=== PATIENT | male | born 1955 | race Caucasian/White ===

== ENCOUNTER 2017-11-24 10:17 | Day surgery (SDC) | payer BC ==
[2017-11-17 18:11] VITALS: BMI 23.0
[~2017-11-24 10:17] MED LIST: DEXAMETHASONE SOD PHOSPHATE 10 MG/ML 1 ML VIAL IV ONE; DEXAMETHASONE SOD PHOSPHATE 4 MG/ML 1 ML VIAL IV ONE; FAMOTIDINE 20 MG/2 ML VIAL IV ONE; LACTATED RINGERS 1,000 ML IV SCH; LIDOCAINE 1% 20 ML VIAL (10MG/ML) FOR IV START INTRADERMA PRN; MIDAZOLAM 2 MG/2 ML VIAL IV PRN; ONDANSETRON 4 MG/2 ML VIAL IVP ONE; fentaNYL (PF) 50 MCG/ML 2 ML AMP IV PRN
[2017-11-24] MEDS ORDERED: PROPOFOL 10 MG/ML 20 ML VIAL IV ONE (12:20)
[2017-11-24] MEDS ORDERED: fentaNYL (PF) 50 MCG/ML 2 ML AMP ONE (12:20)
[2017-11-24] MEDS ORDERED: SUCCINYLCHOLINE CHLORIDE 100 MG/5 ML SYR IV ONE (12:20)
[2017-11-24] MEDS ORDERED: MIDAZOLAM 2 MG/2 ML VIAL ONE (12:20)
[2017-11-24] MEDS ORDERED: LIDOCAINE 1% INJ 10MG/ML (20 ML MDV) ONE (12:20)
--- NOTE | 2017-11-24 13:04 | P.OP ---
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 He was noted to have bilateral anterior true vocal cord lesions with flexible laryngoscopy Operative Findings: Patient has an erythematous exophytic lesion of the anterior commissure. Biopsies were taken of both true vocal cords however this appeared to be a confluent lesion. Total size approximately 5-6 mm. The mucosa of the anterior commissure was left intact as much as possible. Description of Procedure: The patient was brought in the operative suite and placed supine position. Patient underwent induction of general anesthesia with oral endotracheal intubation without difficulty. The patient was prepped and draped in usual aseptic fashion. Tooth guard was placed. Direct endoscopy was performed with systematic evaluation of the base of tongue vallecula both piriform sinuses post cricoid area and endolarynx. With the larynx in good visualization the laryngoscope was placed in suspension and the Zeiss microscope was brought into position to visualize the vocal cords through the laryngoscope. With the lesion in good visualization multiple biopsies were taken with microcup forceps of the right and left anterior true vocal cords. Biopsies were taken of the anterior commissure anteriorly posterior also with sidedness placed in the specimens of the right and left true vocal cords with the mucosa of the anterior commissure left intact as much as possible. Good hemostasis was noted. The laryngoscope and tooth guard removed. The patient was allowed to emerge from general anesthesia having tolerated procedure well was excised in the operating suite and transferred postoperative recovery area in satisfactory condition.
[2017-11-24 13:22] VITALS: RESP 16; TEMP 98
[2017-11-24 14:09] VITALS: BP 162/88; PULSE 66
== END 2017-11-24 14:15 | disposition home or self-care (01) ==
LOC: OR 10:17
PROVIDERS: ATTEND Otolaryngology
DX: D02.0 Carcinoma in situ of larynx (principal); J43.9 Emphysema, unspecified; Z79.51 Long term (current) use of inhaled steroids; Z79.899 Other long term (current) drug therapy; Z88.0 Allergy status to penicillin; Z88.2 Allergy status to sulfonamides; Z87.891 Personal history of nicotine dependence
CPT/HCPCS: 88305; 31536; J2250; J1100; J2405; J2001; J3010; J0330; J2704

== ENCOUNTER 2017-12-04 21:31 | Inpatient (IN) | payer BC ==
[2017-12-04] MEDS ORDERED: HYDROcodone/APAP 5-325MG 1 EACH TAB PO STA (21:42)
--- NOTE | 2017-12-04 21:56 | ED ---
Fall HPI - General Chief Complaint: Fall Stated Complaint: Fall Time Seen by Provider: 12/04/17 21:34 Source: patient, EMS Mode of arrival: EMS - History of Present Illness Initial Comments: Patient is a 62-year-old male presenting for right hip and right leg pain. 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 He states that his wallet was in his back pocket and it is fairly large which caused him to have pain in the right hip and right leg and he has been unable to move it since then. However, he denies any numbness or pain below the mid thigh. He also denies striking his head, back pain, neck pain, taking blood thinners. - Related Data Home Medications Medication Instructions Recorded Confirmed Albuterol Inhaler [Ventolin Hfa 1 - 2 puff INHALATION RT-Q6H PRN 11/17/17 Inhaler] Budesonide/Formoterol Fumarate 2 puff INHALATION BID 11/17/17 11/24/17 [Symbicort 160-4.5 Mcg Inhaler] Multivitamins, Thera [Multivitamin 1 tab PO DAILY 11/17/17 11/24/17 (formulary)] Vitamin B Complex 1 each PO DAILY 11/17/17 11/24/17 Allergies Allergy/AdvReac Type Severity Reaction Status Date / Time Penicillins Allergy Unknown Verified 11/24/17 10:50 Sulfa (Sulfonamide Allergy Unknown Verified 11/24/17 10:50 Antibiotics) Review of Systems ROS Statement: Those systems with pertinent positive or pertinent negative responses have been documented in the HPI. Constitutional: Negative for chills, fatigue and fever. HENT: Negative for congestion. Respiratory: Negative for chest tightness, shortness of breath and wheezing. Negative for cough Cardiovascular: Negative for chest pain and palpitations. Gastrointestinal: Negative for abdominal pain. Negative for abdominal distention , diarrhea, nausea and vomiting. Genitourinary: Negative for dysuria. Musculoskeletal: Negative for back pain, neck pain and neck stiffness. Positive for right hip pain and right thigh pain Skin: Negative for color change. Neurological: Negative for dizziness, speech difficulty, weakness and light- headedness. Psychiatric/Behavioral: Negative for agitation and confusion. Negative for anxiety ROS Other: All systems not noted in ROS Statement are negative. Past Medical History Past Medical History: COPD History of Any Multi-Drug Resistant Organisms: None Reported Additional Past Surgical History / Comment(s): lump removed from throat "benign " Past Anesthesia/Blood Transfusion Reactions: No Reported Reaction Past Psychological History: No Psychological Hx Reported Smoking Status: Former smoker Past Alcohol Use History: Daily Past Drug Use History: None Reported - Past Family History Mother Family Medical History: No Reported History General Exam - General Exam Comments Initial Comments: Constitutional: Pt is oriented to person, place, and time. Pt appears well- developed and well-nourished. No distress. HENT: Head: Normocephalic and atraumatic. Eyes: EOM are normal. Pupils 3 mm reactive bilaterally Neck: Normal range of motion. Neck supple. Cardiovascular: Normal rate, regular rhythm, S1 normal, S2 normal and normal heart sounds. Exam reveals no gallop and no friction rub. No murmur heard. Pulmonary/Chest: Effort normal and breath sounds normal. No tachypnea and no bradypnea. No respiratory distress. No wheezes or rales noted. Abdominal: Soft. Bowel sounds are normal. Pt exhibits no shifting dullness, no distension, no pulsatile liver, no fluid wave, no abdominal bruit and no ascites. There is no tenderness. There is no rigidity, no rebound, no guarding, no tenderness at McBurney's point and negative Johnson's sign. Musculoskeletal: Decreased range of motion of the right hip and right leg. There is mild tenderness on the greater trochanter of the right hip. There is no thigh tenderness. Patient has full range of motion of the right knee and ankle area there is no tenderness to C-spine, T-spine, L-spine Neurological: Pt is alert and oriented to person, place, and time. No cranial nerve deficit. Skin: Skin is warm and dry. No rash noted. Pt is not diaphoretic. No erythema. No pallor. Psychiatric: Pt has a normal mood and affect. Pt behavior is normal. Thought content normal. Course Vital Signs 12/04/17 12/04/17 12/04/17 21:36 22:40 22:49 Temperature 98.3 F Pulse Rate 92 89 73 Respiratory 16 18 20 Rate Blood Pressure 125/80 130/69 124/73 O2 Sat by Pulse 93 L 97 99 Oximetry Medical Decision Making - Medical Decision Making X-ray showed an acute intertrochanteric fracture of the right femur with mild [place] deformity. Proximal left femur is intact. Case is discussed with Dr. Johnson it was recommended that the patient be admitted under medical service as he does have a history of COPD. Because patient had a ground-level fall with isolated hip fracture, patient can be admitted to medicine per trauma algorithm.Explained all labs and diagnostic test results and that we will admit patient to hospital. Pt is agreeable to plan and case has been discussed with Dr. Chi and they agree to accept the pt. patient is also been made nothing by mouth at the request orthopedics. - Lab Data Result diagrams: 12/04/17 22:38 12/04/17 22:38 Lab Results 12/04/17 12/04/17 12/04/17 Range/Units 22:38 22:38 22:38 WBC 12.9 H (3.8-10.6) k/uL RBC 4.33 (4.30-5.90) m/uL Hgb 14.5 (13.0-17.5) gm/dL Hct 44.6 (39.0-53.0) % MCV 103.1 H (80.0-100.0) fL MCH 33.6 (25.0-35.0) pg MCHC 32.6 (31.0-37.0) g/dL RDW 12.8 (11.5-15.5) % Plt Count 309 (150-450) k/uL Neutrophils % 79 % Lymphocytes % 13 % Monocytes % 5 % Eosinophils % 1 % Basophils % 1 % Neutrophils # 10.2 H (1.3-7.7) k/uL Lymphocytes # 1.7 (1.0-4.8) k/uL Monocytes # 0.7 (0-1.0) k/uL Eosinophils # 0.1 (0-0.7) k/uL Basophils # 0.1 (0-0.2) k/uL Macrocytosis Slight PT (9.0-12.0) sec INR (<1.2) APTT (22.0-30.0) sec Sodium 138 (137-145) mmol/L Potassium 5.2 H (3.5-5.1) mmol/L Chloride 107 (98-107) mmol/L Carbon Dioxide 21 L (22-30) mmol/L Anion Gap 10 mmol/L BUN 10 (9-20) mg/dL Creatinine 0.70 (0.66-1.25) mg/dL Est GFR (CKD-EPI)AfAm >90 (>60 ml/min/1.73 sqM) Est GFR (CKD-EPI)NonAf >90 (>60 ml/min/1.73 sqM) Glucose 100 H (74-99) mg/dL Calcium 8.6 (8.4-10.2) mg/dL Serum Alcohol 127 mg/dL Blood Type A Negative Blood Type Recheck CABO Indicated Antibody Screen NEGATIVE Spec Expiration Date 12/07/2017 - 233712/04/17 Range/Units 22:38 WBC (3.8-10.6) k/uL RBC (4.30-5.90) m/uL Hgb (13.0-17.5) gm/dL Hct (39.0-53.0) % MCV (80.0-100.0) fL MCH (25.0-35.0) pg MCHC (31.0-37.0) g/dL RDW (11.5-15.5) % Plt Count (150-450) k/uL Neutrophils % % Lymphocytes % % Monocytes % % Eosinophils % % Basophils % % Neutrophils # (1.3-7.7) k/uL Lymphocytes # (1.0-4.8) k/uL Monocytes # (0-1.0) k/uL Eosinophils # (0-0.7) k/uL Basophils # (0-0.2) k/uL Macrocytosis PT 10.6 (9.0-12.0) sec INR 1.1 (<1.2) APTT 23.9 (22.0-30.0) sec Sodium (137-145) mmol/L Potassium (3.5-5.1) mmol/L Chloride (98-107) mmol/L Carbon Dioxide (22-30) mmol/L Anion Gap mmol/L BUN (9-20) mg/dL Creatinine (0.66-1.25) mg/dL Est GFR (CKD-EPI)AfAm (>60 ml/min/1.73 sqM) Est GFR (CKD-EPI)NonAf (>60 ml/min/1.73 sqM) Glucose (74-99) mg/dL Calcium (8.4-10.2) mg/dL Serum Alcohol mg/dL Blood Type Blood Type Recheck Antibody Screen Spec Expiration Date Disposition Clinical Impression: Closed right hip fracture Disposition: ADMITTED IP TO THIS HOSP Condition: Good Instructions: Fall Prevention for Older Adults (ED) Referrals: Alen Tracy MD [Primary Care Provider] - 1-2 days Decision to Admit Reason: Admit from EC Decision Date: 12/05/17 Decision Time: 00:10
--- NOTE | 2017-12-04 22:17 | XR ---
EXAMINATION TYPE: XR femur RT DATE OF EXAM: 12/04/2017 COMPARISON: NONE HISTORY: Hip pain TECHNIQUE: 5 views FINDINGS: There is acute intertrochanteric fracture of the right femur with coxa vera deformity. Ther e is no dislocation. The knee joint is intact. IMPRESSION: Acute intertrochanteric fracture right femur.
--- NOTE | 2017-12-04 22:18 | XR ---
EXAMINATION TYPE: XR pelvis AP view DATE OF EXAM: 12/04/2017 COMPARISON: NONE HISTORY: Right hip pain TECHNIQUE: Single view FINDINGS: Pelvic ring is intact. There is an acute intertrochanteric fracture right femur with mild c oxa vera deformity. Proximal left femur is intact. Sacroiliac joints appear normal. IMPRESSION: Acute intertrochanteric fracture right femur.
[2017-12-04] MEDS ORDERED: MORPHINE SULFATE 4 MG/ML SYRINGE IVP STA (22:25)
[2017-12-04 22:47] LABS: Basophils # (A) 0.1 k/uL (0-0.2); Basophils % (A) 1 %; Eosinophils # (A) 0.1 k/uL (0-0.7); Eosinophils % (A) 1 %; HCT 44.6 % (39.0-53.0); HGB 14.5 gm/dL (13.0-17.5); Lymphocytes # (A) 1.7 k/uL (1.0-4.8); Lymphocytes % (A) 13 %; MCH 33.6 pg (25.0-35.0); MCHC 32.6 g/dL (31.0-37.0); MCV 103.1 fL (80.0-100.0); Macrocytosis Slight; Mean Platelet Volume 6.9; Monocytes # (A) 0.7 k/uL (0-1.0); Monocytes % (A) 5 %; Neutrophils # (A) 10.2 k/uL (1.3-7.7); Neutrophils % (A) 79 %; Platelet Count 309 k/uL (150-450); RBC 4.33 m/uL (4.30-5.90); RDW 12.8 % (11.5-15.5); WBC 12.9 k/uL (3.8-10.6)
[2017-12-04 22:54] LABS: INR 1.1 (<1.2); Partial Thromboplastin Time 23.9 sec (22.0-30.0); Prothrombin Time 10.6 sec (9.0-12.0)
[2017-12-04 22:56] LABS: Anion Gap 10 mmol/L; Blood Urea Nitrogen 10 mg/dL (9-20); Calcium 8.6 mg/dL (8.4-10.2); Carbon Dioxide 21 mmol/L (22-30); Chloride 107 mmol/L (98-107); Glucose 100 mg/dL (74-99); Sodium 138 mmol/L (137-145)
[2017-12-04 23:29] LABS: Alcohol 127 mg/dL; Potassium 5.2 mmol/L (3.5-5.1)
[2017-12-04] MEDS ORDERED: HYDROmorphone 0.5 MG/0.5 ML SYRINGE IVP STA (23:34)
[2017-12-05] MEDS ORDERED: NALOXONE 0.4 MG/ML 1 ML VIAL IV PRN (00:15)
[2017-12-05] MEDS ORDERED: HYDROmorphone 0.5 MG/0.5 ML SYRINGE IVP PRN (00:15)
[2017-12-05 01:02] VITALS: BMI 23.0
[2017-12-05] MEDS: SODIUM CHLORIDE 0.9% 1,000 ML IV SCH ×2 (01:28→01:53)
[2017-12-05] MEDS: HYDROmorphone 1 MG/ML 1 ML SYRINGE IVP PRN ×6 (06:19→23:36)
--- NOTE | 2017-12-05 08:55 | P.CNOR ---
History of Present Illness - [facility] Consult date: 12/05/17 Requesting physician: Tera Johnson Consult reason: fracture History of present illness: Patient is a 62-year-old male seen at bedside male this morning. He presented to the emergency department last evening after suffering a fall resulting in right hip pain. 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 He states that his wallet was in his back pocket and it is fairly large which caused him to have pain in the right hip and right leg and he has been unable to move it since then. Radiologic studies showed a right intertrochanteric femur fracture. He is admitted to internal medicine. He continues to have right hip pain as expected. However, he denies any numbness or pain below the mid thigh. He also denies striking his head, back pain, neck pain, taking blood thinners. 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 Review of systems is negative for fever, chills, chest pain, shortness of breath, nausea, vomiting, dizziness, headaches, slurred speech or other. Review of Systems All systems: negative Constitutional: Denies chills, Denies fever Eyes: denies blurred vision, denies pain Ears, nose, mouth and throat: Denies headache, Denies sore throat Cardiovascular: Denies chest pain, Denies shortness of breath Respiratory: Denies cough Gastrointestinal: Denies abdominal pain, Denies diarrhea, Denies nausea, Denies vomiting Musculoskeletal: Denies myalgias Integumentary: Denies pruritus, Denies rash Neurological: Denies numbness, Denies weakness Psychiatric: Denies anxiety, Denies depression Endocrine: Denies fatigue, Denies weight change Past Medical History Past Medical History: COPD History of Any Multi-Drug Resistant Organisms: None Reported Additional Past Surgical History / Comment(s): lump removed from throat "benign " Past Anesthesia/Blood Transfusion Reactions: No Reported Reaction Past Psychological History: No Psychological Hx Reported Smoking Status: Former smoker Past Alcohol Use History: Daily Additional Past Alcohol Use History / Comment(s): smoked since age 11, 10cig/d quit smoking 3 weeks ago Past Drug Use History: None Reported - Past Family History Mother Family Medical History: No Reported History Medications and Allergies Home Medications Medication Instructions Recorded Confirmed Type Albuterol Inhaler [Ventolin Hfa 1 - 2 puff INHALATION RT-Q6H PRN 11/17/17 History Inhaler] Budesonide/Formoterol Fumarate 2 puff INHALATION BID 11/17/17 11/24/17 History [Symbicort 160-4.5 Mcg Inhaler] Multivitamins, Thera [Multivitamin 1 tab PO DAILY 11/17/17 11/24/17 History (formulary)] Vitamin B Complex 1 each PO DAILY 11/17/17 11/24/17 History Allergies Allergy/AdvReac Type Severity Reaction Status Date / Time Penicillins Allergy Unknown Verified 11/24/17 10:50 Sulfa (Sulfonamide Allergy Unknown Verified 11/24/17 10:50 Antibiotics) Physical Examination Inspection of the right lower extremity shows no wounds, lacerations, erythema or ecchymoses. It is shortened and externally rotated. Range of motion of the hip is not tested due to the fracture. Neurovascular status is grossly intact with motor and sensation throughout the right lower extremity. Calf is soft and nontender. 2+ dorsalis pedis pulse and less than 2 second capillary refill is present. Results X-rays of the pelvis and right femur show an intertrochanteric right femur fracture. - Labs Labs: Abnormal Lab Results - Last 24 Hours (Table) 12/04/17 12/04/17 Range/Units 22:38 22:38 WBC 12.9 H (3.8-10.6) k/uL MCV 103.1 H (80.0-100.0) fL Neutrophils # 10.2 H (1.3-7.7) k/uL Potassium 5.2 H (3.5-5.1) mmol/L Carbon Dioxide 21 L (22-30) mmol/L Glucose 100 H (74-99) mg/dL H & H 12/04/17 Range/Units 22:38 Hgb 14.5 (13.0-17.5) gm/dL Hct 44.6 (39.0-53.0) % Coagulation 12/04/17 Range/Units 22:38 INR 1.1 (<1.2) Result Diagrams: 12/04/17 22:38 12/04/17 22:38 Assessment and Plan (1) Closed right hip fracture Narrative/Plan: Patient will require surgical fixation of his right intertrochanteric hip fracture with IT/gamma nail. He has been nothing by mouth. He appears to be medically stable but we'll request internal medicine surgical clearance. Plan is to proceed with surgical intervention either today or tomorrow. Current Visit: Yes Status: Acute Priority: Medium Code(s): S72.001A - FRACTURE OF UNSP PART OF NECK OF RIGHT FEMUR, INIT SNOMED Code(s): 020100425 Time with Patient: Less than 30
--- NOTE | 2017-12-05 09:28 | XR ---
EXAMINATION TYPE: XR chest 1V portable DATE OF EXAM: 12/05/2017 Comparison: None Clinical History: 62-year-old male medical clearance Findings: Heart mildly enlarged. Aorta within normal limits. Mild diffuse interstitial prominence has a chronic appearance. Subtle nodularity peripheral right midlung projecting at the fifth anterior rib. No cons olidation or pleural effusion. Focal hazy peripheral midlung densities related to overlying soft tiss ue. Impression: 1. Mild cardiomegaly. 2. Chronic changes, possible underlying COPD. No acute process seen. 3. Questionable subtle nodularity peripheral right midlung. If history of prior thoracic wall injury, this could represent healed rib fracture deformity. A nonemergent follow-up CT can assess for underl orly pulmonary nodule.
--- NOTE | 2017-12-05 19:53 | P.HPIM ---
History of Present Illness H&P Date: 12/05/17 Chief Complaint: fell backward Presenting complaint: Fell backwards History of presenting complaint: This is a pleasant 62-year-old patient who follows with Dr. garrison out of [place]. Patient has a diagnosis of COPD from smoking. 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 When he got up he couldn't really put weight on the leg. That is his left leg. Patient was localized to the left hip.. Patient presented to the ER and was found to have a left femur ID fracture. Patient active otherwise. Denies any cardiac history. Patient to be long-standing smoker stopped smoking over a week to 10 days ago. 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 Salvador Silverman. Patient due for a CAT scan next week. Of the neck. Patient denies any cardiac history. No chest pain. No prior cardiac intervention. Patient occasionally gets some wheezing. Minimal cough. Patient was due to go to surgery this afternoon at is being postponed for tomorrow. Review of systems: GEN.: Tired EYES: None HEENT: None NECK: None RESPIRATORY: Some shortness of breath and wheezing CARDIOVASCULAR: None GASTROINTESTINAL: None GENITOURINARY: None MUSCULOSKELETAL: Pain in the joints especially left hip LYMPHATICS: None HEMATOLOGICAL: None PSYCHIATRY: None NEUROLOGICAL: None Social history: Lives with Buddy. He is a office machine technician. Averaged about half a pack a day over 50 years stopped about a week ago. No significant alcohol intake. Family history: Reviewed, known coronary presentation Physical examination: VITAL SIGNS: 98.3, 92, 16, 125-80, 93% room air-upon presentation GENERAL: Average built, laying in bed, comfortable. EYES: Pupils equal. Conjunctiva normal. HEENT: External appearance of nose and ears normal, oral cavity grossly normal. NECK: JVD not raised; masses not palpable. HEART: First and second heart sounds are normal; no edema. LUNGS:[ Respiratory rate normal; decreased breath sounds and mild wheezing. ABDOMEN: Soft, nontender, liver spleen not palpable, no masses palpable. LYMPHATICS: No lymph nodes palpable in the axilla and neck. PSYCH: Alert and oriented x3; mood and affect normal. NEUROLOGICAL: Cranial nerves grossly intact; no facial asymmetry, power and sensation grossly intact. MUSCULOSKELETAL: Limited range of motion of the left hip Investigations: Reviewed in the context of the assessment and plan White count 12.9, hemoglobin 14.5, potassium 5.2, BUN 10, creatinine 0.70 EKG-tracing interpreted shows sinus tachycardia -Chest x-ray-felt interpreted shows hyperinflation Assessment: -Left femur ID fracture secondary to fall -Chronic COPD, and a smoker -Laryngeal cancer recently diagnosed being followed by Dr. Salvador Silverman -Possible lung nodule to be followed as an outpatient -Leukocytosis probably from stress -Acute alcohol intake serum level was 127 upon presentation. It may be noted that patient MCV is high Plan: Pain medications for the left hip fracture. Lovenox for DVT prophylaxis. Patient's home bronchodilators are to be resumed. We'll also put patient on DuoNeb. Patient does have any cardiac history and has good good exercise tolerance. No need for any further cardiac workup. Patient medically stable to proceed for surgery. This was discussed with nurse and the patient. Orthopedic was consulted for the same. Past Medical History Past Medical History: COPD History of Any Multi-Drug Resistant Organisms: None Reported Additional Past Surgical History / Comment(s): lump removed from throat "benign " Past Anesthesia/Blood Transfusion Reactions: No Reported Reaction Past Psychological History: No Psychological Hx Reported Smoking Status: Former smoker Past Alcohol Use History: Daily Additional Past Alcohol Use History / Comment(s): smoked since age 11, 10cig/d quit smoking 3 weeks ago Past Drug Use History: None Reported - Past Family History Mother Family Medical History: No Reported History Medications and Allergies Home Medications Medication Instructions Recorded Confirmed Type Albuterol Inhaler [Ventolin Hfa 1 - 2 puff INHALATION RT-Q6H PRN 11/17/17 History Inhaler] Budesonide/Formoterol Fumarate 2 puff INHALATION RT-BID 11/17/17 12/05/17 History [Symbicort 160-4.5 Mcg Inhaler] Multivitamins, Thera [Multivitamin 1 tab PO DAILY 11/17/17 12/05/17 History (formulary)] Vitamin B Complex 1 cap PO DAILY 11/17/17 12/05/17 History Allergies Allergy/AdvReac Type Severity Reaction Status Date / Time Penicillins Allergy Unknown Verified 12/05/17 13:34 Sulfa (Sulfonamide Allergy Unknown Verified 12/05/17 13:34 Antibiotics) Results CBC & Chem 7: 12/04/17 22:38 12/04/17 22:38 Thrombosis Risk Factor Assmnt - Choose All That Apply Any of the Below Risk Factors Present?: Yes Each Factor Represents 1 point: Abnormal pulmonary function (COPD) Other Risk Factors: Yes Each Risk Factor Represents 2 Points: Age 61-74 years, Patient confined to bed Other congenital or acquired thrombophilia - If yes, enter type in comment: No Thrombosis Risk Factor Assessment Total Risk Factor Score: 5 Thrombosis Risk Factor Assessment Level: High Risk
[2017-12-05] MEDS: ENOXAPARIN 40 MG/0.4 ML SYRINGE SQ SCH (19:56)
[2017-12-05] MEDS: SYMBICORT 160-4.5 MCG INHALER INHALATION SCH (20:43)
[2017-12-05] MEDS: IPRATROPIUM-ALBUTEROL 3 ML NEB INHALATION SCH (20:43)
[2017-12-06] MEDS: HYDROmorphone 1 MG/ML 1 ML SYRINGE IVP PRN ×3 (03:39→16:50)
[2017-12-06] MEDS: SODIUM CHLORIDE 0.9% 1,000 ML IV SCH ×2 (03:49→21:31)
[2017-12-06] MEDS: IPRATROPIUM-ALBUTEROL 3 ML NEB INHALATION SCH ×4 (07:40→19:54)
[2017-12-06] MEDS: SYMBICORT 160-4.5 MCG INHALER INHALATION SCH ×2 (07:41→19:54)
[2017-12-06] MEDS ORDERED: HYDROmorphone 1 MG/ML 1 ML SYRINGE IVP PRN ×3 (08:07)
[2017-12-06] MEDS ORDERED: HYDROcodone/APAP 7.5-325MG 1 EACH TAB PO PRN (08:07)
[2017-12-06] MEDS ORDERED: traMADol 50 MG TAB PO PRN (08:07)
[2017-12-06] MEDS ORDERED: DIAZEPAM 5 MG TAB PO PRN (08:07)
[2017-12-06] MEDS ORDERED: TEMAZEPAM 15 MG CAP PO PRN (08:07)
[2017-12-06] MEDS ORDERED: ONDANSETRON 4 MG/2 ML VIAL IVP PRN (08:07)
[2017-12-06] MEDS ORDERED: MAGNESIUM HYDROXIDE 2,400 MG/10 ML CUP PO PRN (08:07)
[2017-12-06] MEDS ORDERED: hydrOXYzine PAMOATE 25 MG CAP PO PRN (08:07)
[2017-12-06] MEDS ORDERED: LACTATED RINGERS 1,000 ML IV ONE ×2 (08:17)
[2017-12-06] MEDS ORDERED: IV FLUID CONTINUATION 100 ML IV ONE (08:17)
[2017-12-06] MEDS ORDERED: SODIUM CHLORIDE 0.9% 50 ML with ceFAZolin 2,000 MG IV ONE ×2 (08:35)
[2017-12-06] MEDS ORDERED: CLINDAMYCIN 600 MG in SODIUM CHLORIDE 0.9% 1,000 ML IRRIGATION ONE (08:47)
--- NOTE | 2017-12-06 09:24 | XR ---
EXAMINATION TYPE: XR Hip Complete RT, FL guidance operating room DATE OF EXAM: 12/06/2017 COMPARISON: NONE HISTORY: 62-year-old male right IJ nail, hip fixation after fracture. FINDINGS: 2 images showing antegrade intramedullary nailing and hip screw fixation of the right IJ fracture. FLUOROSCOPY Fluoroscopy time of 22 seconds was used during right hip IT nail. 2 image/s document/s the procedure . IMPRESSION: Intraoperative fluoroscopy during right hip IT nailing.
[2017-12-06] MEDS: MEPERIDINE 50 MG/ML SYRINGE IVP ONE ×2 (09:44→09:55)
--- NOTE | 2017-12-06 09:56 | OP ---
OPERATIVE REPORT DATE OF PROCEDURE: December 06, 2017. PREOPERATIVE DIAGNOSIS: Right 2 part minimally displaced intertrochanteric hip fracture. POSTOPERATIVE DIAGNOSIS: Right 2 part minimally displaced intertrochanteric hip fracture. PROCEDURE PERFORMED: Right intramedullary hip screw fixation for right intertrochanteric hip fracture. SURGEON: Tera Johnson M.D. DEVULCANIZER LOADER: Jameson PÉREZ. ANESTHESIA: Spinal sedation. ESTIMATED BLOOD LOSS: 50 mL. TOURNIQUET: None. DRAINS: None. COMPLICATIONS: None apparent. DISPOSITION: Postanesthesia care unit. INDICATIONS: Zaid is a very pleasant 62-year-old male who fell onto his right hip on December 05. Workup including x-rays revealed a nondisplaced intertrochanteric hip fracture. He is an independent ambulator. He was admitted to the medical service for his multiple medical comorbidities. He was cleared by the medical service for surgery and he would like to proceed with operative intervention. The risks of procedure were discussed with Zaid in detail. These risks include, but are not limited to risk of infection, nerve damage, bleeding, pain, and a small risk of deep vein thrombosis which could lead to fatal pulmonary embolism. Further risks include lack of healing of the fracture and/or failure of the hardware both of which could necessitate further surgery for his hip. All of his questions with regards to the procedure were answered to his satisfaction. Appropriate informed consent was obtained. DESCRIPTION OF THE PROCEDURE: Patient identified in preoperative holding area. Surgical site was marked by both the patient and myself. He was given 2 g of Ancef IV for prophylactic purposes. He was then transported to the operative suite. He was placed supine on the operative table. A spinal anesthetic was then administered and dosed per the anesthesia without apparent complication. Patient was then transferred to the fracture table. The fracture was then reduced with traction and rotation. This anatomic reduction was confirmed with fluoroscopic imaging. The patient's right lower extremity was then prepped and draped in usual sterile fashion. Standard surgical pause undertaken to ensure that we were operating the correct site and that appropriate preoperative antibiotics were given. All staff in the room in agreement we proceeded. The greater trochanter was identified via fluoroscopy. A small 2 to 3 cm incisions extending from the tip of the greater trochanter proximally in line with the femur was made with the 15 blade scalpel. Dissection carried down sharply to the tensor fascia. The tensor fascia was incised in line with the incision. The threaded guide pin was then placed on the medial aspect of the greater trochanter and then advanced down the center of the femoral shaft. This placement was confirmed with fluoroscopic imaging. I then used the starter reamer to gain access to the proximal femur. The threaded guide pin was removed and a ball-tipped guidewire was then inserted down the shaft of the femur. I then reamed the femoral canal, started with a 9 mm reamer and incrementally increased up to a 13 mm reamer to accept the nail. I then had the regional sales representative open a 125 degree by 11 mm x 180 mm Galindo Gamma nail. This was assembled on the back table. This was then inserted over the ball-tipped guidewire. The ball-tipped guidewire was removed. I then proceeded with placement of the hip screw. A second small stab incision was made on the lateral thigh. The threaded guide pin was then advanced into the center of the femoral head on both AP and lateral views. This was confirmed with fluoroscopic imaging. The tip-apex distance was appropriate. I then measured for length. The reamer was set at 85 mm. I then over-reamed the threaded guide pin under fluoroscopic imaging. I then had the regional sales representative open a 10.5 mm x 85 mm partially threaded cannulated hip screw. This was inserted over the threaded guide pin deep into the center of the femoral head. The bone quality was very good and the purchase of the screw was excellent. The tip-apex distance was appropriate. I then compressed the fracture and then placed a set screw. The set screw was backed off 1/4 turn to allow for compression at the fracture site. I then proceeded with placement of the distal interlocking screw. A 5 mm x 32.5 mm distal locking screw was then placed through the static hole in the nail. Again this was confirmed with fluoroscopic imaging. At this point in time no further work was deemed necessary. Final AP and lateral fluoroscopic images were taken. The hip screw was placed deep in the center of the femoral head. The tip-apex distance was appropriate. The distal interlocking screw was through the nail and was of appropriate length. At this point, the inserting guide was removed. The wounds were thoroughly irrigated with sterile saline solution with antibiotic added. The tensor fascia was closed with 0 Vicryl interrupted suture. Subcutaneous tissue closed with 2-0 Vicryl suture and the skin was closed with stainless steel david. Sterile compressive dressings were then applied. All sponge and needle counts were deemed correct prior to closure. The patient tolerated the procedure without apparent complication. He was transferred recovery room in stable condition. CHARLEEN / TANMAY: [id number] /
[2017-12-06] MEDS: ASPIRIN 325 MG TAB PO SCH ×2 (10:14→20:40)
[2017-12-06] MEDS: ENOXAPARIN 40 MG/0.4 ML SYRINGE SQ SCH (10:23)
[2017-12-06] MEDS: MULTIVITAMINS, THERA 1 EACH TAB PO SCH (11:20)
[2017-12-06] MEDS: ceFAZolin IN SWFI 2 GM/20 ML SYRINGE IVP SCH ×2 (15:12→23:14)
[2017-12-06] MEDS: HYDROcodone/APAP 7.5-325MG 1 EACH TAB PO PRN ×2 (15:12→20:39)
[2017-12-06] MEDS: SENNOSIDES-DOCUSATE SODIUM 1 EACH TAB PO SCH (20:40)
[2017-12-07] MEDS: HYDROcodone/APAP 7.5-325MG 1 EACH TAB PO PRN (05:14)
--- NOTE | 2017-12-07 05:26 | PN ---
PROGRESS NOTE DATE OF SERVICE: 12/06/2017 PRESENTING COMPLAINT: Right hip fracture. INTERVAL HISTORY: This is a patient with right hip fracture followed by intramedullary screw placement this morning. Pain is better controlled. Patient has also got COPD. Breathing is better. Did tolerate a diet. No nausea or vomiting. REVIEW OF SYSTEMS: Done for constitutional, cardiovascular, GI, pulmonary; relevant findings as above. CURRENT MEDICATIONS: Current medications are reviewed that include aspirin for DVT prophylaxis, DuoNeb. PHYSICAL EXAMINATION: On examination, temperature 97.6, pulse 99, respiration 16, blood pressure 113/71, pulse ox 97% on room air. GENERAL APPEARANCE: Sitting up, awake. EYES: Pupils equal. Conjunctivae normal. HENT: External appearance of nose and ears normal. Oral cavity normal. NECK: JVD not raised. Mass not palpable. RESPIRATORY: Effort normal. LUNGS: Decreased breath sounds. CARDIOVASCULAR: First and second sounds normal. No edema. ABDOMEN: Soft, nontender. Liver and spleen not palpable. PSYCHIATRY: Alert and oriented x3. Mood and affect normal. INVESTIGATIONS: No blood work from today. ASSESSMENT: 1. Right femur intertrochanteric fracture secondary to fall followed by intramedullary screw. 2. Chronic obstructive pulmonary disease in a current smoker. 3. Laryngeal cancer recently diagnosed, being followed by Dr. Damian Eastman. 4. Lung nodule to be followed as an outpatient. 5. Chronic alcohol intake. The patient drinks anywhere from 3 to 5 beers a day a day. PLAN: Continue current medication and treatment plan. Care was discussed with the patient. Will follow. MMODL / IJN: [id number] /
[2017-12-07 08:03] LABS: Basophils % (A) 0 %; Eosinophils # (A) 0.1 k/uL (0-0.7); Eosinophils % (A) 1 %; HCT 40.9 % (39.0-53.0); HGB 13.6 gm/dL (13.0-17.5); Lymphocytes # (A) 1.9 k/uL (1.0-4.8); Lymphocytes % (A) 16 %; MCHC 33.2 g/dL (31.0-37.0); MCV 102.7 fL (80.0-100.0); Macrocytosis Slight; Mean Platelet Volume 7.4; Monocytes % (A) 9 %; Neutrophils # (A) 8.2 k/uL (1.3-7.7); Neutrophils % (A) 71 %; Platelet Count 261 k/uL (150-450); RBC 3.98 m/uL (4.30-5.90); RDW 12.7 % (11.5-15.5); WBC 11.5 k/uL (3.8-10.6)
[2017-12-07] MEDS: ASPIRIN 325 MG TAB PO SCH ×2 (08:09→20:10)
[2017-12-07] MEDS: SODIUM CHLORIDE 0.9% 1,000 ML IV SCH ×2 (08:09→20:09)
[2017-12-07] MEDS: ENOXAPARIN 40 MG/0.4 ML SYRINGE SQ SCH (08:09)
[2017-12-07] MEDS: HYDROmorphone 1 MG/ML 1 ML SYRINGE IVP PRN (08:10)
[2017-12-07] MEDS: IPRATROPIUM-ALBUTEROL 3 ML NEB INHALATION SCH ×4 (08:46→19:54)
[2017-12-07] MEDS: SYMBICORT 160-4.5 MCG INHALER INHALATION SCH ×2 (08:46→19:55)
[2017-12-07] MEDS ORDERED: HYDROcodone/APAP 10-325MG 1 EACH TAB PO PRN (09:11)
--- NOTE | 2017-12-07 09:18 | P.PN ---
Subjective Progress Note Date: 12/07/17 Principal diagnosis: S/P IT nail right hip fracture Patient is seen at bedside this morning. He is postop day #1 from IT nailing of right IT hip fracture. She has pain at the surgical site as expected but denies any new complaints. He denies numbness, tingling or calf pain. Review of systems is negative for fever, chills, chest pain, shortness of breath or other Objective - Vital Signs Vital signs: Vital Signs Temp 98.1 F 12/07/17 07:36 Pulse 88 12/07/17 08:57 Resp 16 12/07/17 07:36 BP 128/86 12/07/17 07:36 Pulse Ox 96 12/07/17 07:36 Intake & Output 12/06/17 12/07/17 12/07/17 18:59 06:59 18:59 Intake Total 1251 1200 Output Total 1050 1200 Balance 201 0 Intake: IV 651 Intake, IV Titration 600 1200 Amount Sodium Chloride 0.9% 1, 600 1200 000 ml @ 75 mls/hr IV . [id number] [facility] Rx#:[id number] Output: Urine 1000 1200 Estimated Blood Loss 50 Other: Voiding Method Indwelling Catheter Indwelling Catheter - Exam Inspection reveals a benign surgical wound. There is no active bleeding or drainage. Neurovascular status is intact throughout the lower extremity with motor and sensation fully intact. Calf is soft and nontender. 2+ dorsalis pedis pulse and less than 2 second cap refill is present - Constitutional General appearance: Present: no acute distress - Psychiatric Psychiatric: Present: A&O x's 3, appropriate affect, intact judgment & insight - Labs CBC & Chem 7: 12/07/17 07:41 12/04/17 22:38 Labs: Abnormal Lab Results - Last 24 Hours (Table) 12/07/17 Range/Units 07:41 WBC 11.5 H (3.8-10.6) k/uL RBC 3.98 L (4.30-5.90) m/uL MCV 102.7 H (80.0-100.0) fL Neutrophils # 8.2 H (1.3-7.7) k/uL Assessment and Plan (1) Closed right hip fracture Narrative/Plan: He will continue with routine postop orthopedic protocol including pain management, PT, wound care, DVT prophylaxis and medical management. Expect that he will transfer to home vs rehab in next few days Current Visit: Yes Status: Acute Priority: Medium Code(s): S72.001A - FRACTURE OF UNSP PART OF NECK OF RIGHT FEMUR, INIT SNOMED Code(s): 135763895 Time with Patient: Less than 30
--- NOTE | 2017-12-07 11:24 | CT ---
EXAMINATION TYPE: CT soft tissue neck w con DATE OF EXAM: 12/07/2017 11:05 AM COMPARISON: HISTORY: Mass in throat CT DLP: 368.3 mGycm Automated exposure control for dose reduction was used. CONTRAST: CT scan of the neck is performed following with IV Contrast, patient injected with 100 mL of Isovue 3 00. Axial images are obtained, coronal and sagittal reformatted images are reviewed. FINDINGS: Emphysematous changes involving the lung apices noted. Thyroid enhances homogeneously. No supraclavicular lymphadenopathy. Vocal cords demonstrated slight asymmetry and more prominent on the right. Trachea is patent. Trachea l calcifications noted. Submandibular gland has a normal appearance. Nasopharynx and oropharynx symmetric. Submandibular and parotid glands have a symmetric appearance. Intracranial structures demonstrate no abnormality. Visualized orbital structures are symmetric. Nasa l septal deviation seen. Sinuses appear to be clear. Base of the tongue is symmetric. Shotty adenopathy seen throughout the soft tissues of the neck. No p athologic adenopathy. Hypertrophic and degenerative changes of the vertebral column. IMPRESSION: 1. Slight asymmetry of the vocal cords on the right being slightly more prominent. This may be techni boby. Correlate with direct visualization if there is concern for mucosal lesion.
[2017-12-07] MEDS: MULTIVITAMINS, THERA 1 EACH TAB PO SCH (11:33)
[2017-12-07] MEDS: HYDROcodone/APAP 10-325MG 1 EACH TAB PO PRN ×3 (11:34→23:48)
[2017-12-07] MEDS: SENNOSIDES-DOCUSATE SODIUM 1 EACH TAB PO SCH (20:10)
[2017-12-08 01:25] VITALS: RESP 16
[2017-12-08] MEDS: HYDROcodone/APAP 10-325MG 1 EACH TAB PO PRN ×2 (05:31→13:34)
--- NOTE | 2017-12-08 05:36 | PN ---
PROGRESS NOTE DATE OF SERVICE: 12/07/17. PRESENTING COMPLAINT: Right hip fracture. INTERVAL HISTORY: Patient with right hip fracture followed by IM screw placement. Started to work with physical therapy. Breathing is getting better. Tolerating a diet. REVIEW OF SYSTEMS: Done for constitutional, cardiovascular, GI, pulmonary, musculoskeletal; relevant findings as above. CURRENT MEDICATIONS: Reviewed. PHYSICAL EXAMINATION: Temperature 98.6, pulse 68, respirations 16, blood pressure 109/71, pulse ox 98 percent on room air. GENERAL APPEARANCE: Sitting up, awake. EYES: Pupils equal. Conjunctivae normal. HEENT: External appearance of nose and ears normal. Oral cavity normal. NECK: JVD not raised. Mass not palpable. RESPIRATORY: Effort, lungs diminished breath sounds. CARDIOVASCULAR: 1st and 2nd sounds normal. No edema. ABDOMEN: Soft, nontender. Liver and spleen not palpable. PSYCHIATRY: Alert and oriented x3. Mood and affect normal. INVESTIGATIONS: White count 11.5, hemoglobin 10.6. ASSESSMENT: 1. Right femur intertrochanteric fracture secondary to fall followed by IM screw. 2. Chronic obstructive pulmonary disease in a current smoker. 3. Laryngeal cancer recently diagnosed, being followed by Dr. Damian Eastman, and did have followup CT scan today. 4. Lung nodule to be followed as an outpatient. 5. Chronic alcohol intake. PLAN: Physical therapy saw the patient today. Looking at disposition. Patient for his laryngeal cancer will follow with Dr. Eastman. MMSUKHDEVL / TANMAY: [id number] /
[2017-12-08 07:22] LABS: Anion Gap 7 mmol/L; Blood Urea Nitrogen 13 mg/dL (9-20); Calcium 8.6 mg/dL (8.4-10.2); Carbon Dioxide 24 mmol/L (22-30); Chloride 105 mmol/L (98-107); Glucose 93 mg/dL (74-99); Potassium 4.6 mmol/L (3.5-5.1); Sodium 136 mmol/L (137-145)
[2017-12-08] MEDS: SYMBICORT 160-4.5 MCG INHALER INHALATION SCH (07:53)
[2017-12-08] MEDS: IPRATROPIUM-ALBUTEROL 3 ML NEB INHALATION SCH ×3 (07:53→15:40)
--- NOTE | 2017-12-08 09:00 | P.DS ---
Providers Date of admission: 12/05/17 00:19 Expected date of discharge: 12/08/17 Attending physician: Bruce Chi Consults: 12/05/17 00:17 Consult Physician Routine Consulting Provider: Tera Johnsno Consult Reason/Comments: Hip fracture Do you want consulting provider notified?: Already Contacted Primary care physician: Alen Tracy - Discharge Diagnosis(es) (1) Closed right hip fracture Patient was admitted to the OR on 12/06/2017 to undergo a right IT nail. He had suffered a fall resulting in a right IT hip fracture. He underwent the above procedure which he tolerated well without complication. Postoperative hospital course has remained without complication. On day of discharge he is afebrile, vital signs stable, labs within acceptable ranges, tolerating by mouth meds and diet, voiding without difficulty, positive flatus, denies abdominal pain or calf pain, pain is controlled on oral pain medication and has no new complaints. Wound is benign, neurovascular status is intact, calf is soft and nontender, abdomen soft and nontender. Review of systems is negative for numbness, tingling, fever, chills, chest pain, shortness breath, nausea, vomiting, dizziness, headaches, slurred speech or other. Current Visit: Yes Status: Acute Priority: Medium Procedures: IT nail for right Hip Fx Patient Condition at Discharge: Good Plan - Discharge Summary Discharge Rx Participant: Yes New Discharge Prescriptions: New Aspirin 325 mg PO BID #60 tab Docusate [Colace] 100 mg PO BID #60 capsule HYDROcodone/APAP 10-325MG [[place] 10-325] 1 tab PO Q4HR PRN #42 tab PRN Reason: Pain No Action Albuterol Inhaler [Ventolin Hfa Inhaler] 1 - 2 puff INHALATION RT-Q6H PRN PRN Reason: Dyspnea Budesonide/Formoterol Fumarate [Symbicort 160-4.5 Mcg Inhaler] 2 puff INHALATION RT-BID Vitamin B Complex 1 cap PO DAILY Multivitamins, Thera [Multivitamin (formulary)] 1 tab PO DAILY Discharge Medication List Albuterol Inhaler [Ventolin Hfa Inhaler] 1 - 2 puff INHALATION RT-Q6H PRN [History] Budesonide/Formoterol Fumarate [Symbicort 160-4.5 Mcg Inhaler] 2 puff INHALATION RT-BID 11/17/17 [History] Multivitamins, Thera [Multivitamin (formulary)] 1 tab PO DAILY 11/17/17 [History ] Vitamin B Complex 1 cap PO DAILY 11/17/17 [History] Aspirin 325 mg PO BID #60 tab 12/08/17 [Rx] Docusate [Colace] 100 mg PO BID #60 capsule 12/08/17 [Rx] HYDROcodone/APAP 10-325MG [Montrose 10-325] 1 tab PO Q4HR PRN #42 tab 12/08/17 [Rx] Follow up Appointment(s)/Referral(s): [facility], [NON-STAFF] - Alen Tracy MD [Primary Care Provider] - 1-2 days Tera Johnson MD [STAFF PHYSICIAN] - 1 Week Patient Instructions/Handouts: Fall Prevention for Older Adults (ED) Activity/Diet/Wound Care/Special Instructions: Walker - [facility] - will deliver to bedside before discharge -[phone] keep wound clean and dry take meds as directed touchdown/partial weightbear with walker may shower in 3 days if no bleeding f/u with Dr. Johnson in office Discharge Disposition: HOME WITH HOME HEALTH SERVICES
[2017-12-08] MEDS: SODIUM CHLORIDE 0.9% 1,000 ML IV SCH (09:05)
[2017-12-08] MEDS: ASPIRIN 325 MG TAB PO SCH (09:15)
[2017-12-08] MEDS: ENOXAPARIN 40 MG/0.4 ML SYRINGE SQ SCH (09:15)
[2017-12-08 11:25] LABS: Glucose,Whole Blood 105 mg/dL (75-99)
[2017-12-08] MEDS: MULTIVITAMINS, THERA 1 EACH TAB PO SCH (13:46)
[2017-12-08 14:26] VITALS: BP 120/79; PULSE 107; TEMP 97.9
--- NOTE | 2017-12-09 00:47 | DS ---
DISCHARGE SUMMARY DATE OF ADMISSION: 12/05/2017. DATE OF DISCHARGE: 12/08/2017 FINAL DIAGNOSES: 1. Right femur intertrochanteric fracture secondary to fall followed by IM screw. 2. COPD in a current smoker. 3. Laryngeal cancer recently diagnosed, being followed by Dr. Damian Eastman. 4. Lung nodules being followed as an outpatient. 5. Chronic alcohol intake. HOSPITAL COURSE: This patient presented with fall with a fracture and had surgical intervention carried out by Dr. Johnson. Doing much better at the time of discharge, using a walker. Keen to go home. On examination, blood pressure 120/79. LUNGS: Slightly decreased breath sounds. ABDOMEN: Soft, nontender. CONSULTATION: Dr. Tera Johnson from surgery. PROCEDURE: Right intramedullary hip screw fixation. DISCHARGE MEDICATIONS: 1. Ventolin HFA 1-2 puffs q.6h p.r.n. 2. Symbicort 160/4.5, 2 puffs b.i.d. 3. Multivitamin 1 tablet p.o. daily. 4. Vitamin B complex 1 capsule p.o. daily. 5. Aspirin 325 p.o. b.i.d. 6. Colace 100 mg p.o. b.i.d. 7. [place] 10 one tab q.4h p.r.n. per Orthopedics. FOLLOWUP: Follow up with Dr. Tracy on 12/13/2017. Follow up with Dr. Johnson on 12/15/2017. The patient going home on walker. Postop orders per Jameson Khan. MMODL / IJN: [id number] /
== END 2017-12-08 16:33 | disposition home health service (06) | DRG 482 ==
LOC: EC 21:31 → 3SUR 12-05 00:19
PROVIDERS: ADMIT Hospitalist; ATTEND Hospitalist
PROC: 0QS636Z Reposition Right Upper Femur with Intramedullary Internal Fixation Device, Percutaneous Approach (ICD-10-PCS; principal; 2017-12-06 08:00)
DX: S72.141A Displaced intertrochanteric fracture of right femur, initial encounter for closed fracture (principal); C32.9 Malignant neoplasm of larynx, unspecified; D72.829 Elevated white blood cell count, unspecified; J44.9 Chronic obstructive pulmonary disease, unspecified; R91.1 Solitary pulmonary nodule; Z79.51 Long term (current) use of inhaled steroids; Z79.899 Other long term (current) drug therapy; Z88.0 Allergy status to penicillin; Z88.2 Allergy status to sulfonamides; Z87.891 Personal history of nicotine dependence; Z72.89 Other problems related to lifestyle; W01.0XXA Fall on same level from slipping, tripping and stumbling without subsequent striking against object, initial encounter; Y92.9 Unspecified place or not applicable
CPT/HCPCS: 36415; 51702; 70491; 71045; 72170; 73502; 80048; 80320; 85025; 85610; 85730; 86850; 86900; 86901; 93005; 94640; 96374; 96375; 99285

== ENCOUNTER 2019-04-03 10:51 | Day surgery (SDC) | payer BC, OTHER ==
[2019-03-30 09:36] VITALS: BMI 24.3
[~2019-04-03 10:51] MED LIST changes: -DEXAMETHASONE SOD PHOSPHATE 10 MG/ML 1 ML VIAL IV ONE; -DEXAMETHASONE SOD PHOSPHATE 4 MG/ML 1 ML VIAL IV ONE; -FAMOTIDINE 20 MG/2 ML VIAL IV ONE; -LIDOCAINE 1% 20 ML VIAL (10MG/ML) FOR IV START INTRADERMA PRN; -MIDAZOLAM 2 MG/2 ML VIAL IV PRN; -ONDANSETRON 4 MG/2 ML VIAL IVP ONE; -fentaNYL (PF) 50 MCG/ML 2 ML AMP IV PRN
[2019-04-03 12:10] VITALS: RESP 16; TEMP 98.7
[2019-04-03] MEDS ORDERED: PROPOFOL 10 MG/ML 20 ML VIAL IV ONE (12:47)
--- NOTE | 2019-04-03 13:51 | P.PCN ---
Date of Procedure: 04/03/19 Description of Procedure: BRIEF HISTORY: Patient is a 63-year-old male presenting for outpatient EGD and colonoscopy for GERD and screening for malignant neoplasm of the colon. Patient reports reflux controlled on PPI therapy, long-standing history of symptoms. Denies any prior colonoscopy. Did have Cologard test and gastric pathology. PROCEDURE PERFORMED: Esophagogastroduodenoscopy with biopsy. Colonoscopy with polypectomy. PREOPERATIVE DIAGNOSIS: GERD, screening for malignant neoplasm of the colon, no prior colonoscopy. ESTIMATED BLOOD LOSS: Minimal. IV sedation per anesthesia. PROCEDURE: After informed consent was obtained, the patient was brought into the endoscopy unit. IV sedation was administered by Anesthesia under continuous monitoring. Initially the Olympus GIF-190 video endoscope was inserted into the mouth. Esophagus intubated without any difficulty. It was gradually advanced into the stomach and duodenum and carefully examined. The bulb and the second part of the duodenum appeared normal, with biopsies taken. The scope at this time was withd rawn to the stomach, adequately insufflated with air, and upon careful examination, mucosa of the antrum, body, cardia and the fundus appeared normal, except for some mild punctate erythema in the antrum suggestive of mild gastritis with biopsies antrum and body taken. The scope was then withdrawn into the esophagus. 3 cm hiatal hernia was noted. The GE junction was located at 34 cm from the incisors. The esophagus was significant for a 4 cm segment of the distal esophagus suggestive of Bailey's esophagus with biopsies of distal esophagus taken. Digital rectal examination was normal. Initially the Olympus CF-190 flexible video colonoscope was then inserted in the rectum, gradually advanced into the cecum without any difficulty. Careful examination was performed as the scope was gradually being withdrawn. Ileocecal valve and the appendiceal orifice were visualized and appeared normal. Prep was excellent. Mucosa of the cecum, ascending colon, transverse colon, descending colon, sigmoid colon, and rectum appeared normal. Multiple diverticula noted throughout the colon consistent with moderate diverticulosis. Diminutive 2 mm ascending colon polyp removed with cold forcep polypectomy. A 4 mm transverse colon polyp was removed with cold snare polypectomy. A diminutive 2 mm descending colon polyp was removed with cold forceps polypectomy. A diminutive 2 mm sigmoid colon polyp was removed with cold forcep polypectomy. A 4 mm sigmoid colon polyp was removed with cold snare polypectomy. 13 mm pedunculated rectal polyp removed with hot snare polypectomy. Retroflexion was performed in the rectum and no lesions were seen. The patient tolerated the procedure well. IMPRESSION: 6 polyps removed from the colon (please see body of report for location, size and technique of removal). Moderate pandiverticulosis. RECOMMENDATIONS: Findings of this examination were discussed with the patient his family. Okay to resume diet. Okay to resume medications. Would recommend colonoscopy in 3 years for high risk colon polyps as well as repeat EGD at that time given findings suggestive of Bailey's esophagus, pending pathology from biopsies and polypectomy.
[2019-04-03 13:59] VITALS: BP 122/85; PULSE 70
== END 2019-04-03 14:35 | disposition home or self-care (01) ==
LOC: ORWHC2ENDO 10:51
PROVIDERS: ATTEND Internal Medicine
DX: Z12.11 Encounter for screening for malignant neoplasm of colon (principal); D12.2 Benign neoplasm of ascending colon; D12.3 Benign neoplasm of transverse colon; K21.9 Gastro-esophageal reflux disease without esophagitis; K44.9 Diaphragmatic hernia without obstruction or gangrene; K57.30 Diverticulosis of large intestine without perforation or abscess without bleeding; D12.5 Benign neoplasm of sigmoid colon; K29.50 Unspecified chronic gastritis without bleeding; D12.4 Benign neoplasm of descending colon; J44.9 Chronic obstructive pulmonary disease, unspecified; Z87.891 Personal history of nicotine dependence; Z88.0 Allergy status to penicillin; Z88.2 Allergy status to sulfonamides; Z79.899 Other long term (current) drug therapy; Z79.51 Long term (current) use of inhaled steroids; Z98.890 Other specified postprocedural states; Z92.3 Personal history of irradiation; Z92.21 Personal history of antineoplastic chemotherapy; Z85.21 Personal history of malignant neoplasm of larynx
CPT/HCPCS: 45385; 45380; 88305; 43239; J2704

== ENCOUNTER → 2020-05-14 | Outpatient (CLI) | payer MEDICARE, OTHER ==
--- NOTE | 2020-05-14 10:14 | CT ---
EXAMINATION TYPE: CT chest w con DATE OF EXAM: 05/14/2020 COMPARISON: Chest x-ray 8 days ago. HISTORY: abn CXR, history of larynx CA CT DLP: 209.8 mGycm. Automated Exposure Control for Dose Reduction was Utilized. TECHNIQUE: CT scan of the thorax is performed following with IV Contrast, patient injected with 100 mL of Isovue 300. FINDINGS: LUNGS: Background mild to moderate underlying emphysematous change is redemonstrated. There is suspic ious 2.3 x 1.9 cm Central left lower lobe nodule or nodular consolidation axial image 38. Craniocauda l length 2.6 cm sagittal image 67 No suspicious additional nodules or masses. No pleural effusion or pneumothorax seen bilaterally. MEDIASTINUM: There are no greater than 1 cm hilar or mediastinal lymph nodes. Tiny pericardial effusi on is seen anterior inferior aspect. No cardiomegaly. Moderate coronary artery calcification. Reflux of contrast into IVC and hepatic veins. OTHER: Some diverticula near the splenic flexure. Exaggerated thoracic kyphosis with mild chronic com pression type fracture at T9 level. IMPRESSION: Suspicious 2.6 cm central left lower lobe pulmonary nodule. Neoplasm cannot be excluded. Further investigation with PET CT is advised.
== END | disposition home or self-care (01) ==
LOC: RADCTMAIN 08:28
PROVIDERS: ATTEND Internal Medicine
DX: R91.8 Other nonspecific abnormal finding of lung field (principal); Z88.0 Allergy status to penicillin; Z88.2 Allergy status to sulfonamides
CPT/HCPCS: 71260; Q9967

== ENCOUNTER → 2020-05-24 | Outpatient (CLI) | payer OTHER ==
--- NOTE | 2020-05-28 06:34 | PE ---
EXAMINATION TYPE: PET CT fusion skull to thigh DATE OF EXAM: 05/24/2020 COMPARISON: Chest CT May 14, 2020. CT neck December 07, 2017. HISTORY: Head and neck cancer diagnosed 2018 treated with radiation, solitary pulmonary nodule left l ajay or recent abnormal CT. TECHNIQUE: Following the intravenous administration of 9.48 mCi of F-18 FDG, whole body images are p erformed from the skull base to the midthigh. Images are reviewed on the computer in the coronal, ax ial, and sagittal planes. Reconstructed rotating images are created on independent workstation and r eviewed on the computer. A localization and attenuation correction CT is performed in conjunction w ith the PET scan. Dedicated PET/CT imaging of the neck also performed. Blood glucose level equals 90. SCAN: Initial Scan FINDINGS: SKULL BASE AND NECK: Symmetric hypermetabolic uptake at level of vocal cords corresponds to area of prior dysplasia and slight asymmetrical thickening near axial image 56, recurrent neoplasm cannot be excluded. Correlation with repeat direct visualization is advised if it has not been performed. I do favor a nonneoplastic etiology such as product of phonation. No additional areas of increased hypermetabolic uptake. CHEST, MEDIASTINUM, AND HILAR REGION: Background of moderate underlying emphysematous change is redem onstrated. Persistent suspicious central left lower lobe infrahilar nodule measuring 2.4 x 1.8 cm axi al image 111, max SUV is 12.35. Additional abnormal hypermetabolic central inferior left hilar or possible periesophageal 1.1 x 1.0 c m lymph node axial image 101, max SUV is 6.78. No additional areas of abnormal hypermetabolic uptake. ABDOMEN AND PELVIS: No hypermetabolic adrenal masses. Low dense small adrenal lesions noted presumed benign. No areas of abnormal hypermetabolic uptake. OSSEOUS STRUCTURES: Hypermetabolic uptake inferior L4 vertebral axial image 175 corresponds to 10 mm sclerotic lesion, max SUV is 6.04. OTHER CT: Mild calcified plaque bilateral carotid bulb level. Nasal septum deviated to right of midli ne. Small pericardial effusion redemonstrated. Mild to moderate coronary artery calcification again seen. Nonobstructing tiny bilateral renal calculi. Colonic diverticulosis. Mild calcified plaque abdominal aorta extends into the pelvic branch vessels. Partial visualization of surgical change right proximal femur. IMPRESSION: Confirmation of abnormal hypermetabolic central left lower lobe pulmonary nodule. Suspici ous left central infrahilar or paraesophageal adenopathy. Suspicious hypermetabolic sclerotic inferio r L4 lesion worrisome for osseous metastatic disease. Cannot exclude local recurrence at level of voc al cords, correlate clinically.
== END | disposition home or self-care (01) ==
LOC: RADPETMAIN 11:45
PROVIDERS: ATTEND Internal Medicine
DX: R91.1 Solitary pulmonary nodule (principal)
CPT/HCPCS: 78815; A9552

== ENCOUNTER 2020-06-05 09:37 | Inpatient (IN) | payer MEDICARE, OTHER ==
[2020-05-31 15:16] VITALS: BMI 25.2
[~2020-06-05 09:37] MED LIST changes: +ALBUTEROL NEB (CONC) 2.5 MG/0.5 ML INHALATION ONE; +LIDOCAINE 1% (10MG/ML) FOR IV START INTRADERMA PRN; +LIDOCAINE 2% (PF) 20 MG/ML 5 ML VIAL INHALATION ONE; +LIDOCAINE VISCOUS 300 MG/15 ML CUP MUCOUS MEM ONE; +SODIUM CHLORIDE 0.9% 1,000 ML IV SCH
[2020-06-05 10:31] LABS: Glucose,Whole Blood 96 mg/dL (75-99)
--- NOTE | 2020-06-05 11:26 | CT ---
EXAMINATION TYPE: CT Chest suad Barrientos Protocol DATE OF EXAM: 06/05/2020 COMPARISON: PET CT 05/24/2020, 05/14/2020 HISTORY: Presurgical. CT DLP: 574 mGycm Automated exposure control for dose reduction was used. Contrast: None Technique: Axial images 5 mm thick sections. Reconstructed images in the coronal plane. FINDINGS: Emphysematous changes are present. There is some vague areas of pneumonitis within the right middle l obe. Small nodule medially within the right middle lobe measuring 0.3 cm. Series 6 image 36. There is irregular density within the periphery of the right lower lobe measuring 0.9 cm. Series 6 image 47. There is a spiculated mass in the left infrahilar region medially adjacent to the mediastinum and eso phagus. Series 6 image 43. This was present on the PET/CT currently measures 2.1 x 2.6 cm. Previous i nfrahilar lymph node currently measures 0.8 cm. Series 4 image 31 Portion of the thyroid visualized is normal. No enlarged mediastinal or hilar lymph nodes are evident . Descending thoracic aorta at the main pulmonary artery is 3.1 cm. The main pulmonary artery at the bifurcation is 2.2 cm. Coronary artery calcification is present. Minimal pericardial effusion may be present. Limited CT sections are obtained through the upper abdomen which are unremarkable. IMPRESSION: 1. CT FOR BRONCHOSCOPY NAVIGATION. 2. LEFT MEDIAL INFRAHILAR MASS.
[2020-06-05] MEDS ORDERED: LIDOCAINE 2% (PF) 20 MG/ML 5 ML VIAL ONE (12:28)
[2020-06-05] MEDS ORDERED: DEXAMETHASONE SOD PHOSPHATE 10 MG/ML 1 ML VIAL ONE (12:28)
[2020-06-05] MEDS ORDERED: ROCURONIUM 10 MG/ML (5 ML VIAL) IV ONE (12:28)
[2020-06-05] MEDS ORDERED: SUCCINYLCHOLINE CHLORIDE 100 MG/5 ML SYR IV ONE (12:28)
[2020-06-05] MEDS ORDERED: LIDOCAINE 1% INJ 10MG/ML (20 ML MDV) ONE (12:28)
[2020-06-05] MEDS ORDERED: PROPOFOL 10 MG/ML 20 ML VIAL IV ONE (12:28)
[2020-06-05] MEDS ORDERED: NEOSTIGMINE 1 MG/ML 10 ML VIAL ONE (12:28)
[2020-06-05] MEDS ORDERED: GLYCOPYRROLATE 0.2 MG/ML 2 ML VIAL ONE (12:28)
--- NOTE | 2020-06-05 13:25 | P.PCN ---
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 Based on that, a bronchoscopy was planned This bronchoscopy was done on the medication guidance. The patient was brought in to the preop holding area where the appropriate V pads were applied to the chest and following that the patient was sent for a computed tomography scan of the chest for navigational and planning purposes. The CAT scan images uploaded into the system and left lower lobe pulmonary nodule was identified and was managed appropriately. All of this information was transferred into a USB and then uploaded into the [facility] navigational tower. The patient was intubated by the usual fashion by OWNER PROFESSIONAL ENGINEER. Prior to intubation, under conscious sedation, I visualized the upper airways and vocal cords. The vocal cords were swollen bilaterally especially the false vocal cords. The true vocal cords were pale and somewhat dry and crusty. Nevertheless, I do not identify any lesions in the supraglottic, glottic supraglottic area. Subglottic trachea was also patent. The vocal cord mobility and function was also within normal limits. Following this infection, the patient was intubated by OWNER PROFESSIONAL ENGINEER with a #8 endotracheal tube. After securing the airway, the flexible bronchoscope was introduced into the lower trachea and airways inspection was done. The visualized airways including the trachea distally, lidia, bilateral mainstem bronchi, right upper lobe bronchus, bronchus, right middle lobe bronchus, right lower lobe bronchus, left upper lobe bronchus and left lower lobe bronchus. The various segments and subsegments were identified. No endobronchial tumors or lesions seen. Using an navigational Ogle, appropriate calibration was done using the main lidia, and the secondary lidia on the left as reference points. On the navigational guidance, the forceps was then directed to the left lower lobe. No endobronchial tumors was identified. The tumor was obviously external had not endobronchial. At that point, the forceps was replaced by a needle using a 22-gauge needle, transbronchial needle aspirate of the left infrahilar mass was done under navigational guidance. Multiple biopsies were obtained. At the completion of the procedure, bronchial lavage of the left lower lobe was done with a total of 60 of fluid was infused and 50 mL was suctioned back. Procedure was done without any complication. Total amount of blood loss was less than 5 mL. The patient was extubated successfully without any complications the patient was transferred recovery in stable condition. The patient will be monitored recovered and following that the patient will be discharged home once cleared by anesthesia.
[2020-06-05] MEDS ORDERED: methylPREDNISolone SOD SUCCI 125 MG/2 ML VIAL IV STA (16:02)
[2020-06-05] MEDS ORDERED: SODIUM CHLORIDE 0.9% 1,000 ML IV ONE ×2 (17:25→17:28)
--- NOTE | 2020-06-05 17:25 | XR ---
EXAMINATION TYPE: XR chest 1V portable DATE OF EXAM: 06/05/2020 COMPARISON: 05/06/2020 HISTORY: Short of breath TECHNIQUE: Single view FINDINGS: There is large left side pneumothorax of more than 75%. Trachea deviated slightly to the ri ght side. The right lung is clear. There is some atelectasis left lower lobe with infiltrate. IMPRESSION: There is large left side pneumothorax which appears new compared to old exam. Minimal tension. Mild a telectasis and infiltrate left lower lobe.
[2020-06-05 17:26] LABS: Appearance,BF Bloody; Color,BF Red; Nucleated Cells, Body Fluid 1500 /uL; RBC, Body Fluid 151750 /uL
[2020-06-05] MEDS ORDERED: MORPHINE SULFATE 4 MG/ML SYRINGE IVP STA (17:29)
[2020-06-05 17:37] LABS: Mononuclear WBC,Body Fluid 13 %; Polynuclear WBC,Body Fluid 86 %; Total Cells Counted,Body Fluid 100
--- NOTE | 2020-06-05 17:41 | P.HPIM ---
History of Present Illness H&P Date: 06/05/20 Chief Complaint: shortness of breath Patient is a 64 yo M with a hx of COPD, squamous cell vocal cord cancer, tobacco abuse who initially presented for outpatient navigational bronchoscopy with biopsy for Left lower lobe and infrahilar nodula. After the bronch he developed worsening respiratory distress and CXR revealed left sided pneumothorax. Arrangements were made of admission. Patient seen and examined at bedside. He reports shortness of breath and left sided chest pain. His pain and breathing has been getting worse. He feels a little light headed with an MILLER. He denies presyncope. He denies nausea and vomiting. No swelling. + horse voice. No dysphagia. Review of Systems Pertinent positives and negatives as discussed in HPI, a complete review of systems was performed and all other systems are negative. Past Medical History Past Medical History: Cancer, COPD, GERD/Reflux, Hyperlipidemia, Osteoarthritis (OA) Additional Past Medical History / Comment(s): CA larynx- had 28 treatments of radiation, tinnitus, SOB, "spot on throat", frequent urination, History of Any Multi-Drug Resistant Organisms: None Reported Past Surgical History: Orthopedic Surgery, Tonsillectomy Additional Past Surgical History / Comment(s): states had "larynx" scraped for cancer, RT broken hip repair, surgery on eye for laxy eye as child, Past Anesthesia/Blood Transfusion Reactions: No Reported Reaction Smoking Status: Former smoker, Vaper - Past Family History Mother Family Medical History: No Reported History Father Family Medical History: Myocardial Infarction ([place]) Medications and Allergies Home Medications Medication Instructions Recorded Confirmed Type Albuterol Inhaler (Mhu) [Ventolin 1 - 2 puff INHALATION RT-Q6H PRN 11/17/17 06/05/20 History Hfa Inhaler (Mhu)] Budesonide/Formoterol Fumarate 2 puff INHALATION RT-BID 11/17/17 06/05/20 History [Symbicort 160-4.5 Mcg Inhaler] Albuterol Nebulized [Ventolin 2.5 mg INHALATION Q6H PRN 03/30/19 06/05/20 History Nebulized] Ascorbic Acid [Vitamin C] 1,000 mg PO DAILY 05/31/20 06/05/20 History Atorvastatin Calcium [Lipitor] 20 mg PO HS 05/31/20 06/05/20 History Multivitamins, Thera [Multivitamin 1 tab PO DAILY 05/31/20 06/05/20 History (formulary)] Omeprazole [PriLOSEC] 20 mg PO AC-BRKFST 05/31/20 06/05/20 History predniSONE 5 mg PO DIRECTED 05/31/20 06/05/20 History Allergies Allergy/AdvReac Type Severity Reaction Status Date / Time Penicillins Allergy Unknown Verified 05/31/20 14:58 Childhood Sulfa (Sulfonamide Allergy Unknown Verified 05/31/20 14:58 Antibiotics) Childhood Physical Exam Osteopathic Statement: *. No significant issues noted on an osteopathic structural exam other than those noted in the History and Physical/Consult. Vitals: Vital Signs Temp Pulse Resp BP Pulse Ox 06/05/20 17:08 126 H 40 H 95 06/05/20 17:00 116 H 38 H 95 06/05/20 16:45 120 H 36 H 148/97 94 L 06/05/20 16:40 84 L 06/05/20 16:16 115 H 30 H 97 06/05/20 15:44 115 H 30 H 137/84 96 06/05/20 15:39 100 30 H 95 06/05/20 15:30 104 H 95 06/05/20 15:23 119 H 30 H 137/97 94 L 06/05/20 15:07 110 H 22 126/77 94 L 06/05/20 14:55 112 H 16 170/83 97 06/05/20 14:40 106 H 16 162/89 94 L 06/05/20 14:25 112 H 16 173/87 94 L 06/05/20 14:10 107 H 16 167/82 93 L 06/05/20 13:55 97 16 154/99 96 06/05/20 13:40 88 16 144/93 96 06/05/20 13:25 97 F L 98 14 143/90 97 06/05/20 10:18 98.6 F 102 H 16 149/99 98 Intake and Output 06/05/20 06/05/20 06/05/20 06:59 14:59 22:59 Intake Total 975 5 Output Total 150 Balance 975 -145 Intake: IV 975 5 Output: Urine 150 Other: Weight 62.8 kg General:ill appearing , moderate distress, appears at stated age Derm: warm, dry Head: atraumatic, normocephalic, symmetric Eyes: EOMI, no lid lag, anicteric sclera, pupils equal round reactive to light ENT: Nose and ears atraumatic, no thrush, + pharyngeal erythema Neck: No thyromegaly, no cervical lymphadenopathy, trachea midline, supple Mouth: no lip lesion, mucus membranes moist Cardiovascular: S1S2 reg, no murmur, positive posterior tibial pulse bilateral, no edema, capillary refill less than 2 seconds Lungs: diminished breathsound on the left, no wheeze , no ronchi, no rales, + accessory muscle use, + 3 word conversational dyspnea Abdominal: soft, nontender to palpation, no guarding, no appreciable organomegaly, normal bowel sounds Ext: no gross muscle atrophy, muscle strength muscle strength 5 out of 5 in all 4 extremities, no contractures Neuro: CN II-XI grossly intact, light touch intact all 4 extremities, finger to nose within normal limits, Psych: Alert, oriented, appropriate affect Results CBC & Chem 7: 06/05/20 17:46 06/05/20 17:46 Chest x-ray: report reviewed, image reviewed (ptx left side) Thrombosis Risk Factor Assmnt - DVT/VTE Prophylaxis DVT/VTE Prophylaxis: Pharmacologic Prophylaxis ordered Assessment and Plan Assessment: Left sided pneumothorax s/p bronch - D/W Dr. Gonzalez - s/p left sided thoravent - pain control - IS - pulm hygiene COPD with acute exacerbation - Solumedrol - Bronchodilators - no indication for abx at this time. Dyslipidemia - statin GERD -PPI The patient is admitted with an anticipated greater than 2 midnight stay for evaluation of Pneumothorax. Surrogate decision-maker: significant other CODE STATUS:full DVT prophylaxis: SCDs Discussed with: patient, dr gonzalez Anticipated discharge date: 2-[address]: home A total of 65 minutes was spent on the care of this complex patient more than 50% of the time was spent in counseling and care coordination.
[2020-06-05] MEDS ORDERED: NALOXONE 0.4 MG/ML 1 ML VIAL IV PRN (17:49)
[2020-06-05] MEDS ORDERED: ACETAMINOPHEN TAB 325 MG TAB PO PRN (17:49)
[2020-06-05] MEDS ORDERED: ONDANSETRON 4 MG/2 ML VIAL IVP PRN (17:49)
[2020-06-05] MEDS ORDERED: MELATONIN 3 MG TABLET PO PRN (17:49)
[2020-06-05] MEDS ORDERED: ALBUTEROL NEBULIZED 2.5 MG/3 ML INHALATION PRN (17:54)
[2020-06-05] MEDS ORDERED: ALBUTEROL 90 MCG INHALATION PRN (17:54)
[2020-06-05 17:57] LABS: HCT 49.1 % (39.0-53.0); HGB 16.2 gm/dL (13.0-17.5); MCH 32.6 pg (25.0-35.0); MCHC 32.9 g/dL (31.0-37.0); MCV 99.1 fL (80.0-100.0); Mean Platelet Volume 7.6; Platelet Count 298 k/uL (150-450); RBC 4.96 m/uL (4.30-5.90); RDW 13.7 % (11.5-15.5); WBC 12.8 k/uL (3.8-10.6)
[2020-06-05 18:03] LABS: Prothrombin Time 10.8 sec (9.0-12.0)
[2020-06-05 18:06] LABS: African American GFR (CKD) >90 (>60 ml/min/1.73 sqM); Anion Gap 9 mmol/L; Blood Urea Nitrogen 17 mg/dL (9-20); Calcium 9.2 mg/dL (8.4-10.2); Carbon Dioxide 22 mmol/L (22-30); Chloride 104 mmol/L (98-107); Glucose 118 mg/dL (74-99); Magnesium 1.9 mg/dL (1.6-2.3); Non-African American GFR(CKD) >90 (>60 ml/min/1.73 sqM); Potassium 4.4 mmol/L (3.5-5.1); Sodium 135 mmol/L (137-145)
[2020-06-05] MEDS ORDERED: fentaNYL (PF) 50 MCG/ML 2 ML AMP IV ONE ×2 (18:11→18:14)
[2020-06-05] MEDS ORDERED: KETOROLAC 15 MG/ML 1 ML VIAL IVP ONE (18:22)
--- NOTE | 2020-06-05 18:24 | P.CNPUL ---
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 The patient was admitted on outpatient basis for a navigational bronchoscopy and biopsy of a left lower lobe pulmonary nodule that showed increased metabolic activity and earlier CAT scan. The procedure was essentially an uncomplicated. Nevertheless, prior to the procedure, the patient was having significant amount of hoarseness and an upper airway inspection that was done at a time of the bronchoscopy showed swollen vocal cords bilaterally without any visualized masses or lesions or tumors or anatomic obstruction. The procedure was done and the biopsy of the left lower lobe was done through a transbronchial needle aspirate and the patient was extubated. In recovery, the patient remained short of breath but not hypoxic. Chest x-ray showed a left-sided pneumothorax. I attended on this patient in the recovery and I inserted a Thoravent 13-[place] Citizen with successful expansion of the left lung. The patient me was given steroids for swelling of the vocal cords and COPD exacerbation. Currently the Thoravent is in place and there is no evidence of any air leak. He shortness of breath is improved. He has remained hemodynamically stable. He is complaining of some the method chest discomfort on the left. No angina. No palpitation. No pleurisy. No hemoptysis. Review of Systems Constitutional: Reports poor appetite, Reports weakness, Reports weight loss Eyes: denies as per HPI, denies blurred vision, denies bulging eye, denies decreased vision, denies diplopia, denies discharge, denies dry eye, denies irritation, denies itching, denies pain, denies photophobia, denies loss of peripheral vision, denies loss of vision, denies tunnel vision/blind spots Ears: deny: decreased hearing, ear discharge, earache, tinnitus Ears, nose, mouth and throat: Reports hoarseness, Reports voice changes Breasts: absent: as per HPI, gynecomastia Cardiovascular: Reports decreased exercise tolerance, Reports dyspnea on exertion Respiratory: Reports dyspnea Gastrointestinal: Reports as per HPI Genitourinary: Reports as per HPI Musculoskeletal: absent: ankle pain, ankle stiffness, ankle swelling Integumentary: Reports as per HPI Neurological: Reports as per HPI Psychiatric: Reports as per HPI Endocrine: Reports as per HPI Hematologic/Lymphatic: Reports as per HPI Allergic/Immunologic: Reports as per HPI Past Medical History Past Medical History: Cancer, COPD, GERD/Reflux, Hyperlipidemia, Osteoarthritis (OA) Additional Past Medical History / Comment(s): CA larynx- had 28 treatments of radiation, tinnitus History of Any Multi-Drug Resistant Organisms: None Reported Past Surgical History: Orthopedic Surgery, Tonsillectomy Additional Past Surgical History / Comment(s): states had "larynx" scraped for cancer, RT broken hip repair, surgery on eye for laxy eye as child, Past Anesthesia/Blood Transfusion Reactions: No Reported Reaction Smoking Status: Former smoker, Vaper - Past Family History Mother Family Medical History: No Reported History Father Family Medical History: Myocardial Infarction ([place]) Medications and Allergies Home Medications Medication Instructions Recorded Confirmed Type Albuterol Inhaler (Mhu) [Ventolin 1 - 2 puff INHALATION RT-Q6H PRN 11/17/17 06/05/20 History Hfa Inhaler (Mhu)] Budesonide/Formoterol Fumarate 2 puff INHALATION RT-BID 11/17/17 06/05/20 History [Symbicort 160-4.5 Mcg Inhaler] Albuterol Nebulized [Ventolin 2.5 mg INHALATION Q6H PRN 03/30/19 06/05/20 History Nebulized] Ascorbic Acid [Vitamin C] 1,000 mg PO DAILY 05/31/20 06/05/20 History Atorvastatin Calcium [Lipitor] 20 mg PO HS 05/31/20 06/05/20 History Multivitamins, Thera [Multivitamin 1 tab PO DAILY 05/31/20 06/05/20 History (formulary)] Omeprazole [PriLOSEC] 20 mg PO AC-BRKFST 05/31/20 06/05/20 History predniSONE 5 mg PO DIRECTED 05/31/20 06/05/20 History Allergies Allergy/AdvReac Type Severity Reaction Status Date / Time Penicillins Allergy Unknown Verified 05/31/20 14:58 Childhood Sulfa (Sulfonamide Allergy Unknown Verified 05/31/20 14:58 Antibiotics) Childhood Physical Exam Vitals: Vital Signs Temp Pulse Resp BP Pulse Ox 06/05/20 17:08 126 H 40 H 95 06/05/20 17:00 116 H 38 H 95 06/05/20 16:45 120 H 36 H 148/97 94 L 06/05/20 16:40 84 L 06/05/20 16:16 115 H 30 H 97 06/05/20 15:44 115 H 30 H 137/84 96 06/05/20 15:39 100 30 H 95 06/05/20 15:30 104 H 95 06/05/20 15:23 119 H 30 H 137/97 94 L 06/05/20 15:07 110 H 22 126/77 94 L 06/05/20 14:55 112 H 16 170/83 97 06/05/20 14:40 106 H 16 162/89 94 L 06/05/20 14:25 112 H 16 173/87 94 L 06/05/20 14:10 107 H 16 167/82 93 L 06/05/20 13:55 97 16 154/99 96 06/05/20 13:40 88 16 144/93 96 06/05/20 13:25 97 F L 98 14 143/90 97 06/05/20 10:18 98.6 F 102 H 16 149/99 98 Intake and Output 06/05/20 06/05/20 06/05/20 06:59 14:59 22:59 Intake Total 975 5 Output Total 150 Balance 975 -145 Intake: IV 975 5 Output: Urine 150 Other: Weight 62.8 kg Thin frail male patient with a BMI of 24.1, noninjected respiratory distress Head exam was generally normal. There was no scleral icterus or corneal arcus. Mucous membranes were moist. Neck was supple and without jugular venous distension, thyromegaly, or carotid bruits. Carotids were easily palpable bilaterally. There was no adenopathy. Lungs sounds are equal and symmetrical bilaterally with diminished breath sounds and scattered expiratory wheezes throughout lung nelson is a left-sided Thoravent in place 13-[place] Citizen over the left anterior chest area Cardiac exam revealed the PMI to be normally situated and sized. The rhythm was regular and no extrasystoles were noted during several minutes of auscultation. The first and second heart sounds were normal and physiologic splitting of the second heart sound was noted. There were no murmurs, rubs, clicks, or gallops. Abdominal exam revealed normal bowel sounds. The abdomen was soft, non-tender, and without masses, organomegaly, or appreciable enlargement of the abdominal aorta. Examination of the extremities revealed easily palpable radial, femoral and pedal pulses. There was no cyanosis, clubbing or edema. Examination of the skin revealed no evidence of significant rashes, suspicious appearing nevi or other concerning lesions. Neurologically, the patient is awake and alert and the patient does not have any focal neurological deficit. Cranial nerves are essentially intact. Results - Laboratory Findings CBC and BMP: 06/05/20 17:46 06/05/20 17:46 PT/INR, D-dimer PT 10.8 sec (9.0-12.0) 06/05/20 17:46 INR 1.0 (<1.2) 06/05/20 17:46 Abnormal lab findings: Abnormal Labs 06/05/20 06/05/20 17:46 17:46 WBC 12.8 H Sodium 135 L Glucose 118 H - Diagnostic Findings Chest x-ray: image reviewed Assessment and Plan Plan: 1 left-sided pneumothorax post navigational bronchoscopy and transbronchial needle aspirate of a left infrahilar pulmonary nodule measuring around 2.1 x 2.6 cm in size showing metabolic activity, highly suggestive of malignancy. The patient is post Thoravent insertion, has a 13-[place] Citizen vent in the left hemithorax with reexpansion of the left lung and evacuation of the pneumothorax. 2 shortness of breath secondary to COPD exacerbation and addition to a left- sided pneumothorax. The patient also has some swelling of the vocal cords bilaterally, without having any significant anatomic obstruction of the upper airways. The patient is post left-sided Thoravent insertion. 3 COPD 4 history of laryngeal cancer/vocal cord dysplasia/carcinoma post radiation therapy 5 hoarseness with progressive loss and change in the voice quality and characteristics. We'll obviously need another ENT evaluation Plan Admitted ICU for monitoring Thoravent to suctioning and monitor air leaks Daily chest x-ray Incentive spirometer Morphine for pain control DuoNeb nebulized treatments around the clock IV Solu-Medrol CAT scan of the neck ENT evaluation regarding significant dysphagia and vocal cord pathology/swelling. Heparin subcu for DVT prophylaxis Allow diet Oxygen therapy to maintain a saturation above 90% We'll continue to follow
--- NOTE | 2020-06-05 18:26 | P.PCN ---
Date of Procedure: 06/05/20 Preoperative Diagnosis: Left-sided pneumothorax Postoperative Diagnosis: Left-sided pneumothorax Procedure(s) Performed: Thoravent insertion Anesthesia: local Surgeon: Naa Gonzalez Estimated Blood Loss (ml): 0 Pathology: none sent Condition: stable Disposition: ICU Operative Findings: Procedure was done in recovery. The patient was having a pulse ox of 94% on room air. The patient had increased shortness of breath and diminished breath sound on the left and a chest x-ray showed a loculated left-sided pneumothorax. The anterior chest was cleaned using ChloraPrep. At the level of the intercostal space between the second and the third ribs, the skin was infused and infiltrated with 2% lidocaine. Following that this Was used to make a horizontal incision. Following that, a 13-[place] Thoravent cath was inserted over a trocar into the left hemithorax and the trocar was removed and there was successful and drainage and the left lung was deflated. The Thoravent was connected to Pleur-evac and further attention of an continuous wall suctioning moderate in severity. Chest x-ray post Thoravent insertion showed the expansion of the left lung and that she was in a good location. The Thoravent was secured in place. No complications. Patient remained hemodynamically stable with a pulse ox of above 90% throughout the procedure.
--- NOTE | 2020-06-05 18:29 | XR ---
EXAMINATION TYPE: XR chest 1V portable DATE OF EXAM: 06/05/2020 COMPARISON: Today HISTORY: Chest tube TECHNIQUE: Single view FINDINGS: There is a left-sided chest tube over the left upper lateral lung field. There is clearing of the left side pneumothorax compared to the exam 2 hours ago. Trachea is midline. Lungs are clear o f consolidation. Heart is normal. IMPRESSION: There is clearing of the left side pneumothorax.
[2020-06-05] MEDS: HYDROcodone/APAP 5-325MG 1 EACH TAB PO PRN (19:06)
[2020-06-05] MEDS: SODIUM CHLORIDE 0.9% 1,000 ML IV SCH (19:14)
[2020-06-05 20:00] LABS: Glucose,Whole Blood 134 mg/dL (75-99)
[2020-06-05] MEDS: INSULIN ASPART (NovoLOG) 100 UNIT/ML VIAL SQ SCH (20:01)
[2020-06-05] MEDS: ATORVASTATIN 20 MG TAB PO SCH (20:01)
[2020-06-05] MEDS: MORPHINE SULFATE 4 MG/ML SYRINGE IVP PRN (20:02)
[2020-06-05] MEDS: IPRATROPIUM-ALBUTEROL 3 ML NEB INHALATION SCH (21:39)
[2020-06-05] MEDS: SYMBICORT 160-4.5 MCG INHALER INHALATION SCH (21:39)
[2020-06-06] MEDS: methylPREDNISolone SOD SUCCI 125 MG/2 ML VIAL IV SCH ×5 (00:07→23:00)
[2020-06-06] MEDS: SODIUM CHLORIDE 0.9% 1,000 ML IV SCH ×4 (00:07→23:02)
[2020-06-06] MEDS: HYDROcodone/APAP 5-325MG 1 EACH TAB PO PRN ×3 (00:11→14:59)
[2020-06-06] MEDS: ALPRAZolam 0.25 MG TAB PO PRN ×2 (00:13→19:40)
[2020-06-06] MEDS: IPRATROPIUM-ALBUTEROL 3 ML NEB INHALATION SCH ×6 (01:02→19:06)
[2020-06-06 05:10] LABS: HGB 14.4 gm/dL (13.0-17.5); MCH 32.4 pg (25.0-35.0); MCHC 32.7 g/dL (31.0-37.0); Mean Platelet Volume 7.9; Platelet Count 276 k/uL (150-450); RBC 4.45 m/uL (4.30-5.90); RDW 13.6 % (11.5-15.5); WBC 10.3 k/uL (3.8-10.6)
[2020-06-06 05:35] LABS: African American GFR (CKD) >90 (>60 ml/min/1.73 sqM); Anion Gap 8 mmol/L; Blood Urea Nitrogen 17 mg/dL (9-20); Calcium 8.9 mg/dL (8.4-10.2); Carbon Dioxide 22 mmol/L (22-30); Chloride 105 mmol/L (98-107); Glucose 137 mg/dL (74-99); Magnesium 1.9 mg/dL (1.6-2.3); Non-African American GFR(CKD) >90 (>60 ml/min/1.73 sqM); Potassium 4.3 mmol/L (3.5-5.1); Sodium 135 mmol/L (137-145)
[2020-06-06] MEDS ORDERED: Magnesium Replacement Protocol 1 EACH MISC MISCELLANE PRN (05:40)
[2020-06-06 06:04] LABS: Glucose,Whole Blood 138 mg/dL (75-99)
[2020-06-06] MEDS: PANTOPRAZOLE 40 MG TABLET PO SCH (06:09)
[2020-06-06] MEDS: MAGNESIUM SULFATE-D5W PMX 1 GM in DEXTROSE/WATER 1 100ML.BAG IVPB SCH ×2 (06:09→07:08)
[2020-06-06] MEDS: INSULIN ASPART (NovoLOG) 100 UNIT/ML VIAL SQ SCH ×4 (06:09→19:36)
[2020-06-06] MEDS: MULTIVITAMINS, THERA 1 EACH TAB PO SCH (08:04)
[2020-06-06] MEDS: ASCORBIC ACID 500 MG TAB PO SCH (08:04)
--- NOTE | 2020-06-06 08:06 | P.PN ---
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 The patient was admitted on outpatient basis for a navigational bronchoscopy and biopsy of a left lower lobe pulmonary nodule that showed increased metabolic activity and earlier CAT scan. The procedure was essentially an uncomplicated. Nevertheless, prior to the procedure, the patient was having significant amount of hoarseness and an upper airway inspection that was done at a time of the bronchoscopy showed swollen vocal cords bilaterally without any visualized masses or lesions or tumors or anatomic obstruction. The procedure was done and the biopsy of the left lower lobe was done through a transbronchial needle aspirate and the patient was extubated. In recovery, the patient remained short of breath but not hypoxic. Chest x-ray showed a left-sided pneumothorax. I attended on this patient in the recovery and I inserted a Thoravent 13-Uzbek with successful expansion of the left lung. The patient me was given steroids for swelling of the vocal cords and COPD exacerbation. Currently the Thoravent is in place and there is no evidence of any air leak. He shortness of breath is improved. He has remained hemodynamically stable. He is complaining of some the method chest discomfort on the left. No angina. No palpitation. No ple urisy. No hemoptysis. On 06/06/2020 patient seen in follow-up in the intensive care unit, yesterday patient developed worsening shortness of breath in the recovery room following his navigational bronchoscopy with biopsies, he was given breathing treatments, and he continued to be short of breath, chest x-ray was obtained showing large left-sided pneumothorax minimal tension. Left-sided thoravent is inserted with reexpansion of the left lung, this was placed to wall suction. Patient was note d to the intensive care unit for closer monitoring. This morning his chest x- ray shows clearing of the left side pneumothorax, left-sided Thoravent in place connected to the Pleur-evac and continuous wall suction. Patient is awake and alert, oriented 3, his voice is hoarse however with no worsening from before the bronchoscopy. Lung sounds reveal equal breath sounds, no wheezing, diminished breath sounds bilaterally, no rhonchi. Is working on incentive parameter, achieving 0641-9951 mL on the today. For that surgery was of oxygen pulse ox is 95%, his been afebrile, he is in sinus mechanism slightly tachycardic with a rate of 108 BPM. He is receiving IV fluids at a rate of 125 ML per hour, he is on breathing treatments in the form of DuoNeb, Symbicort, and IV steroids Solu-Medrol 60 mg every 6 hours. His pathology results of the transbronchial needle aspirates biopsy of the left lower lobe mass still pending at this time. Today's labs have been reviewed, white blood cell count is 10.2, hemoglobin is 14.4, sodium is 135, the rest of the electrolytes and renal profile were unremarkable. Patient is resting comfortably in bed, if his breathing is much easier compared to yesterday. Tolerating oral diet. Objective - Vital Signs Vital signs: Vital Signs Temp 98.1 F 06/06/20 04:00 Pulse 102 H 06/06/20 07:00 Resp 18 06/06/20 07:00 BP 134/90 06/06/20 07:00 Pulse Ox 93 L 06/06/20 07:00 Intake & Output 06/05/20 06/06/20 06/06/20 18:59 06:59 18:59 Intake Total 1880 1375 125 Output Total 150 1600 0 Balance 1730 -225 125 Weight 62.8 kg 68.5 kg Intake: IV 1880 1375 125 Sodium Chloride 0.9% 1, 1375 125 000 ml @ 125 mls/hr IV . Q8H [facility] Rx#:[id number] Output: Urine 150 1600 0 Other: Voiding Method Urinal Urinal - Exam GENERAL EXAM: Alert, active, very pleasant, 64-year-old white male, a 3 L of oxygen pulse ox of 95%, comfortable in no apparent distress. Patient has voice hoarseness related to history of laryngeal cancer possibility of lung cancer, status post bronchoscopy with biopsies the results are pending HEAD: Normocephalic/atraumatic. EYES: Normal reaction of pupils, equal size. Conjunctiva pink, sclera white. NOSE: Clear with pink turbinates. THROAT: No erythema or exudates. NECK: No masses, no JVD, no thyroid enlargement, no adenopathy. CHEST: No chest wall deformity. Symmetrical expansion. Left upper chest thoravent in place connected to the Pleur-evac and wall suction, with no air leak, no output in the Pleur-evac LUNGS: Equal air entry with no crackles, wheeze, rhonchi or dullness. CVS: Regular rate and rhythm, normal S1 and S2, no gallops, no murmurs, no rubs ABDOMEN: Soft, nontender. No hepatosplenomegaly, normal bowel sounds, no guarding or rigidity. EXTREMITIES: No clubbing, no edema, no cyanosis, 2+ pulses and upper and lower extremities. MUSCULOSKELETAL: Muscle strength and tone normal. SPINE: No scoliosis or deformity SKIN: No rashes CENTRAL NERVOUS SYSTEM: Alert and oriented -3. No focal deficits, tone is normal in all 4 extremities. PSYCHIATRIC: Alert and oriented -3. Appropriate affect. Intact judgment and insight. - Labs CBC & Chem 7: 06/06/20 04:57 06/06/20 04:57 Labs: Abnormal Lab Results - Last 24 Hours (Table) 06/05/20 06/05/20 06/05/20 Range/Units 17:46 17:46 19:58 WBC 12.8 H (3.8-10.6) k/uL Sodium 135 L (137-145) mmol/L Glucose 118 H (74-99) mg/dL POC Glucose (mg/dL) 134 H (75-99) mg/dL 06/06/20 06/06/20 Range/Units 04:57 06:02 WBC (3.8-10.6) k/uL Sodium 135 L (137-145) mmol/L Glucose 137 H (74-99) mg/dL POC Glucose (mg/dL) 138 H (75-99) mg/dL Microbiology - Last 24 Hours (Table) 06/05/20 13:15 Bronchial Washings Culture - Preliminary Bronchial Washings - Left Assessment and Plan Plan: Assessment: 1 left-sided pneumothorax post navigational bronchoscopy and transbronchial needle aspirate of a left infrahilar pulmonary nodule measuring around 2.1 x 2.6 cm in size showing metabolic activity, highly suggestive of malignancy. The patient is post Thoravent insertion, has a 13-Uzbek vent in the left hemithorax with reexpansion of the left lung and evacuation of the pneumothorax. 2 shortness of breath secondary to COPD exacerbation and addition to a left- sided pneumothorax. The patient also has some swelling of the vocal cords bilaterally, without having any significant anatomic obstruction of the upper airways. The patient is post left-sided Thoravent insertion. 3 COPD 4 history of laryngeal cancer/vocal cord dysplasia/carcinoma post radiation therapy 5 hoarseness with progressive loss and change in the voice quality and characteristics. We'll obviously need another ENT evaluation Plan: Today's chest x-ray has been reviewed, left lung remains reexpanded, no air leak out of the left Thoravent. We will the Thoravent, repeat chest x-ray at noon, monitor for worsening dyspnea. Continue breathing treatments IV steroids. CT of the chest to be completed today. Encourage deep breathing and coughing, consult Dr. Valencia for history of laryngeal cancer, hoarseness, and swelling of vocal cords. Continue to monitor in the intensive care unit I performed a history & physical examination of the patient and discussed their management with my nurse practitioner, Landy Sharpe. I reviewed the nurse practitioner's note and agree with the documented findings and plan of care. Lung sounds are positive for diminished breath sounds. The findings and the impression was discussed with the patient. I attest to the documentation by the nurse practitioner. Time with Patient: Less than 30
[2020-06-06] MEDS: BENZOCAINE/MENTHOL LOZENG 1 EACH LOZENGE MUCOUS MEM PRN (08:25)
[2020-06-06] MEDS: SYMBICORT 160-4.5 MCG INHALER INHALATION SCH ×2 (08:30→19:06)
--- NOTE | 2020-06-06 10:07 | XR ---
EXAMINATION TYPE: XR chest 1V portable DATE OF EXAM: 06/06/2020 COMPARISON: Chest x-ray 06/05/2020 HISTORY: Chest tube, pneumothorax TECHNIQUE: Single frontal view of the chest is obtained. FINDINGS: There is no significant interval change. Left-sided thoracic vent is present in the supero lateral left hemithorax. No sizable pneumothorax. No evident effusion. Some minimal patchy basilar de nsity noted on the left. Cardiac mediastinal silhouette is stable. Retrocardiac density is present co nsistent with patient's known mass. IMPRESSION: Essentially stable findings, chest tube in place, no sizable pneumothorax
[2020-06-06] MEDS: KETOROLAC 15 MG/ML 1 ML VIAL IVP PRN ×2 (10:15→16:52)
--- NOTE | 2020-06-06 10:47 | P.GSCN ---
History of Present Illness Consult date: 06/06/20 Reason for Consult: Hoarseness Requesting physician: Naa Gonzalez History of present illness: This is a 64-year-old white male long-term smoker who quit cigarettes 2 years ago but utilizes rating as a substitute. He was diagnosed with laryngeal cancer 2-3 years ago and was treated with radiation therapy at [facility]. Approximately 6-12 months ago he stopped seeing Dr. Mendoza and started seeing Dr. Alivia Huitron for follow-up. She left her practice and he was transferred to another industrial psychologist on [address] This industrial psychologist has been following him on an every three-month basis. He has another appointment with this industrial psychologist on June 13. He's had 2-3 months of persistent hoarseness which is variable day today. He utilizes Advair and does not gargle or washes throat out after use. I've been asked to consult regarding his persistent hoarseness to rule out a possible recurrence of her laryngeal cancer. He denies any hemoptysis or neck pain. Denies any dysphagia. He is utilizing Advair twice a day. Review of Systems - Constitutional Reports lethargy, Denies anorexia, Denies fever - EENT Ears, nose, mouth and throat: Reports as per HPI, Denies ant. neck pain, Denies bleeding gums, Denies dental pain, Denies dysphagia, Denies headache - Cardiovascular Denies claudication - Respiratory Denies sleep apnea - Gastrointestinal Denies change in bowel habits - Genitourinary Denies discharge - Musculoskeletal Denies atrophy - Integumentary Reports as per HPI - Neurological Reports as per HPI - Psychiatric Reports as per HPI - Endocrine Reports as per HPI - Hematologic/Lymphatic Reports as per HPI - Allergic/Immunologic Reports as per HPI 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, Past Anesthesia/Blood Transfusion Reactions: No Reported Reaction Past Psychological History: No Psychological Hx Reported Smoking Status: Former smoker, Vaper Past Alcohol Use History: Occasional Additional Past Alcohol Use History / Comment(s): smoked since age 11, 10cig/d quit smoking 2017, Past Drug Use History: Marijuana Additional Drug Use History / Comment(s): occ use - Past Family History Mother Family Medical History: No Reported History Father Family Medical History: Myocardial Infarction (AR) Medications and Allergies Home Medications Medication Instructions Recorded Confirmed Type Albuterol Inhaler (Mhu) [Ventolin 1 - 2 puff INHALATION RT-Q6H PRN 11/17/17 06/05/20 History Hfa Inhaler (Mhu)] Budesonide/Formoterol Fumarate 2 puff INHALATION RT-BID 11/17/17 06/05/20 History [Symbicort 160-4.5 Mcg Inhaler] Albuterol Nebulized [Ventolin 2.5 mg INHALATION Q6H PRN 03/30/19 06/05/20 History Nebulized] Ascorbic Acid [Vitamin C] 1,000 mg PO DAILY 05/31/20 06/05/20 History Atorvastatin Calcium [Lipitor] 20 mg PO HS 05/31/20 06/05/20 History Multivitamins, Thera [Multivitamin 1 tab PO DAILY 05/31/20 06/05/20 History (formulary)] Omeprazole [PriLOSEC] 20 mg PO AC-BRKFST 05/31/20 06/05/20 History predniSONE 5 mg PO DIRECTED 05/31/20 06/05/20 History Allergies Allergy/AdvReac Type Severity Reaction Status Date / Time Penicillins Allergy Unknown Verified 05/31/20 14:58 Childhood Sulfa (Sulfonamide Allergy Unknown Verified 05/31/20 14:58 Antibiotics) Childhood Surgical - Exam Osteopathic Statement: *. No significant issues noted on an osteopathic structural exam other than those noted in the History and Physical/Consult. Vital Signs Temp Pulse Resp BP Pulse Ox 98.6 F 102 H 16 149/99 98 06/05/20 10:18 06/05/20 10:18 06/05/20 10:18 06/05/20 10:18 06/05/20 10:18 - General well developed, well nourished, no distress, no pain - Eyes PERRL, normal ocular movement - ENT Patient has severe hoarseness and has a gravelly voice. Scalp shows no signs of any tumors masses no parasites. Ears auricles were formed canals are clear. Nose shows a right septal deviation. Mouth and throat no oral lesions are noted neck shows no tumors or masses. normal pinna, normal nares, normal mucosa, no hearing loss, no congestion - Neck no masses, trachea midline, no lymphadectomy - Integumentary no rash, no growths, no abnormal pigmentation - Neurologic normal coordination, normal sensation - Musculoskeletal normal gait, normal posture - Psychiatric oriented to time, oriented to person, oriented to place, memory intact Results - Labs 06/06/20 04:57 06/06/20 04:57 Abnormal Lab Results - Last 24 Hours (Table) 06/05/20 06/05/20 06/05/20 Range/Units 17:46 17:46 19:58 WBC 12.8 H (3.8-10.6) k/uL Sodium 135 L (137-145) mmol/L Glucose 118 H (74-99) mg/dL POC Glucose (mg/dL) 134 H (75-99) mg/dL 06/06/20 06/06/20 Range/Units 04:57 06:02 WBC (3.8-10.6) k/uL Sodium 135 L (137-145) mmol/L Glucose 137 H (74-99) mg/dL POC Glucose (mg/dL) 138 H (75-99) mg/dL Microbiology - Last 24 Hours (Table) 06/05/20 13:15 Gram Stain - Preliminary Bronchial Washings - Left Bronchial Washings Culture - Preliminary Diabetes panel 06/05/20 06/06/20 Range/Units 17:46 04:57 Sodium 135 L 135 L (137-145) mmol/L Potassium 4.4 4.3 (3.5-5.1) mmol/L Chloride 104 105 (98-107) mmol/L Carbon Dioxide 22 22 (22-30) mmol/L BUN 17 17 (9-20) mg/dL Creatinine 0.70 0.74 (0.66-1.25) mg/dL Glucose 118 H 137 H (74-99) mg/dL Calcium 9.2 8.9 (8.4-10.2) mg/dL Calcium panel 06/05/20 06/06/20 Range/Units 17:46 04:57 Calcium 9.2 8.9 (8.4-10.2) mg/dL Pituitary panel 06/05/20 06/06/20 Range/Units 17:46 04:57 Sodium 135 L 135 L (137-145) mmol/L Potassium 4.4 4.3 (3.5-5.1) mmol/L Chloride 104 105 (98-107) mmol/L Carbon Dioxide 22 22 (22-30) mmol/L BUN 17 17 (9-20) mg/dL Creatinine 0.70 0.74 (0.66-1.25) mg/dL Glucose 118 H 137 H (74-99) mg/dL Calcium 9.2 8.9 (8.4-10.2) mg/dL Adrenal panel 06/05/20 06/06/20 Range/Units 17:46 04:57 Sodium 135 L 135 L (137-145) mmol/L Potassium 4.4 4.3 (3.5-5.1) mmol/L Chloride 104 105 (98-107) mmol/L Carbon Dioxide 22 22 (22-30) mmol/L BUN 17 17 (9-20) mg/dL Creatinine 0.70 0.74 (0.66-1.25) mg/dL Glucose 118 H 137 H (74-99) mg/dL Calcium 9.2 8.9 (8.4-10.2) mg/dL Assessment and Plan (1) Chronic laryngitis Current Visit: Yes Status: Acute Code(s): J37.0 - CHRONIC LARYNGITIS SNOMED Code(s): 97657529 (2) Hoarseness of voice Current Visit: Yes Status: Acute Code(s): R49.0 - DYSPHONIA SNOMED Code(s): 39832434 (3) Moriah infection Current Visit: Yes Status: Acute Code(s): B37.9 - CANDIDIASIS, UNSPECIFIED SNOMED Code(s): 68158790 Plan: This patient is a difficult laryngoscopy because of the retrodisplaced position of his epiglottis. I did get a good look at his vocal cords demonstrating some previous scarring from his radiation therapy and from the original site of his cancer. He also appears to have chronic laryngitis most likely from his steroid inhaler. The amount of inflammation is quite significant and I'm recommending the use of Mycelex troches for at least 10 days and then a follow- up either on our office or by his industrial psychologist. He has an appointment with his industrial psychologist on June 13 and advised him to follow up with his ENT doctor after Moriah treatment. A repeat laryngoscopy is recommended after the laryngitis is resolved for better evaluation of his larynx. He has my card and is to follow up with us as needed but I understand that his insurance requires that he goes to this industrial psychologist on 12 hours. He has our number and we're available in case we are needed. Again, he has an appointment on June 13 with his industrial psychologist on 12 er[address] he was advised to keep that appointment. Time with Patient: Greater than 30
--- NOTE | 2020-06-06 10:50 | P.OP ---
Date of Procedure: 06/06/20 Preoperative Diagnosis: Hoarseness status post cancer treatment of his larynx Postoperative Diagnosis: Same with chronic laryngitis Procedure(s) Performed: Diagnostic flexible laryngoscopy Anesthesia: none Surgeon: Erik Hilton Estimated Blood Loss (ml): 0 Pathology: none sent Condition: stable Disposition: ICU Indications for Procedure: This patient has persistent hoarseness which has been continuing for the last 2- 3 months. We then asked to consult to rule out laryngeal mass. The patient has had previous treatment for laryngeal cancer with radiation therapy at [facility]. Operative Findings: Patient is a difficult scope because of his retrodisplaced epiglottis but a detail exam of the larynx reveals severe chronic laryngitis and no discrete tumors or masses noted. Patient has a right septal deviation and the nasoph arynx oropharynx and hypopharynx does not show any signs of any abnormalities other than severe laryngitis which possibly is from his steroid inhaler possibly from a yeast infection. Description of Procedure: This patient was placed in the upright position. An EF type GP nasopharyngoscope was inserted in the patient's left naris and we followed the floor the nose to the nasopharynx and then to the oropharynx and into the hypopharynx. There is no pathology of the nasopharynx or oropharynx. Hypopharynx reveals a tremendous amount of laryngeal inflammation and evidence of yeast infection with a biofilm over the larynx. No discrete tumor or masses were seen. There was some evidence of old scarring from the patient therapy for his laryngeal cancer. The chronic laryngitis is quite severe.
[2020-06-06] MEDS: CLOTRIMAZOLE TROCHE 10 MG TROCHE MUCOUS MEM SCH ×4 (11:33→23:00)
[2020-06-06 11:46] LABS: Glucose,Whole Blood 121 mg/dL (75-99)
--- NOTE | 2020-06-06 12:22 | XR ---
EXAMINATION TYPE: XR chest 1V portable DATE OF EXAM: 06/06/2020 CLINICAL HISTORY: Left-sided pneumothorax and pleural drainage catheter. Catheter taken off suction. TECHNIQUE: Single AP portable upright view of the chest is obtained. COMPARISON: Chest x-ray from earlier today an older studies. PET/CT May 24, 2020 FINDINGS: Background emphysematous change. Background tiny left apical pneumothorax estimated at 5% or smaller after suction turned off. Persistent anterolateral pleural drainage catheter. Background c hronic emphysematous and pulmonary fibrotic change. No new mediastinal shift. Some left-sided subcuta neous emphysema is noted. IMPRESSION: New tiny left apical pneumothorax after turning suction off of pleural drainage catheter. New small amount of left-sided subcutaneous emphysema.
--- NOTE | 2020-06-06 14:45 | CT ---
EXAMINATION TYPE: CT angio neck DATE OF EXAM: 06/06/2020 COMPARISON: Chest radiograph same day HISTORY: 64-year-old male hoarseness, SOB, vocal cord CA. TECHNIQUE: Contiguous axial scanning of the neck performed with IV Contrast, patient injected with 65 mL of Isovue 370. Coronal/sagittal MIP reconstructions performed. 3-D reconstructions generated on a dedicated independent workstation. CT DLP: 308.5 mGycm Automated exposure control for dose reduction was used. FINDINGS: There is a left-sided Thoravent entering the anterior second intercostal space. Associated subcutaneo us emphysema. Underlying small left apical pneumothorax with moderate to advanced underlying emphysem atous change. Conventional arch vessel branching anatomy. The left vertebral artery is slightly more dominant but both vessels are patent throughout the course . The V4 segment right vertebral artery becomes further hypoplastic after the PICA take off. Mild ath erosclerotic calcifications in the V4 segment left vertebral artery. The right common carotid artery is patent. Mild atherosclerotic calcification within the right carotid bulb without significant stenosis of the ICA. The left common carotid artery is patent with minimal atherosclerotic plaque and calcification and no significant narrowing of the left ICA. We note some thickening along the left aryepiglottic fold and circumferential thickening of the mucos al space at the level of the glottis. Findings may relate to the patient's reported vocal cord cancer . IMPRESSION: 1. PATENT CAROTID AND VERTEBRAL ARTERIES OF THE NECK. DOMINANT LEFT VERTEBRAL ARTERY. 2. SMALL LEFT APICAL PNEUMOTHORAX WITH THORAVENT IN PLACE. UNDERLYING EMPHYSEMA. 3. MILD THICKENING OF THE CERVICAL MUCOSAL SPACE AT THE LEVEL OF THE GLOTTIS MAY REFLECT THE PATIENT' S UNDERLYING VOCAL CORD CANCER.
--- NOTE | 2020-06-06 15:57 | P.PN ---
Subjective Progress Note Date: 06/06/20 Principal diagnosis: shortness of breath Patient is a 64 yo M with a hx of COPD, squamous cell vocal cord cancer treated with radiation, tobacco abuse who initially presented for outpatient navigational bronchoscopy with biopsy for Left lower lobe and infrahilar nodule. After the bronch he developed worsening respiratory distress and CXR revealed left sided pneumothorax. Dr. Gonzalez was notified and proceeded to bedside and thoravent was placed on 06/05. He was admitted to the ICU. He was started on bronchodilators and steroids. CT neck was ordered as he was noted to have a hoarse voice. Patient seen and examined at bedside. He states that his voice started getting more hoarse at approximately 3 AM. Chest pain is resolved. Shortness of breath is somewhat improving. Still feeling very winded. No nausea or vomiting. Seen by ENT and had bedside laryngoscopy with scaring and inflammation of vocal cords with marian. General: Ill-appearing, no distress, appears at stated age Derm: warm, dry Head: atraumatic, normocephalic, symmetric Eyes: EOMI, no lid lag, anicteric sclera Mouth: no lip lesion, mucus membranes moist, pharyngeal erythema, some dried blood at the posterior left pharynx, no thrush noted Cardiovascular: S1S2 reg, no murmur, positive posterior tibial pulse bilateral, Lungs: Wheezes bilateral, + accessory muscle use, +5 word conversational dyspneaAbdominal: soft, nontender to palpation, no guarding, no appreciable organomegaly Ext: no gross muscle atrophy, no edema, no contractures Neuro: CN II-XI grossly intact, no focal neuro deficits Psych: Alert, oriented, appropriate affect Candidal infection, chronic laryngitis -Diflucan -Outpatient follow-up with ENT - CT neck pending Left sided pneumothorax s/p bronch - D/W Dr. Gonzalez - s/p left sided thoravent - pain control - IS - pulm hygiene COPD with acute exacerbation - Solumedrol - Bronchodilators - no indication for abx at this time. Dyslipidemia - statin GERD -PPI DVT prophylaxis: SCDs Discussed with: patient, dr gonzalez Anticipated discharge date in 1-[address]: home A total of 65 minutes was spent on the care of this complex patient more than 50% of the time was spent in counseling and care coordination. Objective - Vital Signs Vital signs: Vital Signs Temp 98.1 F 06/06/20 04:00 Pulse 102 H 06/06/20 07:00 Resp 18 06/06/20 07:00 BP 134/90 06/06/20 07:00 Pulse Ox 93 L 06/06/20 07:00 Intake & Output 06/05/20 06/06/20 06/06/20 18:59 06:59 18:59 Intake Total 1880 1375 125 Output Total 150 1600 0 Balance 1730 -225 125 Weight 62.8 kg 68.5 kg Intake: IV 1880 1375 125 Sodium Chloride 0.9% 1, 1375 125 000 ml @ 125 mls/hr IV . Q8H [facility] Rx#:[id number] Output: Urine 150 1600 0 Other: Voiding Method Urinal - Labs CBC & Chem 7: 06/06/20 04:57 06/06/20 04:57 Labs: Abnormal Lab Results - Last 24 Hours (Table) 06/05/20 06/05/20 06/05/20 Range/Units 17:46 17:46 19:58 WBC 12.8 H (3.8-10.6) k/uL Sodium 135 L (137-145) mmol/L Glucose 118 H (74-99) mg/dL POC Glucose (mg/dL) 134 H (75-99) mg/dL 06/06/20 06/06/20 Range/Units 04:57 06:02 WBC (3.8-10.6) k/uL Sodium 135 L (137-145) mmol/L Glucose 137 H (74-99) mg/dL POC Glucose (mg/dL) 138 H (75-99) mg/dL Microbiology - Last 24 Hours (Table) 06/05/20 13:15 Bronchial Washings Culture - Preliminary Bronchial Washings - Left
[2020-06-06 16:47] LABS: Glucose,Whole Blood 134 mg/dL (75-99)
[2020-06-06] MEDS: FLUCONAZOLE 100 MG TAB PO SCH (16:50)
[2020-06-06 19:35] LABS: Glucose,Whole Blood 135 mg/dL (75-99)
[2020-06-06] MEDS: ATORVASTATIN 20 MG TAB PO SCH (19:36)
[2020-06-06] MEDS: MORPHINE SULFATE 4 MG/ML SYRINGE IVP PRN (19:40)
[2020-06-07] MEDS: IPRATROPIUM-ALBUTEROL 3 ML NEB INHALATION SCH ×6 (01:47→20:37)
[2020-06-07] MEDS: HYDROcodone/APAP 5-325MG 1 EACH TAB PO PRN ×3 (04:43→16:35)
[2020-06-07 05:28] LABS: ALT 36 U/L (4-49); AST 31 U/L (17-59); African American GFR (CKD) >90 (>60 ml/min/1.73 sqM); Albumin 3.7 g/dL (3.5-5.0); Alkaline Phosphatase 55 U/L (38-126); Anion Gap 7 mmol/L; Blood Urea Nitrogen 23 mg/dL (9-20); Calcium 8.9 mg/dL (8.4-10.2); Carbon Dioxide 22 mmol/L (22-30); Chloride 107 mmol/L (98-107); Glucose 136 mg/dL (74-99); Magnesium 2.4 mg/dL (1.6-2.3); Non-African American GFR(CKD) >90 (>60 ml/min/1.73 sqM); Potassium 4.8 mmol/L (3.5-5.1); Sodium 136 mmol/L (137-145); Total Bilirubin 0.5 mg/dL (0.2-1.3)
[2020-06-07 05:37] LABS: HCT 41.6 % (39.0-53.0); HGB 13.7 gm/dL (13.0-17.5); MCH 33.3 pg (25.0-35.0); MCHC 32.8 g/dL (31.0-37.0); MCV 101.4 fL (80.0-100.0); Macrocytosis Slight; Platelet Count 286 k/uL (150-450); RDW 13.3 % (11.5-15.5)
[2020-06-07] MEDS: INSULIN ASPART (NovoLOG) 100 UNIT/ML VIAL SQ SCH ×4 (06:31→20:09)
[2020-06-07 06:32] LABS: Glucose,Whole Blood 124 mg/dL (75-99)
[2020-06-07] MEDS: CLOTRIMAZOLE TROCHE 10 MG TROCHE MUCOUS MEM SCH ×4 (06:33→19:28)
[2020-06-07] MEDS: PANTOPRAZOLE 40 MG TABLET PO SCH (06:33)
[2020-06-07] MEDS: methylPREDNISolone SOD SUCCI 125 MG/2 ML VIAL IV SCH ×4 (06:33→23:59)
[2020-06-07] MEDS: ALPRAZolam 0.25 MG TAB PO PRN ×2 (07:47→19:29)
[2020-06-07] MEDS: KETOROLAC 15 MG/ML 1 ML VIAL IVP PRN ×2 (07:47→19:27)
[2020-06-07] MEDS: BENZOCAINE/MENTHOL LOZENG 1 EACH LOZENGE MUCOUS MEM PRN ×2 (07:48→19:28)
[2020-06-07] MEDS: ASCORBIC ACID 500 MG TAB PO SCH (07:48)
[2020-06-07] MEDS: MULTIVITAMINS, THERA 1 EACH TAB PO SCH (07:49)
[2020-06-07] MEDS: FLUCONAZOLE 100 MG TAB PO SCH (07:49)
[2020-06-07] MEDS: SODIUM CHLORIDE 0.9% 1,000 ML IV SCH ×2 (07:49→16:39)
--- NOTE | 2020-06-07 08:25 | P.PN ---
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 The patient was admitted on outpatient basis for a navigational bronchoscopy and biopsy of a left lower lobe pulmonary nodule that showed increased metabolic activity and earlier CAT scan. The procedure was essentially an uncomplicated. Nevertheless, prior to the procedure, the patient was having significant amount of hoarseness and an upper airway inspection that was done at a time of the bronchoscopy showed swollen vocal cords bilaterally without any visualized masses or lesions or tumors or anatomic obstruction. The procedure was done and the biopsy of the left lower lobe was done through a transbronchial needle aspirate and the patient was extubated. In recovery, the patient remained short of breath but not hypoxic. Chest x-ray showed a left-sided pneumothorax. I attended on this patient in the recovery and I inserted a Thoravent 13-Wolof with successful expansion of the left lung. The patient me was given steroids for swelling of the vocal cords and COPD exacerbation. Currently the Thoravent is in place and there is no evidence of any air leak. He shortness of breath is improved. He has remained hemodynamically stable. He is complaining of some the method chest discomfort on the left. No angina. No palpitation. No pl eurisy. No hemoptysis. On 06/06/2020 patient seen in follow-up in the intensive care unit, yesterday patient developed worsening shortness of breath in the recovery room following his navigational bronchoscopy with biopsies, he was given breathing treatments, and he continued to be short of breath, chest x-ray was obtained showing large left-sided pneumothorax minimal tension. Left-sided thoravent is inserted with reexpansion of the left lung, this was placed to wall suction. Patient was not ed to the intensive care unit for closer monitoring. This morning his chest x- ray shows clearing of the left side pneumothorax, left-sided Thoravent in place connected to the Pleur-evac and continuous wall suction. Patient is awake and alert, oriented 3, his voice is hoarse however with no worsening from before the bronchoscopy. Lung sounds reveal equal breath sounds, no wheezing, diminished breath sounds bilaterally, no rhonchi. Is working on incentive parameter, achieving 2748-5970 mL on the today. For that surgery was of oxygen pulse ox is 95%, his been afebrile, he is in sinus mechanism slightly tachycardic with a rate of 108 BPM. He is receiving IV fluids at a rate of 125 ML per hour, he is on breathing treatments in the form of DuoNeb, Symbicort, and IV steroids Solu-Medrol 60 mg every 6 hours. His pathology results of the transbronchial needle aspirates biopsy of the left lower lobe mass still pending at this time. Today's labs have been reviewed, white blood cell count is 10.2, hemoglobin is 14.4, sodium is 135, the rest of the electrolytes and renal profile were unremarkable. Patient is resting comfortably in bed, if his breathing is much easier compared to yesterday. Tolerating oral diet. 06/07/2020 on seeing the patient for a follow-up in the intensive care units. He is still struggling with his breathing and he is having some increased shortness of breath especially this morning after having a full breakfast and his abdomen got more distended than he is feeling more restricted in terms of his breathing. He is also coughing and is complaining of chest soreness. Meanwhile, repeat chest x-ray was done today and it showed no evidence of any pneumothorax and left lung is well expanded. The computed tomography scan of the neck was done also yesterday and the patient had patent carotid and vertebral arteries. There was a left apical pneumothorax was small hemorrhoid, thickening of the cervical mucosaat the level of the glottis. The patient was seen by Dr. Erik Hampton and a direct laryngoscopy was done and based on the direct observation of the course, there was no lesions or tumors. There was evidence of chronic laryngitis and there was tremendous amount of laryngeal inflammation evidence of yeast infection. For that reason, I kept the patient on IV steroids. I also added and he still has a Thoravent in his left lung. This is taken off the Pleur-evac and suctioning at this point. White cell count at 17 with a hemoglobin of 15.7. Electrolytes are all within normal limits. The lavage and the left lung showed no microbial cultures and the biopsies are still pending for now. He remains on bronchodilators. He remains on steroids. He continues to have a significantly hoarse voice. Objective - Vital Signs Vital signs: Vital Signs Temp 98 F 06/07/20 08:00 Pulse 109 H 06/07/20 08:00 Resp 32 H 06/07/20 08:00 BP 159/98 06/07/20 08:00 Pulse Ox 95 06/07/20 08:00 Intake & Output 06/06/20 06/07/20 06/07/20 18:59 06:59 18:59 Intake Total 2450 1500 225 Output Total 1200 1500 100 Balance 1250 0 125 Weight 71.1 kg Intake: IV 1500 1500 125 Sodium Chloride 0.9% 1, 1500 1500 125 000 ml @ 125 mls/hr IV . Q8H [facility] Rx#:[id number] Intake, IV Titration 200 Amount Magnesium Sulfate-D5w Pmx 200 1 gm In Dextrose/Water 1 100ml.bag @ 100 mls/hr IVPB Q1H [facility] Rx#: [id number] Oral 750 100 Output: Urine 1200 1500 100 Other: Voiding Method Urinal Urinal Urinal - Exam GENERAL EXAM: Alert, active, very pleasant, 64-year-old white male, a 3 L of oxygen pulse ox of 95%, comfortable in no apparent distress. Patient has voice hoarseness HEAD: Normocephalic/atraumatic. EYES: Normal reaction of pupils, equal size. Conjunctiva pink, sclera white. NOSE: Clear with pink turbinates. THROAT: No erythema or exudates. NECK: No masses, no JVD, no thyroid enlargement, no adenopathy. CHEST: No chest wall deformity. Symmetrical expansion. Left upper chest thoravent in place connected to the Pleur-evac and wall suction, with no air leak, no output in the Pleur-evac LUNGS: Equal air entry with no crackles, wheeze, rhonchi or dullness. CVS: Regular rate and rhythm, normal S1 and S2, no gallops, no murmurs, no rubs ABDOMEN: Soft, nontender. No hepatosplenomegaly, normal bowel sounds, no guarding or rigidity. The abdomen is distended and this is noted to be more distended this morning. EXTREMITIES: No clubbing, no edema, no cyanosis, 2+ pulses and upper and lower extremities. MUSCULOSKELETAL: Muscle strength and tone normal. SPINE: No scoliosis or deformity SKIN: No rashes CENTRAL NERVOUS SYSTEM: Alert and oriented -3. No focal deficits, tone is normal in all 4 extremities. PSYCHIATRIC: Alert and oriented -3. Appropriate affect. Intact judgment and insight. - Labs CBC & Chem 7: 06/07/20 04:46 06/07/20 04:46 Labs: Abnormal Lab Results - Last 24 Hours (Table) 06/06/20 06/06/20 06/06/20 Range/Units 11:44 16:46 19:33 WBC (3.8-10.6) k/uL RBC (4.30-5.90) m/uL MCV (80.0-100.0) fL Sodium (137-145) mmol/L BUN (9-20) mg/dL Glucose (74-99) mg/dL POC Glucose (mg/dL) 121 H 134 H 135 H (75-99) mg/dL Magnesium (1.6-2.3) mg/dL Total Protein (6.3-8.2) g/dL 06/07/20 06/07/20 06/07/20 Range/Units 04:46 04:46 06:30 WBC 17.0 H (3.8-10.6) k/uL RBC 4.10 L (4.30-5.90) m/uL MCV 101.4 H (80.0-100.0) fL Sodium 136 L (137-145) mmol/L BUN 23 H (9-20) mg/dL Glucose 136 H (74-99) mg/dL POC Glucose (mg/dL) 124 H (75-99) mg/dL Magnesium 2.4 H (1.6-2.3) mg/dL Total Protein 6.0 L (6.3-8.2) g/dL Microbiology - Last 24 Hours (Table) 06/05/20 13:15 Gram Stain - Preliminary Bronchial Washings - Left Bronchial Washings Culture - Preliminary Assessment and Plan Plan: 1 left-sided pneumothorax post navigational bronchoscopy and transbronchial needle aspirate of a left infrahilar pulmonary nodule measuring around 2.1 x 2.6 cm in size showing metabolic activity, highly suggestive of malignancy. The patient is post Thoravent insertion, has a 13-Wolof vent in the left hemithorax with reexpansion of the left lung and evacuation of the pneumothorax. She had on today's evaluation, the chest x-ray shows no evidence of any pneumothorax. Thoravent is in place. Wall suction his been discontinued and the Thoravent is showing some minimal amount of occasional leaks. Otherwise, no evidence of a pneumothorax on today's chest x-ray. 2 shortness of breath secondary to COPD exacerbation and addition to a left- sided pneumothorax. The patient also has some swelling of the vocal cords bilaterally, without having any significant anatomic obstruction of the upper airways. The patient is post left-sided Thoravent insertion. 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 There may be also a possibility of a super infection with Moriah. Plan Keep the patient intensive care unit for now Thoravent will be kept in place Daily chest x-ray Incentive spirometer Morphine for pain control Milk of magnesia along with prune juice for constipation DuoNeb nebulized treatments around the clock IV Solu-Medrol, 60 mg every 6 hours IV Diflucan 100 mg every 24 hours Mycelex CAT scan of the neck was noted ENT evaluation regarding significant dysphagia and vocal cord pathology/swelling was done and there is evidence of chronic laryngitis based on the direct laryngoscopy Heparin subcu for DVT prophylaxis Allow diet Oxygen therapy to maintain a saturation above 90%, with humidification The microbiology from the left lower lobe lavage is negative and we are still awaiting the fine-needle aspirate from the left lower lobe infrahilar pulmonary nodule We'll continue to follow
--- NOTE | 2020-06-07 09:01 | XR ---
EXAMINATION TYPE: XR chest 1V portable DATE OF EXAM: 06/07/2020 COMPARISON: Chest x-ray 06/06/2020 HISTORY: Chest tube, pneumothorax TECHNIQUE: Single frontal view of the chest is obtained. FINDINGS: Left-sided thoracic vent tubing is again noted. Suspect only minimal left apical pneumotho rax. No significant interval change. IMPRESSION: Minimal left apical pneumothorax with chest tube placed
[2020-06-07] MEDS: SYMBICORT 160-4.5 MCG INHALER INHALATION SCH ×2 (09:02→20:38)
[2020-06-07] MEDS ORDERED: MAGNESIUM HYDROXIDE 2,400 MG/10 ML CUP PO PRN (10:10)
[2020-06-07 11:48] LABS: Glucose,Whole Blood 138 mg/dL (75-99)
[2020-06-07 16:40] LABS: Glucose,Whole Blood 184 mg/dL (75-99)
[2020-06-07 20:07] LABS: Glucose,Whole Blood 149 mg/dL (75-99)
[2020-06-07] MEDS: ATORVASTATIN 20 MG TAB PO SCH (20:09)
[2020-06-07] MEDS ORDERED: bisacodyL 10 MG SUPP RECTAL STA (22:10)
--- NOTE | 2020-06-07 22:50 | P.PN ---
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 After the bronch he developed worsening respiratory distress and CXR revealed left sided pneumothorax. Dr. Gonzalez was notified and proceeded to bedside and thoravent was placed on 06/05. He was admitted to the ICU. He was started on bronchodilators and steroids. CT neck was ordered as he was noted to have a hoarse voice. On June 06 underwent flexible laryngoscopy per Dr. Hampton. Was found to have-severe chronic laryngitis and evidence of yeast infection Today: Patient with ICU. Did tolerate his diet. Some shortness of breath. Hoarse voice. Constipation. No BM for 3 days. No nausea vomiting. Sinus tachycardia. Review of systems: Was done for constitutional, cardiovascular, GI, pulmonary. relevant finding as above Active Medications Acetaminophen (Acetaminophen Tab 325 Mg Tab) 650 mg PO Q6HR PRN PRN Reason: Mild Pain or Fever > 100.5 Hydrocodone Bitart/Acetaminophen (Hydrocodone/Apap 5-325mg 1 Each Tab) 1 each PO Q4HR PRN PRN Reason: Moderate Pain Last Admin: 06/07/20 16:35 Dose: 1 each Documented by: Albuterol Sulfate (Albuterol Nebulized 2.5 Mg/3 Ml) 2.5 mg INHALATION Q6H PRN PRN Reason: Shortness Of Breath Albuterol/Ipratropium (Ipratropium-Albuterol 3 Ml Neb) 3 ml INHALATION RT-Q4H [facility] Last Admin: 06/07/20 20:37 Dose: 3 ml Documented by: Alprazolam (Alprazolam 0.25 Mg Tab) 0.25 mg PO Q6HR PRN PRN Reason: Anxiety Last Admin: 06/07/20 19:29 Dose: 0.25 mg Documented by: Ascorbic Acid (Ascorbic Acid 500 Mg Tab) 1,000 mg PO DAILY [facility] Last Admin: 06/07/20 07:48 Dose: 1,000 mg Documented by: Atorvastatin Calcium (Atorvastatin 20 Mg Tab) 20 mg PO HS [facility] Last Admin: 06/07/20 20:09 Dose: 20 mg Documented by: Benzocaine/Menthol (Benzocaine/Menthol Lozeng 1 Each Lozenge) 1 each MUCOUS MEM Q4HR PRN PRN Reason: Cough Last Admin: 06/07/20 19:28 Dose: 1 each Documented by: Budesonide/Formoterol Fumarate (Symbicort 160-4.5 Mcg Inhaler) 2 puff INHALATION RT-BID [facility] Last Admin: 06/07/20 20:38 Dose: 2 puff Documented by: Clotrimazole (Clotrimazole Tyson 10 Mg Tyson) 10 mg MUCOUS MEM 5XD [facility] Last Admin: 06/07/20 19:28 Dose: 10 mg Documented by: Fluconazole (Fluconazole 100 Mg Tab) 100 mg PO DAILY [facility] Last Admin: 06/07/20 07:49 Dose: 100 mg Documented by: Insulin Aspart (Insulin Aspart (Novolog) 100 Unit/Ml Vial) 0 unit SQ ACHS [facility]; Protocol Last Admin: 06/07/20 20:09 Dose: 1 unit Documented by: Ketorolac Tromethamine (Ketorolac 15 Mg/Ml 1 Ml Vial) 15 mg IVP Q6HR PRN PRN Reason: Moderate Pain Stop: 06/08/20 17:51 Last Admin: 06/07/20 19:27 Dose: 15 mg Documented by: Lidocaine HCl (Lidocaine 1% (10mg/Ml) For Iv Start) 0.1 ml INTRADERMA PER PROTOCOL PRN PRN Reason: IV Start Stop: 07/05/20 06:15 Magnesium Hydroxide (Magnesium Hydroxide 2,400 Mg/10 Ml Cup) 2,400 mg PO ONCE PRN PRN Reason: Constipation Last Admin: 06/07/20 10:19 Dose: 2,400 mg Documented by: Melatonin (Melatonin 3 Mg Tablet) 3 mg PO HS PRN PRN Reason: Insomnia Methylprednisolone Sodium Succinate (Methylprednisolone Sod Succi 125 Mg/2 Ml Vial) 60 mg IV Q6HR [facility] Last Admin: 06/07/20 16:35 Dose: 60 mg Documented by: Miscellaneous Information (Magnesium Replacement Protocol 1 Each Misc) 1 each MISCELLANE DAILY PRN; Protocol PRN Reason: Per Protocol Morphine Sulfate (Morphine Sulfate 4 Mg/Ml Syringe) 4 mg IVP Q4HR PRN PRN Reason: Pain Last Admin: 06/06/20 19:40 Dose: 4 mg Documented by: Multivitamins (Multivitamins, Thera 1 Each Tab) 1 each PO DAILY [facility] Last Admin: 06/07/20 07:49 Dose: 1 each Documented by: Naloxone HCl (Naloxone 0.4 Mg/Ml 1 Ml Vial) 0.2 mg IV Q2M PRN PRN Reason: Opioid Reversal Ondansetron HCl (Ondansetron 4 Mg/2 Ml Vial) 4 mg IVP Q8HR PRN PRN Reason: Nausea And Vomiting Pantoprazole Sodium (Pantoprazole 40 Mg Tablet) 40 mg PO AC-BRKFST [facility] Last Admin: 06/07/20 06:33 Dose: 40 mg Documented by: On examination: VITAL SIGNS: [97.7, 109, 25, 162 x 1 21, 95% on 3 L] GENERAL APPEARANCE: Average build. Lying in bed, slightly short of breath HEENT: Normal external appearance of nose and ear. Oral cavity normal EYES: Pupils equal. Conjunctiva normal. NECK: JVD not raised. Mass not palpable. RESPIRATORY: Respiratory effort increased, decreased breath sounds, wheezing. CARDIOVASCULAR: First and second sounds normal. No edema. ABDOMEN: Soft. Liver and spleen not palpable. No tenderness. No mass palpable. PSYCHIATRY: Alert and oriented x3. Mood and affect anxious. INVESTIGATIONS, reviewed in the clinical context: WBC 17 hemoglobin 13.7 platelets 26 potassium 4.8 creatinine 0.70 Chest [id number] left apical pneumothorax with the Thora-vent Neck CTA-small left apical pneumothorax with the Thora-vent in place. Underlying emphysema. Assessment and plan Acute Moriah infection of the pharynx, chronic laryngitis. Seen by Dr. Hampton. -Diflucan -Outpatient follow-up with ENT Left sided pneumothorax, iatrogenic secondary to bronchoscopy navigational - s/p left sided thoravent , incentive spirometry-better COPD with acute exacerbation , in an ex-smoker - Solumedrol IV, bronchodilators Dyslipidemia - statin GERD -PPI DVT prophylaxis: Add subcu Lovenox Acute constipation with no bowel movement for 3 days. Patient started Maxifed with no results. We'll try a Dulcolax suppository- discussed with patient Care was discussed with the patient. Questions answered. Continue current medications.
[2020-06-08] MEDS: IPRATROPIUM-ALBUTEROL 3 ML NEB INHALATION SCH ×6 (00:41→20:37)
[2020-06-08 05:40] LABS: ALT 43 U/L (4-49); AST 43 U/L (17-59); African American GFR (CKD) >90 (>60 ml/min/1.73 sqM); Albumin 3.7 g/dL (3.5-5.0); Alkaline Phosphatase 64 U/L (38-126); Anion Gap 7 mmol/L; Blood Urea Nitrogen 23 mg/dL (9-20); Carbon Dioxide 27 mmol/L (22-30); Chloride 102 mmol/L (98-107); Glucose 121 mg/dL (74-99); Non-African American GFR(CKD) >90 (>60 ml/min/1.73 sqM); Potassium 4.5 mmol/L (3.5-5.1); Sodium 136 mmol/L (137-145); Total Bilirubin 0.6 mg/dL (0.2-1.3)
[2020-06-08 05:46] LABS: Basophils % (A) 0 %; Eosinophils % (A) 0 %; HCT 43.8 % (39.0-53.0); HGB 14.4 gm/dL (13.0-17.5); Lymphocytes # (A) 0.5 k/uL (1.0-4.8); Lymphocytes % (A) 3 %; MCH 33.2 pg (25.0-35.0); MCHC 32.8 g/dL (31.0-37.0); MCV 101.3 fL (80.0-100.0); Macrocytosis Slight; Mean Platelet Volume 7.8; Monocytes # (A) 0.5 k/uL (0-1.0); Monocytes % (A) 3 %; Neutrophils % (A) 93 %; Platelet Count 277 k/uL (150-450); RBC 4.32 m/uL (4.30-5.90); RDW 13.3 % (11.5-15.5); WBC 15.1 k/uL (3.8-10.6)
[2020-06-08] MEDS: methylPREDNISolone SOD SUCCI 125 MG/2 ML VIAL IV SCH ×4 (06:08→23:38)
[2020-06-08] MEDS: ALPRAZolam 0.25 MG TAB PO PRN ×2 (06:08→20:52)
[2020-06-08] MEDS: BENZOCAINE/MENTHOL LOZENG 1 EACH LOZENGE MUCOUS MEM PRN ×2 (06:09→20:52)
[2020-06-08] MEDS: CLOTRIMAZOLE TROCHE 10 MG TROCHE MUCOUS MEM SCH ×6 (06:17→23:38)
[2020-06-08 06:53] LABS: Glucose,Whole Blood 132 mg/dL (75-99)
[2020-06-08] MEDS: PANTOPRAZOLE 40 MG TABLET PO SCH (06:53)
[2020-06-08] MEDS: INSULIN ASPART (NovoLOG) 100 UNIT/ML VIAL SQ SCH ×4 (06:54→20:53)
--- NOTE | 2020-06-08 07:23 | XR ---
EXAMINATION TYPE: XR chest 1V DATE OF EXAM: 06/08/2020 COMPARISON: Prior chest x-ray 06/07/2020 HISTORY: Chest tube, pneumothorax TECHNIQUE: Single frontal view of the chest is obtained. FINDINGS: There is not a significant interval change. Left apical pneumothorax is no longer seen. Le ft-sided chest tube remains in place. Some minimal patchy basilar density present on the left. Cardia c mediastinal silhouette is stable. IMPRESSION: No sizable pneumothorax. Some minimal basilar atelectasis is suspected.
[2020-06-08] MEDS: ASCORBIC ACID 500 MG TAB PO SCH (08:07)
[2020-06-08] MEDS: FLUCONAZOLE 100 MG TAB PO SCH (08:07)
[2020-06-08] MEDS: MULTIVITAMINS, THERA 1 EACH TAB PO SCH (08:07)
[2020-06-08] MEDS: SYMBICORT 160-4.5 MCG INHALER INHALATION SCH ×2 (08:38→20:39)
[2020-06-08] MEDS ORDERED: bisacodyL 10 MG SUPP RECTAL STA (08:58)
--- NOTE | 2020-06-08 08:59 | P.PN ---
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 The patient was admitted on outpatient basis for a navigational bronchoscopy and biopsy of a left lower lobe pulmonary nodule that showed increased metabolic activity and earlier CAT scan. The procedure was essentially an uncomplicated. Nevertheless, prior to the procedure, the patient was having significant amount of hoarseness and an upper airway inspection that was done at a time of the bronchoscopy showed swollen vocal cords bilaterally without any visualized masses or lesions or tumors or anatomic obstruction. The procedure was done and the biopsy of the left lower lobe was done through a transbronchial needle aspirate and the patient was extubated. In recovery, the patient remained short of breath but not hypoxic. Chest x-ray showed a left-sided pneumothorax. I attended on this patient in the recovery and I inserted a Thoravent 13-Tongan with successful expansion of the left lung. The patient me was given steroids for swelling of the vocal cords and COPD exacerbation. Currently the Thoravent is in place and there is no evidence of any air leak. He shortness of breath is improved. He has remained hemodynamically stable. He is complaining of some the method chest discomfort on the left. No angina. No palpitation. No pl eurisy. No hemoptysis. On 06/06/2020 patient seen in follow-up in the intensive care unit, yesterday patient developed worsening shortness of breath in the recovery room following his navigational bronchoscopy with biopsies, he was given breathing treatments, and he continued to be short of breath, chest x-ray was obtained showing large left-sided pneumothorax minimal tension. Left-sided thoravent is inserted with reexpansion of the left lung, this was placed to wall suction. Patient was not ed to the intensive care unit for closer monitoring. This morning his chest x- ray shows clearing of the left side pneumothorax, left-sided Thoravent in place connected to the Pleur-evac and continuous wall suction. Patient is awake and alert, oriented 3, his voice is hoarse however with no worsening from before the bronchoscopy. Lung sounds reveal equal breath sounds, no wheezing, diminished breath sounds bilaterally, no rhonchi. Is working on incentive parameter, achieving 9833-4604 mL on the today. For that surgery was of oxygen pulse ox is 95%, his been afebrile, he is in sinus mechanism slightly tachycardic with a rate of 108 BPM. He is receiving IV fluids at a rate of 125 ML per hour, he is on breathing treatments in the form of DuoNeb, Symbicort, and IV steroids Solu-Medrol 60 mg every 6 hours. His pathology results of the transbronchial needle aspirates biopsy of the left lower lobe mass still pending at this time. Today's labs have been reviewed, white blood cell count is 10.2, hemoglobin is 14.4, sodium is 135, the rest of the electrolytes and renal profile were unremarkable. Patient is resting comfortably in bed, if his breathing is much easier compared to yesterday. Tolerating oral diet. 06/07/2020 on seeing the patient for a follow-up in the intensive care units. He is still struggling with his breathing and he is having some increased shortness of breath especially this morning after having a full breakfast and his abdomen got more distended than he is feeling more restricted in terms of his breathing. He is also coughing and is complaining of chest soreness. Meanwhile, repeat chest x-ray was done today and it showed no evidence of any pneumothorax and left lung is well expanded. The computed tomography scan of the neck was done also yesterday and the patient had patent carotid and vertebral arteries. There was a left apical pneumothorax was small hemorrhoid, thickening of the cervical mucosaat the level of the glottis. The patient was seen by Dr. Erik Hampton and a direct laryngoscopy was done and based on the direct observation of the course, there was no lesions or tumors. There was evidence of chronic laryngitis and there was tremendous amount of laryngeal inflammation evidence of yeast infection. For that reason, I kept the patient on IV steroids. I also added and he still has a Thoravent in his left lung. This is taken off the Pleur-evac and suctioning at this point. White cell count at 17 with a hemoglobin of 15.7. Electrolytes are all within normal limits. The lavage and the left lung showed no microbial cultures and the biopsies are still pending for now. He remains on bronchodilators. He remains on steroids. He continues to have a significantly hoarse voice. 6 2020, the patient is being seen in follow-up in the intensive care unit. He is also being treated for an acute COPD exacerbation and he has a Thoravent regarding iatrogenic left-sided pneumothorax. He also has severe hoarseness. He did have some abdominal distention yesterday. He had stool following administration of a suppository and he got some relief in his shortness of breath or chest discomfort got better after he had a bowel movement. This morning he is again distended and tympanic. No nausea. No vomiting. He is passing gas. He is using incentive spirometer. Chest x-ray from today shows no evidence of any pneumothorax. The Thoravent is not At this point in time, yet it is disconnected from the suction. He is on bronchodilators. He remains on IV Solu-Medrol. ENT evaluation was done. On his blood work, his white cell count of 15 with a hemoglobin of 14.4, and the rest of the electrolytes are all within normal limits. His medications include DuoNeb nebulized treatments around the clock, Symbicort 2 puffs twice a day, IV Solu-Medrol 60 mg every 6 hours, and his taken Xanax for anxiety and occasional morphine for pain control. The patient is also started on Diflucan regarding oropharyngeal candidiasis that was noted on ENT examination and on our regular examination the patient some oropharyngeal candidiasis. Objective - Vital Signs Vital signs: Vital Signs Temp 97.6 F 06/08/20 08:00 Pulse 110 H 06/08/20 08:49 Resp 29 H 06/08/20 08:00 BP 145/100 06/08/20 08:00 Pulse Ox 95 06/08/20 08:00 Intake & Output 06/07/20 06/08/20 06/08/20 18:59 06:59 18:59 Intake Total 1475 500 480 Output Total 1150 1650 300 Balance 325 -1150 180 Weight 71.6 kg Intake: IV 1375 500 Sodium Chloride 0.9% 1, 1375 500 000 ml @ 125 mls/hr IV . Q8H JEROD Rx#:[id number] Oral 100 480 Output: Urine 1150 1650 300 Other: Voiding Method Urinal Urinal # Voids 1 # Bowel Movements 1 - Exam GENERAL EXAM: Alert, active, very pleasant, 64-year-old white male, a 3 L of oxygen pulse ox of 95%, comfortable in no apparent distress. Patient has voice hoarseness HEAD: Normocephalic/atraumatic. EYES: Normal reaction of pupils, equal size. Conjunctiva pink, sclera white. NOSE: Clear with pink turbinates. THROAT: No erythema or exudates. NECK: No masses, no JVD, no thyroid enlargement, no adenopathy. CHEST: No chest wall deformity. Symmetrical expansion. Left upper chest thoravent in place connected to the Pleur-evac and wall suction, with no air leak, no output in the Pleur-evac LUNGS: Equal air entry with no crackles, wheeze, rhonchi or dullness. CVS: Regular rate and rhythm, normal S1 and S2, no gallops, no murmurs, no rubs ABDOMEN: Soft, nontender. No hepatosplenomegaly, normal bowel sounds, no guarding or rigidity. The abdomen is distended and this is noted to be more distended this morning. EXTREMITIES: No clubbing, no edema, no cyanosis, 2+ pulses and upper and lower e xtremities. MUSCULOSKELETAL: Muscle strength and tone normal. SPINE: No scoliosis or deformity SKIN: No rashes CENTRAL NERVOUS SYSTEM: Alert and oriented -3. No focal deficits, tone is normal in all 4 extremities. PSYCHIATRIC: Alert and oriented -3. Appropriate affect. Intact judgment and insight. - Labs CBC & Chem 7: 06/08/20 04:37 06/08/20 04:37 Labs: Abnormal Lab Results - Last 24 Hours (Table) 06/07/20 06/07/20 06/07/20 Range/Units 11:46 16:38 20:06 WBC (3.8-10.6) k/uL MCV (80.0-100.0) fL Neutrophils # (1.3-7.7) k/uL Lymphocytes # (1.0-4.8) k/uL Sodium (137-145) mmol/L BUN (9-20) mg/dL Glucose (74-99) mg/dL POC Glucose (mg/dL) 138 H 184 H 149 H (75-99) mg/dL Total Protein (6.3-8.2) g/dL 06/08/20 06/08/20 06/08/20 Range/Units 04:37 04:37 06:41 WBC 15.1 H (3.8-10.6) k/uL MCV 101.3 H (80.0-100.0) fL Neutrophils # 14.0 H (1.3-7.7) k/uL Lymphocytes # 0.5 L (1.0-4.8) k/uL Sodium 136 L (137-145) mmol/L BUN 23 H (9-20) mg/dL Glucose 121 H (74-99) mg/dL POC Glucose (mg/dL) 132 H (75-99) mg/dL Total Protein 6.0 L (6.3-8.2) g/dL Microbiology - Last 24 Hours (Table) 06/05/20 13:15 Gram Stain - Final Bronchial Washings - Left Bronchial Washings Culture - Final Assessment and Plan Plan: 1 left-sided pneumothorax post navigational bronchoscopy and transbronchial needle aspirate of a left infrahilar pulmonary nodule measuring around 2.1 x 2.6 cm in size showing metabolic activity, highly suggestive of malignancy. The patient is post Thoravent insertion, has a 13-Tongan vent in the left hemithorax with reexpansion of the left lung and evacuation of the pneumothorax. She had on today's evaluation, the chest x-ray shows no evidence of any pneumothorax. Thoravent is in place. Wall suction his been discontinued and the Thoravent Will be Possibly Taken out Tomorrow If There Is No Ongoing Changes Consistent with Pneumothorax. The Chest X-Ray from Todaywas reported to be negative for pneumothorax. 2 shortness of breath secondary to COPD exacerbation and addition to a left-side d pneumothorax. The patient also has some swelling of the vocal cords bilaterally, without having any significant anatomic obstruction of the upper airways. The patient is post left-sided Thoravent insertion. 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 There may be also a possibility of a super infection with Moriah.the patient has been placed on Diflucan for now. 6 abdominal distention, consider fecal impaction, partial ileus is to be also considered. 7 acute hypoxic respiratory failure secondary to above currently on 3 L and this can be weaned down further. Current pulse ox is 96%. Plan Keep the patient intensive care unit for now obtain a flat filmof the abdomen to rule out any bowel obstruction I suggest cutting down the dose or the use of Morphine and Use Laxatives of Choice with Thoravent will be kept in placeand the Thoravent will be capped Daily chest x-ray Incentive spirometer DuoNeb nebulized treatments around the clock IV Solu-Medrol, 60 mg every 6 hours IV Diflucan 100 mg every 24 hours Mycelex CAT scan of the neck was noted ENT evaluation regarding significant dysphagia and vocal cord pathology/swelling was done and there is evidence of chronic laryngitis based on the direct laryngoscopy Heparin subcu for DVT prophylaxis Allow diet Oxygen therapy to maintain a saturation above 90%, with humidification we'll continue to follow.
[2020-06-08] MEDS: DILTIAZEM ORAL 30 MG TAB PO SCH ×3 (09:14→20:52)
--- NOTE | 2020-06-08 10:25 | XR ---
Abdomen HISTORY: Distention Frontal view of the abdomen submitted. There is retained fecal debris at the region of the colon. Postop change noted to the right hip. Bone mineralization is reduced. Lung bases not entirely included on the exam. No evident pneumoperitoneum or bowel obstruction. There are overlying leads. Atherosclerotic vascular calcifications are noted i ncidentally. IMPRESSION: Correlate for fecal stasis, follow-up as indicated.
[2020-06-08 11:50] LABS: Glucose,Whole Blood 100 mg/dL (75-99)
[2020-06-08 16:34] LABS: Glucose,Whole Blood 126 mg/dL (75-99)
[2020-06-08 20:42] LABS: Glucose,Whole Blood 130 mg/dL (75-99)
[2020-06-08] MEDS: ATORVASTATIN 20 MG TAB PO SCH (20:52)
--- NOTE | 2020-06-08 22:14 | P.PN ---
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 After the bronch he developed worsening respiratory distress and CXR revealed left sided pneumothorax. Dr. Gonzalez was notified and proceeded to bedside and thoravent was placed on 06/05. He was admitted to the ICU. He was started on bronchodilators and steroids. CT neck was ordered as he was noted to have a hoarse voice. On June 06 underwent flexible laryngoscopy per Dr. Hampton. Was found to have-severe chronic laryngitis and evidence of yeast infection Today: ICU. Had a good bowel movement with laxatives. Oral intake.. Does sit up in a chair. Thora-vent is open. Some shortness of breath. Review of systems: Was done for constitutional, cardiovascular, GI, pulmonary. relevant finding as above Active Medications Acetaminophen (Acetaminophen Tab 325 Mg Tab) 650 mg PO Q6HR PRN PRN Reason: Mild Pain or Fever > 100.5 Hydrocodone Bitart/Acetaminophen (Hydrocodone/Apap 5-325mg 1 Each Tab) 1 each PO Q4HR PRN PRN Reason: Moderate Pain Last Admin: 06/07/20 16:35 Dose: 1 each Documented by: Albuterol Sulfate (Albuterol Nebulized 2.5 Mg/3 Ml) 2.5 mg INHALATION Q6H PRN PRN Reason: Shortness Of Breath Albuterol/Ipratropium (Ipratropium-Albuterol 3 Ml Neb) 3 ml INHALATION RT-Q4H [facility] Last Admin: 06/08/20 20:37 Dose: 3 ml Documented by: Alprazolam (Alprazolam 0.25 Mg Tab) 0.25 mg PO Q6HR PRN PRN Reason: Anxiety Last Admin: 06/08/20 20:52 Dose: 0.25 mg Documented by: Ascorbic Acid (Ascorbic Acid 500 Mg Tab) 1,000 mg PO DAILY [facility] Last Admin: 06/08/20 08:07 Dose: 1,000 mg Documented by: Atorvastatin Calcium (Atorvastatin 20 Mg Tab) 20 mg PO HS [facility] Last Admin: 06/08/20 20:52 Dose: 20 mg Documented by: Benzocaine/Menthol (Benzocaine/Menthol Lozeng 1 Each Lozenge) 1 each MUCOUS MEM Q4HR PRN PRN Reason: Cough Last Admin: 06/08/20 20:52 Dose: 1 each Documented by: Budesonide/Formoterol Fumarate (Symbicort 160-4.5 Mcg Inhaler) 2 puff INHALATION RT-BID [facility] Last Admin: 06/08/20 20:39 Dose: 2 puff Documented by: Clotrimazole (Clotrimazole Tyson 10 Mg Tyson) 10 mg MUCOUS MEM 5XD [facility] Last Admin: 06/08/20 20:53 Dose: 10 mg Documented by: Diltiazem HCl (Diltiazem Oral 30 Mg Tab) 30 mg PO TID [facility] Last Admin: 06/08/20 20:52 Dose: 30 mg Documented by: Fluconazole (Fluconazole 100 Mg Tab) 100 mg PO DAILY [facility] Last Admin: 06/08/20 08:07 Dose: 100 mg Documented by: Insulin Aspart (Insulin Aspart (Novolog) 100 Unit/Ml Vial) 0 unit SQ ACHS [facility]; Protocol Last Admin: 06/08/20 20:53 Dose: Not Given Documented by: Lidocaine HCl (Lidocaine 1% (10mg/Ml) For Iv Start) 0.1 ml INTRADERMA PER PROTOCOL PRN PRN Reason: IV Start Stop: 07/05/20 06:15 Magnesium Hydroxide (Magnesium Hydroxide 2,400 Mg/10 Ml Cup) 2,400 mg PO ONCE PRN PRN Reason: Constipation Last Admin: 06/07/20 10:19 Dose: 2,400 mg Documented by: Melatonin (Melatonin 3 Mg Tablet) 3 mg PO HS PRN PRN Reason: Insomnia Methylprednisolone Sodium Succinate (Methylprednisolone Sod Succi 125 Mg/2 Ml Vial) 60 mg IV Q6HR [facility] Last Admin: 06/08/20 18:21 Dose: 60 mg Documented by: Miscellaneous Information (Magnesium Replacement Protocol 1 Each Misc) 1 each MISCELLANE DAILY PRN; Protocol PRN Reason: Per Protocol Multivitamins (Multivitamins, Thera 1 Each Tab) 1 each PO DAILY [facility] Last Admin: 06/08/20 08:07 Dose: 1 each Documented by: Naloxone HCl (Naloxone 0.4 Mg/Ml 1 Ml Vial) 0.2 mg IV Q2M PRN PRN Reason: Opioid Reversal Ondansetron HCl (Ondansetron 4 Mg/2 Ml Vial) 4 mg IVP Q8HR PRN PRN Reason: Nausea And Vomiting Pantoprazole Sodium (Pantoprazole 40 Mg Tablet) 40 mg PO -BRKFST [facility] Last Admin: 06/08/20 06:53 Dose: 40 mg Documented by: On examination: VITAL SIGNS: 97.7, 81, 28, 140/86, 96% 2 L GENERAL APPEARANCE: Lying in bed, slightly short of breath HEENT: Normal external appearance of nose and ear. Oral cavity normal EYES: Pupils equal. Conjunctiva normal. NECK: JVD not raised. Mass not palpable. RESPIRATORY: Respiratory effort increased, decreased breath sounds, wheezing. Left chest wall Thora-vent CARDIOVASCULAR: First and second sounds normal. No edema. ABDOMEN: Soft. Liver and spleen not palpable. No tenderness. No mass palpable. PSYCHIATRY: Alert and oriented x3. Mood and affect anxious. INVESTIGATIONS, reviewed in the clinical context: June 08: WBC 15.1 hemoglobin 14.4 platelets 277 potassium 4.5 creatinine 0.71 WBC 17 hemoglobin 13.7 platelets 26 potassium 4.8 creatinine 0.70 Chest [id number] left apical pneumothorax with the Thora-vent Neck CTA-small left apical pneumothorax with the Thora-vent in place. Underlying emphysema. Assessment and plan Acute Moriah infection of the pharynx, chronic laryngitis. Seen by Dr. Hampton. -Diflucan -Outpatient follow-up with ENT Left sided pneumothorax, iatrogenic secondary to bronchoscopy navigational - s/p left sided thoravent , incentive spirometry. Pneumothorax much improved COPD with acute exacerbation , in an ex-smoker, slow to respond - Solumedrol IV, bronchodilators Dyslipidemia - statin GERD -PPI DVT prophylaxis: Add subcu Lovenox Acute constipation with no bowel movement for 3 days. Responded well to laxative Care was discussed with the patient. Questions answered. Continue current medications.
[2020-06-09] MEDS: IPRATROPIUM-ALBUTEROL 3 ML NEB INHALATION SCH ×7 (00:04→23:46)
[2020-06-09 04:24] LABS: Basophils % (A) 0 %; Eosinophils % (A) 0 %; HCT 43.9 % (39.0-53.0); HGB 13.8 gm/dL (13.0-17.5); Lymphocytes # (A) 0.4 k/uL (1.0-4.8); Lymphocytes % (A) 2 %; MCHC 31.5 g/dL (31.0-37.0); MCV 101.7 fL (80.0-100.0); Macrocytosis Slight; Monocytes # (A) 0.6 k/uL (0-1.0); Monocytes % (A) 4 %; Neutrophils % (A) 93 %; Platelet Count 305 k/uL (150-450); RBC 4.31 m/uL (4.30-5.90); RDW 13.3 % (11.5-15.5); WBC 15.1 k/uL (3.8-10.6)
[2020-06-09 04:27] LABS: ALT 46 U/L (4-49); AST 40 U/L (17-59); African American GFR (CKD) >90 (>60 ml/min/1.73 sqM); Albumin 3.6 g/dL (3.5-5.0); Alkaline Phosphatase 59 U/L (38-126); Anion Gap 3 mmol/L; Blood Urea Nitrogen 24 mg/dL (9-20); Carbon Dioxide 30 mmol/L (22-30); Chloride 101 mmol/L (98-107); Glucose 126 mg/dL (74-99); Non-African American GFR(CKD) >90 (>60 ml/min/1.73 sqM); Potassium 4.6 mmol/L (3.5-5.1); Sodium 134 mmol/L (137-145); Total Bilirubin 0.7 mg/dL (0.2-1.3); Total Protein 5.8 g/dL (6.3-8.2)
[2020-06-09] MEDS: methylPREDNISolone SOD SUCCI 125 MG/2 ML VIAL IV SCH ×3 (06:23→17:12)
[2020-06-09] MEDS: CLOTRIMAZOLE TROCHE 10 MG TROCHE MUCOUS MEM SCH ×5 (06:23→23:49)
[2020-06-09] MEDS: BENZOCAINE/MENTHOL LOZENG 1 EACH LOZENGE MUCOUS MEM PRN ×2 (06:23→20:56)
[2020-06-09] MEDS: PANTOPRAZOLE 40 MG TABLET PO SCH (06:24)
[2020-06-09 06:30] LABS: Glucose,Whole Blood 137 mg/dL (75-99)
[2020-06-09] MEDS: INSULIN ASPART (NovoLOG) 100 UNIT/ML VIAL SQ SCH ×4 (06:54→20:56)
--- NOTE | 2020-06-09 07:25 | XR ---
EXAMINATION TYPE: XR chest 1V DATE OF EXAM: 06/09/2020 COMPARISON: Chest x-ray 06/08/2020 HISTORY: Chest tube TECHNIQUE: Single frontal view of the chest is obtained. FINDINGS: Left-sided thoracic vent is in place. Minimal left apical pneumothorax is present. No evid ent effusion. No other significant interval change. IMPRESSION: Minimal left apical pneumothorax with chest tube in place.
[2020-06-09] MEDS: FLUCONAZOLE 100 MG TAB PO SCH (07:53)
[2020-06-09] MEDS: DILTIAZEM ORAL 30 MG TAB PO SCH ×3 (07:53→20:56)
[2020-06-09] MEDS: MULTIVITAMINS, THERA 1 EACH TAB PO SCH (07:54)
[2020-06-09] MEDS: ASCORBIC ACID 500 MG TAB PO SCH (07:54)
[2020-06-09] MEDS: SYMBICORT 160-4.5 MCG INHALER INHALATION SCH ×2 (08:02→21:05)
--- NOTE | 2020-06-09 08:14 | P.PN ---
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 The patient was admitted on outpatient basis for a navigational bronchoscopy and biopsy of a left lower lobe pulmonary nodule that showed increased metabolic activity and earlier CAT scan. The procedure was essentially an uncomplicated. Nevertheless, prior to the procedure, the patient was having significant amount of hoarseness and an upper airway inspection that was done at a time of the bronchoscopy showed swollen vocal cords bilaterally without any visualized masses or lesions or tumors or anatomic obstruction. The procedure was done and the biopsy of the left lower lobe was done through a transbronchial needle aspirate and the patient was extubated. In recovery, the patient remained short of breath but not hypoxic. Chest x-ray showed a left-sided pneumothorax. I attended on this patient in the recovery and I inserted a Thoravent 13-Thai with successful expansion of the left lung. The patient me was given steroids for swelling of the vocal cords and COPD exacerbation. Currently the Thoravent is in place and there is no evidence of any air leak. He shortness of breath is improved. He has remained hemodynamically stable. He is complaining of some the method chest discomfort on the left. No angina. No palpitation. No pl eurisy. No hemoptysis. On 06/06/2020 patient seen in follow-up in the intensive care unit, yesterday patient developed worsening shortness of breath in the recovery room following his navigational bronchoscopy with biopsies, he was given breathing treatments, and he continued to be short of breath, chest x-ray was obtained showing large left-sided pneumothorax minimal tension. Left-sided thoravent is inserted with reexpansion of the left lung, this was placed to wall suction. Patient was not ed to the intensive care unit for closer monitoring. This morning his chest x- ray shows clearing of the left side pneumothorax, left-sided Thoravent in place connected to the Pleur-evac and continuous wall suction. Patient is awake and alert, oriented 3, his voice is hoarse however with no worsening from before the bronchoscopy. Lung sounds reveal equal breath sounds, no wheezing, diminished breath sounds bilaterally, no rhonchi. Is working on incentive parameter, achieving 7485-4233 mL on the today. For that surgery was of oxygen pulse ox is 95%, his been afebrile, he is in sinus mechanism slightly tachycardic with a rate of 108 BPM. He is receiving IV fluids at a rate of 125 ML per hour, he is on breathing treatments in the form of DuoNeb, Symbicort, and IV steroids Solu-Medrol 60 mg every 6 hours. His pathology results of the transbronchial needle aspirates biopsy of the left lower lobe mass still pending at this time. Today's labs have been reviewed, white blood cell count is 10.2, hemoglobin is 14.4, sodium is 135, the rest of the electrolytes and renal profile were unremarkable. Patient is resting comfortably in bed, if his breathing is much easier compared to yesterday. Tolerating oral diet. 06/07/2020 on seeing the patient for a follow-up in the intensive care units. He is still struggling with his breathing and he is having some increased shortness of breath especially this morning after having a full breakfast and his abdomen got more distended than he is feeling more restricted in terms of his breathing. He is also coughing and is complaining of chest soreness. Meanwhile, repeat chest x-ray was done today and it showed no evidence of any pneumothorax and left lung is well expanded. The computed tomography scan of the neck was done also yesterday and the patient had patent carotid and vertebral arteries. There was a left apical pneumothorax was small hemorrhoid, thickening of the cervical mucosaat the level of the glottis. The patient was seen by Dr. Erik Hampton and a direct laryngoscopy was done and based on the direct observation of the course, there was no lesions or tumors. There was evidence of chronic laryngitis and there was tremendous amount of laryngeal inflammation evidence of yeast infection. For that reason, I kept the patient on IV steroids. I also added and he still has a Thoravent in his left lung. This is taken off the Pleur-evac and suctioning at this point. White cell count at 17 with a hemoglobin of 15.7. Electrolytes are all within normal limits. The lavage and the left lung showed no microbial cultures and the biopsies are still pending for now. He remains on bronchodilators. He remains on steroids. He continues to have a significantly hoarse voice. 2020, the patient is being seen in follow-up in the intensive care unit. He is also being treated for an acute COPD exacerbation and he has a Thoravent regarding iatrogenic left-sided pneumothorax. He also has severe hoarseness. He did have some abdominal distention yesterday. He had stool following administration of a suppository and he got some relief in his shortness of breath or chest discomfort got better after he had a bowel movement. This morning he is again distended and tympanic. No nausea. No vomiting. He is passing gas. He is using incentive spirometer. Chest x-ray from today shows no evidence of any pneumothorax. The Thoravent is disconnected from the suction. He is on bronchodilators. He remains on IV Solu-Medrol. ENT evaluation was done. On his blood work, his white cell count of 15 with a hemoglobin of 14.4, and the rest of the electrolytes are all within normal limits. His medications include DuoNeb nebulized treatments around the clock, Symbicort 2 puffs twice a day, IV Solu-Medrol 60 mg every 6 hours, and his taken Xanax for anxiety and occasional morphine for pain control. The patient is also started on Diflucan regarding oropharyngeal candidiasis that was noted on ENT examination and on our regular examination the patient some oropharyngeal candidiasis. 06/09/2020, the patient is on 2 L of oxygen by nasal cannula. The left-sided pneumothorax is essentially recovered and the patient has questionable tiny left apical. The Thoravent is still in place. There is some leak in the valve noted and for that reason the catheter was not. His voice is unchanged and he is f illed extensively hoarse. Slightly less short of breath compared to yesterday. Still on bronchodilators and steroids and Diflucan was also added for oropharyngeal candidiasis. No altered mentation. No chest pain. Flat film of the abdomen showed stool impaction the patient was given Dulcolax suppository and he had a large bowel movement yesterday. He did have a total of 2 bowel movements. No nausea. No vomiting. Tolerating his diet. Using incentive spirometer. Obviously is getting better slowly. No chest pain. No angina. No palpitations. No other significant events overnight. I have symptoms on the left lower lobe pulmonary nodule showed some atypical cells. It was nondiagnos tic for cancer. This was a difficult biopsy knowing that there was no airway leading to the lesion itself and was performed needed aspirates under navigational guidance. This needs to be monitored and we will readdress the left lower lobe pulmonary nodule today stage once the patient is fully recovered from his pulmonary status. Meanwhile, he did have also an ENT evaluation that showed chronic laryngitis which is obviously contributing to his ongoing shortness of breath as the patient is significantly swollen cords. Objective - Vital Signs Vital signs: Vital Signs Temp 97.6 F 06/09/20 04:00 Pulse 91 06/09/20 07:00 Resp 20 06/09/20 07:00 BP 136/85 06/09/20 07:00 Pulse Ox 95 06/09/20 07:00 Intake & Output 06/08/20 06/09/20 06/09/20 18:59 06:59 18:59 Intake Total 480 250 Output Total 620 2100 0 Balance -140 -1850 0 Weight 70.3 kg Intake: Oral 480 Tube Feeding 250 Output: Urine 620 2100 0 Other: Voiding Method Toilet Toilet Urinal Urinal # Voids 1 # Bowel Movements 1 - Exam GENERAL EXAM: Alert, active, very pleasant, 64-year-old white male, a 2 L of oxygen pulse ox of 95%, comfortable in no apparent distress. Patient has voice hoarseness HEAD: Normocephalic/atraumatic. EYES: Normal reaction of pupils, equal size. Conjunctiva pink, sclera white. NOSE: Clear with pink turbinates. THROAT: No erythema or exudates. NECK: No masses, no JVD, no thyroid enlargement, no adenopathy. CHEST: No chest wall deformity. Symmetrical expansion. Left upper chest tho ravent in place connected to the Pleur-evac is currently showing some air leak without wall suctioning. Nevertheless, the patient has adequate breath sounds bilaterally and the chest wall expands symmetrically and there is adequate air entry bilaterally lung nelson with less of wheezing on today's evaluation. LUNGS: Equal air entry with no crackles, wheeze, rhonchi or dullness. CVS: Regular rate and rhythm, normal S1 and S2, no gallops, no murmurs, no rubs ABDOMEN: Soft, nontender. No hepatosplenomegaly, normal bowel sounds, no guarding or rigidity. The abdomen is distended and this is noted to be more distended this morning. EXTREMITIES: No clubbing, no edema, no cyanosis, 2+ pulses and upper and lower extremities. MUSCULOSKELETAL: Muscle strength and tone normal. SPINE: No scoliosis or deformity SKIN: No rashes CENTRAL NERVOUS SYSTEM: Alert and oriented -3. No focal deficits, tone is normal in all 4 extremities. PSYCHIATRIC: Alert and oriented -3. Appropriate affect. Intact judgment and insight. - Labs CBC & Chem 7: 06/09/20 03:04 06/09/20 03:04 Labs: Abnormal Lab Results - Last 24 Hours (Table) 06/08/20 06/08/20 06/08/20 Range/Units 11:48 16:31 20:40 WBC (3.8-10.6) k/uL MCV (80.0-100.0) fL Neutrophils # (1.3-7.7) k/uL Lymphocytes # (1.0-4.8) k/uL Sodium (137-145) mmol/L BUN (9-20) mg/dL Glucose (74-99) mg/dL POC Glucose (mg/dL) 100 H 126 H 130 H (75-99) mg/dL Total Protein (6.3-8.2) g/dL 06/09/20 06/09/20 06/09/20 Range/Units 03:04 03:04 06:28 WBC 15.1 H (3.8-10.6) k/uL MCV 101.7 H (80.0-100.0) fL Neutrophils # 14.0 H (1.3-7.7) k/uL Lymphocytes # 0.4 L (1.0-4.8) k/uL Sodium 134 L (137-145) mmol/L BUN 24 H (9-20) mg/dL Glucose 126 H (74-99) mg/dL POC Glucose (mg/dL) 137 H (75-99) mg/dL Total Protein 5.8 L (6.3-8.2) g/dL Assessment and Plan Plan: 1 left-sided pneumothorax post navigational bronchoscopy and transbronchial needle aspirate of a left infrahilar pulmonary nodule measuring around 2.1 x 2.6 cm in size showing metabolic activity, highly suggestive of malignancy. The biopsy showed some atypical cells, nondiagnostic for cancer. Meanwhile the patient developed a left-sided pneumothorax post transbronchial needle acid which is a rare complication of this procedure. The patient is post Thoravent insertion, has a 13-Thai vent in the left hemithorax with reexpansion of the left lung and evacuation of the pneumothorax. She had on today's evaluation, the chest x-ray shows no evidence of any pneumothorax. Thoravent is in place. Wall suction his been discontinued and the Thoravent still showing some leak through the valve. The chest x-ray from today is currently inactive and stable., Of the left lower lobe pulmonary nodule, this was a difficult biopsy as there was no airway leading into the left lower lobe pulmonary lesion. This will be addressed at a later stage by another CAT scan probably in 4 months time and hopefully by then the patient will feel better in terms of his pulmonary status and the chronic laryngitis we'll also subsided as the patient has significant hoarseness and throat irritation and difficulty with speech due to his chronic laryngitis. ENT evaluated the patient there was no evidence of any malignancy in his 2 shortness of breath secondary to COPD exacerbation and addition to a left- sided pneumothorax. The patient also has some swelling of the vocal cords bilaterally, without having any significant anatomic obstruction of the upper a irways. The patient is post left-sided Thoravent insertion. The patient was evaluated by ENT and the patient has significant chronic laryngitis. 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 There may be also a possibility of a super infection with Moriah. The patient has been placed on Diflucan and there is improvement in his oropharyngeal candidiasis on examination 6 abdominal distention, consider fecal impaction, partial ileus is to be also considered. The patient improved with laxatives 7 acute hypoxic respiratory failure secondary to above currently on 3 L and this can be weaned down further. Current pulse ox is 96%. 8 acute stasis 9 chronic debility secondary to above-mentioned comorbidities Plan X-ray of the abdomen showed no evidence of any bowel obstruction. There was evidence of fecal stasis and the patient was given Dulcolax suppositories. Thoravent will be kept in place and we are going to monitor the leak. No evidence of any significant pneumothorax on today's chest x-ray Daily chest x-ray Incentive spirometer DuoNeb nebulized treatments around the clock IV Solu-Medrol, 60 mg every 6 hours IV Diflucan 100 mg every 24 hours Levaquin 750 grams daily Mycelex CAT scan of the neck was noted ENT evaluation regarding significant dysphagia and vocal cord pathology/swelling was done and there is evidence of chronic laryngitis based on the direct laryngoscopy Heparin subcu for DVT prophylaxis Allow diet Oxygen therapy to maintain a saturation above 90%, with humidification, reduce FiO2 down to 2 L we'll continue to follow.
[2020-06-09] MEDS: FLUTICASONE 50MCG/SPRAY NASAL 16GM EA NOSTRIL SCH (09:45)
[2020-06-09] MEDS: LEVOFLOXACIN 750 MG TAB PO SCH (09:46)
[2020-06-09 11:31] LABS: Glucose,Whole Blood 119 mg/dL (75-99)
[2020-06-09 16:21] LABS: Glucose,Whole Blood 150 mg/dL (75-99)
--- NOTE | 2020-06-09 19:05 | P.PN ---
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 After the bronch he developed worsening respiratory distress and CXR revealed left sided pneumothorax. Dr. Gonzalez was notified and proceeded to bedside and thoravent was placed on 06/05. He was admitted to the ICU. He was started on bronchodilators and steroids. CT neck was ordered as he was noted to have a hoarse voice. On June 06 underwent flexible laryngoscopy per Dr. Hampton. Was found to have-severe chronic laryngitis and evidence of yeast infection Today: ICU. Thora-vent remains uncapped. Has been up in a chair. Up to the bathroom. Had bowel movement. Oral intake fair. Hoarse voice continues.. Continue to have air leak Review of systems: Was done for constitutional, cardiovascular, GI, pulmonary. relevant finding as above Active Medications Acetaminophen (Acetaminophen Tab 325 Mg Tab) 650 mg PO Q6HR PRN PRN Reason: Mild Pain or Fever > 100.5 Hydrocodone Bitart/Acetaminophen (Hydrocodone/Apap 5-325mg 1 Each Tab) 1 each PO Q4HR PRN PRN Reason: Moderate Pain Last Admin: 06/07/20 16:35 Dose: 1 each Documented by: Albuterol Sulfate (Albuterol Nebulized 2.5 Mg/3 Ml) 2.5 mg INHALATION Q6H PRN PRN Reason: Shortness Of Breath Albuterol/Ipratropium (Ipratropium-Albuterol 3 Ml Neb) 3 ml INHALATION RT-Q4H [facility] Last Admin: 06/09/20 16:37 Dose: 3 ml Documented by: Alprazolam (Alprazolam 0.25 Mg Tab) 0.25 mg PO Q6HR PRN PRN Reason: Anxiety Last Admin: 06/08/20 20:52 Dose: 0.25 mg Documented by: Ascorbic Acid (Ascorbic Acid 500 Mg Tab) 1,000 mg PO DAILY [facility] Last Admin: 06/09/20 07:54 Dose: 1,000 mg Documented by: Atorvastatin Calcium (Atorvastatin 20 Mg Tab) 20 mg PO HS [facility] Last Admin: 06/08/20 20:52 Dose: 20 mg Documented by: Benzocaine/Menthol (Benzocaine/Menthol Lozeng 1 Each Lozenge) 1 each MUCOUS MEM Q4HR PRN PRN Reason: Cough Last Admin: 06/09/20 06:23 Dose: 1 each Documented by: Budesonide/Formoterol Fumarate (Symbicort 160-4.5 Mcg Inhaler) 2 puff INHALATION RT-BID [facility] Last Admin: 06/09/20 08:02 Dose: 2 puff Documented by: Clotrimazole (Clotrimazole Tyson 10 Mg Tyson) 10 mg MUCOUS MEM 5XD [facility] Last Admin: 06/09/20 15:55 Dose: 10 mg Documented by: Diltiazem HCl (Diltiazem Oral 30 Mg Tab) 30 mg PO TID [facility] Last Admin: 06/09/20 15:55 Dose: 30 mg Documented by: Fluconazole (Fluconazole 100 Mg Tab) 100 mg PO DAILY [facility] Last Admin: 06/09/20 07:53 Dose: 100 mg Documented by: Fluticasone Propionate (Fluticasone 50mcg/[place] Nasal 16gm) 2 spray EA NOSTRIL DAILY [facility] Last Admin: 06/09/20 09:45 Dose: 2 spray Documented by: Insulin Aspart (Insulin Aspart (Novolog) 100 Unit/Ml Vial) 0 unit SQ [facility]; Protocol Last Admin: 06/09/20 17:12 Dose: 1 unit Documented by: Levofloxacin (Levofloxacin 750 Mg Tab) 750 mg PO DAILY [facility] Last Admin: 06/09/20 09:46 Dose: 750 mg Documented by: Lidocaine HCl (Lidocaine 1% (10mg/Ml) For Iv Start) 0.1 ml INTRADERMA PER PROTOCOL PRN PRN Reason: IV Start Stop: 07/05/20 06:15 Magnesium Hydroxide (Magnesium Hydroxide 2,400 Mg/10 Ml Cup) 2,400 mg PO ONCE PRN PRN Reason: Constipation Last Admin: 06/07/20 10:19 Dose: 2,400 mg Documented by: Melatonin (Melatonin 3 Mg Tablet) 3 mg PO HS PRN PRN Reason: Insomnia Methylprednisolone Sodium Succinate (Methylprednisolone Sod Succi 125 Mg/2 Ml Vial) 60 mg IV Q6HR [facility] Last Admin: 06/09/20 17:12 Dose: 60 mg Documented by: Miscellaneous Information (Magnesium Replacement Protocol 1 Each Misc) 1 each MISCELLANE DAILY PRN; Protocol PRN Reason: Per Protocol Multivitamins (Multivitamins, Thera 1 Each Tab) 1 each PO DAILY [facility] Last Admin: 06/09/20 07:54 Dose: 1 each Documented by: Naloxone HCl (Naloxone 0.4 Mg/Ml 1 Ml Vial) 0.2 mg IV Q2M PRN PRN Reason: Opioid Reversal Ondansetron HCl (Ondansetron 4 Mg/2 Ml Vial) 4 mg IVP Q8HR PRN PRN Reason: Nausea And Vomiting Pantoprazole Sodium (Pantoprazole 40 Mg Tablet) 40 mg PO AC-BRKFST [facility] Last Admin: 06/09/20 06:24 Dose: 40 mg Documented by: On examination: VITAL SIGNS: 97.7, 103, 31, 05/01/1994, 92% room air GENERAL APPEARANCE: Lying in bed, slightly short of breath HEENT: Normal external appearance of nose and ear. Oral cavity normal EYES: Pupils equal. Conjunctiva normal. NECK: JVD not raised. Mass not palpable. RESPIRATORY: Respiratory effort increased, decreased breath sounds, wheezing. Left chest wall Thora-vent -uncapped CARDIOVASCULAR: First and second sounds normal. No edema. ABDOMEN: Soft. Liver and spleen not palpable. No tenderness. No mass palpable. PSYCHIATRY: Alert and oriented x3. Mood and affect anxious. INVESTIGATIONS, reviewed in the clinical context: June 09: WBC 15.1 hemoglobin 13.8 platelets 305 potassium 4.6 creatinine 0.70 June 08: WBC 15.1 hemoglobin 14.4 platelets 277 potassium 4.5 creatinine 0.71 WBC 17 hemoglobin 13.7 platelets 26 potassium 4.8 creatinine 0.70 Chest r-aks-dmntsru left apical pneumothorax with the Thora-vent Neck CTA-small left apical pneumothorax with the Thora-vent in place. Underlying emphysema. Assessment and plan Acute Moriah infection of the pharynx, chronic laryngitis. Seen by Dr. Hampton. -Diflucan -Outpatient follow-up with ENT Left sided pneumothorax, iatrogenic secondary to bronchoscopy navigational - s/p left sided thoravent , incentive spirometry. Pneumothorax much improved. That is present air leak. Thora-vent is uncapped COPD with acute exacerbation , in an ex-smoker, slow to respond - Solumedrol IV, bronchodilators. Cutback dose of Solu-Medrol Dyslipidemia - statin GERD -PPI DVT prophylaxis: subcu Lovenox Acute constipation , responded well to laxative. Care was discussed with the patient. Questions answered. Continue current medications.
[2020-06-09 20:08] LABS: Glucose,Whole Blood 141 mg/dL (75-99)
[2020-06-09] MEDS: ALPRAZolam 0.25 MG TAB PO PRN (20:56)
[2020-06-09] MEDS: ATORVASTATIN 20 MG TAB PO SCH (20:56)
[2020-06-09] MEDS: methylPREDNISolone SOD SUCCI 40 MG/ML 1 ML VIAL IV SCH (23:49)
[2020-06-10] MEDS: IPRATROPIUM-ALBUTEROL 3 ML NEB INHALATION SCH ×4 (03:32→10:57)
[2020-06-10] MEDS: FLUTICASONE 50MCG/SPRAY NASAL 16GM EA NOSTRIL SCH (03:53)
[2020-06-10 04:37] LABS: Basophils % (A) 0 %; Eosinophils % (A) 0 %; HCT 44.1 % (39.0-53.0); HGB 14.3 gm/dL (13.0-17.5); Lymphocytes # (A) 0.4 k/uL (1.0-4.8); Lymphocytes % (A) 3 %; MCH 32.4 pg (25.0-35.0); MCHC 32.4 g/dL (31.0-37.0); MCV 99.9 fL (80.0-100.0); Mean Platelet Volume 7.8; Monocytes # (A) 0.5 k/uL (0-1.0); Monocytes % (A) 4 %; Neutrophils # (A) 10.9 k/uL (1.3-7.7); Neutrophils % (A) 92 %; Platelet Count 311 k/uL (150-450); RBC 4.42 m/uL (4.30-5.90); RDW 13.7 % (11.5-15.5); WBC 11.9 k/uL (3.8-10.6)
[2020-06-10 04:57] LABS: ALT 46 U/L (4-49); AST 31 U/L (17-59); African American GFR (CKD) >90 (>60 ml/min/1.73 sqM); Albumin 3.5 g/dL (3.5-5.0); Alkaline Phosphatase 60 U/L (38-126); Anion Gap 3 mmol/L; Blood Urea Nitrogen 24 mg/dL (9-20); Calcium 9.1 mg/dL (8.4-10.2); Carbon Dioxide 29 mmol/L (22-30); Chloride 103 mmol/L (98-107); Glucose 123 mg/dL (74-99); Non-African American GFR(CKD) >90 (>60 ml/min/1.73 sqM); Potassium 4.5 mmol/L (3.5-5.1); Sodium 135 mmol/L (137-145); Total Bilirubin 0.7 mg/dL (0.2-1.3); Total Protein 5.7 g/dL (6.3-8.2)
[2020-06-10] MEDS: CLOTRIMAZOLE TROCHE 10 MG TROCHE MUCOUS MEM SCH ×2 (06:38→11:35)
[2020-06-10] MEDS: PANTOPRAZOLE 40 MG TABLET PO SCH (06:38)
[2020-06-10] MEDS: BENZOCAINE/MENTHOL LOZENG 1 EACH LOZENGE MUCOUS MEM PRN (06:38)
[2020-06-10 06:42] LABS: Glucose,Whole Blood 115 mg/dL (75-99)
[2020-06-10] MEDS: INSULIN ASPART (NovoLOG) 100 UNIT/ML VIAL SQ SCH ×2 (07:06→14:06)
[2020-06-10 08:32] VITALS: TEMP 97.8
[2020-06-10] MEDS: SYMBICORT 160-4.5 MCG INHALER INHALATION SCH (08:38)
[2020-06-10] MEDS: ASCORBIC ACID 500 MG TAB PO SCH (08:42)
[2020-06-10] MEDS: DILTIAZEM ORAL 30 MG TAB PO SCH (08:42)
[2020-06-10] MEDS: FLUCONAZOLE 100 MG TAB PO SCH (08:43)
[2020-06-10] MEDS: LEVOFLOXACIN 750 MG TAB PO SCH (08:43)
[2020-06-10] MEDS: MULTIVITAMINS, THERA 1 EACH TAB PO SCH (08:43)
[2020-06-10] MEDS: methylPREDNISolone SOD SUCCI 40 MG/ML 1 ML VIAL IV SCH (08:43)
--- NOTE | 2020-06-10 10:06 | XR ---
EXAMINATION TYPE: XR chest 1V DATE OF EXAM: 06/10/2020 COMPARISON: 06/09/2020 HISTORY: Fluoroscopy done TECHNIQUE: Single frontal view of the chest is obtained. FINDINGS: There is subcutaneous emphysema. Lungs are clear. Heart size normal. Stable approximate 5% left apical pneumothorax. Right lung clear. No overt failure. Arthropathy of the shoulders. IMPRESSION: 1. Stable approximate 5% left apical pneumothorax. Chest tube not seen with certainty.
[2020-06-10 10:15] VITALS: BP 138/100
[2020-06-10 11:31] LABS: Glucose,Whole Blood 115 mg/dL (75-99)
[2020-06-10 11:33] VITALS: RESP 20
--- NOTE | 2020-06-10 13:24 | P.PN ---
Subjective Progress Note Date: 06/10/20 Principal diagnosis: Acute hypoxic respiratory failure secondary to iatrogenic left-sided pneumothorax and acute COPD exacerbation. 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 The patient was admitted on outpatient basis for a navigational bronchoscopy and biopsy of a left lower lobe pulmonary nodule that showed increased metabolic activity and earlier CAT scan. The procedure was essentially an uncomplicated. Nevertheless, prior to the procedure, the patient was having significant amount of hoarseness and an upper airway inspection that was done at a time of the bro nchoscopy showed swollen vocal cords bilaterally without any visualized masses or lesions or tumors or anatomic obstruction. The procedure was done and the biopsy of the left lower lobe was done through a transbronchial needle aspirate and the patient was extubated. In recovery, the patient remained short of breath but not hypoxic. Chest x-ray showed a left-sided pneumothorax. I attended on this patient in the recovery and I inserted a Thoravent 13-Burmese with successful expansion of the left lung. The patient me was given steroids for swelling of the vocal cords and COPD exacerbation. Currently the Thoravent is in place and there is no evidence of any air leak. He shortness of breath is improved. He has remained hemodynamically stable. He is complaining of some the method chest discomfort on the left. No angina. No palpitation. No pleurisy. No hemoptysis. 06/09/2020, the patient is on 2 L of oxygen by nasal cannula. The left-sided pneumothorax is essentially recovered and the patient has questionable tiny left apical. The Thoravent is still in place. There is some leak in the valve noted and for that reason the catheter was not. His voice is unchanged and he is f illed extensively hoarse. Slightly less short of breath compared to yesterday. Still on bronchodilators and steroids and Diflucan was also added for oropharyngeal candidiasis. No altered mentation. No chest pain. Flat film of the abdomen showed stool impaction the patient was given Dulcolax suppository and he had a large bowel movement yesterday. He did have a total of 2 bowel movements. No nausea. No vomiting. Tolerating his diet. Using incentive spirometer. Obviously is getting better slowly. No chest pain. No angina. No palpitations. No other significant events overnight. I have symptoms on the left lower lobe pulmonary nodule showed some atypical cells. It was nondiagnos tic for cancer. This was a difficult biopsy knowing that there was no airway leading to the lesion itself and was performed needed aspirates under navigational guidance. This needs to be monitored and we will readdress the left lower lobe pulmonary nodule today stage once the patient is fully recovered from his pulmonary status. Meanwhile, he did have also an ENT evaluation that showed chronic laryngitis which is obviously contributing to his ongoing shortness of breath as the patient is significantly swollen cords. Patient was reevaluated today on 06/10/2020, he is presently on room air, patient continues to have a thoravent in place, there is a small tiny apical left-sided pneumothorax. Patient is off suction, continues to have ongoing air leak. However the left lung remains expanded and I believe the patient could be considered for discharge home today with thoravent in place and it will be handled on outpatient basis. Patient is anxious to go home, and he is supposed to follow-up with ENT regarding his chronic laryngitis and previous history of laryngeal cancer. Labs from today including CBC, basic metabolic profile, liver profile, and renal profile are normal Objective - Vital Signs Vital signs: Vital Signs Temp 97.8 F 06/10/20 08:00 Pulse 102 H 06/10/20 11:07 Resp 20 06/10/20 11:00 BP 138/100 06/10/20 10:00 Pulse Ox 95 06/10/20 09:00 Intake & Output 06/09/20 06/10/20 06/10/20 18:59 06:59 18:59 Intake Total 250 700 Output Total 400 1650 250 Balance -400 -1400 450 Weight 68.9 kg Intake: Oral 250 700 Output: Urine 400 1650 250 Other: Voiding Method Toilet Toilet Urinal Urinal # Voids 1 1 # Bowel Movements 1 - Exam Physical Exam: Revealed a 64-year-old white male in no distress. Head: Atraumatic, normocephalic. HEENT:[Neck is supple.] [No neck masses.] [No thyromegaly.] [No JVD.] PERRLA, EOMI, nonicteric. Chest: [Clear throughout, no crackles, no rhonchi, no wheezes.] Cardiac Exam: [Normal S1 and S2, no S3 gallop, no murmur.] Abdomen: [Soft, nontender, no megaly, no rebound, no guarding, normal bowel sounds.] Extremities: [No clubbing, no edema, no cyanosis.] Neurological Exam: [No focal neurologic deficit.] Alert and oriented 3. Musculoskeletal, no limitation in range of motion, no deformities. Skin: No rashes. Psychiatric: Normal mood affect and normal mental status examination. - Labs CBC & Chem 7: 06/10/20 03:47 06/10/20 03:47 Labs: Abnormal Lab Results - Last 24 Hours (Table) 06/09/20 06/09/20 06/10/20 Range/Units 16:19 20:06 03:47 WBC 11.9 H (3.8-10.6) k/uL Neutrophils # 10.9 H (1.3-7.7) k/uL Lymphocytes # 0.4 L (1.0-4.8) k/uL Sodium (137-145) mmol/L BUN (9-20) mg/dL Glucose (74-99) mg/dL POC Glucose (mg/dL) 150 H 141 H (75-99) mg/dL Total Protein (6.3-8.2) g/dL 06/10/20 06/10/20 06/10/20 Range/Units 03:47 06:40 11:29 WBC (3.8-10.6) k/uL Neutrophils # (1.3-7.7) k/uL Lymphocytes # (1.0-4.8) k/uL Sodium 135 L (137-145) mmol/L BUN 24 H (9-20) mg/dL Glucose 123 H (74-99) mg/dL POC Glucose (mg/dL) 115 H 115 H (75-99) mg/dL Total Protein 5.7 L (6.3-8.2) g/dL Assessment and Plan Assessment: Impression: Acute hypoxic respiratory failure secondary to iatrogenic left-sided pneumothorax and acute exacerbation of COPD. Acute exacerbation of COPD, improving with bronchodilators. History of laryngeal cancer status post radiation therapy. Chronic laryngitis. Recommendation: Reviewed and discussed with the patient his chest x-ray findings. Reviewed and discussed with the patient the issue with his chest. Advised patient to continue his present meds, will transition to oral prednisone burst and taper. Continue oral antibiotics. Continue oral Diflucan. Consider discharge planning today, patient is to keep his thoravent in place, and to follow-up with Dr. Gonzalez on outpatient basis. We'll consider capping the thoravent on outpatient basis, and possibly remove it on outpatient basis. Patient to make sure that he follows up with ENT Patient to make sure that he remains on the same bronchodilators and antibiotics. Keep appointment as scheduled on outpatient basis with Dr. Gonzalez. Time with Patient: Less than 30
[2020-06-10 14:07] VITALS: PULSE 112
--- NOTE | 2020-06-10 23:49 | P.DS ---
Providers Date of admission: 06/05/20 17:22 Expected date of discharge: 06/10/20 Attending physician: Bruce Chi Consults: 06/05/20 17:52 Consult Physician Routine Consulting Provider: Naa Gonzalez Consult Reason/Comments: PTX Do you want consulting provider notified?: Already Contacted 06/05/20 18:17 Consult Physician Routine Consulting Provider: Erik Hilton Consult Reason/Comments: vocal cord edema Do you want consulting provider notified?: Yes 06/06/20 08:07 Consult Physician Routine Consulting Provider: Damian Eastman Consult Reason/Comments: voice hoarseness, Hx of laryngeal cancer Do you want consulting provider notified?: Yes Primary care physician: Alen Tracy MD Hospital Course: Presenting complaint: shortness of breath History of presenting complaint Patient is a 64 yo M with a hx of COPD, squamous cell vocal cord cancer treated with radiation, tobacco abuse who initially presented for outpatient navigational bronchoscopy with biopsy for Left lower lobe and infrahilar nodule. After the bronch he developed worsening respiratory distress and CXR revealed left sided pneumothorax. Dr. Gonzalez was notified and proceeded to bedside and thoravent was placed on 06/05. He was admitted to the ICU. He was started on bronchodilators and steroids. CT neck was ordered as he was noted to have a hoarse voice. On June 06 underwent flexible laryngoscopy per Dr. Hampton. Was found to have-severe chronic laryngitis and evidence of yeast infection Patient also treated for acute COPD exacerbation. Steroids. Also given a short course of antibiotic. Patient has a small a leak on the left side. With a minimal pneumothorax Today: ICU. Thora-vent remains uncapped. Eating well. Bowel movements. Seen by pulmonary. Okay for discharge. Thora-vent remains uncapped. Consultation: Dr. Ellis and partners from pulmonary On examination: VITAL SIGNS: 97.8, 100, 20, 1 3800, 95% room air GENERAL APPEARANCE: Lying in bed, slightly short of breath HEENT: Normal external appearance of nose and ear. Oral cavity normal. Hoarse voice EYES: Pupils equal. Conjunctiva normal. NECK: JVD not raised. Mass not palpable. RESPIRATORY: Respiratory effort increased, decreased breath sounds, wheezing. Left chest wall Thora-vent -uncapped CARDIOVASCULAR: First and second sounds normal. No edema. ABDOMEN: Soft. Liver and spleen not palpable. No tenderness. No mass palpable. PSYCHIATRY: Alert and oriented x3. Mood and affect anxious. INVESTIGATIONS, reviewed in the clinical context: June 10: WBC 11.9 hemoglobin 14.3 potassium 4.5 creatinine 0.70 June 09: WBC 15.1 hemoglobin 13.8 platelets 305 potassium 4.6 creatinine 0.70 June 08: WBC 15.1 hemoglobin 14.4 platelets 277 potassium 4.5 creatinine 0.71 WBC 17 hemoglobin 13.7 platelets 26 potassium 4.8 creatinine 0.70 Chest [id number] left apical pneumothorax with the Thora-vent Neck CTA-small left apical pneumothorax with the Thora-vent in place. Underlying emphysema. Assessment and plan Acute [place] infection of the pharynx, chronic laryngitis. Seen by Dr. Hampton. -Diflucan -Outpatient follow-up with ENT Left sided pneumothorax, iatrogenic secondary to bronchoscopy navigational - s/p left sided thoravent , incentive spirometry. Pneumothorax much improved. air leak. Thora-vent is uncapped COPD with acute exacerbation , in an ex-smoker, slow to respond - Solumedrol IV, bronchodilators. Changed to oral prednisone Dyslipidemia - statin GERD -PPI DVT prophylaxis: subcu Lovenox Disposition: Home Patient Condition at Discharge: Good Plan - Discharge Summary Discharge Rx Participant: Yes New Discharge Prescriptions: New Clotrimazole 10 mg MUCOUS MEM 5XD 10 Days #50 junior Diltiazem Oral [Cardizem*] 30 mg PO TID #90 tab Fluconazole [Diflucan] 100 mg PO DAILY #7 tab Levofloxacin [Levaquin] 750 mg PO DAILY #3 tab predniSONE 10 mg PO DAILY #30 tab Continue Albuterol Inhaler (Mhu) [Ventolin Hfa Inhaler (Mhu)] 1 - 2 puff INHALATION RT-Q6H PRN PRN Reason: Dyspnea Budesonide/Formoterol Fumarate [Symbicort 160-4.5 Mcg Inhaler] 2 puff INHALATION RT-BID Albuterol Nebulized [Ventolin Nebulized] 2.5 mg INHALATION Q6H PRN PRN Reason: Shortness Of Breath Omeprazole [PriLOSEC] 20 mg PO AC-BRKFST Atorvastatin Calcium [Lipitor] 20 mg PO HS Multivitamins, Thera [Multivitamin (formulary)] 1 tab PO DAILY Ascorbic Acid [Vitamin C] 1,000 mg PO DAILY Discontinued predniSONE 5 mg PO DIRECTED Discharge Medication List Albuterol Inhaler (Mhu) [Ventolin Hfa Inhaler (Mhu)] 1 - 2 puff INHALATION RT- Q6H PRN 11/17/17 [History] Budesonide/Formoterol Fumarate [Symbicort 160-4.5 Mcg Inhaler] 2 puff INHALATION RT-BID 11/17/17 [History] Albuterol Nebulized [Ventolin Nebulized] 2.5 mg INHALATION Q6H PRN 03/30/19 [History] Ascorbic Acid [Vitamin C] 1,000 mg PO DAILY 05/31/20 [History] Atorvastatin Calcium [Lipitor] 20 mg PO HS 05/31/20 [History] Multivitamins, Thera [Multivitamin (formulary)] 1 tab PO DAILY 05/31/20 [History] Omeprazole [PriLOSEC] 20 mg PO AC-BRKFST 05/31/20 [History] Clotrimazole 10 mg MUCOUS MEM 5XD 10 Days #50 junior 06/06/20 [Rx] Diltiazem Oral [Cardizem*] 30 mg PO TID #90 tab 06/10/20 [Rx] Fluconazole [Diflucan] 100 mg PO DAILY #7 tab 06/10/20 [Rx] Levofloxacin [Levaquin] 750 mg PO DAILY #3 tab 06/10/20 [Rx] predniSONE 10 mg PO DAILY #30 tab 06/10/20 [Rx] Follow up Appointment(s)/Referral(s): [facility], [NON-STAFF] - 1-2 Days Alen Tracy MD [Primary Care Provider] - 1 Week Naa Gonzalez MD [STAFF PHYSICIAN] - 06/12/20 1:45 pm Patient Instructions/Handouts: *[facility] - Bronchoscopy Discharge Instructions, *[facility] - (Anesthesia) Discharge Instructions Outpatient Danis evie, Traumatic Pneumothorax (DC) Activity/Diet/Wound Care/Special Instructions: TAKE 4 TABLETS OF STEROID PACK TONIGHT, BRING PRESCRIPTION TO APPT WITH DR ELLIS TOMORROW TO DISCUSS IF HE WANTS YOU TO HAVE A NEW STEROID PACK. DO NEUBULIZER 4 TIMES A DAY. PLEASE CALL WITH ANY QUESTIONS OR CONCERNS Pt is to follow up with his [facility] on 12 mile on 06-13 for a follow up laryngeal exam Discharge Disposition: HOME WITH HOME HEALTH SERVICES
== END 2020-06-10 14:30 | disposition home health service (06) | DRG 199 ==
LOC: ORWHC2ENDO 09:37 → 6NMEDSUR 17:06 → OBSVTOIN 17:22 → 3SCARD 17:25 → 2SICU 18:18
PROVIDERS: ADMIT Hospitalist; ATTEND Hospitalist
PROC: 0BDJ8ZX Extraction of Left Lower Lung Lobe, Via Natural or Artificial Opening Endoscopic, Diagnostic (ICD-10-PCS; principal; 2020-06-05 12:00)
PROC: 0B9J8ZX Drainage of Left Lower Lung Lobe, Via Natural or Artificial Opening Endoscopic, Diagnostic (ICD-10-PCS; principal; 2020-06-05 12:00)
PROC: 0W9B30Z Drainage of Left Pleural Cavity with Drainage Device, Percutaneous Approach (ICD-10-PCS; 2020-06-05 12:00)
PROC: 0CJS8ZZ Inspection of Larynx, Via Natural or Artificial Opening Endoscopic (ICD-10-PCS; 2020-06-06)
DX: J95.811 Postprocedural pneumothorax (principal); J96.01 Acute respiratory failure with hypoxia; B37.89 Other sites of candidiasis; J44.1 Chronic obstructive pulmonary disease with (acute) exacerbation; B37.0 Candidal stomatitis; K56.41 Fecal impaction; R54 Age-related physical debility; J02.8 Acute pharyngitis due to other specified organisms; J37.0 Chronic laryngitis; R49.0 Dysphonia; J38.3 Other diseases of vocal cords; J34.2 Deviated nasal septum; F41.9 Anxiety disorder, unspecified; E78.5 Hyperlipidemia, unspecified; H93.19 Tinnitus, unspecified ear; R35.0 Frequency of micturition; K21.9 Gastro-esophageal reflux disease without esophagitis; N62 Hypertrophy of breast; R91.1 Solitary pulmonary nodule; M19.90 Unspecified osteoarthritis, unspecified site; Z79.51 Long term (current) use of inhaled steroids; Z79.52 Long term (current) use of systemic steroids; Z79.899 Other long term (current) drug therapy; Z87.891 Personal history of nicotine dependence; Z92.3 Personal history of irradiation; Z90.89 Acquired absence of other organs; Z87.81 Personal history of (healed) traumatic fracture; Z86.69 Personal history of other diseases of the nervous system and sense organs; Z85.21 Personal history of malignant neoplasm of larynx; Z98.890 Other specified postprocedural states; Z88.0 Allergy status to penicillin; Z88.2 Allergy status to sulfonamides; Y84.8 Other medical procedures as the cause of abnormal reaction of the patient, or of later complication, without mention of misadventure at the time of the procedure; Z82.49 Family history of ischemic heart disease and other diseases of the circulatory system
CPT/HCPCS: 31624; 31627; 31629; 70498; 71045; 71250; 74018; 80048; 80053; 83735; 85025; 85027; 85610; 87070; 87205; 88108; 88173; 88305; 88341; 88342; 89050; 94640

== ENCOUNTER 2020-07-27 09:34 | Emergency (ER) | payer MEDICARE, OTHER ==
[2020-07-27 09:40] VITALS: TEMP 97.9
[2020-07-27] MEDS ORDERED: SODIUM CHLORIDE 0.9% 1,000 ML IV STA (10:21)
--- NOTE | 2020-07-27 10:21 | ED ---
General Adult HPI - General Chief complaint: Shortness of Breath Stated complaint: ABD PAIN Time Seen by Provider: 07/27/20 10:06 Source: patient Mode of arrival: ambulatory Limitations: no limitations - History of Present Illness Initial comments: 64-year-old male presents to the emergency department with a chief complaint abdominal pain. Patient states he developed left lower quadrant abdominal pain last night while he was watching TV. Patient reports the pain is sharp and is minimal at this time unless he is pressing on the region. He denies any nausea vomiting diarrhea or constipation. Denies hematuria, hematochezia or melena. He does have chronic history of obstructive urinary symptoms and he is going to see a urologist for this rather soon. Patient is also requesting a breathing treatment and some steroids for his COPD exacerbation. He denies any chest pain fevers or chills. - Related Data Home Medications Medication Instructions Recorded Confirmed Budesonide/Formoterol Fumarate 2 puff INHALATION RT-BID 11/17/17 07/27/20 [Symbicort 160-4.5 Mcg Inhaler] Ascorbic Acid [Vitamin C] 1,000 mg PO DAILY 05/31/20 07/27/20 Atorvastatin Calcium [Lipitor] 20 mg PO HS 05/31/20 07/27/20 Multivitamins, Thera [Multivitamin 1 tab PO DAILY 05/31/20 07/27/20 (formulary)] Cyanocobalamin (Vitamin B-12) 1,000 mcg PO DAILY 07/27/20 07/27/20 [Vitamin B-12] Esomeprazole Magnesium [NexIUM] 20 mg PO DAILY 07/27/20 07/27/20 Ipratropium-Albuterol Nebulize 3 ml INHALATION RT-QID PRN 07/27/20 07/27/20 [Duoneb 0.5 mg-3 mg/3 ml Soln] Previous Rx's Medication Instructions Recorded Clotrimazole 10 mg MUCOUS MEM 5XD 10 Days #50 06/06/20 junior Diltiazem Oral [Cardizem*] 30 mg PO TID #90 tab 06/10/20 Ciprofloxacin HCl [Cipro] 500 mg PO Q12HR #20 tablet 07/27/20 metroNIDAZOLE [Flagyl] 500 mg PO TID #30 tab 07/27/20 Allergies Allergy/AdvReac Type Severity Reaction Status Date / Time Penicillins Allergy Unknown Verified 07/27/20 10:44 Childhood Sulfa (Sulfonamide Allergy Unknown Verified 07/27/20 10:44 Antibiotics) Childhood Review of Systems ROS Statement: Those systems with pertinent positive or pertinent negative responses have been documented in the HPI. ROS Other: All systems not noted in ROS Statement are negative. 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, Past Anesthesia/Blood Transfusion Reactions: No Reported Reaction Past Psychological History: No Psychological Hx Reported Smoking Status: Former smoker Past Alcohol Use History: Occasional Past Drug Use History: Marijuana - Past Family History Mother Family Medical History: No Reported History Father Family Medical History: Myocardial Infarction ([place]) General Exam Limitations: no limitations General appearance: alert, in no apparent distress Head exam: Present: atraumatic, normocephalic, normal inspection Eye exam: Present: normal appearance, PERRL, EOMI Pupils: Present: normal accommodation ENT exam: Present: normal exam, normal oropharynx, mucous membranes moist, TM's normal bilaterally, normal external ear exam Neck exam: Present: normal inspection, full ROM. Absent: tenderness Respiratory exam: Present: normal lung sounds bilaterally. Absent: respiratory distress, wheezes, rales, rhonchi, stridor Cardiovascular Exam: Present: regular rate, normal rhythm, normal heart sounds. Absent: systolic murmur, diastolic murmur GI/Abdominal exam: Present: soft, tenderness. Absent: distended, guarding, rebound, rigid Extremities exam: Present: normal inspection, full ROM, normal capillary refill. Absent: tenderness, pedal edema, joint swelling Back exam: Present: normal inspection, full ROM. Absent: tenderness, CVA tenderness (R), CVA tenderness (L), muscle spasm Neurological exam: Present: alert, oriented X3 Psychiatric exam: Present: normal affect, normal mood Skin exam: Present: warm, dry, intact, normal color Course Vital Signs 07/27/20 07/27/20 07/27/20 09:37 11:15 11:28 Temperature 97.9 F Pulse Rate 117 H 91 96 Respiratory 24 18 18 Rate Blood Pressure 145/72 134/90 O2 Sat by Pulse 96 99 Oximetry 07/27/20 11:29 Temperature Pulse Rate 99 Respiratory 18 Rate Blood Pressure O2 Sat by Pulse Oximetry Medical Decision Making - Medical Decision Making 64-year-old male presents to emergency Department with a chief complaint of abdominal pain. On physical examination, he does have left lower quadrant tenderness. He also has wheezing in bilateral lungs. However, states this is his baseline. I did give him 2 DuoNeb treatments. He did report improvement in his breathing. CBC CMP unremarkable. CT of abdomen and pelvis shows a stable old lung mass. It also showed diverticulitis. Patient has a penicillin ALLERGY so he will be started on Cipro and Flagyl instead. Advised them to follow specific diverticulitis diet. He will follow up with his primary care physician E2 days. Patient is able to tolerate by mouth. Strict return parameters were thoroughly discussed the patient was standing and agreeable. Case discussed with Dr. Michaud. - Lab Data Result diagrams: 07/27/20 10:25 07/27/20 10:25 Lab Results 07/27/20 07/27/20 07/27/20 Range/Units 10:25 10:25 10:32 WBC 9.3 (3.8-10.6) k/uL RBC 4.62 (4.30-5.90) m/uL Hgb 15.7 (13.0-17.5) gm/dL Hct 45.1 (39.0-53.0) % MCV 97.5 (80.0-100.0) fL MCH 34.1 (25.0-35.0) pg MCHC 34.9 (31.0-37.0) g/dL RDW 13.2 (11.5-15.5) % Plt Count 301 (150-450) k/uL MPV 7.7 Neutrophils % 62 % Lymphocytes % 23 % Monocytes % 9 % Eosinophils % 3 % Basophils % 1 % Neutrophils # 5.8 (1.3-7.7) k/uL Lymphocytes # 2.2 (1.0-4.8) k/uL Monocytes # 0.9 (0-1.0) k/uL Eosinophils # 0.2 (0-0.7) k/uL Basophils # 0.1 (0-0.2) k/uL Sodium 137 (137-145) mmol/L Potassium 4.3 (3.5-5.1) mmol/L Chloride 104 (98-107) mmol/L Carbon Dioxide 24 (22-30) mmol/L Anion Gap 9 mmol/L BUN 13 (9-20) mg/dL Creatinine 0.81 (0.66-1.25) mg/dL Est GFR (CKD-EPI)AfAm >90 (>60 ml/min/1.73 sqM) Est GFR (CKD-EPI)NonAf >90 (>60 ml/min/1.73 sqM) Glucose 107 H (74-99) mg/dL Calcium 9.7 (8.4-10.2) mg/dL Total Bilirubin 0.9 (0.2-1.3) mg/dL AST 31 (17-59) U/L ALT 28 (4-49) U/L Alkaline Phosphatase 79 (38-126) U/L Total Protein 7.3 (6.3-8.2) g/dL Albumin 4.3 (3.5-5.0) g/dL Amylase 58 (30-110) U/L Lipase 50 (23-300) U/L Urine Color Light Yellow Urine Appearance Clear (Clear) Urine pH 6.0 (5.0-8.0) Ur Specific Colp 1.006 (1.001-1.035) Urine Protein Negative (Negative) Urine Glucose (UA) Negative (Negative) Urine Ketones Negative (Negative) Urine Blood Negative (Negative) Urine Nitrite Negative (Negative) Urine Bilirubin Negative (Negative) Urine Urobilinogen <2.0 (<2.0) mg/dL Ur Leukocyte Esterase Negative (Negative) Disposition Clinical Impression: Diverticulitis, Abdominal pain Disposition: HOME SELF-CARE Condition: Stable Instructions (If sedation given, give patient instructions): Diverticulitis Diet (ED), Diverticulitis (ED) Additional Instructions: Follow the specific diverticulitis diet. Take prescribed medication as directed. Return to emergency department if symptoms worsen. Follow with her primary care physician. Prescriptions: Ciprofloxacin HCl [Cipro] 500 mg PO Q12HR #20 tablet metroNIDAZOLE [Flagyl] 500 mg PO TID #30 tab Is patient prescribed a controlled substance at d/c from ED?: No Referrals: Alen Tracy MD [Primary Care Provider] - 1-2 days Time of Disposition: 13:29
[2020-07-27] MEDS ORDERED: IPRATROPIUM-ALBUTEROL 3 ML NEB INHALATION STA (10:23)
[2020-07-27 10:35] LABS: Basophils # (A) 0.1 k/uL (0-0.2); Basophils % (A) 1 %; Eosinophils # (A) 0.2 k/uL (0-0.7); Eosinophils % (A) 3 %; HCT 45.1 % (39.0-53.0); HGB 15.7 gm/dL (13.0-17.5); Lymphocytes # (A) 2.2 k/uL (1.0-4.8); Lymphocytes % (A) 23 %; MCH 34.1 pg (25.0-35.0); MCHC 34.9 g/dL (31.0-37.0); MCV 97.5 fL (80.0-100.0); Mean Platelet Volume 7.7; Monocytes # (A) 0.9 k/uL (0-1.0); Monocytes % (A) 9 %; Neutrophils # (A) 5.8 k/uL (1.3-7.7); Neutrophils % (A) 62 %; Platelet Count 301 k/uL (150-450); RBC 4.62 m/uL (4.30-5.90); RDW 13.2 % (11.5-15.5); WBC 9.3 k/uL (3.8-10.6)
[2020-07-27 10:46] LABS: ALT 28 U/L (4-49); AST 31 U/L (17-59); African American GFR (CKD) >90 (>60 ml/min/1.73 sqM); Albumin 4.3 g/dL (3.5-5.0); Alkaline Phosphatase 79 U/L (38-126); Amylase 58 U/L (30-110); Anion Gap 9 mmol/L; Blood Urea Nitrogen 13 mg/dL (9-20); Calcium 9.7 mg/dL (8.4-10.2); Carbon Dioxide 24 mmol/L (22-30); Chloride 104 mmol/L (98-107); Glucose 107 mg/dL (74-99); Lipase 50 U/L (23-300); Non-African American GFR(CKD) >90 (>60 ml/min/1.73 sqM); Potassium 4.3 mmol/L (3.5-5.1); Sodium 137 mmol/L (137-145); Total Bilirubin 0.9 mg/dL (0.2-1.3); Total Protein 7.3 g/dL (6.3-8.2)
[2020-07-27 10:46] LABS: Appearance,Urine Clear (Clear); Bilirubin,Urine Negative (Negative); Blood,Urine Negative (Negative); Color,Urine Light Yellow; Glucose,Urine (UA) Negative (Negative); Ketones,Urine Negative (Negative); Leukocyte Esterase,Urine Negative (Negative); Nitrite,Urine Negative (Negative); Protein,Urine Negative (Negative); Specific Gravity,Urine 1.006 (1.001-1.035); Urobilinogen,Urine <2.0 mg/dL (<2.0)
[2020-07-27 11:17] VITALS: RESP 18
[2020-07-27 11:29] VITALS: BP 134/90
[2020-07-27 11:30] VITALS: PULSE 99
--- NOTE | 2020-07-27 13:08 | CT ---
EXAMINATION TYPE: CT abdomen pelvis w con DATE OF EXAM: 07/27/2020 COMPARISON: Chest x-ray same date, CT chest 06/05/2020 HISTORY: Left mid-lower quadrant pain CT DLP: 758.5 mGycm Automated exposure control for dose reduction was used. TECHNIQUE: Helical acquisition of images from the lung bases through the pelvis have been completed. CONTRAST: Performed without Oral Contrast and with IV Contrast, patient injected with 100 mL of Isovue 300. FINDINGS: LUNG BASES: Mass in the left lower lobe posterior to the heart is again noted. There is a small left pleural effusion. AORTA: No significant abnormality is appreciated. LIVER/GB: No significant abnormality is appreciated. PANCREAS: No significant abnormality is seen. SPLEEN: No significant abnormality is seen. ADRENALS: Small low dense left adrenal nodule is again seen.. KIDNEYS: No significant abnormality is seen. REPRODUCTIVE ORGANS: No significant abnormality is seen BOWEL: There are some fluid-filled loops of small bowel, small bowel wall thickening. Diverticular c hanges associated with the colon. In the left lower quadrant there is pericolonic inflammatory change .. FREE AIR: No Free Air visible. ASCITES: None visible. PELVIC ADENOPATHY: None visualized. RETROPERITONEAL ADENOPATHY: No Retroperitoneal Adenopathy visible. URINARY BLADDER: No significant abnormality is seen. OSSEOUS STRUCTURES: Postop changes noted to the right hip. Degenerative disc change noted lower lumb ar spine.. IMPRESSION: KNOWN LUNG MASS. CORRELATE FOR DIVERTICULITIS..
--- NOTE | 2020-07-27 13:11 | XR ---
EXAMINATION TYPE: XR chest 2V DATE OF EXAM: 07/27/2020 COMPARISON: Chest x-ray 06/10/2020 HISTORY: Cough and shortness of breath TECHNIQUE: Frontal and lateral views of the chest are obtained. FINDINGS: There is resolution of patient's subcutaneous emphysema. Cardiac mediastinal silhouette is within normal limits. No evident airspace disease, pneumothorax, or pleural effusion. Prominent lung volumes suggest underlying COPD. Known lung mass at the left lower lobe retrocardiac region, there i s some prominence of interstitium. IMPRESSION: Left lower lobe lung mass.
== END 2020-07-27 13:52 | disposition home or self-care (01) ==
LOC: EC 09:34
DX: K57.32 Diverticulitis of large intestine without perforation or abscess without bleeding (principal); K21.9 Gastro-esophageal reflux disease without esophagitis; J44.1 Chronic obstructive pulmonary disease with (acute) exacerbation; M19.90 Unspecified osteoarthritis, unspecified site; E78.5 Hyperlipidemia, unspecified; Z87.891 Personal history of nicotine dependence; Z79.899 Other long term (current) drug therapy; Z79.51 Long term (current) use of inhaled steroids; Z88.0 Allergy status to penicillin
CPT/HCPCS: 36415; 94640; 80053; 82150; 83690; 85025; 81003; 71046; 74177; 99284; Q9967

== ENCOUNTER → 2020-11-18 | Outpatient (CLI) | payer MEDICARE, OTHER ==
--- NOTE | 2020-11-19 06:54 | CT ---
EXAMINATION TYPE: CT chest w con DATE OF EXAM: 11/18/2020 COMPARISON: Chest CT May 14, 2020 and PET/CT May 24, 2020 HISTORY: LUNG NODULE CT DLP: 414 mGycm. Automated Exposure Control for Dose Reduction was Utilized. TECHNIQUE: CT scan of the thorax is performed following with IV Contrast, patient injected with 100 mL of Isovue 300. FINDINGS: LUNGS: Background mild to moderate underlying emphysematous change greatest in upper lungs is redemon strated. There is interval enlargement of the central left lower lobe hypermetabolic nodule now measu ring 3.3 x 3.2 cm axial image 40. Craniocaudal length 2 increased to 3.9 cm sagittal image 71. The no w mass abuts the mediastinum. Right lung remains clear. No pleural effusion or pneumothorax seen bila terally. MEDIASTINUM: There is interval enlargement of the prior visualized near 1.0 cm hypermetabolic lymph n ode adjacent to the left anterior wall of the esophagus at left infrahilar level axial image 32 curre nt study now measuring 1.4 x 1.4 cm. Stable slightly prominent additional left hilar subcentimeter ly mph nodes. No cardiomegaly. Moderate coronary artery calcification redemonstrated. Small to tiny shreyas cardial effusion redemonstrated. OTHER: Some diverticula near the splenic flexure. Exaggerated thoracic kyphosis with mild chronic com pression type fracture at T9 level and multilevel spurring redemonstrated. Slight low dense nodular t hickening to both adrenal glands left greater than right unchanged from prior studies. IMPRESSION: Enlarging central left lower lobe 3.3 cm mass and enlarging left infrahilar or periesopha geal adenopathy consistent with neoplastic progression given hypermetabolic uptake noted on prior PET /CT.
== END | disposition home or self-care (01) ==
LOC: RADCTMAIN 17:45
PROVIDERS: ATTEND Internal Medicine Critical Care Medicine
DX: R91.8 Other nonspecific abnormal finding of lung field (principal)
CPT/HCPCS: 71260; Q9967

== ENCOUNTER → 2021-01-20 | Outpatient (CLI) | payer MEDICARE, OTHER ==
[2021-01-20 11:48] LABS: Troponin I <0.012 ng/mL (0.000-0.034)
== END | disposition home or self-care (01) ==
LOC: LABWHC1 10:53
PROVIDERS: ATTEND Physician Assistant
DX: R07.89 Other chest pain (principal)
CPT/HCPCS: 36415; 82550; 82553; 84484

== ENCOUNTER 2021-01-22 11:31 | Day surgery (SDC) | payer MEDICARE, OTHER ==
[2021-01-17 14:51] VITALS: BMI 24.4
[2021-01-22] MEDS ORDERED: LACTATED RINGERS 1,000 ML IV ONE (12:02)
[2021-01-22] MEDS ORDERED: ALBUTEROL NEBULIZED 2.5 MG/3 ML INHALATION STA (12:07)
[2021-01-22] MEDS ORDERED: NEOSTIGMINE 1 MG/ML 10 ML VIAL ONE (13:33)
[2021-01-22] MEDS ORDERED: MIDAZOLAM 2 MG/2 ML VIAL ONE (13:33)
[2021-01-22] MEDS ORDERED: SUCCINYLCHOLINE CHLORIDE 100 MG/5 ML SYR IV ONE (13:33)
[2021-01-22] MEDS ORDERED: GLYCOPYRROLATE 0.2 MG/ML 2 ML VIAL ONE (13:33)
[2021-01-22] MEDS ORDERED: ROCURONIUM 10 MG/ML (5 ML VIAL) IV ONE (13:33)
[2021-01-22] MEDS ORDERED: PHENYLEPHRINE-0.9% NACL SYG 1,000 MCG/10 ML SYRINGE ONE (13:33)
[2021-01-22] MEDS ORDERED: LIDOCAINE 1% INJ 10MG/ML (20 ML MDV) ONE (13:33)
[2021-01-22] MEDS ORDERED: PROPOFOL 10 MG/ML 20 ML VIAL IV ONE (13:33)
[2021-01-22] MEDS ORDERED: fentaNYL (PF) 50 MCG/ML 2 ML AMP ONE (13:33)
--- NOTE | 2021-01-22 14:00 | CT ---
EXAMINATION TYPE: CT Chest wo con Veran Protocol DATE OF EXAM: 01/22/2021 COMPARISON: 11/18/2020 HISTORY: pre veran bronchial navigation CT DLP: 577 mGycm Automated exposure control for dose reduction was used. FINDINGS: Diffuse emphysematous changes are seen. There is an 8 mm nodule in the superior segment of the right lower lobe. Additional small areas of nodularity involving the right lower lobe measuring approximate ly 5 mm or less. A coarsened interstitium is seen with findings suggestive of COPD. 3.3 cm mass in the left lower lobe stable from prior exam. Small pericardial effusion. Coronary artery calcification noted. Aorta of normal caliber. Lymph nodes previously noted in the mediastinum unchanged from recent previous exam. Punctate nonobstructing 1 mm right renal calculus. Hypertrophic and degenerative changes of the spine . Endplate compression deformities in the midthoracic region. IMPRESSION: 1. 3.3 cm left lower lobe mass with diffuse emphysematous changes. Scattered sub-5 mm nodularity invo lving the right lower lobe too small to characterize. 2. Linear irregular density right lower lobe likely in the basis of atelectasis or scar. 3. Previously described lymph nodes in the mediastinum stable adjacent to the wall the esophagus. 4. Coronary artery calcification small pericardial effusion.
[2021-01-22 15:10] VITALS: TEMP 98
--- NOTE | 2021-01-22 15:10 | P.PCN ---
Date of Procedure: 01/22/21 Preoperative Diagnosis: Left hilar mass Postoperative Diagnosis: left hilar mass Procedure(s) Performed: 1 flexible bronchoscopy, airway inspection 2 Navgational bronchoscopy and transbronchial needle aspirate of left hilar mass 3 endoscopic ultrasound (EBUS) with transbronchial needle aspirate of left hilar mass Anesthesia: HAYDER Surgeon: Naa Gonzalez Molding Fitter #1: Landy Sharpe Estimated Blood Loss (ml): 0 Pathology: other Condition: stable Disposition: same day Operative Findings: This procedure was done in the endoscopy suite. The patient underwent a CAT scan of the chest the [employer] protocol. The images were uploaded into the system and the left hilar mass was mapped appropriately. All of this information was uploaded into the [employer] medication will tolerate. The patient had appropriate Vpads applied to the chest. This procedure was done under general anesthesia. The patient was taken to the OR suite he was intubated and put on MV by anesthesia . Following that, a flexible bronchoscopy was done for airway inspection. The flexible bronchoscope was advanced to the ET tube until the Trachea was seen and it was normal and then the lidia appears normal then the scope advanced to the left main and KATHY LB1-LB3 were seen and no endobronchial lesions were seen then the scope advanced to the lingula and the LB4 and LB5 were seen and no endobronchial lesions were seen the scope retracted and advanced to the left lower lobes LB6 to LB12 were seen one by one and no endobronchial lesions, then the scope was retracted back to the lidia and advanced to the Right main and RUL RB1 and RB2 and RB3 were seen one by one and no endobronchial lesions were seen the scope then retracted and advanced to the BI and RML RB4 and RB5 were seen and no endobronchial lesions were seen then it was retracted and advanced to the RLL RB6 to RB12 were seen one by one and no endobronchial lesions. . Following that, the appropriate calibration was done utilizing the main lidia and the secondary lidia on the left as reference points. On the navigational guidance, the flexible bronchoscope was advanced to the left lower lobe. The left hilar mass was identified. There was no endobronchial tumor. Using a 22- gauge needle, transbronchial needle aspirate of the left hilar mass was done on the navigational guidance. The needle was seen to be advanced into the lesion based on how her navigational guidance. A total of 5 passes were obtained. The samples were sent for cell block Following that, the EBUS bronchoscope was introduced. EBUS bronchoscope was advanced to the left lower lobe and under direct visualization, the left hilar mass was identified. The ultrasound probe was directed posteriorly through the left lower lobe and the mass was detected visualized. Following that, using 22- gauge needle, transbronchial needle aspirate of the left hilar mass was done and a total of 2 passes were obtained using EBUS guidance. No major bleeding and the scope was removed and taken out, and then the flexible bronchoscope was reintroduced and therapeutic it was suctioning was done. No bleeding was identified. The scope was removed. The patient was extubated and the patient was transferred to recovery in stable condition.
--- NOTE | 2021-01-22 16:00 | XR ---
EXAMINATION TYPE: XR chest 1V portable DATE OF EXAM: 01/22/2021 COMPARISON: X-ray 07/27/2020 HISTORY: Postnavigational bronchoscopy TECHNIQUE: Single frontal view of the chest is obtained. FINDINGS: Interstitial changes are present within the lungs. There are overlying artifacts. No evide nt pleural effusion or pneumothorax. Cardiac mediastinal silhouette is stable. Density is again seen. IMPRESSION: No evident complication status post bronchoscopy.
[2021-01-22] MEDS ORDERED: IV FLUID CONTINUATION 100 ML IV ONE ×2 (16:09)
[2021-01-22 16:31] VITALS: RESP 20
[2021-01-22 16:46] VITALS: BP 135/87; PULSE 95
== END 2021-01-22 17:04 | disposition home or self-care (01) ==
LOC: ORWHC2ENDO 11:31
PROVIDERS: ATTEND Internal Medicine Critical Care Medicine
DX: R91.8 Other nonspecific abnormal finding of lung field (principal); I25.10 Atherosclerotic heart disease of native coronary artery without angina pectoris; I31.3 Pericardial effusion (noninflammatory); J98.4 Other disorders of lung; E78.5 Hyperlipidemia, unspecified; J44.9 Chronic obstructive pulmonary disease, unspecified; K21.9 Gastro-esophageal reflux disease without esophagitis
CPT/HCPCS: 31629; 31627; 31652; 31645; 31654; 94640; 71045; 71250; J2250; J2710; J2001; J3010; J2370; J0330; J2704; 88305; 88341; 88342

== ENCOUNTER → 2021-01-31 | Outpatient (CLI) | payer MEDICARE, OTHER ==
--- NOTE | 2021-02-04 08:41 | PE ---
EXAMINATION TYPE: PET CT fusion skull to thigh DATE OF EXAM: 01/31/2021 COMPARISON: Chest CT November 18, 2020 HISTORY: Abnormal CT, solitary pulmonary nodule. Bronchoscopy positive for left-sided adenocarcinom a on left hilar mass sampling January 22. TECHNIQUE: Following the intravenous administration of 8.48 mCi of F-18 FDG, whole body images are p erformed from the skull base to the midthigh. Images are reviewed on the computer in the coronal, ax ial, and sagittal planes. Reconstructed rotating images are created on independent workstation and r eviewed on the computer. A localization and attenuation correction CT is performed in conjunction w ith the PET scan. Blood glucose level equals 94. SCAN: Initial Scan FINDINGS: SKULL BASE AND NECK: Normal uptake in level of vocal cords. Mild symmetric parotid and submandibular gland uptake. No definitive abnormal hypermetabolic uptake. CHEST, MEDIASTINUM, AND HILAR REGION: Moderate underlying emphysematous changes redemonstrated greate st in the upper lungs. Persistent central 3.3 x 3.0 cm left lower lobe mass abuts the mediastinum and posterior pericardium axial image 102, max SUV is 13.02. Persistent abnormal left paraesophageal lymph node and subcarinal level measures approximately 1.6 x 1.0 cm axial image 90, max SUV is 7.73. ABDOMEN AND PELVIS: Low dense nodularity to both adrenal glands left greater than right redemonstrate d without abnormal hypermetabolic uptake. Normal excretion is seen. No abnormal hypermetabolic uptake identified. OSSEOUS STRUCTURES: Hypermetabolic osseous metastatic disease is present. For reference there is hype rmetabolic inferior L4 lesion axial image 163 with subtle sclerosis on CT, max SUV is 10.45. Addition al hypermetabolic lesions in the upper sacrum axial image 177 and right ilium near ischial tuberosity and sacroiliac joint on axial image 179. Hypermetabolic anterior right L1 lesion axial image 131 cor responds to subtle sclerotic lesion. There are few additional scattered osseous lesions. There is sub tle right posterior seventh rib hypermetabolic lesion axial image 86 and subtle lytic posterior left scapular hypermetabolic lesion axial image 53. OTHER CT: Moderate coronary artery calcification. Surgical change to proximal right femur causing streak artifact is present. A few sigmoid colonic div erticula. Slight scoliotic curvature. IMPRESSION: Abnormal hypermetabolic uptake in the central left infrahilar mass or neoplasm and left p araesophageal adenopathy at subcarinal level. Diffuse osseous metastatic disease is present.
== END | disposition home or self-care (01) ==
LOC: RADPETMAIN 16:55
PROVIDERS: ATTEND Internal Medicine Critical Care Medicine
DX: C34.92 Malignant neoplasm of unspecified part of left bronchus or lung (principal); C79.51 Secondary malignant neoplasm of bone
CPT/HCPCS: 78815; A9552

== ENCOUNTER → 2021-02-10 | Outpatient (CLI) | payer MEDICARE, OTHER ==
--- NOTE | 2021-02-10 11:10 | MR ---
EXAMINATION TYPE: MR brain wo/w con DATE OF EXAM: 02/10/2021 COMPARISON: HISTORY: Lung Cancer TECHNIQUE: Multiplanar, multisequence images of the brain and brainstem is performed without and with IV contras t, utilizing 6 mL intravenous Gadavist . FINDINGS: There is artifact on the exam. Diffusion weighted images demonstrate no evidence of a recen t infarct or other diffusion abnormality. There is no extra-axial fluid collection. There are scatt ered subcortical, periventricular white matter hyperintensities on inversion recovery and T2-weighted sequences, approximately 10-20 lesions. The ventricular system and cisternal spaces are normal in si ze and appearance. The brain volume is age appropriate, there is cortical atrophy. Midline structures demonstrate normal morphology. The craniocervical junction appears within normal limits. Post contrast images demonstrate no abnormal enhancement. The dural venous sinuses appear pa tent. The visualized sinuses are clear and the globes are intact. IMPRESSION: Age-related changes of atrophy and chronic small vessel ischemia.
== END | disposition home or self-care (01) ==
LOC: RADMRIMAIN 09:34
PROVIDERS: ATTEND Internal Medicine Hematology & Oncology
DX: C34.90 Malignant neoplasm of unspecified part of unspecified bronchus or lung (principal); I67.82 Cerebral ischemia
CPT/HCPCS: 70553; A9585

== ENCOUNTER → 2021-04-23 | Outpatient (CLI) | payer MEDICARE, OTHER ==
[2021-04-23 08:35] LABS: African American GFR (CKD) >90 (>60 ml/min/1.73 sqM); Blood Urea Nitrogen 16 mg/dL (9-20); Non-African American GFR(CKD) >90 (>60 ml/min/1.73 sqM)
--- NOTE | 2021-04-23 10:13 | CT ---
EXAMINATION TYPE: CT chest w con DATE OF EXAM: 04/23/2021 COMPARISON: 11/18/2020 01/31/2021 HISTORY: follow up lung cancer CT DLP: 225.9 mGycm Automated exposure control for dose reduction was used. TECHNIQUE: CT scan of the chest is performed with IV Contrast, patient injected with 100 mL of Isovue 300. MIP Images are created on CT scanner and reviewed. 3D reconstructed images are created on an independent workstation and reviewed. FINDINGS: LUNGS: Emphysematous changes of the lungs are seen. There is a irregular nodule in the anterior segme nt right upper lobe measuring 0.8 x 0.6 cm which appears new from prior exam. There are multiple 5 mm or less nodules in the right upper lobe. A larger nodule seen in the right upper lobe subpleural frank suring 1 cm appears new from prior exam. Additional sub-5 mm nodules are seen in the right lower lobe . Emphysematous changes are seen with no pleural effusion or pneumothorax. No focal pneumonia. MEDIASTINUM: There are no greater than 1 cm hilar or mediastinal lymph nodes. Trace of pericardial fl uid seen. Diverticulosis of the colon. Coronary artery calcification. There is a left infrahilar soft tissue mass measuring 2.2 cm previously measuring 3.3 cm. OTHER: Hypertrophic and degenerative changes of the spine and sternum. There are multiple areas of s clerosis involving the vertebral column. Metastasis in the differential diagnosis. Superior endplate compression fracture of 2 mid thoracic segments are noted. Similar to prior exam. Stable nonspecific left adrenal gland nodularity. IMPRESSION: 1. There is interval reduction in size of the left lower lobe mass which previously measured 3.3 cm i n greatest dimension and now measures approximately 2.3 cm. 2. However, there appears to be multiple 1 cm or less nodules some of which are poorly defined withi n the right lower and upper lobe. The largest measures 1 cm and on axial image 30. Neoplastic proces s cannot be excluded. Recommend a follow-up PET scan to assess the 1 cm lesion in the right upper lob e to determine if this is neoplastic or inflammatory. 3. There are focal areas of sclerosis involving the sternum and vertebral column of the thoracic spin e which are new from the exam of 11/18/2020 and suspicious for metastases.
== END | disposition home or self-care (01) ==
LOC: RADCTMAIN 07:50
PROVIDERS: ATTEND Internal Medicine Hematology & Oncology
DX: C34.32 Malignant neoplasm of lower lobe, left bronchus or lung (principal); R91.8 Other nonspecific abnormal finding of lung field; M89.8X0 Other specified disorders of bone, multiple sites
CPT/HCPCS: 82565; 84520; 71260; 36415; Q9967

== ENCOUNTER 2021-06-16 06:45 | Inpatient (IN) | payer MEDICARE, OTHER ==
[2021-06-16] MEDS ORDERED: SODIUM CHLORIDE 0.9% 1,000 ML IV STA ×2 (06:48)
[2021-06-16] MEDS ORDERED: IPRATROPIUM 0.5 MG/2.5 ML NEBU INHALATION STA ×2 (06:48→08:09)
[2021-06-16] MEDS ORDERED: MORPHINE SULFATE 2 MG/ML SYRINGE IVP STA (06:48)
[2021-06-16] MEDS ORDERED: methylPREDNISolone SOD SUCCI 125 MG/2 ML VIAL IV STA ×2 (06:48→16:43)
[2021-06-16] MEDS ORDERED: SODIUM CHLORIDE 0.9% 500 ML 500 ML IV STA (06:48)
[2021-06-16] MEDS ORDERED: ALBUTEROL NEBULIZED 2.5 MG/3 ML INHALATION STA ×2 (06:48→08:09)
[2021-06-16 07:16] LABS: Basophils # (A) 0.1 k/uL (0-0.2); Basophils % (A) 0 %; Eosinophils # (A) 0.1 k/uL (0-0.7); Eosinophils % (A) 1 %; HCT 45.1 % (39.0-53.0); HGB 14.8 gm/dL (13.0-17.5); Lymphocytes # (A) 1.8 k/uL (1.0-4.8); Lymphocytes % (A) 9 %; MCH 34.4 pg (25.0-35.0); MCHC 32.8 g/dL (31.0-37.0); MCV 104.7 fL (80.0-100.0); Macrocytosis Moderate; Mean Platelet Volume 8.1; Monocytes % (A) 5 %; Neutrophils # (A) 17.5 k/uL (1.3-7.7); Neutrophils % (A) 84 %; Platelet Count 217 k/uL (150-450); RBC 4.31 m/uL (4.30-5.90); RDW 14.9 % (11.5-15.5); WBC 20.7 k/uL (3.8-10.6)
--- NOTE | 2021-06-16 07:30 | XR ---
EXAMINATION TYPE: XR chest 1V portable DATE OF EXAM: 06/16/2021 HISTORY: Shortness of breath. COMPARISON: 01/22/2021 TECHNIQUE: Single view of the chest is submitted. FINDINGS: Demonstrated are scattered senescent parenchymal change. Increased density right medial lung base may reflect developing infiltrate. Blunting of the right cos tophrenic angle. The heart is stable. Hilar and mediastinal structures are within normal limits. Degenerative changes are seen of the dorsal spine. IMPRESSION: 1. Increased density right medial lung base may reflect developing infiltrate. Blunting of the right costophrenic angle.
[2021-06-16 07:36] LABS: ALT 34 U/L (4-49); AST 34 U/L (17-59); African American GFR (CKD) >90 (>60 ml/min/1.73 sqM); Albumin 4.6 g/dL (3.5-5.0); Alkaline Phosphatase 94 U/L (38-126); Anion Gap 9 mmol/L; Blood Urea Nitrogen 11 mg/dL (9-20); Calcium 9.2 mg/dL (8.4-10.2); Carbon Dioxide 25 mmol/L (22-30); Chloride 107 mmol/L (98-107); Glucose 127 mg/dL (74-99); Magnesium 1.5 mg/dL (1.6-2.3); Non-African American GFR(CKD) >90 (>60 ml/min/1.73 sqM); Potassium 4.4 mmol/L (3.5-5.1); Sodium 141 mmol/L (137-145); Total Bilirubin 0.9 mg/dL (0.2-1.3)
--- NOTE | 2021-06-16 07:41 | ED ---
SOB HPI <Ernesto Yanez - Last Filed: 06/16/21 10:09> - General Source: patient, EMS, RN notes reviewed, old records reviewed Mode of arrival: EMS Limitations: altered mental status - History of Present Illness MD Complaint: shortness of breath, cough -: hour(s) Severity: severe Severity scale (1-10): 10 Consistency: constant Improves With: nothing Worsens With: exertion, movement Known History Of: COPD, other (Lung cancer) Context: recent URI, recent illness Associated Symptoms: chest pain, cough, sputum production Treatments Prior to Arrival: oxygen, bronchodilator <Jonathan Lo - Last Filed: 06/16/21 21:27> - General Chief Complaint: Shortness of Breath Stated Complaint: [place] Time Seen by Provider: 06/16/21 06:47 - History of Present Illness Initial Comments: This is a 65-year-old male to the emergency department stay. Patient presents today for evaluation of severe shortness of breath. Respiratory distress patient is unable to provide accurate history. Patient does have history of l ajay cancer, severe COPD on home O2 patient was 80% at home on 10 L nasal cannula. Patient severe shortness of breath. (Jonathan Lo) - Related Data Home Medications Medication Instructions Recorded Confirmed Atorvastatin Calcium [Lipitor] 20 mg PO DAILY 05/31/20 06/16/21 Albuterol Inhaler [Ventolin Hfa 2 puff INHALATION RT-QID PRN 01/17/21 06/16/21 Inhaler] Etodolac 400 mg PO DAILY PRN 01/17/21 06/16/21 Multivit,Calc,Min/FA/K1/Lycop 1 tab PO DAILY 01/17/21 06/16/21 [One-A-Day Men's Complete Tab] Omeprazole Magnesium [PriLOSEC OTC] 20 mg PO DAILY 01/17/21 06/16/21 Allergy Relief 10 mg PO DAILY 06/16/21 06/16/21 Ascorbic Acid [Vitamin C] 1,000 mg PO DAILY 06/16/21 06/16/21 Chemo Infusion (Unknown) 1 dose IV QMONTHLY 06/16/21 06/16/21 Cholecalciferol [Vitamin D3 (25 50 mcg PO DAILY 06/16/21 06/16/21 Mcg = 1000 Iu)] Cyanocobalamin (Vitamin B-12) 1,000 mcg PO DAILY 06/16/21 06/16/21 [Vitamin B-12] Fluticasone Nasal [place] [Flonase 2 spray EA NOSTRIL DAILY PRN 06/16/21 06/16/21 Nasal [place]] Fluticasone/Umeclidin/Vilanter 1 puff INHALATION RT-DAILY 06/16/21 06/16/21 [Trelegy Ellipta 200-62.5-25] HYDROcodone/APAP 10-325MG [[place] 1 tab PO TID PRN 06/16/21 06/16/21 10-325] Ipratropium-Albuterol Nebulize 3 ml INHALATION RT-QID 06/16/21 06/16/21 [Duoneb 0.5 mg-3 mg/3 ml Soln] OLANZapine [ZyPREXA] 2.5 mg PO DIRECTED 06/16/21 06/16/21 Ondansetron [Zofran] 4 mg PO Q4H PRN 06/16/21 06/16/21 Allergies Allergy/AdvReac Type Severity Reaction Status Date / Time Penicillins Allergy Unknown Verified 06/16/21 08:14 Childhood Sulfa (Sulfonamide Allergy Unknown Verified 06/16/21 08:14 Antibiotics) Childhood Review of Systems ROS Other: All systems not noted in ROS Statement are negative. <Ernesto Yanez - Last Filed: 06/16/21 10:09> ROS Other: All systems not noted in ROS Statement are negative. <Jonathan Lo - Last Filed: 06/16/21 21:27> ROS Statement: Those systems with pertinent positive or pertinent negative responses have been documented in the HPI. 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, Past Anesthesia/Blood Transfusion Reactions: No Reported Reaction, Unable to Obtain Additional Past Anesthesia/Blood Transfusion Reaction / Comment(s): does not know family hx Past Psychological History: No Psychological Hx Reported Smoking Status: Former smoker Past Alcohol Use History: Occasional Past Drug Use History: Marijuana - Past Family History Mother Family Medical History: Cancer Father Family Medical History: Myocardial Infarction ([place]) <Jonathan Lo - Last Filed: 06/16/21 21:27> General Exam Limitations: no limitations General appearance: alert, anxious, in distress Head exam: Present: atraumatic, normocephalic, normal inspection Eye exam: Present: normal appearance, PERRL, EOMI. Absent: scleral icterus, conjunctival injection, periorbital swelling ENT exam: Present: normal exam, mucous membranes dry Neck exam: Present: normal inspection. Absent: tenderness, meningismus, lymphadenopathy Respiratory exam: Present: respiratory distress, wheezes, accessory muscle use, decreased breath sounds, prolonged expiratory. Absent: rales, rhonchi, stridor Cardiovascular Exam: Present: normal rhythm, tachycardia, normal heart sounds. Absent: systolic murmur, diastolic murmur, rubs, gallop, clicks GI/Abdominal exam: Present: soft, normal bowel sounds. Absent: distended, tenderness, guarding, rebound, rigid Extremities exam: Present: normal inspection, full ROM, normal capillary refill. Absent: tenderness, pedal edema, joint swelling, calf tenderness Back exam: Present: normal inspection Neurological exam: Present: alert, oriented X3, CN II-XII intact Psychiatric exam: Present: normal affect, normal mood Skin exam: Present: warm, dry, intact, normal color. Absent: rash <Jonathan Lo - Last Filed: 06/16/21 21:27> Course <Jonathan Lo - Last Filed: 06/16/21 21:27> Vital Signs 06/16/21 06/16/21 06/16/21 06:45 06:47 07:00 Temperature 99.3 F Pulse Rate 161 H 165 H 156 H Pulse Rate [ 156 H Office Runner ] Respiratory 40 H 36 H Rate Blood Pressure 173/131 138/87 O2 Sat by Pulse 100 100 Oximetry 06/16/21 06/16/21 06/16/21 07:12 07:15 07:30 Temperature Pulse Rate 146 H 141 H 135 H Pulse Rate [ Office Runner ] Respiratory 32 H Rate Blood Pressure 123/78 O2 Sat by Pulse 100 Oximetry 06/16/21 06/16/21 06/16/21 07:49 08:00 10:11 Temperature Pulse Rate 137 H 130 H 126 H Pulse Rate [ Office Runner ] Respiratory 30 H 30 H Rate Blood Pressure 118/84 114/84 O2 Sat by Pulse 100 99 Oximetry 06/16/21 06/16/21 06/16/21 10:59 12:21 14:00 Temperature Pulse Rate 129 H 109 H 111 H Pulse Rate [ Office Runner ] Respiratory 34 H 28 H 26 H Rate Blood Pressure 118/76 104/74 140/67 O2 Sat by Pulse 95 99 98 Oximetry 06/16/21 06/16/21 06/16/21 15:00 16:00 18:00 Temperature 98.0 F Pulse Rate 109 H 115 H 117 H Pulse Rate [ Office Runner ] Respiratory 26 H 24 30 H Rate Blood Pressure 134/76 120/88 131/99 O2 Sat by Pulse 99 99 98 Oximetry 06/16/21 06/16/21 06/16/21 18:47 18:59 19:11 Temperature Pulse Rate 115 H 113 H 118 H Pulse Rate [ Office Runner ] Respiratory 34 H Rate Blood Pressure 134/87 O2 Sat by Pulse 99 Oximetry 06/16/21 20:43 Temperature Pulse Rate 111 H Pulse Rate [ Office Runner ] Respiratory 24 Rate Blood Pressure 134/92 O2 Sat by Pulse 100 Oximetry - Reevaluation(s) Reevaluation #1: 06/16/21 07:41 Record is reviewed (Jonathan Lo) Reevaluation #2: 06/16/21 07:41 Patient is in severe respiratory distress placed on BiPAP upon arrival to ER (Jonathan Lo) Reevaluation #3: 06/16/21 08:26 patient is currently improving slowly here in the ED, able to communicate that he is feeling better (Jonathan Lo) Medical Decision Making - Lab Data Result diagrams: 06/16/21 06:49 06/16/21 06:49 <Ernesto Yanez - Last Filed: 06/16/21 10:09> - Lab Data Result diagrams: 06/16/21 06:49 06/16/21 06:49 <Jonathan Lo - Last Filed: 06/16/21 21:27> - Medical Decision Making Patient is signed out to me by previous shift physician, Dr. Izaguirre,. Briefly, patient 65-year-old male who suffers from acute dyspneic. He has significant pulmonary history. He has established care with retail reset merchandiser. Patient is a history of lung cancer and COPD. Evaluated at the bedside at 7:05 AM. He had just received an 1 dose breathing treatments placed on BiPAP. Plan of sign out was to follow-up with pending labs, imaging and to determine final disposition. Patient is reevaluated at 8:42 AM. Patient's evaluated at the bedside showing significant improvement. He is not showing any signs of significant respiratory distress at the time. Daughter is at the bedside states that he was significantly dyspneic this morning prior to coming to the ER. Chest x-ray shows that there is infiltrates to the right medial lung base. He does have elevated white blood cell count of 20.7. Patient given an antibiotics for treatment of community-acquired pneumonia. Click or presentation consistent with clinically acquired pneumonia with associated CPD exacerbation. Case discussed with Dr. Zafar who is willing to accept patient's on behalf of [facility]. (Ernesto Yanez) - Lab Data Lab Results 06/16/21 06/16/21 06/16/21 Range/Units 06:49 06:49 06:49 WBC 20.7 H (3.8-10.6) k/uL RBC 4.31 (4.30-5.90) m/uL Hgb 14.8 (13.0-17.5) gm/dL Hct 45.1 (39.0-53.0) % MCV 104.7 H (80.0-100.0) fL MCH 34.4 (25.0-35.0) pg MCHC 32.8 (31.0-37.0) g/dL RDW 14.9 (11.5-15.5) % Plt Count 217 (150-450) k/uL MPV 8.1 Neutrophils % 84 % Lymphocytes % 9 % Monocytes % 5 % Eosinophils % 1 % Basophils % 0 % Neutrophils # 17.5 H (1.3-7.7) k/uL Lymphocytes # 1.8 (1.0-4.8) k/uL Monocytes # 1.0 (0-1.0) k/uL Eosinophils # 0.1 (0-0.7) k/uL Basophils # 0.1 (0-0.2) k/uL Macrocytosis Moderate PT 10.3 (9.0-12.0) sec INR 0.9 (<1.2) APTT 20.1 L (22.0-30.0) sec Sodium 141 (137-145) mmol/L Potassium 4.4 (3.5-5.1) mmol/L Chloride 107 (98-107) mmol/L Carbon Dioxide 25 (22-30) mmol/L Anion Gap 9 mmol/L BUN 11 (9-20) mg/dL Creatinine 0.87 (0.66-1.25) mg/dL Est GFR (CKD-EPI)AfAm >90 (>60 ml/min/1.73 sqM) Est GFR (CKD-EPI)NonAf >90 (>60 ml/min/1.73 sqM) Glucose 127 H (74-99) mg/dL Plasma Lactic Acid [place] (0.7-2.0) mmol/L Calcium 9.2 (8.4-10.2) mg/dL Magnesium 1.5 L (1.6-2.3) mg/dL Total Bilirubin 0.9 (0.2-1.3) mg/dL AST 34 (17-59) U/L ALT 34 (4-49) U/L Alkaline Phosphatase 94 (38-126) U/L Troponin I (0.000-0.034) ng/mL NT-Pro-B Natriuret Pep pg/mL Total Protein 8.0 (6.3-8.2) g/dL Albumin 4.6 (3.5-5.0) g/dL 06/16/21 06/16/21 06/16/21 Range/Units 06:49 06:49 06:49 WBC (3.8-10.6) k/uL RBC (4.30-5.90) m/uL Hgb (13.0-17.5) gm/dL Hct (39.0-53.0) % MCV (80.0-100.0) fL MCH (25.0-35.0) pg MCHC (31.0-37.0) g/dL RDW (11.5-15.5) % Plt Count (150-450) k/uL MPV Neutrophils % % Lymphocytes % % Monocytes % % Eosinophils % % Basophils % % Neutrophils # (1.3-7.7) k/uL Lymphocytes # (1.0-4.8) k/uL Monocytes # (0-1.0) k/uL Eosinophils # (0-0.7) k/uL Basophils # (0-0.2) k/uL Macrocytosis PT (9.0-12.0) sec INR (<1.2) APTT (22.0-30.0) sec Sodium (137-145) mmol/L Potassium (3.5-5.1) mmol/L Chloride (98-107) mmol/L Carbon Dioxide (22-30) mmol/L Anion Gap mmol/L BUN (9-20) mg/dL Creatinine (0.66-1.25) mg/dL Est GFR (CKD-EPI)AfAm (>60 ml/min/1.73 sqM) Est GFR (CKD-EPI)NonAf (>60 ml/min/1.73 sqM) Glucose (74-99) mg/dL Plasma Lactic Acid [place] 1.8 (0.7-2.0) mmol/L Calcium (8.4-10.2) mg/dL Magnesium (1.6-2.3) mg/dL Total Bilirubin (0.2-1.3) mg/dL AST (17-59) U/L ALT (4-49) U/L Alkaline Phosphatase (38-126) U/L Troponin I <0.012 (0.000-0.034) ng/mL NT-Pro-B Natriuret Pep 61 pg/mL Total Protein (6.3-8.2) g/dL Albumin (3.5-5.0) g/dL Critical Care Time Critical Care Time: Yes Total Critical Care Time: 31 <Jonathan Lo - Last Filed: 06/16/21 21:27> Disposition <Ernesto Yanez - Last Filed: 06/16/21 10:09> <Jonathan Lo - Last Filed: 06/16/21 21:27> Clinical Impression: COPD exacerbation, Pneumonia, Hypoxia, Community acquired pneumonia, Acute respiratory failure, Leukocytosis, Hypomagnesemia Disposition: ADMITTED IP TO THIS HOSP Condition: Serious
[2021-06-16] MEDS ORDERED: AZITHROMYCIN 500 MG in SODIUM CHLORIDE 0.9% 250 ML IVPB STA (08:08)
[2021-06-16] MEDS ORDERED: cefTRIAXone IN SWFI 1,000 MG/10 ML SYRINGE IVP STA (08:08)
[2021-06-16] MEDS ORDERED: NALOXONE 0.4 MG/ML 1 ML VIAL IV PRN (10:08)
[2021-06-16 10:22] LABS: INR 0.9 (<1.2); Prothrombin Time 10.3 sec (9.0-12.0)
[2021-06-16 10:35] LABS: Partial Thromboplastin Time 20.1 sec (22.0-30.0)
[2021-06-16] MEDS: MAGNESIUM SULFATE-D5W PMX 1 GM in DEXTROSE/WATER 1 100ML.BAG IVPB SCH ×2 (10:43→12:23)
[2021-06-16] MEDS: SODIUM CHLORIDE 0.9% 1,000 ML IV SCH (10:44)
[2021-06-16] MEDS ORDERED: ONDANSETRON 4 MG TAB PO PRN (17:13)
[2021-06-16] MEDS ORDERED: HYDROcodone/APAP 10-325MG 1 EACH TAB PO PRN (17:13)
[2021-06-16] MEDS ORDERED: FLUTICASONE 50MCG/SPRAY NASAL 16GM EA NOSTRIL PRN (17:13)
[2021-06-16] MEDS ORDERED: OLANZapine 2.5 MG TAB PO SCH (17:15)
--- NOTE | 2021-06-16 17:18 | P.HPIM ---
History of Present Illness H&P Date: 06/16/21 Chief Complaint: Dyspnea 65-year-old man with medical history of hypertension, hyperlipidemia, COPD on 5 L of oxygen, mood disorder, non-small cell lung cancer currently on chemotherapy presented for dyspnea. Patient has severe COPD, and is normally on 5 L of home oxygen. He is an ex-Smoker. This morning he noticed that he was started feeling more short of breath even at rest, but especially during and regulation. He said he has had an episode like this in the past but not this bad. Therefore, he called emergency medical services was brought in by ambulance for further workup. Patient currently denies fevers, chills, nausea, vomiting, chest pain, palpitations, syncopal, presyncope, abdominal pain, dysuria, dyschezia, consultation, diarrhea, numbness/weakness of extremities. He does report cough and dyspnea. In the emergency room, he was afebrile, 134/76, 99% on 6 L nasal cannula. CBC is markable for leukocytosis at 20.7. Chemistries are unremarkable. LFTs unremarkable. Troponin was negative. BNP was 61. Covid was negative. Initial EKG showed sinus tachycardia with indeterminate axis, no appreciable ischemic changes. Chest x-ray demonstrated increased density in the right medial lung likely reflecting developing infiltrate as well as blunting of the right costophrenic angle. All Systems reviewed and pertinent positives and negatives noted in HPI, all other symptoms are negative Gen: awake, alert HEENT: normocephalic, atraumatic, good hearing acuity, moist mucous membranes Resp: Impaired air Exchange, accessory muscle use, diffuse wheezing CVS: good distal perfusion x 4, no murmurs, tachycardic GI: soft, NTTP, ND : no SPT, no CVAT, finley catheter not present MSK: no pitting edema, no clubbing Neuro: non-focal, moving all extremities Psych: cooperative, euthymic mood Labs and imaging reviewed as above Assessment/plan: Acute hypoxemic respiratory failure superimposed on chronic hypoxemic respiratory failure on 2-4 L nasal cannula COPD exacerbation Sepsis with Community acquired pneumonia -Admit inpatient, telemetry -Oxygen when necessary -Pulmonology consulted by ER -Nieves [id number] -Albuterol when necessary -Ceftriaxone/azithromycin -Blood cultures pending -procalcitonin pending -Solu-Medrol every 6 hours Hypertension Hyperlipidemia Non-small cell lung cancer Mood disorder -Home medications reviewed and reconciled Patient is a full code DVT prophylaxis with Lovenox 40 mg subcu daily Past Medical History Past Medical History: Cancer, COPD, GERD/Reflux, Hearing Disorder / Deafness, Hyperlipidemia, Osteoarthritis (OA), Pneumonia Additional Past Medical History / Comment(s): 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 History of Any Multi-Drug Resistant Organisms: None Reported Past Surgical History: Orthopedic Surgery, Tonsillectomy Additional Past Surgical History / Comment(s): Microlaryngoscopy/bilateral vocal cord biopsies, 01/2021 bronchoscopy, R hip IT nail, surgery for strabismus as a child/ Past Anesthesia/Blood Transfusion Reactions: No Reported Reaction Additional Past Anesthesia/Blood Transfusion Reaction / Comment(s): does not know family hx Smoking Status: Former smoker - Past Family History Mother Family Medical History: Cancer Father Family Medical History: Myocardial Infarction ([place]) Medications and Allergies Home Medications Medication Instructions Recorded Confirmed Type Atorvastatin Calcium [Lipitor] 20 mg PO DAILY 05/31/20 06/16/21 History Albuterol Inhaler [Ventolin Hfa 2 puff INHALATION RT-QID PRN 01/17/21 06/16/21 History Inhaler] Etodolac 400 mg PO DAILY PRN 01/17/21 06/16/21 History Multivit,Calc,Min/FA/K1/Lycop 1 tab PO DAILY 01/17/21 06/16/21 History [One-A-Day Men's Complete Tab] Omeprazole Magnesium [PriLOSEC OTC] 20 mg PO DAILY 01/17/21 06/16/21 History Allergy Relief 10 mg PO DAILY 06/16/21 06/16/21 History Ascorbic Acid [Vitamin C] 1,000 mg PO DAILY 06/16/21 06/16/21 History Chemo Infusion (Unknown) 1 dose IV QMONTHLY 06/16/21 06/16/21 History Cholecalciferol [Vitamin D3 (25 50 mcg PO DAILY 06/16/21 06/16/21 History Mcg = 1000 Iu)] Cyanocobalamin (Vitamin B-12) 1,000 mcg PO DAILY 06/16/21 06/16/21 History [Vitamin B-12] Fluticasone Nasal [place] [Flonase 2 spray EA NOSTRIL DAILY PRN 06/16/21 06/16/21 History Nasal [place]] Fluticasone/Umeclidin/Vilanter 1 puff INHALATION RT-DAILY 06/16/21 06/16/21 History [Trelegy Ellipta 200-62.5-25] HYDROcodone/APAP 10-325MG [[place] 1 tab PO TID PRN 06/16/21 06/16/21 History 10-325] Ipratropium-Albuterol Nebulize 3 ml INHALATION RT-QID 06/16/21 06/16/21 History [Duoneb 0.5 mg-3 mg/3 ml Soln] OLANZapine [ZyPREXA] 2.5 mg PO DIRECTED 06/16/21 06/16/21 History Ondansetron [Zofran] 4 mg PO Q4H PRN 06/16/21 06/16/21 History Allergies Allergy/AdvReac Type Severity Reaction Status Date / Time Penicillins Allergy Unknown Verified 06/16/21 08:14 Childhood Sulfa (Sulfonamide Allergy Unknown Verified 06/16/21 08:14 Antibiotics) Childhood Physical Exam Osteopathic Statement: *. No significant issues noted on an osteopathic structural exam other than those noted in the History and Physical/Consult. Vitals: Vital Signs Temp Pulse Pulse Resp BP Pulse Ox 06/16/21 15:00 109 H 26 H 134/76 99 06/16/21 14:00 111 H 26 H 140/67 98 06/16/21 12:21 109 H 28 H 104/74 99 06/16/21 10:59 129 H 34 H 118/76 95 06/16/21 10:11 126 H 30 H 114/84 99 06/16/21 08:00 130 H 30 H 118/84 100 06/16/21 07:49 137 H 06/16/21 07:30 135 H 06/16/21 07:15 141 H 32 H 123/78 100 06/16/21 07:12 146 H 06/16/21 07:00 156 H 156 H 36 H 138/87 100 06/16/21 06:47 165 H 06/16/21 06:45 99.3 F 161 H 40 H 173/131 100 Intake and Output 06/16/21 06/16/21 06/16/21 06:59 14:59 22:59 Other: Weight 65.771 kg 65.771 kg Results CBC & Chem 7: 06/16/21 06:49 06/16/21 06:49 Labs: Abnormal Lab Results - Last 24 Hours (Table) 06/16/21 06/16/21 06/16/21 Range/Units 06:49 06:49 06:49 WBC 20.7 H (3.8-10.6) k/uL MCV 104.7 H (80.0-100.0) fL Neutrophils # 17.5 H (1.3-7.7) k/uL APTT 20.1 L (22.0-30.0) sec Glucose 127 H (74-99) mg/dL Magnesium 1.5 L (1.6-2.3) mg/dL Thrombosis Risk Factor Assmnt - Choose All That Apply Any of the Below Risk Factors Present?: Yes Each Factor Represents 1 point: Abnormal pulmonary function (COPD), Serious lung disease incl. pneumonia (< 1month) Other Risk Factors: Yes Each Risk Factor Represents 2 Points: Age 61-74 years, Malignancy Other congenital or acquired thrombophilia - If yes, enter type in comment: No Thrombosis Risk Factor Assessment Total Risk Factor Score: 6 Thrombosis Risk Factor Assessment Level: High Risk
--- NOTE | 2021-06-16 17:54 | P.CNPUL ---
History of Present Illness Consult date: 06/16/21 Reason for consult: dyspnea History of present illness: 65-year-old male patient, came into the emergency department because of increased shortness of breath and cough. The patient is very well-known to me. The patient is known to have COPD and addition to non-small cell lung cancer. Apparently, the patient was in significant respiratory distress and he was unable to provide any history at a time of admission. Patient was having oxygen desaturations even at home. He was using his home O2 units. Decrease his oxygen up to 10 L and his pulse ox was still in the low 80s and for that reason he came into the hospital for further evaluation. The patient has been maintained on Trelegy Ellipta on outpatient basis regarding his COPD and a ddition to DuoNeb nebulized treatments around the clock. The patient is also receiving systemic chemotherapy. The patient is known to have metastatic non- small cell lung cancer. At a time of his emergency admission, the patient had a temperature of 99.3, his heart rate was tachycardic ranging between 156 and 161 and the patient was also tachypneic. The patient was found to have a white cell count of 20.7 when he will of 14.8 and platelets of 217. Sodium was at 141 with a potassium level of 4.1, BUN was 11 with a creatinine of 0.8 and a glucose of 127. Serum bicarb was 25. The patient was started on breathing treatments. The patient was placed on BiPAP. He continued to show signs of improvement. His chest x-ray was done and it showed increased density in the right medial lung base reflecting underlying developing infiltrates/pneumonia. There was also some blunting of the costophrenic angle on the right. Note that the patient was given a total of 3 L bolus, he was started on a combination of Rocephin and Zithromax and IV Solu-Medrol 125 mg IV push was given to him. Pulmonary consultation was requested based on this. Review of Systems Constitutional: Reports poor appetite, Reports weakness, Reports weight loss Eyes: denies as per HPI, denies blurred vision, denies bulging eye, denies decreased vision, denies diplopia, denies discharge, denies dry eye, denies irritation, denies itching, denies pain, denies photophobia, denies loss of peripheral vision, denies loss of vision, denies tunnel vision/blind spots Ears: deny: decreased hearing, ear discharge, earache, tinnitus Ears, nose, mouth and throat: Reports hoarseness, Reports voice changes Breasts: absent: as per HPI, gynecomastia Cardiovascular: Reports decreased exercise tolerance, Reports dyspnea on exertion Respiratory: Reports dyspnea Gastrointestinal: Reports as per HPI Genitourinary: Reports as per HPI Musculoskeletal: absent: ankle pain, ankle stiffness, ankle swelling Integumentary: Reports as per HPI Neurological: Reports as per HPI Psychiatric: Reports as per HPI Endocrine: Reports as per HPI Hematologic/Lymphatic: Reports as per HPI Allergic/Immunologic: Reports as per HPI Past Medical History Past Medical History: Cancer, COPD, GERD/Reflux, Hearing Disorder / Deafness, Hyperlipidemia, Osteoarthritis (OA), Pneumonia Additional Past Medical History / Comment(s): 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 History of Any Multi-Drug Resistant Organisms: None Reported Past Surgical History: Orthopedic Surgery, Tonsillectomy Additional Past Surgical History / Comment(s): Microlaryngoscopy/bilateral vocal cord biopsies, 01/2021 bronchoscopy, R hip IT nail, surgery for strabismus as a child/ Past Anesthesia/Blood Transfusion Reactions: No Reported Reaction Additional Past Anesthesia/Blood Transfusion Reaction / Comment(s): does not know family hx Smoking Status: Former smoker - Past Family History Mother Family Medical History: Cancer Father Family Medical History: Myocardial Infarction ([place]) Medications and Allergies Home Medications Medication Instructions Recorded Confirmed Type Atorvastatin Calcium [Lipitor] 20 mg PO DAILY 05/31/20 06/16/21 History Albuterol Inhaler [Ventolin Hfa 2 puff INHALATION RT-QID PRN 01/17/21 06/16/21 History Inhaler] Etodolac 400 mg PO DAILY PRN 01/17/21 06/16/21 History Multivit,Calc,Min/FA/K1/Lycop 1 tab PO DAILY 01/17/21 06/16/21 History [One-A-Day Men's Complete Tab] Omeprazole Magnesium [PriLOSEC OTC] 20 mg PO DAILY 01/17/21 06/16/21 History Allergy Relief 10 mg PO DAILY 06/16/21 06/16/21 History Ascorbic Acid [Vitamin C] 1,000 mg PO DAILY 06/16/21 06/16/21 History Chemo Infusion (Unknown) 1 dose IV QMONTHLY 06/16/21 06/16/21 History Cholecalciferol [Vitamin D3 (25 50 mcg PO DAILY 06/16/21 06/16/21 History Mcg = 1000 Iu)] Cyanocobalamin (Vitamin B-12) 1,000 mcg PO DAILY 06/16/21 06/16/21 History [Vitamin B-12] Fluticasone Nasal [place] [Flonase 2 spray EA NOSTRIL DAILY PRN 06/16/21 06/16/21 History Nasal [place]] Fluticasone/Umeclidin/Vilanter 1 puff INHALATION RT-DAILY 06/16/21 06/16/21 History [Trelegy Ellipta 200-62.5-25] HYDROcodone/APAP 10-325MG [[place] 1 tab PO TID PRN 06/16/21 06/16/21 History 10-325] Ipratropium-Albuterol Nebulize 3 ml INHALATION RT-QID 06/16/21 06/16/21 History [Duoneb 0.5 mg-3 mg/3 ml Soln] OLANZapine [ZyPREXA] 2.5 mg PO DIRECTED 06/16/21 06/16/21 History Ondansetron [Zofran] 4 mg PO Q4H PRN 06/16/21 06/16/21 History Allergies Allergy/AdvReac Type Severity Reaction Status Date / Time Penicillins Allergy Unknown Verified 06/16/21 08:14 Childhood Sulfa (Sulfonamide Allergy Unknown Verified 06/16/21 08:14 Antibiotics) Childhood Physical Exam Vitals: Vital Signs Temp Pulse Pulse Resp BP Pulse Ox 06/16/21 15:00 109 H 26 H 134/76 99 06/16/21 14:00 111 H 26 H 140/67 98 06/16/21 12:21 109 H 28 H 104/74 99 06/16/21 10:59 129 H 34 H 118/76 95 06/16/21 10:11 126 H 30 H 114/84 99 06/16/21 08:00 130 H 30 H 118/84 100 06/16/21 07:49 137 H 06/16/21 07:30 135 H 06/16/21 07:15 141 H 32 H 123/78 100 06/16/21 07:12 146 H 06/16/21 07:00 156 H 156 H 36 H 138/87 100 06/16/21 06:47 165 H 06/16/21 06:45 99.3 F 161 H 40 H 173/131 100 Intake and Output 06/16/21 06/16/21 06/16/21 06:59 14:59 22:59 Other: Weight 65.771 kg 65.771 kg Thin frail male patient with a BMI of 25.7, noninjected respiratory distress Head exam was generally normal. There was no scleral icterus or corneal arcus. Mucous membranes were moist. Neck was supple and without jugular venous distension, thyromegaly, or carotid bruits. Carotids were easily palpable bilaterally. There was no adenopathy. Lungs sounds are equal and symmetrical bilaterally with diminished breath sounds and scattered expiratory wheezes throughout lung nelson Cardiac exam revealed the PMI to be normally situated and sized. The rhythm was regular and no extrasystoles were noted during several minutes of auscultation. The first and second heart sounds were normal and physiologic splitting of the second heart sound was noted. There were no murmurs, rubs, clicks, or gallops. Abdominal exam revealed normal bowel sounds. The abdomen was soft, non-tender, and without masses, organomegaly, or appreciable enlargement of the abdominal aorta. Examination of the extremities revealed easily palpable radial, femoral and pedal pulses. There was no cyanosis, clubbing or edema. Examination of the skin revealed no evidence of significant rashes, suspicious appearing nevi or other concerning lesions. Neurologically, the patient is awake and alert and the patient does not have any focal neurological deficit. Cranial nerves are essentially intact. Results - Laboratory Findings CBC and BMP: 06/16/21 06:49 06/16/21 06:49 PT/INR, D-dimer PT 10.3 sec (9.0-12.0) 06/16/21 06:49 INR 0.9 (<1.2) 06/16/21 06:49 Abnormal lab findings: Abnormal Labs 06/16/21 06/16/21 06/16/21 06:49 06:49 06:49 WBC 20.7 H MCV 104.7 H Neutrophils # 17.5 H APTT 20.1 L Glucose 127 H Magnesium 1.5 L - Diagnostic Findings Chest x-ray: image reviewed Assessment and Plan Plan: 1 acute hypoxic respiratory failure/shortness of breath, multifactorial. The patient is known to have metastatic non-small cell lung cancer, COPD, the patient undergoing systemic chemotherapy and the patient presents in with acute hypoxic respiratory failure and the patient is a new infiltrate in the right lung base along with some blunting of the right costophrenic angle. Rule out underlying pneumonia with COPD exacerbation. 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 12 acute leukocytosis Plan Check pro calcitonin level Continue Rocephin and Zithromax Proceed with a CT angiogram of the chest Discontinue the BiPAP and the patient is currently on 6 L 02 by nasal cannula Continue bronchodilators Continue IV Solu-Medrol Lovenox for DVT prophylaxis Resume Trelegy Ellipta from home Resume all medications
[2021-06-16] MEDS: ENOXAPARIN 40 MG/0.4 ML SYRINGE SQ SCH (18:50)
[2021-06-16] MEDS: MORPHINE SULFATE 2 MG/ML SYRINGE IVP PRN (18:50)
[2021-06-16] MEDS: methylPREDNISolone SOD SUCCI 125 MG/2 ML VIAL IV SCH ×2 (18:50→23:37)
[2021-06-16] MEDS: IPRATROPIUM-ALBUTEROL 3 ML NEB INHALATION SCH (18:58)
--- NOTE | 2021-06-16 21:14 | CT ---
EXAMINATION TYPE: CT angio chest DATE OF EXAM: 06/16/2021 COMPARISON: 04/23/2021 HISTORY: SOB, COPD exaserbation. Pt on 15 L, difficulty with breathing commands. Study was ended shor t in error, additonal images continued shortly after. CT DLP: 345.2 mGycm Automated exposure control for dose reduction was used. CONTRAST: Performed with IV Contrast, patient injected with 100 mL of Isovue 370. There are Three-D postprocessed images. There is pulmonary emphysema. There is some mild coarse interstitial density in the lung nelson bilat erally. There is subpleural 1 cm irregular nodule lateral left upper lobe close to the major fissure. There is multiple reticular subpleural infiltrates in the anterior right middle lobe and lateral lef t lower lobe. No pleural effusion. Heart size is normal. There is no pericardial effusion. Thoracic aorta is atheromatous. There is no evidence of aneurysm or dissection. The ascending aorta m easures 3.2 cm. There is no evidence of filling defect in the pulmonary arteries. The thoracic spine is intact. There is degenerative spur formation. There is 20% wedging of a mid thoracic vertebra cons istent with osteoporosis. Unchanged.. IMPRESSION: No evidence of pulmonary embolism. COPD and pulmonary fibrotic changes. Patchy bilateral subpleural p ulmonary infiltrates likely related to inflammatory disease. Sub-pleural nodular density left upper lobe near the major fissure is new compared to old exam and li jagdeep inflammatory in view of the short time interval.
[2021-06-16] MEDS: IPRATROPIUM-ALBUTEROL 3 ML NEB INHALATION PRN (23:33)
[2021-06-17] MEDS: MORPHINE SULFATE 2 MG/ML SYRINGE IVP PRN (00:46)
[2021-06-17 01:06] LABS: ABG HCO3 23 mmol/L (21-25); ABG PCO2 38 mmHg (35-45); ABG PH 7.39 (7.35-7.45); ABG PO2 86 mmHg (83-108); Allen Test Performed? Yes
[2021-06-17 01:07] LABS: ABG TCO2 24 mmol/L (19-24)
[2021-06-17] MEDS: IPRATROPIUM-ALBUTEROL 3 ML NEB INHALATION PRN (01:55)
[2021-06-17] MEDS: methylPREDNISolone SOD SUCCI 125 MG/2 ML VIAL IV SCH ×4 (06:23→23:31)
[2021-06-17] MEDS: IPRATROPIUM-ALBUTEROL 3 ML NEB INHALATION SCH ×4 (07:15→19:40)
[2021-06-17] MEDS: SYMBICORT 80-4.5 MCG INHALER INHALATION SCH ×3 (07:15→19:40)
[2021-06-17] MEDS: PANTOPRAZOLE 40 MG/10 ML VIAL IVP SCH (07:58)
[2021-06-17] MEDS: AZITHROMYCIN 500 MG TAB PO SCH (07:58)
[2021-06-17] MEDS: ENOXAPARIN 40 MG/0.4 ML SYRINGE SQ SCH (07:59)
[2021-06-17] MEDS: ASCORBIC ACID 500 MG TAB PO SCH (07:59)
[2021-06-17] MEDS: ATORVASTATIN 20 MG TAB PO SCH (07:59)
[2021-06-17] MEDS: LORATADINE 10 MG TAB PO SCH (07:59)
[2021-06-17] MEDS ORDERED: TRELEGY ELLIPTA INHALATION SCH (09:00)
[2021-06-17] MEDS ORDERED: NON FORMULARY DRUG (Omeprazole Magnesium [Prilosec Otc] 20 MG Tablet) PO SCH (09:00)
[2021-06-17] MEDS: SODIUM CHLORIDE 0.9% 1,000 ML IV SCH (10:10)
[2021-06-17] MEDS ORDERED: BENZOCAINE/MENTHOL LOZENG 1 EACH LOZENGE MUCOUS MEM PRN (10:51)
--- NOTE | 2021-06-17 12:11 | P.PN ---
<Reymundo,Larissa - Last Filed: 06/17/21 12:04> Subjective Progress Note Date: 06/17/21 65-year-old male patient, came into the emergency department because of increased shortness of breath and cough. The patient is very well-known to me. The patient is known to have COPD and addition to non-small cell lung cancer. Apparently, the patient was in significant respiratory distress and he was unable to provide any history at a time of admission. Patient was having oxygen desaturations even at home. He was using his home O2 units. Decrease his oxygen up to 10 L and his pulse ox was still in the low 80s and for that reason he came into the hospital for further evaluation. The patient has been maintained on Trelegy Ellipta on outpatient basis regarding his COPD and addition to DuoNeb nebulized treatments around the clock. The patient is also receiving systemic chemotherapy. The patient is known to have metastatic non- small cell lung cancer. At a time of his emergency admission, the patient had a temperature of 99.3, his heart rate was tachycardic ranging between 156 and 161 and the patient was also tachypneic. The patient was found to have a white cell count of 20.7 when he will of 14.8 and platelets of 217. Sodium was at 141 with a potassium level of 4.1, BUN was 11 with a creatinine of 0.8 and a glucose of 127. Serum bicarb was 25. The patient was started on breathing treatments. The patient was placed on BiPAP. He continued to show signs of improvement. His chest x-ray was done and it showed increased density in the right medial lung base reflecting underlying developing infiltrates/pneumonia. There was also some blunting of the costophrenic angle on the right. Note that the patient was given a total of 3 L bolus, he was started on a combination of Rocephin and Zithromax and IV Solu-Medrol 125 mg IV push was given to him. Pulmonary consultation was requested based on this. The patient is seen today 06/17/2021 in follow-up on the regular medical floor. He is currently sitting up in a chair at the bedside. Awake and alert in no acute distress. He is still dyspneic with conversation. Dyspneic with minimal exertion. Maintaining O2 saturations in the 90s on 6 L high flow nasal cannula. He is afebrile. Slightly tachycardic. CT angiogram ruled out pulmonary embolism. There is evidence of COPD and some pulmonary fibrotic changes. Patchy bilateral subpleural pulmonary infiltrates. Subpleural nodular density in the left upper lobe near the major fissure. This is new compared to previous exam. Blood cultures reveal no growth to date. Procalcitonin 10.2. Lares virus not detected. He is continued on ceftriaxone and azithromycin along with IV Solu-Medrol, Symbicort, DuoNeb inhalations. Objective - Vital Signs Vital signs: Vital Signs Temp 97.4 F L 06/17/21 11:17 Pulse 115 H 06/17/21 11:17 Resp 22 06/17/21 11:17 BP 120/71 06/17/21 11:17 Pulse Ox 100 06/17/21 04:39 Intake & Output 06/16/21 06/17/21 06/17/21 18:59 06:59 18:59 Intake Total 920 Output Total 500 Balance 420 Weight 65.771 kg Intake: Intake, IV Titration 120 Amount Sodium Chloride 0.9% 1, 120 000 ml @ 20 mls/hr IV . Q24H [facility] Rx#:[id number] Oral 800 Output: Urine 500 Other: Voiding Method Urinal Urinal - Exam Thin frail 65-year-old male patient with a BMI of 25.7, and mild respiratory distress Head exam was generally normal. There was no scleral icterus or corneal arcus. M ucous membranes were moist. Neck was supple and without jugular venous distension, thyromegaly, or carotid bruits. Carotids were easily palpable bilaterally. There was no adenopathy. Lungs sounds are equal and symmetrical bilaterally with diminished breath sounds and scattered expiratory wheezes throughout lung nelson Cardiac exam revealed the PMI to be normally situated and sized. The rhythm was regular and no extrasystoles were noted during several minutes of auscultation. The first and second heart sounds were normal and physiologic splitting of the second heart sound was noted. There were no murmurs, rubs, clicks, or gallops. Abdominal exam revealed normal bowel sounds. The abdomen was soft, non-tender, and without masses, organomegaly, or appreciable enlargement of the abdominal aorta. Examination of the extremities revealed easily palpable radial, femoral and pedal pulses. There was no cyanosis, clubbing or edema. Examination of the skin revealed no evidence of significant rashes, suspicious appearing nevi or other concerning lesions. Neurologically, the patient is awake and alert and the patient does not have any focal neurological deficit. Cranial nerves are essentially intact. - Labs CBC & Chem 7: 06/16/21 06:49 06/16/21 06:49 Labs: Abnormal Lab Results - Last 24 Hours (Table) 06/16/21 06/16/21 06/16/21 Range/Units 01:00 17:50 17:50 D-Dimer 1.44 H (<0.60) mg/L FEU ABG O2 Saturation 98.0 H (94-97) % Procalcitonin 10.20 H (0.02-0.09) ng/mL Microbiology - Last 24 Hours (Table) 06/16/21 06:53 Blood Culture - Preliminary Blood No Growth after 24 hours 06/16/21 07:11 Blood Culture - Preliminary Blood No Growth after 24 hours Assessment and Plan Assessment: 1 acute hypoxic respiratory failure/shortness of breath, multifactorial. The patient is known to have metastatic non-small cell lung cancer, COPD, the patient undergoing systemic chemotherapy and the patient presents in with acute hypoxic respiratory failure and the patient is a new infiltrate in the right lung base along with some blunting of the right costophrenic angle. Rule out underlying pneumonia with COPD exacerbation. 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 12 acute leukocytosis Plan The patient was seen and evaluated CAT scan reviewed Still in mild respiratory distress Currently on 6 L high flow nasal cannula Continue to alternate with BiPAP as needed Continue steroids and bronchodilators Continue antibiotics Titrate the FiO2 as tolerated We will continue to follow I have personally seen and examined the patient, performed the documentation and the assessment and plan as written. Number of minutes spent on the visit: 10. <Naa Gonzalez - Last Filed: 06/17/21 16:03> Objective - Vital Signs Vital signs: Vital Signs Temp 97.4 F L 06/17/21 11:17 Pulse 115 H 06/17/21 11:17 Resp 22 06/17/21 11:17 BP 120/71 06/17/21 11:17 Pulse Ox 100 06/17/21 04:39 Intake & Output 06/16/21 06/17/21 06/17/21 18:59 06:59 18:59 Intake Total 920 Output Total 500 Balance 420 Weight 65.771 kg Intake: Intake, IV Titration 120 Amount Sodium Chloride 0.9% 1, 120 000 ml @ 20 mls/hr IV . Q24H [facility] Rx#:[id number] Oral 800 Output: Urine 500 Other: Voiding Method Urinal Urinal - Labs CBC & Chem 7: 06/16/21 06:49 06/16/21 06:49 Labs: Abnormal Lab Results - Last 24 Hours (Table) 06/16/21 06/16/21 06/16/21 Range/Units 01:00 17:50 17:50 D-Dimer 1.44 H (<0.60) mg/L FEU ABG O2 Saturation 98.0 H (94-97) % Procalcitonin 10.20 H (0.02-0.09) ng/mL Microbiology - Last 24 Hours (Table) 06/16/21 06:53 Blood Culture - Preliminary Blood No Growth after 24 hours 06/16/21 07:11 Blood Culture - Preliminary Blood No Growth after 24 hours Assessment and Plan Assessment: I have personally seen and examined the patient and reviewed the documentation. I performed a joint evaluation with the nurse practitioner in this evaluation was done more than 20 minutes. I fully agree with the documentation above and the plan of care.. The patient has elevated pro-calcitonin level. Findings suspicious for an acute bacterial infection. The patient is currently on a combination of Rocephin and Zithromax. CT of the chest was done and showed no evidence of any pulmonary embolism. It showed COPD and some pulmonary fibrotic changes. Patchy bilateral subpleural pulmonary infiltrates were seen consistent with pneumonia. There is also subpleural nodular density in the left upper lobe near the major fissure which is new. We'll continue the antibiotics and will monitor the progress calcitonin level.
--- NOTE | 2021-06-17 17:02 | P.PN ---
Subjective Progress Note Date: 06/17/21 Pt is now on 6L NC, dyspneic with conversation, but reports to me feeling much improved. PC is very high, continuing abx and will trend. Gen: awake, alert HEENT: normocephalic, atraumatic, good hearing acuity, moist mucous membranes Resp: Impaired air Exchange, accessory muscle use, diffuse wheezing CVS: good distal perfusion x 4, no murmurs, tachycardic GI: soft, NTTP, ND : no SPT, no CVAT, finley catheter not present MSK: no pitting edema, no clubbing Neuro: non-focal, moving all extremities Psych: cooperative, euthymic mood Assessment/plan: Acute hypoxemic respiratory failure superimposed on chronic hypoxemic respiratory failure on 2-4 L nasal cannula COPD exacerbation Sepsis with Community acquired pneumonia -Admit inpatient, telemetry -Oxygen when necessary -Pulmonology consulted by DL Quintero [id number] -Albuterol when necessary -Ceftriaxone/azithromycin -Blood cultures pending -procalcitonin 10+ -Solu-Medrol every 6 hours Hypertension Hyperlipidemia Non-small cell lung cancer Mood disorder -Home medications reviewed and reconciled Patient is a full code DVT prophylaxis with Lovenox 40 mg subcu daily Objective - Vital Signs Vital signs: Vital Signs Temp 97.4 F L 06/17/21 11:17 Pulse 112 H 06/17/21 16:07 Resp 22 06/17/21 11:17 BP 120/71 06/17/21 11:17 Pulse Ox 100 06/17/21 04:39 Intake & Output 06/16/21 06/17/21 06/17/21 18:59 06:59 18:59 Intake Total 920 Output Total 500 200 Balance 420 -200 Weight 65.771 kg Intake: Intake, IV Titration 120 Amount Sodium Chloride 0.9% 1, 120 000 ml @ 20 mls/hr IV . Q24H [facility] Rx#:[id number] Oral 800 Output: Urine 500 200 Other: Voiding Method Urinal Urinal - Labs CBC & Chem 7: 06/16/21 06:49 06/16/21 06:49 Labs: Abnormal Lab Results - Last 24 Hours (Table) 06/16/21 06/16/21 06/16/21 Range/Units 01:00 17:50 17:50 D-Dimer 1.44 H (<0.60) mg/L FEU ABG O2 Saturation 98.0 H (94-97) % Procalcitonin 10.20 H (0.02-0.09) ng/mL Microbiology - Last 24 Hours (Table) 06/16/21 06:53 Blood Culture - Preliminary Blood No Growth after 24 hours 06/16/21 07:11 Blood Culture - Preliminary Blood No Growth after 24 hours
[2021-06-18] MEDS: methylPREDNISolone SOD SUCCI 125 MG/2 ML VIAL IV SCH ×3 (05:21→23:13)
[2021-06-18] MEDS: IPRATROPIUM-ALBUTEROL 3 ML NEB INHALATION SCH ×4 (08:42→20:04)
[2021-06-18] MEDS: SYMBICORT 80-4.5 MCG INHALER INHALATION SCH ×2 (08:42→20:02)
[2021-06-18] MEDS: TRELEGY ELLIPTA INHALATION SCH (08:51)
[2021-06-18] MEDS: LORATADINE 10 MG TAB PO SCH (08:53)
[2021-06-18] MEDS: ASCORBIC ACID 500 MG TAB PO SCH (08:53)
[2021-06-18] MEDS: ATORVASTATIN 20 MG TAB PO SCH (08:53)
[2021-06-18] MEDS: AZITHROMYCIN 500 MG TAB PO SCH (08:53)
[2021-06-18] MEDS: PANTOPRAZOLE 40 MG/10 ML VIAL IVP SCH (08:53)
[2021-06-18] MEDS: ENOXAPARIN 40 MG/0.4 ML SYRINGE SQ SCH (08:54)
--- NOTE | 2021-06-18 09:55 | P.PN ---
Subjective Progress Note Date: 06/18/21 Pt is now on 6L NC, dyspneic with exertion, but not conversation any more, reports to me feeling much improved since admission but not back to baseline. PC is very high, continuing abx and will trend. Gen: awake, alert HEENT: normocephalic, atraumatic, good hearing acuity, moist mucous membranes Resp: Impaired air Exchange, accessory muscle use, diffuse wheezing CVS: good distal perfusion x 4, no murmurs, tachycardic GI: soft, NTTP, ND : no SPT, no CVAT, finley catheter not present MSK: no pitting edema, no clubbing Neuro: non-focal, moving all extremities Psych: cooperative, euthymic mood Assessment/plan: Acute hypoxemic respiratory failure superimposed on chronic hypoxemic respiratory failure on 2-4 L nasal cannula COPD exacerbation Sepsis with Community acquired pneumonia -Admit inpatient, telemetry -Oxygen when necessary -Pulmonology consulted by DL -Nieves [id number] -Albuterol when necessary -Ceftriaxone/azithromycin -Blood cultures NGTD x 24 hours -procalcitonin 10+, trend every other day -Solu-Medrol every 6 hours Hypertension Hyperlipidemia Non-small cell lung cancer Mood disorder -Home medications reviewed and reconciled Patient is a full code DVT prophylaxis with Lovenox 40 mg subcu daily Objective - Vital Signs Vital signs: Vital Signs Temp 97.5 F L 06/18/21 05:00 Pulse 108 H 06/18/21 08:56 Resp 18 06/18/21 05:00 BP 139/83 06/18/21 05:00 Pulse Ox 97 06/18/21 05:00 Intake & Output 06/17/21 06/18/21 06/18/21 18:59 06:59 18:59 Intake Total 800 800 Output Total 200 Balance 600 800 Intake: Intake, IV Titration 200 Amount Sodium Chloride 0.9% 1, 200 000 ml @ 20 mls/hr IV . Q24H [facility] Rx#:[id number] Oral 800 600 Output: Urine 200 Other: Voiding Method Urinal Urinal # Voids 3 - Labs CBC & Chem 7: 06/16/21 06:49 06/16/21 06:49 Labs: Microbiology - Last 24 Hours (Table) 06/16/21 06:53 Blood Culture - Preliminary Blood No Growth after 24 hours 06/16/21 07:11 Blood Culture - Preliminary Blood No Growth after 24 hours
[2021-06-18] MEDS ORDERED: methylPREDNISolone SOD SUCCI 125 MG/2 ML VIAL IV SCH (12:30)
--- NOTE | 2021-06-18 12:31 | P.PN ---
Subjective Progress Note Date: 06/18/21 65-year-old male patient, came into the emergency department because of increased shortness of breath and cough. The patient is very well-known to me. The patient is known to have COPD and addition to non-small cell lung cancer. Apparently, the patient was in significant respiratory distress and he was unable to provide any history at a time of admission. Patient was having oxygen desaturations even at home. He was using his home O2 units. Decrease his oxygen up to 10 L and his pulse ox was still in the low 80s and for that reason he came into the hospital for further evaluation. The patient has been maintained on Trelegy Ellipta on outpatient basis regarding his COPD and addition to DuoNeb nebulized treatments around the clock. The patient is also receiving systemic chemotherapy. The patient is known to have metastatic non- small cell lung cancer. At a time of his emergency admission, the patient had a temperature of 99.3, his heart rate was tachycardic ranging between 156 and 161 and the patient was also tachypneic. The patient was found to have a white cell count of 20.7 when he will of 14.8 and platelets of 217. Sodium was at 141 with a potassium level of 4.1, BUN was 11 with a creatinine of 0.8 and a glucose of 127. Serum bicarb was 25. The patient was started on breathing treatments. The patient was placed on BiPAP. He continued to show signs of improvement. Hi s chest x-ray was done and it showed increased density in the right medial lung base reflecting underlying developing infiltrates/pneumonia. There was also some blunting of the costophrenic angle on the right. Note that the patient was given a total of 3 L bolus, he was started on a combination of Rocephin and Zithromax and IV Solu-Medrol 125 mg IV push was given to him. Pulmonary consultation was requested based on this. The patient is seen today 06/17/2021 in follow-up on the regular medical floor. He is currently sitting up in a chair at the bedside. Awake and alert in no acute distress. He is still dyspneic with conversation. Dyspneic with minimal exertion. Maintaining O2 saturations in the 90s on 6 L high flow nasal cannula. He is afebrile. Slightly tachycardic. CT angiogram ruled out pulmonary embolism. There is evidence of COPD and some pulmonary fibrotic changes. Pa tchy bilateral subpleural pulmonary infiltrates. Subpleural nodular density in the left upper lobe near the major fissure. This is new compared to previous exam. Blood cultures reveal no growth to date. Procalcitonin 10.2. Lares virus not detected. He is continued on ceftriaxone and azithromycin along with IV Solu-Medrol, Symbicort, DuoNeb inhalations. 13 2021, the patient is feeling better. Less short of breath less bronchospastic and wheezy. He is using the BiPAP on and off. He is currently on oxygen and he is on 6 L of oxygen by nasal cannula and this will be weaned down as long as the patient's saturation remains at 100%. He remains on bronchodilators. He remains on systemic steroids. He is also on broad-spectrum antibiotics with a combination of Rocephin and Zithromax. Note that the patient underwent a CT angiogram of the chest and the patient showed no evidence of any pulmonary embolism. There was COPD and some chronic fibrotic changes and patchy areas of bilateral subpleural infiltrates which could be essentially related to pneumonia. Left hilar mass was looking smaller in size. Objective - Vital Signs Vital signs: Vital Signs Temp 97.4 F L 06/18/21 11:18 Pulse 110 H 06/18/21 11:25 Resp 20 06/18/21 11:18 BP 141/77 06/18/21 11:18 Pulse Ox 100 06/18/21 11:18 Intake & Output 06/17/21 06/18/21 06/18/21 18:59 06:59 18:59 Intake Total 800 800 Output Total 200 Balance 600 800 Intake: Intake, IV Titration 200 Amount Sodium Chloride 0.9% 1, 200 000 ml @ 20 mls/hr IV . Q24H [facility] Rx#:[id number] Oral 800 600 Output: Urine 200 Other: Voiding Method Urinal Urinal Urinal # Voids 3 - Exam Thin frail male patient with a BMI of 25.7, noninjected respiratory distress Head exam was generally normal. There was no scleral icterus or corneal arcus. Mucous membranes were moist. Neck was supple and without jugular venous distension, thyromegaly, or carotid bruits. Carotids were easily palpable bilaterally. There was no adenopathy. Lungs sounds are equal and symmetrical bilaterally with diminished breath sounds and scattered expiratory wheezes throughout lung nelson Cardiac exam revealed the PMI to be normally situated and sized. The rhythm was regular and no extrasystoles were noted during several minutes of auscultation. The first and second heart sounds were normal and physiologic splitting of the second heart sound was noted. There were no murmurs, rubs, clicks, or gallops. Abdominal exam revealed normal bowel sounds. The abdomen was soft, non-tender, and without masses, organomegaly, or appreciable enlargement of the abdominal aorta. Examination of the extremities revealed easily palpable radial, femoral and pedal pulses. There was no cyanosis, clubbing or edema. Examination of the skin revealed no evidence of significant rashes, suspicious appearing nevi or other concerning lesions. Neurologically, the patient is awake and alert and the patient does not have any focal neurological deficit. Cranial nerves are essentially intact. - Labs CBC & Chem 7: 06/16/21 06:49 06/16/21 06:49 Labs: Microbiology - Last 24 Hours (Table) 06/16/21 07:11 Blood Culture - Preliminary Blood No Growth after 48 hours 06/16/21 06:53 Blood Culture - Preliminary Blood No Growth after 48 hours Assessment and Plan Plan: 1 acute hypoxic respiratory failure/shortness of breath, multifactorial. The patient is known to have metastatic non-small cell lung cancer, COPD, the patient undergoing systemic chemotherapy and the patient presents in with acute hypoxic respiratory failure and the patient is a new infiltrate in the right lung base along with some blunting of the right costophrenic angle. CTA of the chest showed no evidence of any pulmonary embolism it was consistent with pneumonia. Clinically the patient is improving, less bronchospastic and wheezy on today's evaluation.the pro calcitonin level has been quite elevated consistent with underlying pneumonia. 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 12 acute leukocytosis Plan Continue Rocephin and Zithromax wean down the FiO2 to maintain a saturation above 90% Continue bronchodilators Continue IV Solu-Medrol Lovenox for DVT prophylaxis kylee Monsalve from home BIPAP on and off during Resume all medications
[2021-06-18] MEDS: SODIUM CHLORIDE 0.9% 1,000 ML IV SCH (18:57)
[2021-06-19] MEDS: methylPREDNISolone SOD SUCCI 125 MG/2 ML VIAL IV SCH ×4 (05:19→23:47)
[2021-06-19] MEDS: ENOXAPARIN 40 MG/0.4 ML SYRINGE SQ SCH (07:58)
[2021-06-19] MEDS: ATORVASTATIN 20 MG TAB PO SCH (07:58)
[2021-06-19] MEDS: ASCORBIC ACID 500 MG TAB PO SCH (07:58)
[2021-06-19] MEDS: AZITHROMYCIN 500 MG TAB PO SCH (07:58)
[2021-06-19] MEDS: LORATADINE 10 MG TAB PO SCH (07:59)
[2021-06-19] MEDS: TRELEGY ELLIPTA INHALATION SCH (07:59)
[2021-06-19] MEDS: PANTOPRAZOLE 40 MG/10 ML VIAL IVP SCH (07:59)
[2021-06-19] MEDS: SYMBICORT 80-4.5 MCG INHALER INHALATION SCH ×2 (08:14→20:44)
[2021-06-19] MEDS: IPRATROPIUM-ALBUTEROL 3 ML NEB INHALATION SCH ×4 (08:14→20:42)
--- NOTE | 2021-06-19 10:40 | P.PN ---
Subjective Progress Note Date: 06/19/21 Pt is now on 4L NC, pt feeling much better, likelihood of dc in the next 24 hours. Gen: awake, alert HEENT: normocephalic, atraumatic, good hearing acuity, moist mucous membranes Resp: Impaired air Exchange, accessory muscle use, diffuse wheezing CVS: good distal perfusion x 4, no murmurs, tachycardic GI: soft, NTTP, ND : no SPT, no CVAT, finley catheter not present MSK: no pitting edema, no clubbing Neuro: non-focal, moving all extremities Psych: cooperative, euthymic mood Assessment/plan: Acute hypoxemic respiratory failure superimposed on chronic hypoxemic respiratory failure on 2-4 L nasal cannula COPD exacerbation Sepsis with Community acquired pneumonia -Admit inpatient, telemetry -Oxygen when necessary -Pulmonology consulted by DL Quintero [id number] -Albuterol when necessary -Ceftriaxone/azithromycin -Blood cultures NGTD x 24 hours -procalcitonin 10+, trend every other day, pending labs today -Solu-Medrol every 6 hours Hypertension Hyperlipidemia Non-small cell lung cancer Mood disorder -Home medications reviewed and reconciled Patient is a full code DVT prophylaxis with Lovenox 40 mg subcu daily Objective - Vital Signs Vital signs: Vital Signs Temp 97.3 F L 06/19/21 05:00 Pulse 107 H 06/19/21 08:16 Resp 20 06/19/21 05:00 BP 129/79 06/19/21 05:00 Pulse Ox 97 06/19/21 08:16 Intake & Output 06/18/21 06/19/21 06/19/21 18:59 06:59 18:59 Intake Total 500 Output Total 1 Balance 499 Intake: Intake, IV Titration 100 Amount cefTRIAXone 1 gm In 100 Sodium Chloride 0.9% 50 ml @ 100 mls/hr IVPB Q24HR [facility] Rx#:[id number] Oral 400 Output: Urine/Stool Mix 1 Other: Voiding Method Urinal Urinal # Voids 3 3 # Bowel Movements 3 - Labs CBC & Chem 7: 06/16/21 06:49 06/16/21 06:49 Labs: Microbiology - Last 24 Hours (Table) 06/16/21 07:11 Blood Culture - Preliminary Blood No Growth after 48 hours 06/16/21 06:53 Blood Culture - Preliminary Blood No Growth after 48 hours
[2021-06-19 11:18] LABS: Basophils % (A) 0 %; Eosinophils % (A) 0 %; HCT 38.2 % (39.0-53.0); HGB 12.4 gm/dL (13.0-17.5); Lymphocytes # (A) 0.6 k/uL (1.0-4.8); Lymphocytes % (A) 4 %; MCH 34.7 pg (25.0-35.0); MCHC 32.5 g/dL (31.0-37.0); MCV 106.7 fL (80.0-100.0); Macrocytosis Moderate; Mean Platelet Volume 8.2; Monocytes # (A) 0.9 k/uL (0-1.0); Monocytes % (A) 6 %; Neutrophils # (A) 13.2 k/uL (1.3-7.7); Neutrophils % (A) 90 %; Platelet Count 240 k/uL (150-450); RBC 3.58 m/uL (4.30-5.90); RDW 14.7 % (11.5-15.5); WBC 14.7 k/uL (3.8-10.6)
[2021-06-19 11:36] LABS: Anion Gap 7 mmol/L; Blood Urea Nitrogen 20 mg/dL (9-20); Calcium 8.5 mg/dL (8.4-10.2); Carbon Dioxide 27 mmol/L (22-30); Chloride 103 mmol/L (98-107); Glucose 144 mg/dL (74-99); Magnesium 2.1 mg/dL (1.6-2.3); Potassium 4.1 mmol/L (3.5-5.1); Sodium 137 mmol/L (137-145)
[2021-06-19 11:37] LABS: African American GFR (CKD) >90 (>60 ml/min/1.73 sqM); Non-African American GFR(CKD) >90 (>60 ml/min/1.73 sqM)
[2021-06-19] MEDS: SODIUM CHLORIDE 0.9% 1,000 ML IV SCH (12:04)
--- NOTE | 2021-06-19 12:30 | P.PN ---
Subjective Progress Note Date: 06/19/21 65-year-old male patient, came into the emergency department because of increased shortness of breath and cough. The patient is very well-known to me. The patient is known to have COPD and addition to non-small cell lung cancer. Apparently, the patient was in significant respiratory distress and he was unable to provide any history at a time of admission. Patient was having oxygen desaturations even at home. He was using his home O2 units. Decrease his oxygen up to 10 L and his pulse ox was still in the low 80s and for that reason he came into the hospital for further evaluation. The patient has been maintained on Trelegy Ellipta on outpatient basis regarding his COPD and addition to DuoNeb nebulized treatments around the clock. The patient is also receiving systemic chemotherapy. The patient is known to have metastatic non- small cell lung cancer. At a time of his emergency admission, the patient had a temperature of 99.3, his heart rate was tachycardic ranging between 156 and 161 and the patient was also tachypneic. The patient was found to have a white cell count of 20.7 when he will of 14.8 and platelets of 217. Sodium was at 141 with a potassium level of 4.1, BUN was 11 with a creatinine of 0.8 and a glucose of 127. Serum bicarb was 25. The patient was started on breathing treatments. The patient was placed on BiPAP. He continued to show signs of improvement. His chest x-ray was done and it showed increased density in the right medial lung base reflecting underlying developing infiltrates/pneumonia. There was also some blunting of the costophrenic angle on the right. Note that the patient was given a total of 3 L bolus, he was started on a combination of Rocephin and Zithromax and IV Solu-Medrol 125 mg IV push was given to him. Pulmonary consultation was requested based on this. The patient is seen today 06/17/2021 in follow-up on the regular medical floor. He is currently sitting up in a chair at the bedside. Awake and alert in no acute distress. He is still dyspneic with conversation. Dyspneic with minimal exertion. Maintaining O2 saturations in the 90s on 6 L high flow nasal cannula. He is afebrile. Slightly tachycardic. CT angiogram ruled out pulmonary embolism. There is evidence of COPD and some pulmonary fibrotic changes. Pat shazia bilateral subpleural pulmonary infiltrates. Subpleural nodular density in the left upper lobe near the major fissure. This is new compared to previous exam. Blood cultures reveal no growth to date. Procalcitonin 10.2. Lares virus not detected. He is continued on ceftriaxone and azithromycin along with IV Solu-Medrol, Symbicort, DuoNeb inhalations. The patient is seen today 06/19/2021 in follow-up on the regular medical floor. He is currently sitting up in a chair at the bedside. Awake and alert in no acute distress. Breathing a bit easier today compared to yesterday. Less dys pneic with conversation. Less dyspneic with activity. Blood cultures revealed no growth. White count 14.7. Hemoglobin 12.4. Platelets 240. Sodium 137. Potassium 4.1. BUN 20. Creatinine 0.81. He is continued on Symbicort, DuoNeb inhalations, IV Solu-Medrol. Antibiotics in the form of ceftriaxone. Lovenox for DVT prophylaxis. Objective - Vital Signs Vital signs: Vital Signs Temp 97.3 F L 06/19/21 05:00 Pulse 101 H 06/19/21 11:48 Resp 20 06/19/21 05:00 BP 129/79 06/19/21 05:00 Pulse Ox 97 06/19/21 08:16 Intake & Output 06/18/21 06/19/21 06/19/21 18:59 06:59 18:59 Intake Total 500 Output Total 1 Balance 499 Intake: Intake, IV Titration 100 Amount cefTRIAXone 1 gm In 100 Sodium Chloride 0.9% 50 ml @ 100 mls/hr IVPB Q24HR [facility] Rx#:[id number] Oral 400 Output: Urine/Stool Mix 1 Other: Voiding Method Urinal Urinal # Voids 3 3 # Bowel Movements 3 - Exam Thin frail 65-year-old male patient with a BMI of 25.7, and mild respiratory distress, chronic hoarseness Head exam was generally normal. There was no scleral icterus or corneal arcus. Mucous membranes were moist. Neck was supple and without jugular venous distension, thyromegaly, or carotid bruits. Carotids were easily palpable bilaterally. There was no adenopathy. Lungs sounds are equal and symmetrical bilaterally with diminished breath sounds and scattered expiratory wheezes throughout lung nelson Cardiac exam revealed the PMI to be normally situated and sized. The rhythm was regular and no extrasystoles were noted during several minutes of auscultation. The first and second heart sounds were normal and physiologic splitting of the second heart sound was noted. There were no murmurs, rubs, clicks, or gallops. Abdominal exam revealed normal bowel sounds. The abdomen was soft, non-tender, a nd without masses, organomegaly, or appreciable enlargement of the abdominal aorta. Examination of the extremities revealed easily palpable radial, femoral and pedal pulses. There was no cyanosis, clubbing or edema. Examination of the skin revealed no evidence of significant rashes, suspicious appearing nevi or other concerning lesions. Neurologically, the patient is awake and alert and the patient does not have any focal neurological deficit. Cranial nerves are essentially intact. - Labs CBC & Chem 7: 06/19/21 10:53 06/19/21 10:53 Labs: Abnormal Lab Results - Last 24 Hours (Table) 06/19/21 06/19/21 Range/Units 10:53 10:53 WBC 14.7 H (3.8-10.6) k/uL RBC 3.58 L (4.30-5.90) m/uL Hgb 12.4 L (13.0-17.5) gm/dL Hct 38.2 L (39.0-53.0) % MCV 106.7 H (80.0-100.0) fL Neutrophils # 13.2 H (1.3-7.7) k/uL Lymphocytes # 0.6 L (1.0-4.8) k/uL Glucose 144 H (74-99) mg/dL Microbiology - Last 24 Hours (Table) 06/16/21 06:53 Blood Culture - Preliminary Blood No Growth after 72 hours 06/16/21 07:11 Blood Culture - Preliminary Blood No Growth after 72 hours Assessment and Plan Assessment: 1 acute hypoxic respiratory failure/shortness of breath, multifactorial. The patient is known to have metastatic non-small cell lung cancer, COPD, the patient undergoing systemic chemotherapy and the patient presents in with acute hypoxic respiratory failure and the patient is a new infiltrate in the right lung base along with some blunting of the right costophrenic angle. CT angiogram ruled out pulmonary embolism. Evidence of COPD and pulmonary fibrotic changes. Patchy bilateral subpleural pulmonary infiltrates secondary to inflammatory disease. Subpleural nodular density in the left upper lobe near the major fissure is Likely considered inflammatory as well. He's been treated with ceftriaxone and azithromycin 2 metastatic non-small cell lung cancer, pulmonary adenocarcinoma and the patient had a PET scan at time of diagnoses that showed abnormal metabolic uptake in the left central infrahilar mass/neoplasm in addition to her esophageal lymphadenopathy and diffuse osseous metastases. Status post chemotherapy with carbo/Alimta. 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 We will continue to follow I have personally seen and examined the patient, performed the documentation and the assessment and plan as written. Number of minutes spent on the visit: 10. I have personally seen and examined the patient and reviewed the documentation. I performed a joint evaluation with the nurse practitioner in this evaluation was done more than 20 minutes. I fully agree with the documentation above and the plan of care.. The patient is doing well. The patient is gradually improving. He seems to be less short of breath. The patient was taking immunotherapy on outpatient basis. A repeat chest x-ray without for tomorrow. We'll continue to follow.
[2021-06-20 04:07] VITALS: BP 135/90; RESP 18; TEMP 97.7
[2021-06-20] MEDS: methylPREDNISolone SOD SUCCI 125 MG/2 ML VIAL IV SCH (05:23)
[2021-06-20] MEDS: PANTOPRAZOLE 40 MG/10 ML VIAL IVP SCH (08:16)
[2021-06-20] MEDS: ENOXAPARIN 40 MG/0.4 ML SYRINGE SQ SCH ×2 (08:16→08:20)
[2021-06-20] MEDS: TRELEGY ELLIPTA INHALATION SCH (08:17)
[2021-06-20] MEDS: ATORVASTATIN 20 MG TAB PO SCH (08:17)
[2021-06-20] MEDS: ASCORBIC ACID 500 MG TAB PO SCH (08:17)
[2021-06-20] MEDS: LORATADINE 10 MG TAB PO SCH (08:17)
--- NOTE | 2021-06-20 08:56 | XR ---
EXAMINATION TYPE: XR chest 2V DATE OF EXAM: 06/20/2021 COMPARISON: 06/16/2021 TECHNIQUE: PA and lateral views submitted. HISTORY: Follow-up pneumonia, shortness of breath and cough FINDINGS: Hyperinflation with blunting of the right costophrenic angle and subsegmental consolidation. Prominen t interstitium with vague density along the peripheral margin the left upper lobe. Follow resolution recommended. No pneumothorax. Diffuse osteopenia and arthropathy of the shoulders. IMPRESSION: 1. Improving basilar infiltrate or atelectasis. 2. COPD correlate for chronic interstitial lung disease such as pulmonary fibrosis. 3. Vague peripheral nodular infiltrate left upper lobe follow resolution to exclude true pulmonary no dule.
[2021-06-20] MEDS: IPRATROPIUM-ALBUTEROL 3 ML NEB INHALATION SCH (08:58)
[2021-06-20] MEDS: SYMBICORT 80-4.5 MCG INHALER INHALATION SCH (09:02)
[2021-06-20 09:08] VITALS: PULSE 100
[2021-06-20 10:52] LABS: MCH 33.7 pg (27.0-32.0); MCHC 32.4 g/dL (32.0-37.0); MCV 103.9 fL (80.0-97.0); Mean Platelet Volume 10.8 fL (9.5-12.2); NRBC Per 100 WBC 0 /100 WBCS (0.0-0.0); Platelet Count 268 X 10*3/uL (140-440); RBC 3.56 X 10*6/uL (4.40-5.60); RDW 14.7 % (11.5-14.5); WBC 13.22 X 10*3/uL (4.50-10.00)
[2021-06-20 10:57] LABS: African American GFR (CKD) 109.4 (60.0-200.0); Anion Gap 9.5 mmol/L (10.00-18.00); Calcium 9.1 mg/dL (8.7-10.3); Carbon Dioxide 27.5 mmol/L (20.0-27.5); Magnesium 2.3 mg/dL (1.5-2.4); Non-African American GFR(CKD) 94.4 (60.0-200.0); Potassium 4.9 mmol/L (3.5-5.5)
[2021-06-20 12:03] LABS: Basophils # (M) 0 X 10*3/uL (0.00-0.10); Eosinophils # (M) 0 X 10*3/uL (0.04-0.35); Lymphocytes # (M) 1.06 X 10*3/uL (0.90-5.00); Monocytes # (M) 1.06 X 10*3/uL (0.20-1.00); Myelocytes % 3 % (0-0); Neutrophils # (M) 10.58 X 10*3/uL (2.00-8.90); Neutrophils % (M) 80 %; Promyelocytes % 1 % (0-0)
--- NOTE | 2021-06-20 13:32 | P.DS ---
Providers Date of admission: 06/16/21 10:08 Expected date of discharge: 06/20/21 Attending physician: Susanne Zafar MD Consults: 06/16/21 08:43 Consult Physician Routine Consulting Provider: Naa Gonzalez Consult Reason/Comments: copd exacerbation Do you want consulting provider notified?: Yes Primary care physician: Alen Tracy MD Hospital Course: 65-year-old man with medical history of hypertension, hyperlipidemia, COPD on 4 L of oxygen, mood disorder, non-small cell lung cancer currently on chemotherapy presented for dyspnea. In the emergency room, he was afebrile, 134/76, 99% on 6 L nasal cannula. CBC is markable for leukocytosis at 20.7. Chemistries are unremarkable. LFTs unremarkable. Troponin was negative. BNP was 61. Covid was negative. Initial EKG showed sinus tachycardia with indeterminate axis, no appreciable ischemic changes. Chest x-ray demonstrated increased density in the right medial lung likely reflecting developing infiltrate as well as blunting of the right costophrenic angle. Acute hypoxemic respiratory failure superimposed on chronic hypoxemic respiratory failure on 2-4 L nasal cannula COPD exacerbation Sepsis with Community acquired pneumonia -Admitted inpatient, with telemetry. Started on IV abx with ceftriaxone, azithromycin. Started on steroids solumedrol q6h. Oxygen when necessary was provided, and noted to improve quickly back to patient's home dose of 4-5L O2. He improved rapidly with this treatment, and was able to be discharged home with an additional 5 days of steroids and abx to complete an 8 day course. BCx were negative. CXR repeated showed improvement in airspace disease. Hypertension Hyperlipidemia Non-small cell lung cancer Mood disorder -No changes made to home medications. I spent 40 minutes coordinating this discharge Gen: awake, alert HEENT: normocephalic, atraumatic, good hearing acuity, moist mucous membranes Resp: Impaired air Exchange, accessory muscle use, diffuse wheezing CVS: good distal perfusion x 4, no murmurs, tachycardic GI: soft, NTTP, ND : no SPT, no CVAT, finley catheter not present MSK: no pitting edema, no clubbing Neuro: non-focal, moving all extremities Psych: cooperative, euthymic mood Patient Condition at Discharge: Good Plan - Discharge Summary Discharge Rx Participant: No New Discharge Prescriptions: New predniSONE [Deltasone] 40 mg PO DAILY 5 Days #10 tab Azithromycin [Zithromax] 500 mg PO DAILY 5 Days #5 tab Cefdinir 300 mg PO Q12HR 5 Days #10 cap Continue Atorvastatin Calcium [Lipitor] 20 mg PO DAILY Albuterol Inhaler [Ventolin Hfa Inhaler] 2 puff INHALATION RT-QID PRN PRN Reason: Shortness Of Breath Omeprazole Magnesium [PriLOSEC OTC] 20 mg PO DAILY Ascorbic Acid [Vitamin C] 1,000 mg PO DAILY Cholecalciferol [Vitamin D3 (25 Mcg = 1000 Iu)] 50 mcg PO DAILY Fluticasone Nasal [place] [Flonase Nasal [place]] 2 spray EA NOSTRIL DAILY PRN PRN Reason: Congestion Fluticasone/Umeclidin/Vilanter [Trelegy Ellipta 200-62.5-25] 1 puff INHALATION RT-DAILY HYDROcodone/APAP 10-325MG [[place] 10-325] 1 tab PO TID PRN PRN Reason: Pain Ipratropium-Albuterol Nebulize [Duoneb 0.5 mg-3 mg/3 ml Soln] 3 ml INHALATION RT-QID Ondansetron [Zofran] 4 mg PO Q4H PRN PRN Reason: Nausea Chemo Infusion (Unknown) 1 dose IV QMONTHLY Multivit,Calc,Min/FA/K1/Lycop [One-A-Day Men's Complete Tab] 1 tab PO DAILY Etodolac 400 mg PO DAILY PRN PRN Reason: Pain Allergy Relief 10 mg PO DAILY Cyanocobalamin (Vitamin B-12) [Vitamin B-12] 1,000 mcg PO DAILY OLANZapine [ZyPREXA] 2.5 mg PO DIRECTED Discharge Medication List Atorvastatin Calcium [Lipitor] 20 mg PO DAILY 05/31/20 [History] Albuterol Inhaler [Ventolin Hfa Inhaler] 2 puff INHALATION RT-QID PRN 01/17/21 [History] Etodolac 400 mg PO DAILY PRN 01/17/21 [History] Multivit,Calc,Min/FA/K1/Lycop [One-A-Day Men's Complete Tab] 1 tab PO DAILY 01/17/21 [History] Omeprazole Magnesium [PriLOSEC OTC] 20 mg PO DAILY 01/17/21 [History] Allergy Relief 10 mg PO DAILY 06/16/21 [History] Ascorbic Acid [Vitamin C] 1,000 mg PO DAILY 06/16/21 [History] Chemo Infusion (Unknown) 1 dose IV QMONTHLY 06/16/21 [History] Cholecalciferol [Vitamin D3 (25 Mcg = 1000 Iu)] 50 mcg PO DAILY 06/16/21 [History] Cyanocobalamin (Vitamin B-12) [Vitamin B-12] 1,000 mcg PO DAILY 06/16/21 [History] Fluticasone Nasal [place] [Flonase Nasal [place]] 2 spray EA NOSTRIL DAILY PRN 06/16/21 [History] Fluticasone/Umeclidin/Vilanter [Trelegy Ellipta 200-62.5-25] 1 puff INHALATION RT-DAILY 06/16/21 [History] HYDROcodone/APAP 10-325MG [[place] 10-325] 1 tab PO TID PRN 06/16/21 [History] Ipratropium-Albuterol Nebulize [Duoneb 0.5 mg-3 mg/3 ml Soln] 3 ml INHALATION RT-QID 06/16/21 [History] OLANZapine [ZyPREXA] 2.5 mg PO DIRECTED 06/16/21 [History] Ondansetron [Zofran] 4 mg PO Q4H PRN 06/16/21 [History] Azithromycin [Zithromax] 500 mg PO DAILY 5 Days #5 tab 06/19/21 [Rx] Cefdinir 300 mg PO Q12HR 5 Days #10 cap 06/19/21 [Rx] predniSONE [Deltasone] 40 mg PO DAILY 5 Days #10 tab 06/19/21 [Rx] Follow up Appointment(s)/Referral(s): Alen Tracy MD [Primary Care Provider] - 06/26/21 9:15 am Patient Instructions/Handouts: Prednisone (By mouth), Azithromycin (By mouth), Cefdinir (By mouth), Hypoxia (GEN), Pneumonia (DC) Discharge Disposition: HOME SELF-CARE
--- NOTE | 2021-06-20 13:38 | P.PN ---
Subjective Progress Note Date: 06/20/21 65-year-old male patient, came into the emergency department because of increased shortness of breath and cough. The patient is very well-known to me. The patient is known to have COPD and addition to non-small cell lung cancer. Apparently, the patient was in significant respiratory distress and he was unable to provide any history at a time of admission. Patient was having oxygen desaturations even at home. He was using his home O2 units. Decrease his oxygen up to 10 L and his pulse ox was still in the low 80s and for that reason he came into the hospital for further evaluation. The patient has been maintained on Trelegy Ellipta on outpatient basis regarding his COPD and addition to DuoNeb nebulized treatments around the clock. The patient is also receiving systemic chemotherapy. The patient is known to have metastatic non- small cell lung cancer. At a time of his emergency admission, the patient had a temperature of 99.3, his heart rate was tachycardic ranging between 156 and 161 and the patient was also tachypneic. The patient was found to have a white cell count of 20.7 when he will of 14.8 and platelets of 217. Sodium was at 141 with a potassium level of 4.1, BUN was 11 with a creatinine of 0.8 and a glucose of 127. Serum bicarb was 25. The patient was started on breathing treatments. The patient was placed on BiPAP. He continued to show signs of improvement. His chest x-ray was done and it showed increased density in the right medial lung base reflecting underlying developing infiltrates/pneumonia. There was also some blunting of the costophrenic angle on the right. Note that the patient was given a total of 3 L bolus, he was started on a combination of Rocephin and Zithromax and IV Solu-Medrol 125 mg IV push was given to him. Pulmonary consultation was requested based on this. The patient is seen today 06/17/2021 in follow-up on the regular medical floor. He is currently sitting up in a chair at the bedside. Awake and alert in no acute distress. He is still dyspneic with conversation. Dyspneic with minimal exertion. Maintaining O2 saturations in the 90s on 6 L high flow nasal cannula. He is afebrile. Slightly tachycardic. CT angiogram ruled out pulmonary embolism. There is evidence of COPD and some pulmonary fibrotic changes. Pat shazia bilateral subpleural pulmonary infiltrates. Subpleural nodular density in the left upper lobe near the major fissure. This is new compared to previous exam. Blood cultures reveal no growth to date. Procalcitonin 10.2. Lares virus not detected. He is continued on ceftriaxone and azithromycin along with IV Solu-Medrol, Symbicort, DuoNeb inhalations. The patient is seen today 06/19/2021 in follow-up on the regular medical floor. He is currently sitting up in a chair at the bedside. Awake and alert in no acute distress. Breathing a bit easier today compared to yesterday. Less dys pneic with conversation. Less dyspneic with activity. Blood cultures revealed no growth. White count 14.7. Hemoglobin 12.4. Platelets 240. Sodium 137. Potassium 4.1. BUN 20. Creatinine 0.81. He is continued on Symbicort, DuoNeb inhalations, IV Solu-Medrol. Antibiotics in the form of ceftriaxone. Lovenox for DVT prophylaxis. The patient is seen today 06/20/2021 in follow-up on the regular medical floor. He is awake and alert in no acute distress. Sitting up in a chair at the bedsid e. Chest x-ray shows improving basilar infiltrate/atelectasis. There is evidence of COPD and chronic interstitial lung disease and vague peripheral nodular infiltrate consistent with his lung cancer. Blood cultures revealed no growth. White count 13.2. Hemoglobin 12.0. Sodium 138. Potassium 4.9. BUN 20. Creatinine 0.8. Pro-calcitonin 1.21. Objective - Vital Signs Vital signs: Vital Signs Temp 97.7 F 06/20/21 04:06 Pulse 100 06/20/21 09:07 Resp 18 06/20/21 04:06 BP 135/90 06/20/21 04:06 Pulse Ox 99 06/20/21 04:06 Intake & Output 06/19/21 06/20/21 06/20/21 18:59 06:59 18:59 Intake Total 1320 600 Balance 1320 600 Intake: Oral 1320 600 Other: Voiding Method Urinal # Voids 3 2 - Exam Thin frail 65-year-old male patient with a BMI of 25.7, in no respiratory distress, chronic hoarseness Head exam was generally normal. There was no scleral icterus or corneal arcus. Mucous membranes were moist. Neck was supple and without jugular venous distension, thyromegaly, or carotid bruits. Carotids were easily palpable bilaterally. There was no adenopathy. Lungs sounds are equal and symmetrical bilaterally with diminished breath sounds and scattered expiratory wheezes throughout lung nelson Cardiac exam revealed the PMI to be normally situated and sized. The rhythm was regular and no extrasystoles were noted during several minutes of auscultation. The first and second heart sounds were normal and physiologic splitting of the second heart sound was noted. There were no murmurs, rubs, clicks, or gallops. Abdominal exam revealed normal bowel sounds. The abdomen was soft, non-tender, and without masses, organomegaly, or appreciable enlargement of the abdominal aorta. Examination of the extremities revealed easily palpable radial, femoral and pedal pulses. There was no cyanosis, clubbing or edema. Examination of the skin revealed no evidence of significant rashes, suspicious appearing nevi or other concerning lesions. Neurologically, the patient is awake and alert and the patient does not have any focal neurological deficit. Cranial nerves are essentially intact. - Labs CBC & Chem 7: 06/20/21 06:53 06/20/21 06:53 Labs: Abnormal Lab Results - Last 24 Hours (Table) 06/19/21 06/20/21 06/20/21 Range/Units 10:53 06:53 06:53 WBC 13.22 H (4.50-10.00) X 10*3/uL RBC 3.56 L (4.40-5.60) X 10*6/uL Hgb 12.0 L (13.0-17.0) g/dL Hct 37.0 L (39.6-50.0) % MCV 103.9 H (80.0-97.0) fL MCH 33.7 H (27.0-32.0) pg RDW 14.7 H (11.5-14.5) % Myelocytes % 3 H (0-0) % Promyelocytes % 1 H (0-0) % Neutrophils # (Manual) 10.58 H (2.00-8.90) X 10*3/uL Monocytes # (Manual) 1.06 H (0.20-1.00) X 10*3/uL Eosinophils # (Manual) 0 L (0.04-0.35) X 10*3/uL Anion Gap (10.00-18.00) mmol/L BUN/Creatinine Ratio (12.00-20.00) Ratio Glucose (70-110) mg/dL Procalcitonin 2.24 H 1.21 H (0.02-0.09) ng/mL 06/20/21 Range/Units 06:53 WBC (4.50-10.00) X 10*3/uL RBC (4.40-5.60) X 10*6/uL Hgb (13.0-17.0) g/dL Hct (39.6-50.0) % MCV (80.0-97.0) fL MCH (27.0-32.0) pg RDW (11.5-14.5) % Myelocytes % (0-0) % Promyelocytes % (0-0) % Neutrophils # (Manual) (2.00-8.90) X 10*3/uL Monocytes # (Manual) (0.20-1.00) X 10*3/uL Eosinophils # (Manual) (0.04-0.35) X 10*3/uL Anion Gap 9.50 L (10.00-18.00) mmol/L BUN/Creatinine Ratio 25.00 H (12.00-20.00) Ratio Glucose 121 H (70-110) mg/dL Procalcitonin (0.02-0.09) ng/mL Microbiology - Last 24 Hours (Table) 06/16/21 06:53 Blood Culture - Preliminary Blood No Growth after 96 hours 06/16/21 07:11 Blood Culture - Preliminary Blood No Growth after 96 hours Assessment and Plan Assessment: 1 acute hypoxic respiratory failure/shortness of breath, multifactorial. The patient is known to have metastatic non-small cell lung cancer, COPD, the blayne ent undergoing systemic chemotherapy and the patient presents in with acute hypoxic respiratory failure and the patient is a new infiltrate in the right lung base along with some blunting of the right costophrenic angle. CT angiogram ruled out pulmonary embolism. Evidence of COPD and pulmonary fibrotic changes. Patchy bilateral subpleural pulmonary infiltrates secondary to inflammatory disease. Subpleural nodular density in the left upper lobe near the major fissure is Likely considered inflammatory as well. He's been treated with ceftriaxone and azithromycin 2 metastatic non-small cell lung cancer, pulmonary adenocarcinoma and the patient had a PET scan at time of diagnoses that showed abnormal metabolic uptake in the left central infrahilar mass/neoplasm in addition to her esophage al lymphadenopathy and diffuse osseous metastases. Status post chemotherapy with carbo/Alimta. 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 Number of minutes spent on the visit: 10. I have personally seen and examined the patient and reviewed the documentation. I performed a joint evaluation with the nurse practitioner in this evaluation was done more than 15 minutes. I fully agree with the documentation above and the plan of care.. The patient can be discharged home today. Focused on level is improving. Chest x-rays also improving. We'll follow on an outpatient basis.
== END 2021-06-20 11:35 | disposition home or self-care (01) | DRG 871 ==
LOC: EC 06:45 → 5NMEDONC 10:08
PROVIDERS: ADMIT Internal Medicine; ATTEND Internal Medicine
DX: A41.9 Sepsis, unspecified organism (principal); J18.9 Pneumonia, unspecified organism; J96.21 Acute and chronic respiratory failure with hypoxia; J44.0 Chronic obstructive pulmonary disease with (acute) lower respiratory infection; C34.32 Malignant neoplasm of lower lobe, left bronchus or lung; J44.1 Chronic obstructive pulmonary disease with (acute) exacerbation; C79.51 Secondary malignant neoplasm of bone; J98.11 Atelectasis; R54 Age-related physical debility; F39 Unspecified mood [affective] disorder; Z20.822 Contact with and (suspected) exposure to COVID-19; E78.5 Hyperlipidemia, unspecified; I10 Essential (primary) hypertension; E83.42 Hypomagnesemia; J37.0 Chronic laryngitis; K21.9 Gastro-esophageal reflux disease without esophagitis; H91.90 Unspecified hearing loss, unspecified ear; R49.0 Dysphonia; H93.19 Tinnitus, unspecified ear; R59.1 Generalized enlarged lymph nodes; M19.90 Unspecified osteoarthritis, unspecified site; Z99.81 Dependence on supplemental oxygen; Z79.51 Long term (current) use of inhaled steroids; Z79.899 Other long term (current) drug therapy; Z85.21 Personal history of malignant neoplasm of larynx; Z90.89 Acquired absence of other organs; Z92.21 Personal history of antineoplastic chemotherapy; Z87.81 Personal history of (healed) traumatic fracture; Z86.69 Personal history of other diseases of the nervous system and sense organs; Z87.891 Personal history of nicotine dependence; Z87.01 Personal history of pneumonia (recurrent); Z92.3 Personal history of irradiation; Z98.890 Other specified postprocedural states; Z88.0 Allergy status to penicillin; Z88.2 Allergy status to sulfonamides; Z82.49 Family history of ischemic heart disease and other diseases of the circulatory system; Z80.9 Family history of malignant neoplasm, unspecified
CPT/HCPCS: 36415; 36600; 71045; 71046; 71275; 80048; 80053; 82805; 83605; 83735; 83880; 84145; 84484; 85025; 85379; 85610; 85730; 87040; 87635; 93005; 94640; 94660; 94760; 96361; 96365; 96367; 96375; 99291

== ENCOUNTER 2021-07-30 14:21 | Emergency (ER) | payer MEDICARE, OTHER ==
[2021-07-30 14:34] VITALS: TEMP 97
[2021-07-30] MEDS ORDERED: IPRATROPIUM-ALBUTEROL 3 ML NEB INHALATION STA ×2 (14:58→17:02)
[2021-07-30] MEDS ORDERED: methylPREDNISolone SOD SUCCI 125 MG/2 ML VIAL IV STA (14:58)
[2021-07-30 14:59] VITALS: RESP 24
--- NOTE | 2021-07-30 15:00 | ED ---
General Adult HPI - General Chief complaint: Shortness of Breath Stated complaint: SOB Time Seen by Provider: 07/30/21 14:40 Source: patient, family, RN notes reviewed Mode of arrival: wheelchair Limitations: no limitations - History of Present Illness Initial comments: Patient is a pleasant 7 he 5-year-old male presenting to the emergency department with difficulty breathing. Patient has chronic dyspnea secondary to active lung cancer as well as COPD. Symptoms are worse the past couple of days. Patient does have cough with occasional clear/light yellow sputum. No fevers. - Related Data Home Medications Medication Instructions Recorded Confirmed Atorvastatin Calcium [Lipitor] 20 mg PO DAILY 05/31/20 07/30/21 Albuterol Inhaler [Ventolin Hfa 2 puff INHALATION RT-QID PRN 01/17/21 07/30/21 Inhaler] Etodolac 400 mg PO DAILY PRN 01/17/21 07/30/21 Multivit,Calc,Min/FA/K1/Lycop 1 tab PO DAILY 01/17/21 07/30/21 [One-A-Day Men's Complete Tab] Omeprazole Magnesium [PriLOSEC OTC] 20 mg PO DAILY 01/17/21 07/30/21 Allergy Relief 10 mg PO DAILY 06/16/21 07/30/21 Ascorbic Acid [Vitamin C] 1,000 mg PO DAILY 06/16/21 07/30/21 Chemo Infusion (Unknown) 1 dose IV QMONTHLY 06/16/21 07/30/21 Cholecalciferol [Vitamin D3 (25 50 mcg PO DAILY 06/16/21 07/30/21 Mcg = 1000 Iu)] Cyanocobalamin (Vitamin B-12) 1,000 mcg PO DAILY 06/16/21 07/30/21 [Vitamin B-12] Fluticasone Nasal [place] [Flonase 2 spray EA NOSTRIL DAILY 06/16/21 07/30/21 Nasal [place]] Fluticasone/Umeclidin/Vilanter 1 puff INHALATION RT-DAILY 06/16/21 07/30/21 [Trelegy Ellipta 200-62.5-25] HYDROcodone/APAP 10-325MG [[place] 1 tab PO TID PRN 06/16/21 07/30/21 10-325] Ipratropium-Albuterol Nebulize 3 ml INHALATION RT-QID 06/16/21 07/30/21 [Duoneb 0.5 mg-3 mg/3 ml Soln] OLANZapine [ZyPREXA] 2.5 mg PO DIRECTED 06/16/21 07/30/21 Ondansetron [Zofran] 4 mg PO Q4H PRN 06/16/21 07/30/21 Dm/Acetaminophen/Doxylamine [Vicks 30 ml PO HS 07/30/21 07/30/21 Nyquil Cold-Flu Liquid] Phenylephrine HCl 10 mg PO Q4H PRN 07/30/21 07/30/21 predniSONE [Deltasone] 20 mg PO DAILY 07/30/21 07/30/21 Previous Rx's Medication Instructions Recorded Azithromycin [Zithromax Z-pack (6 250 mg PO DIRECTED #6 tab 07/30/21 tabs)] Allergies Allergy/AdvReac Type Severity Reaction Status Date / Time Penicillins Allergy Unknown Verified 07/30/21 17:05 Childhood Sulfa (Sulfonamide Allergy Unknown Verified 07/30/21 17:05 Antibiotics) Childhood Review of Systems ROS Statement: Those systems with pertinent positive or pertinent negative responses have been documented in the HPI. ROS Other: All systems not noted in ROS Statement are negative. Constitutional: Denies: fever Eyes: Denies: eye pain ENT: Denies: ear pain Respiratory: Reports: cough, dyspnea Cardiovascular: Denies: chest pain Endocrine: Reports: fatigue Gastrointestinal: Denies: abdominal pain Genitourinary: Denies: dysuria Musculoskeletal: Denies: back pain Skin: Denies: rash Neurological: Denies: weakness Past Medical History Past Medical History: Cancer, COPD, GERD/Reflux, Hyperlipidemia, Osteoarthritis (OA) Additional Past Medical History / Comment(s): CA larynx- had 28 treatments of radiation with scarring ., tinnitus, SOB. 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, Past Anesthesia/Blood Transfusion Reactions: No Reported Reaction, Unable to Obtain Additional Past Anesthesia/Blood Transfusion Reaction / Comment(s): does not know family hx Past Psychological History: No Psychological Hx Reported Smoking Status: Former smoker Past Alcohol Use History: Occasional Past Drug Use History: Marijuana - Past Family History Mother Family Medical History: Cancer Father Family Medical History: Myocardial Infarction ([place]) General Exam Limitations: no limitations General appearance: alert Head exam: Present: normocephalic Eye exam: Present: normal appearance Neck exam: Present: normal inspection Respiratory exam: Present: respiratory distress, wheezes Cardiovascular Exam: Present: tachycardia GI/Abdominal exam: Present: soft. Absent: tenderness Extremities exam: Present: normal inspection. Absent: pedal edema, calf tenderness Neurological exam: Present: alert Psychiatric exam: Present: normal affect, normal mood Skin exam: Present: normal color Course Vital Signs 07/30/21 07/30/21 07/30/21 14:26 14:47 15:31 Temperature 97.0 F L Pulse Rate 116 H 101 H 98 Respiratory 34 H 24 24 Rate Blood Pressure 177/111 133/122 150/116 O2 Sat by Pulse 96 100 100 Oximetry 07/30/21 07/30/21 07/30/21 15:32 15:45 16:24 Temperature Pulse Rate 98 103 H 97 Respiratory 24 Rate Blood Pressure 161/106 O2 Sat by Pulse 100 Oximetry 07/30/21 07/30/21 07/30/21 17:27 17:39 17:45 Temperature Pulse Rate 91 96 95 Respiratory 24 24 Rate Blood Pressure 149/101 146/98 O2 Sat by Pulse 99 98 Oximetry EKG Findings - EKG Comments: EKG Findings:: Sinus rhythm with rate of 93. [place] 125. Respiratory QT 321. QTC 371. Normal axis. Normal QRS. No acute ST change. Artifact present. Medical Decision Making - Medical Decision Making Patient reevaluated and significant improved. Blood pressure stable. Case was earlier discussed with Dr. Gonzalez who is comfortable with discharge of patient. He did review x-ray. Patient reevaluated and feels much better following nebulizer. Patient does request antibiotics with concerns regarding his sinus congestion. - Lab Data Result diagrams: 07/30/21 15:24 07/30/21 15:24 Lab Results 07/30/21 07/30/21 07/30/21 Range/Units 15:07 15:07 15:24 WBC 11.8 H (3.8-10.6) k/uL RBC 4.49 (4.30-5.90) m/uL Hgb 15.3 (13.0-17.5) gm/dL Hct 48.4 (39.0-53.0) % MCV 107.7 H (80.0-100.0) fL MCH 34.0 (25.0-35.0) pg MCHC 31.6 (31.0-37.0) g/dL RDW 13.2 (11.5-15.5) % Plt Count 256 (150-450) k/uL MPV 7.7 Neutrophils % (Manual) 75 % Band Neuts % (Manual) 3 % Lymphocytes % (Manual) 12 % Monocytes % (Manual) 9 % Eosinophils % (Manual) 1 % Neutrophils # (Manual) 9.20 H (1.3-7.7) k/uL Lymphocytes # (Manual) 1.42 (1.0-4.8) k/uL Monocytes # (Manual) 1.06 H (0-1.0) k/uL Eosinophils # (Manual) 0.12 (0-0.7) k/uL Nucleated RBCs 0 (0-0) /100 WBC Manual Slide Review Performed Macrocytosis Moderate PT (9.0-12.0) sec INR (<1.2) APTT (22.0-30.0) sec D-Dimer (<0.60) mg/L FEU Sodium (137-145) mmol/L Potassium (3.5-5.1) mmol/L Chloride (98-107) mmol/L Carbon Dioxide (22-30) mmol/L Anion Gap mmol/L BUN (9-20) mg/dL Creatinine (0.66-1.25) mg/dL Est GFR (CKD-EPI)AfAm (>60 ml/min/1.73 sqM) Est GFR (CKD-EPI)NonAf (>60 ml/min/1.73 sqM) Glucose (74-99) mg/dL Plasma Lactic Acid Sylvain (0.7-2.0) mmol/L Calcium (8.4-10.2) mg/dL Total Bilirubin (0.2-1.3) mg/dL AST (17-59) U/L ALT (4-49) U/L Alkaline Phosphatase (38-126) U/L Troponin I (0.000-0.034) ng/mL NT-Pro-B Natriuret Pep pg/mL Total Protein (6.3-8.2) g/dL Albumin (3.5-5.0) g/dL Coronavirus (PCR) Not Detected (Not Detectd) Influenza Type A RNA Not Detected (Not Detectd) Influenza Type B (PCR) Not Detected (Not Detectd) 07/30/21 07/30/21 07/30/21 Range/Units 15:24 15:24 15:24 WBC (3.8-10.6) k/uL RBC (4.30-5.90) m/uL Hgb (13.0-17.5) gm/dL Hct (39.0-53.0) % MCV (80.0-100.0) fL MCH (25.0-35.0) pg MCHC (31.0-37.0) g/dL RDW (11.5-15.5) % Plt Count (150-450) k/uL MPV Neutrophils % (Manual) % Band Neuts % (Manual) % Lymphocytes % (Manual) % Monocytes % (Manual) % Eosinophils % (Manual) % Neutrophils # (Manual) (1.3-7.7) k/uL Lymphocytes # (Manual) (1.0-4.8) k/uL Monocytes # (Manual) (0-1.0) k/uL Eosinophils # (Manual) (0-0.7) k/uL Nucleated RBCs (0-0) /100 WBC Manual Slide Review Macrocytosis PT 9.6 (9.0-12.0) sec INR 0.9 (<1.2) APTT 22.4 (22.0-30.0) sec D-Dimer (<0.60) mg/L FEU Sodium 139 (137-145) mmol/L Potassium 4.6 (3.5-5.1) mmol/L Chloride 102 (98-107) mmol/L Carbon Dioxide 31 H (22-30) mmol/L Anion Gap 6 mmol/L BUN 15 (9-20) mg/dL Creatinine 0.91 (0.66-1.25) mg/dL Est GFR (CKD-EPI)AfAm >90 (>60 ml/min/1.73 sqM) Est GFR (CKD-EPI)NonAf 89 (>60 ml/min/1.73 sqM) Glucose 124 H (74-99) mg/dL Plasma Lactic Acid Sylvain 1.5 (0.7-2.0) mmol/L Calcium 9.3 (8.4-10.2) mg/dL Total Bilirubin 0.7 (0.2-1.3) mg/dL AST 30 (17-59) U/L ALT 42 (4-49) U/L Alkaline Phosphatase 72 (38-126) U/L Troponin I (0.000-0.034) ng/mL NT-Pro-B Natriuret Pep pg/mL Total Protein 7.5 (6.3-8.2) g/dL Albumin 4.5 (3.5-5.0) g/dL Coronavirus (PCR) (Not Detectd) Influenza Type A RNA (Not Detectd) Influenza Type B (PCR) (Not Detectd) 07/30/21 07/30/21 07/30/21 Range/Units 15:24 15:24 15:24 WBC (3.8-10.6) k/uL RBC (4.30-5.90) m/uL Hgb (13.0-17.5) gm/dL Hct (39.0-53.0) % MCV (80.0-100.0) fL MCH (25.0-35.0) pg MCHC (31.0-37.0) g/dL RDW (11.5-15.5) % Plt Count (150-450) k/uL MPV Neutrophils % (Manual) % Band Neuts % (Manual) % Lymphocytes % (Manual) % Monocytes % (Manual) % Eosinophils % (Manual) % Neutrophils # (Manual) (1.3-7.7) k/uL Lymphocytes # (Manual) (1.0-4.8) k/uL Monocytes # (Manual) (0-1.0) k/uL Eosinophils # (Manual) (0-0.7) k/uL Nucleated RBCs (0-0) /100 WBC Manual Slide Review Macrocytosis PT (9.0-12.0) sec INR (<1.2) APTT (22.0-30.0) sec D-Dimer 0.24 (<0.60) mg/L FEU Sodium (137-145) mmol/L Potassium (3.5-5.1) mmol/L Chloride (98-107) mmol/L Carbon Dioxide (22-30) mmol/L Anion Gap mmol/L BUN (9-20) mg/dL Creatinine (0.66-1.25) mg/dL Est GFR (CKD-EPI)AfAm (>60 ml/min/1.73 sqM) Est GFR (CKD-EPI)NonAf (>60 ml/min/1.73 sqM) Glucose (74-99) mg/dL Plasma Lactic Acid Sylvain (0.7-2.0) mmol/L Calcium (8.4-10.2) mg/dL Total Bilirubin (0.2-1.3) mg/dL AST (17-59) U/L ALT (4-49) U/L Alkaline Phosphatase (38-126) U/L Troponin I <0.012 (0.000-0.034) ng/mL NT-Pro-B Natriuret Pep 96 pg/mL Total Protein (6.3-8.2) g/dL Albumin (3.5-5.0) g/dL Coronavirus (PCR) (Not Detectd) Influenza Type A RNA (Not Detectd) Influenza Type B (PCR) (Not Detectd) - Radiology Data Radiology results: image reviewed (Chest x-ray shows chronic changes without acute process.) Disposition Clinical Impression: COPD exacerbation Disposition: HOME SELF-CARE Condition: Stable Instructions (If sedation given, give patient instructions): COPD (Chronic Obstructive Pulmonary Disease) (ED) Additional Instructions: Prescription has been sent to your pharmacy. Please do follow-up with her primary care physician and lung doctor in the next one to 2 days for recheck. Return for fevers, difficult to breathing, worsening or change in symptoms or other concerns. Prescriptions: Azithromycin [Zithromax Z-pack (6 tabs)] 250 mg PO DIRECTED #6 tab Is patient prescribed a controlled substance at d/c from ED?: No Referrals: Alen Tracy MD [Primary Care Provider] - 1-2 days Naa Gonzalez MD [STAFF PHYSICIAN] - 1-2 days Time of Disposition: 17:55
[2021-07-30 15:46] LABS: HCT 48.4 % (39.0-53.0); HGB 15.3 gm/dL (13.0-17.5); MCHC 31.6 g/dL (31.0-37.0); MCV 107.7 fL (80.0-100.0); Macrocytosis Moderate; Mean Platelet Volume 7.7; Platelet Count 256 k/uL (150-450); RBC 4.49 m/uL (4.30-5.90); RDW 13.2 % (11.5-15.5); WBC 11.8 k/uL (3.8-10.6)
[2021-07-30 15:53] LABS: INR 0.9 (<1.2); Partial Thromboplastin Time 22.4 sec (22.0-30.0); Prothrombin Time 9.6 sec (9.0-12.0)
[2021-07-30 15:54] LABS: ALT 42 U/L (4-49); AST 30 U/L (17-59); African American GFR (CKD) >90 (>60 ml/min/1.73 sqM); Albumin 4.5 g/dL (3.5-5.0); Alkaline Phosphatase 72 U/L (38-126); Anion Gap 6 mmol/L; Blood Urea Nitrogen 15 mg/dL (9-20); Calcium 9.3 mg/dL (8.4-10.2); Carbon Dioxide 31 mmol/L (22-30); Chloride 102 mmol/L (98-107); Glucose 124 mg/dL (74-99); Non-African American GFR(CKD) 89 (>60 ml/min/1.73 sqM); Potassium 4.6 mmol/L (3.5-5.1); Sodium 139 mmol/L (137-145); Total Bilirubin 0.7 mg/dL (0.2-1.3); Total Protein 7.5 g/dL (6.3-8.2)
--- NOTE | 2021-07-30 16:00 | XR ---
EXAMINATION TYPE: XR chest 2V DATE OF EXAM: 07/30/2021 COMPARISON: CXR from 06/20/2021. HISTORY: Laryngeal cancer with increased SOB. TECHNIQUE: Frontal and lateral views of the chest are obtained. FINDINGS: There is chronic emphysematous and proximal changes without suspicious new focal air space opacity, pleural effusion, or pneumothorax seen. The cardiac silhouette size is stable and within n ormal limits. The osseous structures remain demineralized. Mild to moderate chronic compression typ e fracture at roughly T9 level is redemonstrated. IMPRESSION: Chronic changes without acute pulmonary process.
[2021-07-30 16:59] LABS: Band Neutrophils % 3 %; Eosinophils # (M) 0.12 k/uL (0-0.7); Lymphocytes # (M) 1.42 k/uL (1.0-4.8); Monocytes # (M) 1.06 k/uL (0-1.0); Neutrophils % (M) 75 %; Nucleated Red Blood Cells 0 /100 WBC (0-0); Total Cells Counted 100
[2021-07-30] MEDS ORDERED: ENALAPRILAT 1.25 MG/ML 1 ML VIAL IVP STA (17:03)
[2021-07-30 17:46] VITALS: BP 146/98; PULSE 95
[2021-07-30] MEDS ORDERED: AZITHROMYCIN 500 MG TAB PO STA (17:56)
== END 2021-07-30 18:21 | disposition home or self-care (01) ==
LOC: EC 14:21
DX: J44.1 Chronic obstructive pulmonary disease with (acute) exacerbation (principal); E78.5 Hyperlipidemia, unspecified; K21.9 Gastro-esophageal reflux disease without esophagitis; M19.90 Unspecified osteoarthritis, unspecified site; F12.90 Cannabis use, unspecified, uncomplicated; Z79.52 Long term (current) use of systemic steroids; Z79.51 Long term (current) use of inhaled steroids; Z79.899 Other long term (current) drug therapy; Z87.891 Personal history of nicotine dependence; Z88.0 Allergy status to penicillin; Z88.2 Allergy status to sulfonamides; Z85.21 Personal history of malignant neoplasm of larynx
CPT/HCPCS: 36415; 94640 ×2; 93005; 85379; 83880; 80053; 83605; 84484; 85025; 85610; 85730; 87040; 87502; 87635; 71046; 99285; 96374; 96375; J2930

== ENCOUNTER → 2021-08-27 | Outpatient (CLI) | payer MEDICARE, OTHER ==
[2021-08-27 11:41] LABS: African American GFR (CKD) >90 (>60 ml/min/1.73 sqM); Blood Urea Nitrogen 18 mg/dL (9-20); Non-African American GFR(CKD) >90 (>60 ml/min/1.73 sqM)
--- NOTE | 2021-08-27 17:15 | CT ---
EXAMINATION TYPE: CT ChestAbdPelvis w con DATE OF EXAM: 08/27/2021 COMPARISON: CT dated 04/23/2021 and 07/27/2020 and PET scan dated 01/31/2021 HISTORY: Lung ca, COPD CT DLP: 820.20 mGycm Automated exposure control for dose reduction was used. CONTRAST: CT scan of the chest, abdomen and pelvis is performed with Oral Contrast and with IV Contrast, patien t injected with 100 mL of Isovue 300. FINDINGS: LUNGS: Slightly larger left infrahilar mass along the medial aspect of the left lower lobe measuring 22 x 27 mm compared to 20 x 20 mm previously. Newly seen irregular nodule with spiculated margin at t he posterior aspect of the left lower lobe measuring 19 mm. Other smaller irregular opacities seen mo re superiorly in the lower lobe (image #30, series 4). 10 mm pleural-based nodule is seen at the post erior aspect of the left upper lobe, not appreciated previously. Other smaller peripheral opacities/n odules most evident in the lung bases, nonspecific. Background of severe COPD changes. Patent trachea and main bronchi. No pleural effusion. MEDIASTINUM: There are no greater than 1 cm hilar or mediastinal lymph nodes. No cardiomegaly. Lares ry and arterial atherosclerotic calcification. Small pericardial fluid. OTHER: Multiple sclerotic osseous lesions without bone destruction likely representing the known met astatic disease, grossly stable. Stable multilevel vertebral body collapse. LIVER/GB: No significant abnormality is appreciated. PANCREAS: No significant abnormality is seen. SPLEEN: No significant abnormality is seen. ADRENALS: Stable thickened left adrenal. Unremarkable right adrenal. KIDNEYS: Suspected right tiny renal cyst, otherwise unremarkable kidneys. BOWEL: Unremarkable stomach, duodenum and small bowel. Uncomplicated colonic diverticulosis. Fecal l oading of the colon. REPRODUCTIVE ORGANS: No gross abnormality seen. LYMPH NODES: No greater than 1 cm abdominal or pelvic lymph nodes are appreciated. OSSEOUS STRUCTURES: Sclerotic area is seen within the sacrum, not well appreciated on the previous PE T scan, possibly healed metastasis. Recommend correlation with bone scan results. Right proximal femo ral fixation. OTHER: Arterial atherosclerotic calcifications. No sizable ascites. IMPRESSION: 1. Slightly larger known left infrahilar mass as described above. 2. Newly seen scattered pulmonary nodules and areas of infiltration as described above most evident a t the posterior aspect of the left lung base, incompletely characterized and could represent metastat ic disease versus acute inflammatory/infectious process. Recommend clinical correlation and short-ter m follow-up CT scan in 2-3 months for reassessment. Alternatively, PET scan assessment can be conside red. 3. Known osseous metastatic lesions. Sclerotic area in the sacrum, not appreciated previously and cou ld represent a healed metastasis. Recommend correlation with bone scan results. Other incidental find ings as described above.
== END | disposition home or self-care (01) ==
LOC: RADCTMAIN 10:50
PROVIDERS: ATTEND Internal Medicine Hematology & Oncology
DX: C34.90 Malignant neoplasm of unspecified part of unspecified bronchus or lung (principal); C79.51 Secondary malignant neoplasm of bone; J44.9 Chronic obstructive pulmonary disease, unspecified; K57.30 Diverticulosis of large intestine without perforation or abscess without bleeding
CPT/HCPCS: 82565; 84520; 71260; 74177; 36415; Q9967

== ENCOUNTER 2021-10-11 02:19 | Inpatient (IN) | payer MEDICARE, OTHER ==
[2021-10-11] MEDS ORDERED: IPRATROPIUM 0.5 MG/2.5 ML NEBU INHALATION STA (02:26)
[2021-10-11] MEDS ORDERED: ALBUTEROL NEBULIZED 2.5 MG/3 ML INHALATION STA (02:26)
[2021-10-11] MEDS ORDERED: methylPREDNISolone SOD SUCCI 125 MG/2 ML VIAL IV STA (02:26)
[2021-10-11] MEDS ORDERED: SODIUM CHLORIDE 0.9% 1,000 ML IV STA ×2 (02:26)
[2021-10-11] MEDS ORDERED: MORPHINE SULFATE 2 MG/ML SYRINGE IVP STA (02:27)
--- NOTE | 2021-10-11 02:27 | ED ---
SOB HPI - General Chief Complaint: Shortness of Breath Stated Complaint: SOB Time Seen by Provider: 10/11/21 02:26 Source: EMS, RN notes reviewed, old records reviewed Mode of arrival: EMS Limitations: no limitations - History of Present Illness Initial Comments: This is a 65-year-old male DF for evaluation. Patient has history of lung cancer history of COPD. Patient coming in for severe shortness of breath some nonsense night. Patient's brought in by EMS on BiPAP difficult to provides story patient history provided by EMS. MD Complaint: shortness of breath -: hour(s) Radiation: back Severity: severe Severity scale (1-10): 10 Quality: dull, aching, throbbing Consistency: constant Improves With: nothing, rest Known History Of: COPD Context: recent URI Associated Symptoms: chest pain, cough, sputum production Treatments Prior to Arrival: oxygen, bronchodilator, NIPPV - Related Data Home Medications Medication Instructions Recorded Confirmed Atorvastatin Calcium [Lipitor] 20 mg PO DAILY 05/31/20 07/30/21 Albuterol Inhaler [Ventolin Hfa 2 puff INHALATION RT-QID PRN 01/17/21 07/30/21 Inhaler] Etodolac 400 mg PO DAILY PRN 01/17/21 07/30/21 Multivit,Calc,Min/FA/K1/Lycop 1 tab PO DAILY 01/17/21 07/30/21 [One-A-Day Men's Complete Tab] Omeprazole Magnesium [PriLOSEC OTC] 20 mg PO DAILY 01/17/21 07/30/21 Allergy Relief 10 mg PO DAILY 06/16/21 07/30/21 Ascorbic Acid [Vitamin C] 1,000 mg PO DAILY 06/16/21 07/30/21 Chemo Infusion (Unknown) 1 dose IV QMONTHLY 06/16/21 07/30/21 Cholecalciferol [Vitamin D3 (25 50 mcg PO DAILY 06/16/21 07/30/21 Mcg = 1000 Iu)] Cyanocobalamin (Vitamin B-12) 1,000 mcg PO DAILY 06/16/21 07/30/21 [Vitamin B-12] Fluticasone Nasal [place] [Flonase 2 spray EA NOSTRIL DAILY 06/16/21 07/30/21 Nasal [place]] Fluticasone/Umeclidin/Vilanter 1 puff INHALATION RT-DAILY 06/16/21 07/30/21 [Trelegy Ellipta 200-62.5-25] HYDROcodone/APAP 10-325MG [[place] 1 tab PO TID PRN 06/16/21 07/30/21 10-325] Ipratropium-Albuterol Nebulize 3 ml INHALATION RT-QID 06/16/21 07/30/21 [Duoneb 0.5 mg-3 mg/3 ml Soln] OLANZapine [ZyPREXA] 2.5 mg PO DIRECTED 06/16/21 07/30/21 Ondansetron [Zofran] 4 mg PO Q4H PRN 06/16/21 07/30/21 Dm/Acetaminophen/Doxylamine [Vicks 30 ml PO HS 07/30/21 07/30/21 Nyquil Cold-Flu Liquid] Phenylephrine HCl 10 mg PO Q4H PRN 07/30/21 07/30/21 predniSONE [Deltasone] 20 mg PO DAILY 07/30/21 07/30/21 Previous Rx's Medication Instructions Recorded Azithromycin [Zithromax Z-pack (6 250 mg PO DIRECTED #6 tab 07/30/21 tabs)] Allergies Allergy/AdvReac Type Severity Reaction Status Date / Time Penicillins Allergy Unknown Verified 07/30/21 17:05 Childhood Sulfa (Sulfonamide Allergy Unknown Verified 07/30/21 17:05 Antibiotics) Childhood Review of Systems ROS Statement: Those systems with pertinent positive or pertinent negative responses have been documented in the HPI. ROS Other: All systems not noted in ROS Statement are negative. 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, Past Anesthesia/Blood Transfusion Reactions: No Reported Reaction, Unable to Obtain Additional Past Anesthesia/Blood Transfusion Reaction / Comment(s): does not know family hx Past Psychological History: No Psychological Hx Reported Smoking Status: Former smoker Past Alcohol Use History: Occasional Past Drug Use History: Marijuana - Past Family History Mother Family Medical History: Cancer Father Family Medical History: Myocardial Infarction ([place]) General Exam General appearance: alert, anxious, in distress Head exam: Present: atraumatic, normocephalic, normal inspection Eye exam: Present: normal appearance, PERRL, EOMI. Absent: scleral icterus, conjunctival injection, periorbital swelling ENT exam: Present: normal exam, mucous membranes moist Neck exam: Present: normal inspection. Absent: tenderness, meningismus, lymphadenopathy Respiratory exam: Present: respiratory distress, wheezes, accessory muscle use, decreased breath sounds, prolonged expiratory. Absent: rales, rhonchi, stridor Cardiovascular Exam: Present: normal rhythm, tachycardia, normal heart sounds. Absent: systolic murmur, diastolic murmur, rubs, gallop, clicks GI/Abdominal exam: Present: soft, normal bowel sounds. Absent: distended, ten derness, guarding, rebound, rigid Extremities exam: Present: normal inspection, full ROM, normal capillary refill. Absent: tenderness, pedal edema, joint swelling, calf tenderness Back exam: Present: normal inspection Neurological exam: Present: alert, oriented X3, CN II-XII intact Psychiatric exam: Present: normal affect, normal mood Skin exam: Present: warm, dry, intact, normal color. Absent: rash Course Vital Signs 10/11/21 10/11/21 10/11/21 02:20 02:23 02:26 Temperature 98.1 F Pulse Rate 136 H Respiratory 24 24 Rate Blood Pressure 138/111 O2 Sat by Pulse 98 Oximetry Fraction of 60 Inspired Oxygen (FIO2) 10/11/21 10/11/21 02:32 02:59 Temperature Pulse Rate 131 H 105 H Respiratory Rate Blood Pressure O2 Sat by Pulse Oximetry Fraction of Inspired Oxygen (FIO2) - Reevaluation(s) Reevaluation #1: 10/11/21 02:54 Medical record is reviewed Reevaluation #2: 10/11/21 02:54 A patient is placed on BiPAP upon arrival in the ER Reevaluation #3: 10/11/21 03:54 Patient symptoms are improving on BiPAP Reevaluation #4: 10/11/21 03:54 Informed results and questions answered - Consultations Consultation #1: sPoke with sound physicians we'll admit this patient Medical Decision Making - Medical Decision Making 65 male to the emergency department for eval should've severe shortness of breath COPD lung cancer. Patient will be admitted for severe shortness of breath cough and congestion. - Lab Data Result diagrams: 10/11/21 02:29 10/11/21 02:29 Lab Results 10/11/21 10/11/21 10/11/21 Range/Units 02:29 02:29 02:29 WBC 18.2 H (3.8-10.6) k/uL RBC 4.39 (4.30-5.90) m/uL Hgb 14.7 (13.0-17.5) gm/dL Hct 46.1 (39.0-53.0) % MCV 105.1 H (80.0-100.0) fL MCH 33.6 (25.0-35.0) pg MCHC 32.0 (31.0-37.0) g/dL RDW 13.7 (11.5-15.5) % Plt Count 304 (150-450) k/uL MPV 8.1 Neutrophils % 72 % Lymphocytes % 15 % Monocytes % 8 % Eosinophils % 1 % Basophils % 2 % Neutrophils # 13.0 H (1.3-7.7) k/uL Lymphocytes # 2.7 (1.0-4.8) k/uL Monocytes # 1.5 H (0-1.0) k/uL Eosinophils # 0.2 (0-0.7) k/uL Basophils # 0.3 H (0-0.2) k/uL Hypochromasia Slight Macrocytosis Moderate PT 10.0 (9.0-12.0) sec INR 0.9 (<1.2) APTT 21.6 L (22.0-30.0) sec Sodium 140 (137-145) mmol/L Potassium 4.7 (3.5-5.1) mmol/L Chloride 100 (98-107) mmol/L Carbon Dioxide 31 H (22-30) mmol/L Anion Gap 9 mmol/L BUN 20 (9-20) mg/dL Creatinine 0.93 (0.66-1.25) mg/dL Est GFR (CKD-EPI)AfAm >90 (>60 ml/min/1.73 sqM) Est GFR (CKD-EPI)NonAf 87 (>60 ml/min/1.73 sqM) Glucose 151 H (74-99) mg/dL Plasma Lactic Acid [place] (0.7-2.0) mmol/L Calcium 9.5 (8.4-10.2) mg/dL Magnesium 2.1 (1.6-2.3) mg/dL Total Bilirubin 0.6 (0.2-1.3) mg/dL AST 33 (17-59) U/L ALT 35 (4-49) U/L Alkaline Phosphatase 82 (38-126) U/L Troponin I (0.000-0.034) ng/mL NT-Pro-B Natriuret Pep pg/mL Total Protein 7.8 (6.3-8.2) g/dL Albumin 4.8 (3.5-5.0) g/dL 10/11/21 10/11/21 10/11/21 Range/Units 02:29 02:29 02:29 WBC (3.8-10.6) k/uL RBC (4.30-5.90) m/uL Hgb (13.0-17.5) gm/dL Hct (39.0-53.0) % MCV (80.0-100.0) fL MCH (25.0-35.0) pg MCHC (31.0-37.0) g/dL RDW (11.5-15.5) % Plt Count (150-450) k/uL MPV Neutrophils % % Lymphocytes % % Monocytes % % Eosinophils % % Basophils % % Neutrophils # (1.3-7.7) k/uL Lymphocytes # (1.0-4.8) k/uL Monocytes # (0-1.0) k/uL Eosinophils # (0-0.7) k/uL Basophils # (0-0.2) k/uL Hypochromasia Macrocytosis PT (9.0-12.0) sec INR (<1.2) APTT (22.0-30.0) sec Sodium (137-145) mmol/L Potassium (3.5-5.1) mmol/L Chloride (98-107) mmol/L Carbon Dioxide (22-30) mmol/L Anion Gap mmol/L BUN (9-20) mg/dL Creatinine (0.66-1.25) mg/dL Est GFR (CKD-EPI)AfAm (>60 ml/min/1.73 sqM) Est GFR (CKD-EPI)NonAf (>60 ml/min/1.73 sqM) Glucose (74-99) mg/dL Plasma Lactic Acid [place] 1.4 (0.7-2.0) mmol/L Calcium (8.4-10.2) mg/dL Magnesium (1.6-2.3) mg/dL Total Bilirubin (0.2-1.3) mg/dL AST (17-59) U/L ALT (4-49) U/L Alkaline Phosphatase (38-126) U/L Troponin I 0.051 H* (0.000-0.034) ng/mL NT-Pro-B Natriuret Pep 49 pg/mL Total Protein (6.3-8.2) g/dL Albumin (3.5-5.0) g/dL - EKG Data -: EKG Interpreted by Me (EKG is sinus tach 132 RI 118 QRS 94 QTC 352) - Radiology Data Radiology results: report reviewed (Chest x-rays negative for significant acute disease), image reviewed Disposition Clinical Impression: Congestive heart failure, Acute pulmonary edema, Acute respiratory failure, Hoarseness of voice, Hypoxia Disposition: ADMITTED IP TO THIS HOSP Condition: Fair Is patient prescribed a controlled substance at d/c from ED?: No Referrals: Alen Tracy MD [Primary Care Provider] - 1-2 days
[2021-10-11 02:57] LABS: Basophils # (A) 0.3 k/uL (0-0.2); Basophils % (A) 2 %; Eosinophils # (A) 0.2 k/uL (0-0.7); Eosinophils % (A) 1 %; HCT 46.1 % (39.0-53.0); HGB 14.7 gm/dL (13.0-17.5); Hypochromasia Slight; Lymphocytes # (A) 2.7 k/uL (1.0-4.8); Lymphocytes % (A) 15 %; MCH 33.6 pg (25.0-35.0); MCV 105.1 fL (80.0-100.0); Macrocytosis Moderate; Mean Platelet Volume 8.1; Monocytes # (A) 1.5 k/uL (0-1.0); Monocytes % (A) 8 %; Neutrophils % (A) 72 %; Platelet Count 304 k/uL (150-450); RBC 4.39 m/uL (4.30-5.90); RDW 13.7 % (11.5-15.5); WBC 18.2 k/uL (3.8-10.6)
[2021-10-11 03:15] LABS: ALT 35 U/L (4-49); AST 33 U/L (17-59); African American GFR (CKD) >90 (>60 ml/min/1.73 sqM); Albumin 4.8 g/dL (3.5-5.0); Alkaline Phosphatase 82 U/L (38-126); Anion Gap 9 mmol/L; Blood Urea Nitrogen 20 mg/dL (9-20); Calcium 9.5 mg/dL (8.4-10.2); Carbon Dioxide 31 mmol/L (22-30); Chloride 100 mmol/L (98-107); Glucose 151 mg/dL (74-99); Magnesium 2.1 mg/dL (1.6-2.3); Non-African American GFR(CKD) 87 (>60 ml/min/1.73 sqM); Potassium 4.7 mmol/L (3.5-5.1); Sodium 140 mmol/L (137-145); Total Bilirubin 0.6 mg/dL (0.2-1.3); Total Protein 7.8 g/dL (6.3-8.2)
[2021-10-11 03:17] LABS: INR 0.9 (<1.2)
[2021-10-11 03:29] LABS: Partial Thromboplastin Time 21.6 sec (22.0-30.0)
--- NOTE | 2021-10-11 04:57 | XR ---
EXAM: XR Chest, 1 View CLINICAL HISTORY: ITS.REASON XR Reason: sob TECHNIQUE: Frontal view of the chest. COMPARISON: No relevant prior studies available. FINDINGS: Lungs: Probable small area of scarring in the right upper lobe. The lungs are clear of acute findings. Pleural space: Unremarkable. No pneumothorax or pleural fluid. Heart: Unremarkable. No cardiomegaly. Mediastinum: Unremarkable. Bones/joints: No acute findings. IMPRESSION: No acute findings in the chest.
[2021-10-11] MEDS ORDERED: NALOXONE 0.4 MG/ML 1 ML VIAL IV PRN (05:14)
--- NOTE | 2021-10-11 05:20 | P.HPIM ---
History of Present Illness H&P Date: 10/11/21 Chief Complaint: Progressive shortness of breath 65-year-old male with COPD, lung cancer on home oxygen 3 L nasal cannula Patient comes in today due to worsening shortness of breath this has been progressive over the past few days with productive cough which is at his baseli ne. However today he noticed that breathing was extremely difficult despite supplemental oxygen with some chest discomfort for which she decided to come into the hospital for evaluation he arrived on BiPAP upon interviewing the patient was difficult to understand patient while on BiPAP patient is also hard of hearing. He denies any hemoptysis denies any history of blood clots denies any active chest pain denies any abdominal pain nausea vomiting fevers or chills. Denies any recent travel or hospitalization. Patient denies any active smoking. He does report that he got the shingles vaccine 1 or 2 days ago. Workup in the ED showed elevated white count slightly elevated troponin chest x-ray showed no acute pathology Review of Systems Pertinent positives as noted in HPI. 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, Past Anesthesia/Blood Transfusion Reactions: No Reported Reaction, Unable to Obt ain Additional Past Anesthesia/Blood Transfusion Reaction / Comment(s): does not know family hx Past Psychological History: No Psychological Hx Reported Smoking Status: Former smoker Past Alcohol Use History: Occasional Past Drug Use History: Marijuana - Past Family History Mother Family Medical History: Cancer Father Family Medical History: Myocardial Infarction ([place]) Medications and Allergies Home Medications Medication Instructions Recorded Confirmed Type Atorvastatin Calcium [Lipitor] 20 mg PO DAILY 05/31/20 07/30/21 History Albuterol Inhaler [Ventolin Hfa 2 puff INHALATION RT-QID PRN 01/17/21 07/30/21 History Inhaler] Etodolac 400 mg PO DAILY PRN 01/17/21 07/30/21 History Multivit,Calc,Min/FA/K1/Lycop 1 tab PO DAILY 01/17/21 07/30/21 History [One-A-Day Men's Complete Tab] Omeprazole Magnesium [PriLOSEC OTC] 20 mg PO DAILY 01/17/21 07/30/21 History Allergy Relief 10 mg PO DAILY 06/16/21 07/30/21 History Ascorbic Acid [Vitamin C] 1,000 mg PO DAILY 06/16/21 07/30/21 History Chemo Infusion (Unknown) 1 dose IV QMONTHLY 06/16/21 07/30/21 History Cholecalciferol [Vitamin D3 (25 50 mcg PO DAILY 06/16/21 07/30/21 History Mcg = 1000 Iu)] Cyanocobalamin (Vitamin B-12) 1,000 mcg PO DAILY 06/16/21 07/30/21 History [Vitamin B-12] Fluticasone Nasal [place] [Flonase 2 spray EA NOSTRIL DAILY 06/16/21 07/30/21 History Nasal [place]] Fluticasone/Umeclidin/Vilan[place] 1 puff INHALATION RT-DAILY 06/16/21 07/30/21 History [Trelegy Ellipta 200-62.5-25] HYDROcodone/APAP 10-325MG [[place] 1 tab PO TID PRN 06/16/21 07/30/21 History 10-325] Ipratropium-Albuterol Nebulize 3 ml INHALATION RT-QID 06/16/21 07/30/21 History [Duoneb 0.5 mg-3 mg/3 ml Soln] OLANZapine [ZyPREXA] 2.5 mg PO DIRECTED 06/16/21 07/30/21 History Ondansetron [Zofran] 4 mg PO Q4H PRN 06/16/21 07/30/21 History Azithromycin [Zithromax Z-pack (6 250 mg PO DIRECTED #6 tab 07/30/21 Rx tabs)] Dm/Acetaminophen/Doxylamine [Vicks 30 ml PO HS 07/30/21 07/30/21 History Nyquil Cold-Flu Liquid] Phenylephrine HCl 10 mg PO Q4H PRN 07/30/21 07/30/21 History predniSONE [Deltasone] 20 mg PO DAILY 07/30/21 07/30/21 History Allergies Allergy/AdvReac Type Severity Reaction Status Date / Time Penicillins Allergy Unknown Verified 07/30/21 17:05 Childhood Sulfa (Sulfonamide Allergy Unknown Verified 07/30/21 17:05 Antibiotics) Childhood Physical Exam Vitals: Vital Signs Temp Pulse Resp BP Pulse Ox FiO2 10/11/21 02:59 105 H 10/11/21 02:32 131 H 10/11/21 02:26 24 10/11/21 02:23 60 10/11/21 02:20 98.1 F 136 H 24 138/111 98 Intake and Output 10/10/21 10/10/21 10/11/21 14:59 22:59 06:59 Other: Weight 68.039 kg Constitutional: No acute distress, cooperative currently on BiPAP Eyes: Anicteric sclerae, moist conjunctiva, Pupils equal round reactive to light ENMT: NC/AT Neck: Supple, no masses, or JVD No carotid bruits No thyromegaly Lungs: Good breath sounds throughout with noisy breathing Clear to percussion Normal respiratory effort, no accessory muscle use Cardiovascular: Heart regular in rate and rhythm, No murmurs, gallops, or rubs No peripheral edema Abdominal: Soft Nontender, no guarding, rebound or rigidity Abdomen moving with respiration Normoactive bowel sounds No hepatomegaly, No splenomegaly No palpable mass No abdominal wall hernia noted Skin: Normal temperature, tone, texture, turgor No induration No subcutaneous nodules No rash, lesions No ulcers Extremities: No digital cyanosis No clubbing Pedal pulses intact and symmetrical Radial pulses intact and symmetrical No calf tenderness Psychiatric: Alert and oriented to person, place and time Appropriate affect fair judgement Neuro Muscles Strength 4/5 in all 4 extremities Sensation to light touch grossly present throughout Cranial nerves II-XII grossly intact No focal sensory deficits Lymphatics: no palpable cervical or supraclavicular , or inguinal lymph nodes Results CBC & Chem 7: 10/11/21 02:29 10/11/21 02:29 Labs: Abnormal Lab Results - Last 24 Hours (Table) 10/11/21 10/11/21 10/11/21 Range/Units 02:29 02:29 02:29 WBC 18.2 H (3.8-10.6) k/uL MCV 105.1 H (80.0-100.0) fL Neutrophils # 13.0 H (1.3-7.7) k/uL Monocytes # 1.5 H (0-1.0) k/uL Basophils # 0.3 H (0-0.2) k/uL APTT 21.6 L (22.0-30.0) sec Carbon Dioxide 31 H (22-30) mmol/L Glucose 151 H (74-99) mg/dL Troponin I (0.000-0.034) ng/mL 10/11/21 Range/Units 02:29 WBC (3.8-10.6) k/uL MCV (80.0-100.0) fL Neutrophils # (1.3-7.7) k/uL Monocytes # (0-1.0) k/uL Basophils # (0-0.2) k/uL APTT (22.0-30.0) sec Carbon Dioxide (22-30) mmol/L Glucose (74-99) mg/dL Troponin I 0.051 H* (0.000-0.034) ng/mL Assessment and Plan Assessment: Acute COPD exacerbation Lung cancer Initiate patient on systemic IV steroids Add Levaquin 500 mg daily Chest x-ray negative no acute pathology Supplemental oxygen as needed DuoNeb's when necessary DVT prophylaxis heparin subcu 3 times a day Monitor vital signs Fall precautions Morphine when necessary for chronic pain GI prophylaxis with PPI Verify home medications Full code Anticipated length of stay more than 2 midnights
[2021-10-11] MEDS: methylPREDNISolone SOD SUCCI 125 MG/2 ML VIAL IV SCH ×3 (06:21→18:45)
[2021-10-11] MEDS: SYMBICORT 80-4.5 MCG INHALER INHALATION SCH ×3 (07:34→19:30)
[2021-10-11] MEDS: IPRATROPIUM-ALBUTEROL 3 ML NEB INHALATION SCH ×4 (07:34→19:30)
[2021-10-11] MEDS ORDERED: ONDANSETRON 4 MG/2 ML VIAL IVP PRN (08:00)
[2021-10-11] MEDS ORDERED: IPRATROPIUM 0.5 MG/2.5 ML NEBU INHALATION SCH (08:00)
[2021-10-11] MEDS: MORPHINE SULFATE 4 MG/ML SYRINGE IV PRN ×2 (09:01→18:35)
[2021-10-11] MEDS: PANTOPRAZOLE 40 MG TABLET PO SCH (09:02)
[2021-10-11] MEDS: LEVOFLOXACIN 500 MG TAB PO SCH (09:02)
[2021-10-11] MEDS: ATORVASTATIN 20 MG TAB PO SCH (09:02)
[2021-10-11] MEDS: HEPARIN SODIUM,PORCINE/PF 5,000 UNIT/0.5 ML SYRINGE SQ SCH ×2 (09:03→18:45)
--- NOTE | 2021-10-11 11:50 | P.CNPUL ---
History of Present Illness Consult date: 10/11/21 Requesting physician: Tejinder Zepeda Reason for consult: COPD Chief complaint: Shortness of breath History of present illness: This is a 65-year-old white male with history of severe COPD, non-small cell lung cancer, history of laryngeal cancer, history of chronic laryngitis, patient normally sees Dr. Gonzalez in the office. The last time he saw Dr. Gonzalez was on 09/24/2021. 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 The patient received a total of 4 cycles of systemic chemotherapy and the patient's last Keytruda treatment was on 05/28/2021 and this was interrupted because of multiple hospitalizations. Currently his condition is stable. The most recent CAT scan of the chest showed stable osseous metastases, the patient's left infrahilar masses probably slightly more prominent and that is another vasopressin left lower lobe posterior segment. I'm not sure this is a true progression of his disease. Patient is normally maintained on albuterol, DuoNeb updrafts, omeprazole, Trelegy Ellipta. And vitamin D. Baseline PFT showed FEV1 in the range of 47%, FEV1/FVC is 49%, low DLCO in the range of 27%. Patient was admitted yesterday with symptoms of shortness of breath for the last few days intermittent cough and wheezing. Upon arrival to the ER, patient had to be placed on BiPAP and he was given morphine, felt much better after BiPAP, and he was transitioned to a nasal cannula. Admitted and this consult was initiated. Chest x-ray showed basically small area of scarring in the right upper lobe otherwise unremarkable findings noted. CBC showed leukocytosis with WBC count of 18.2 hemoglobin is 14.7 electrolytes and renal profile are normal. Review of Systems Constitutional: Chronic weakness, fatigue, malaise. HEENT: Chronic laryngitis symptoms and noisy breathing transmitted from his vocal cords. Patient has chronic laryngitis. Pulmonary: As noted in HPI Cardiac: Negative GI: Negative Genitourinary: Negative Muscular skeletal: Negative Neurologic: Negative Psychiatric: Negative hematologic: Negative Endocrine: Negative Skin: Past Medical History Past Medical History: Cancer, COPD, GERD/Reflux, Hyperlipidemia, Osteoarthritis (OA) Additional Past Medical History / Comment(s): CA larynx- had 28 treatments of radiation with scarring ., tinnitus, SOB. 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 He has home oxygen/nebulizer. Pt states he is independent. Smoking Status: Former smoker Past Alcohol Use History: Occasional Additional Past Alcohol Use History / Comment(s): Pt started smoking in 1966 and quit in 2017 Past Drug Use History: Marijuana Additional Drug Use History / Comment(s): states hemp gummies. - Past Family History Mother Family Medical History: Cancer Father Family Medical History: Myocardial Infarction ([place]) Medications and Allergies Home Medications Medication Instructions Recorded Confirmed Type Atorvastatin Calcium [Lipitor] 20 mg PO DAILY 05/31/20 07/30/21 History Albuterol Inhaler [Ventolin Hfa 2 puff INHALATION RT-QID PRN 01/17/21 07/30/21 History Inhaler] Etodolac 400 mg PO DAILY PRN 01/17/21 07/30/21 History Multivit,Calc,Min/FA/K1/Lycop 1 tab PO DAILY 01/17/21 07/30/21 History [One-A-Day Men's Complete Tab] Omeprazole Magnesium [PriLOSEC OTC] 20 mg PO DAILY 01/17/21 07/30/21 History Allergy Relief 10 mg PO DAILY 06/16/21 07/30/21 History Ascorbic Acid [Vitamin C] 1,000 mg PO DAILY 06/16/21 07/30/21 History Chemo Infusion (Unknown) 1 dose IV QMONTHLY 06/16/21 07/30/21 History Cholecalciferol [Vitamin D3 (25 50 mcg PO DAILY 06/16/21 07/30/21 History Mcg = 1000 Iu)] Cyanocobalamin (Vitamin B-12) 1,000 mcg PO DAILY 06/16/21 07/30/21 History [Vitamin B-12] Fluticasone Nasal [place] [Flonase 2 spray EA NOSTRIL DAILY 06/16/21 07/30/21 History Nasal [place]] Fluticasone/Umeclidin/Vilanter 1 puff INHALATION RT-DAILY 06/16/21 07/30/21 History [Trelegy Ellipta 200-62.5-25] HYDROcodone/APAP 10-325MG [[place] 1 tab PO TID PRN 06/16/21 07/30/21 History 10-325] Ipratropium-Albuterol Nebulize 3 ml INHALATION RT-QID 06/16/21 07/30/21 History [Duoneb 0.5 mg-3 mg/3 ml Soln] OLANZapine [ZyPREXA] 2.5 mg PO DIRECTED 06/16/21 07/30/21 History Ondansetron [Zofran] 4 mg PO Q4H PRN 06/16/21 07/30/21 History Azithromycin [Zithromax Z-pack (6 250 mg PO DIRECTED #6 tab 07/30/21 Rx tabs)] Dm/Acetaminophen/Doxylamine [Vicks 30 ml PO HS 07/30/21 07/30/21 History Nyquil Cold-Flu Liquid] Phenylephrine HCl 10 mg PO Q4H PRN 07/30/21 07/30/21 History predniSONE [Deltasone] 20 mg PO DAILY 07/30/21 07/30/21 History Allergies Allergy/AdvReac Type Severity Reaction Status Date / Time Penicillins Allergy Unknown Verified 07/30/21 17:05 Childhood Sulfa (Sulfonamide Allergy Unknown Verified 07/30/21 17:05 Antibiotics) Childhood Physical Exam Vitals: Vital Signs Temp Pulse Pulse Resp BP BP Pulse Ox 10/11/21 11:32 112 H 10/11/21 08:00 97.5 F L 115 H 26 H 133/71 98 10/11/21 07:45 112 H 10/11/21 07:34 108 H 10/11/21 06:53 97.5 F L 115 H 26 H 133/71 98 10/11/21 06:25 105 H 23 150/110 99 10/11/21 02:59 105 H 10/11/21 02:32 131 H 10/11/21 02:26 24 10/11/21 02:23 07/09/22 02:20 98.1 F 136 H 24 138/111 98 FiO2 10/11/21 11:32 10/11/21 08:00 10/11/21 07:45 10/11/21 07:34 10/11/21 06:53 10/11/21 06:25 10/11/21 02:59 10/11/21 02:32 10/11/21 02:26 10/11/21 02:23 60 10/11/21 02:20 Intake and Output 10/10/21 10/11/21 10/11/21 22:59 06:59 14:59 Intake Total 240 Output Total 175 Balance -175 240 Intake: Oral 240 Output: Urine 175 Other: Voiding Method Urinal # Voids 1 Weight 68.039 kg Physical Exam: Revealed a 65-year-old white male in no distress, on 5 L nasal cannula O2 saturation 98% Head: Atraumatic, normocephalic patient is noted to have noisy breathing upon exhalation but no inspiratory stridor noted HEENT:[Neck is supple.] [No neck masses.] [No thyromegaly.] [No JVD.] Chest: Diminished breath sound bilaterally, no crackles or rhonchi or wheezes however noted to wheeze on forced expiratory maneuver Cardiac Exam: [Normal S1 and S2, no S3 gallop, no murmur.] Abdomen: [Soft, nontender, no megaly, no rebound, no guarding, normal bowel sounds.] Extremities: [No clubbing, no edema, no cyanosis.] Neurological Exam: [No focal neurologic deficit.] Alert oriented 3 Psychiatric: Normal mood, affect and normal mental status examination. Skin: No rashes. Results - Laboratory Findings CBC and BMP: 10/11/21 02:29 10/11/21 02:29 PT/INR, D-dimer PT 10.0 sec (9.0-12.0) 10/11/21 02:29 INR 0.9 (<1.2) 10/11/21 02:29 Abnormal lab findings: Abnormal Labs 10/11/21 10/11/21 10/11/21 02:29 02:29 02:29 WBC 18.2 H MCV 105.1 H Neutrophils # 13.0 H Monocytes # 1.5 H Basophils # 0.3 H APTT 21.6 L Carbon Dioxide 31 H Glucose 151 H Troponin I 10/11/21 02:29 WBC MCV Neutrophils # Monocytes # Basophils # APTT Carbon Dioxide Glucose Troponin I 0.051 H* - Diagnostic Findings Chest x-ray: image reviewed (As noted in HPI) Assessment and Plan Assessment: Impression: Acute on chronic hypoxic respiratory failure Acute exacerbation of COPD Acute tracheobronchitis Chronic laryngitis History of metastatic non-small cell lung cancer History of laryngeal cancer Recommendation: Continue present medications including antibiotics, bronchodilators, and IV steroids. Continue to use BiPAP as needed and keep BiPAP at bedside [facility] [place] Resume home meds We will continue to follow. Long-term prognosis is definitely poor and guarded. Time with Patient: Greater than 30
[2021-10-11] MEDS: HYDROcodone/APAP 10-325MG 1 EACH TAB PO PRN (12:14)
[2021-10-11] MEDS: LORazepam 0.5 MG TAB PO PRN ×2 (12:15→21:20)
[2021-10-11 21:35] LABS: Glucose,Whole Blood 199 mg/dL (70-110)
[2021-10-11] MEDS: MELATONIN 3 MG TABLET PO PRN (22:05)
[2021-10-12] MEDS: methylPREDNISolone SOD SUCCI 125 MG/2 ML VIAL IV SCH ×5 (00:05→23:23)
[2021-10-12] MEDS: HYDROcodone/APAP 10-325MG 1 EACH TAB PO PRN ×2 (00:06→09:07)
[2021-10-12] MEDS: HEPARIN SODIUM,PORCINE/PF 5,000 UNIT/0.5 ML SYRINGE SQ SCH ×4 (00:07→23:23)
[2021-10-12 06:30] LABS: Glucose,Whole Blood 180 mg/dL (70-110)
[2021-10-12 08:21] LABS: Basophils % (A) 0 %; Eosinophils % (A) 0 %; HCT 42.1 % (39.0-53.0); HGB 13.6 gm/dL (13.0-17.5); Lymphocytes # (A) 1.1 k/uL (1.0-4.8); Lymphocytes % (A) 7 %; MCH 33.8 pg (25.0-35.0); MCHC 32.3 g/dL (31.0-37.0); MCV 104.7 fL (80.0-100.0); Macrocytosis Moderate; Mean Platelet Volume 8.2; Monocytes # (A) 0.8 k/uL (0-1.0); Monocytes % (A) 5 %; Neutrophils # (A) 12.7 k/uL (1.3-7.7); Neutrophils % (A) 86 %; Platelet Count 271 k/uL (150-450); RBC 4.03 m/uL (4.30-5.90); RDW 13.9 % (11.5-15.5); WBC 14.8 k/uL (3.8-10.6)
[2021-10-12] MEDS: SYMBICORT 80-4.5 MCG INHALER INHALATION SCH ×2 (08:33→19:48)
[2021-10-12] MEDS: IPRATROPIUM-ALBUTEROL 3 ML NEB INHALATION SCH ×4 (08:33→19:29)
[2021-10-12 08:53] LABS: ALT 34 U/L (4-49); AST 37 U/L (17-59); African American GFR (CKD) >90 (>60 ml/min/1.73 sqM); Albumin 4.4 g/dL (3.5-5.0); Alkaline Phosphatase 75 U/L (38-126); Anion Gap 8 mmol/L; Blood Urea Nitrogen 22 mg/dL (9-20); Calcium 9.3 mg/dL (8.4-10.2); Carbon Dioxide 30 mmol/L (22-30); Chloride 97 mmol/L (98-107); Glucose 135 mg/dL (74-99); Non-African American GFR(CKD) >90 (>60 ml/min/1.73 sqM); Potassium 4.6 mmol/L (3.5-5.1); Sodium 135 mmol/L (137-145); Total Bilirubin 0.9 mg/dL (0.2-1.3)
[2021-10-12] MEDS: PANTOPRAZOLE 40 MG TABLET PO SCH (09:06)
[2021-10-12] MEDS: ATORVASTATIN 20 MG TAB PO SCH (09:07)
[2021-10-12] MEDS: LEVOFLOXACIN 500 MG TAB PO SCH (09:07)
[2021-10-12] MEDS: LORazepam 0.5 MG TAB PO PRN ×2 (09:08→17:19)
[2021-10-12 11:33] LABS: Glucose,Whole Blood 168 mg/dL (70-110)
[2021-10-12] MEDS: MORPHINE SULFATE 4 MG/ML SYRINGE IV PRN ×2 (12:14→17:19)
--- NOTE | 2021-10-12 12:54 | P.PN ---
Subjective Progress Note Date: 10/12/21 Principal diagnosis: Shortness of breath This is a 65-year-old white male with history of severe COPD, non-small cell lung cancer, history of laryngeal cancer, history of chronic laryngitis, patient normally sees Dr. Gonzalez in the office. The last time he saw Dr. Gonzalez was on 09/24/2021. 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 The patient received a total of 4 cycles of systemic chemotherapy and the patient's last Keytruda treatment was on 05/28/2021 and this was interrupted because of multiple hospitalizations. Currently his condition is stable. The most recent CAT scan of the chest showed stable osseous metastases, the patient's left infrahilar masses probably slightly more prominent and that is another vasopressin left lower lobe posterior segment. I'm not sure this is a true progression of his disease. Patient is normally maintained on albuterol, DuoNeb updrafts, omeprazole, Trelegy Ellipta. And vitamin D. Baseline PFT showed FEV1 in the range of 47%, FEV1/FVC is 49%, low DLCO in the range of 27%. Patient was admitted yesterday with symptoms of shortness of breath for the last few days intermittent cough and wheezing. Upon arrival to the ER, patient had to be placed on BiPAP and he was given morphine, felt much better after BiPAP, and he was transitioned to a nasal cannula. Admitted and this consult was initiated. Chest x-ray showed basically small area of scarring in the right upper lobe otherwise unremarkable findings noted. CBC showed leukocytosis with WBC count of 18.2 hemoglobin is 14.7 electrolytes and renal profile are normal. On 10/12/2021 patient seen in follow-up on selective care unit. He is currently on BiPAP with pressures of 12.6 and FiO2 of 40%, he sitting 99%, seems more comfortable breathing easier on a BiPAP support. Still feels a bit congested in his chest, but is noted to be less bronchospastic and less dyspneic on BiPAP support. His awake and alert, mentation is appropriate, responding appropriate ly, today's labs have been reviewed, white blood cell count is improving and is down to 14.8, hemoglobin is 13.6, sodium is 135, potassium is 4.6, chloride is 97, B1 is 22 and creatinine 0.81. LFTs are within normal limits. No hemoptysis, no chest pain. Remains on DuoNeb, IV steroids with Solu-Medrol 60 mg every 6 hours, continues on Symbicort, and Levaquin. His chest x-ray on admission showed small area of scarring in the right upper lobe, and there was no acute findings noted Objective - Vital Signs Vital signs: Vital Signs Temp 97.2 F L 10/12/21 12:00 Pulse 112 H 10/12/21 12:09 Resp 22 10/12/21 12:00 BP 134/85 10/12/21 12:00 Pulse Ox 97 10/12/21 12:00 FiO2 40 10/12/21 08:34 Intake & Output 10/11/21 10/12/21 10/12/21 18:59 06:59 18:59 Intake Total 480 Output Total 525 540 Balance 480 -525 -540 Intake: Oral 480 Output: Urine 525 540 Other: Voiding Method Urinal Urinal Urinal # Voids 1 1 - Exam GENERAL EXAM: Alert, pleasant, moderately dyspneic, 65-year-old white male, on BiPAP support with pressures of 12 and 6 and FiO2 of 40%, comfortable in no apparent distress. HEAD: Normocephalic/atraumatic. EYES: Normal reaction of pupils, equal size. Conjunctiva pink, sclera white. NOSE: Clear with pink turbinates. THROAT: No erythema or exudates. NECK: No masses, no JVD, no thyroid enlargement, no adenopathy. CHEST: No chest wall deformity. Symmetrical expansion. LUNGS: Diminished breath sounds bilaterally, no crackles or rhonchi, does have some expiratory wheezing in the upper airways CVS: Regular rate and rhythm, normal S1 and S2, no gallops, no murmurs, no rubs ABDOMEN: Soft, nontender. No hepatosplenomegaly, normal bowel sounds, no guarding or rigidity. EXTREMITIES: No clubbing, no edema, no cyanosis, 2+ pulses and upper and lower extremities. MUSCULOSKELETAL: Muscle strength and tone normal. SPINE: No scoliosis or deformity SKIN: No rashes CENTRAL NERVOUS SYSTEM: Alert and oriented -3. No focal deficits, tone is normal in all 4 extremities. PSYCHIATRIC: Alert and oriented -3. Appropriate affect. Intact judgment and insight. - Labs CBC & Chem 7: 10/12/21 07:45 10/12/21 07:45 Labs: Abnormal Lab Results - Last 24 Hours (Table) 10/11/21 10/12/21 10/12/21 Range/Units 21:15 06:28 07:45 WBC 14.8 H (3.8-10.6) k/uL RBC 4.03 L (4.30-5.90) m/uL MCV 104.7 H (80.0-100.0) fL Neutrophils # 12.7 H (1.3-7.7) k/uL Sodium (137-145) mmol/L Chloride (98-107) mmol/L BUN (9-20) mg/dL Glucose (74-99) mg/dL POC Glucose (mg/dL) 199 H 180 H (70-110) mg/dL 10/12/21 10/12/21 Range/Units 07:45 11:31 WBC (3.8-10.6) k/uL RBC (4.30-5.90) m/uL MCV (80.0-100.0) fL Neutrophils # (1.3-7.7) k/uL Sodium 135 L (137-145) mmol/L Chloride 97 L (98-107) mmol/L BUN 22 H (9-20) mg/dL Glucose 135 H (74-99) mg/dL POC Glucose (mg/dL) 168 H (70-110) mg/dL Assessment and Plan Plan: Assessment: #1. Acute on chronic hypoxic respiratory failure related to acute exacerbation of COPD #2. Acute purulent tracheobronchitis #3. Chronic laryngitis #4. History of metastatic non-small cell lung cancer #5. History of laryngeal cancer status post radiation #6. Former smoker, quit smoking in 2018 #7. Hyperlipidemia Plan: Continue BiPAP support as needed during the day and at bedtime for increased dyspnea May provide breaks during meals and as tolerated Continue IV steroids and nebulized bronchodilators Continue to follow Weaning FiO2 to maintain O2 saturations 88-90% Continue to follow I have personally seen and examined the patient, performed the documentation and the assessment and plan as written. Number of minutes spent on the visit: [10] Time with Patient: Less than 30
--- NOTE | 2021-10-12 13:26 | P.PN ---
Subjective Progress Note Date: 10/12/21 Hospital course This is a 65-year-old white male with history of severe COPD, non-small cell lung cancer on chemo , history of laryngeal cancer, history of chronic laryngitis, Patient was admitted with symptoms of shortness of breath for the last few days intermittent cough and wheezing. Upon arrival to the ER, patient had to be placed on BiPAP and he was given morphine, felt much better after BiPAP, and he was transitioned to a nasal cannula. Admitted and this consult was initiated. Chest x-ray showed basically small area of scarring in the right upper lobe otherwise unremarkable findings noted. CBC showed leukocytosis with WBC count of 18.2 hemoglobin is 14.7 electrolytes and renal profile are normal. Subjective Patient seen and evaluated at bedside, today patient does not report any worsening of his breathing or report any new significant chest pain. Patient remains in no acute distress. Patient questions and concerns addressed at bedside, proper counseling done. Plan discussed with nursing staff. Physical exam General: non toxic, no acute distress, alert oriented to time place and person Head: atraumatic, normocephalic, symmetric Eyes: no lid lesion], anicteric sclera Mouth: no lip lesion, mucus membranes moist Cardiovascular: S1S2 reg rate and rhythm, no murmur, no gallop Lungs: Bilateral wheezing. Abdominal: soft, nontender to palpation, no guarding, no appreciable organomegaly Ext: no gross muscle atrophy, no edema extremities warm to suppose a positive Neuro: Alert oriented to time place and person, exam grossly nonfocal Assessment and plan Acute on chronic hypoxic respiratory failure related to acute exacerbation of COPD, Acute purulent tracheobronchitis, history of Chronic laryngitis Continue IV steroids and nebulized bronchodilators Patient was started on levofloxacin by pulm, will cont that Continue BiPAP support as needed per pulm recs Weaning FiO2 to maintain O2 saturations 88-90% Pulmonary medicine following History of metastatic non-small cell lung cancer On Chemo Consider hematology oncology evaluation Chronic medical conditions History of laryngeal cancer status post radiation Former smoker, quit smoking in 2018 History of hyperlipidemia DVT prophylaxis: Subcutaneous heparin CODE STATUS: Full code Discharge plan/next site of care: Pending workup hospital course, likely back to home Objective - Vital Signs Vital signs: Vital Signs Temp 97.2 F L 10/12/21 12:00 Pulse 112 H 10/12/21 12:09 Resp 22 10/12/21 12:00 BP 134/85 10/12/21 12:00 Pulse Ox 97 10/12/21 12:00 FiO2 40 10/12/21 08:34 Intake & Output 10/11/21 10/12/21 10/12/21 18:59 06:59 18:59 Intake Total 480 Output Total 525 540 Balance 480 -525 -540 Intake: Oral 480 Output: Urine 525 540 Other: Voiding Method Urinal Urinal Urinal # Voids 1 1 - Labs CBC & Chem 7: 10/12/21 07:45 10/12/21 07:45 Labs: Abnormal Lab Results - Last 24 Hours (Table) 10/11/21 10/12/21 10/12/21 Range/Units 21:15 06:28 07:45 WBC 14.8 H (3.8-10.6) k/uL RBC 4.03 L (4.30-5.90) m/uL MCV 104.7 H (80.0-100.0) fL Neutrophils # 12.7 H (1.3-7.7) k/uL Sodium (137-145) mmol/L Chloride (98-107) mmol/L BUN (9-20) mg/dL Glucose (74-99) mg/dL POC Glucose (mg/dL) 199 H 180 H (70-110) mg/dL 10/12/21 10/12/21 Range/Units 07:45 11:31 WBC (3.8-10.6) k/uL RBC (4.30-5.90) m/uL MCV (80.0-100.0) fL Neutrophils # (1.3-7.7) k/uL Sodium 135 L (137-145) mmol/L Chloride 97 L (98-107) mmol/L BUN 22 H (9-20) mg/dL Glucose 135 H (74-99) mg/dL POC Glucose (mg/dL) 168 H (70-110) mg/dL
[2021-10-12 16:22] LABS: Glucose,Whole Blood 138 mg/dL (70-110)
[2021-10-12] MEDS: INSULIN ASPART (NovoLOG) 100 UNIT/ML VIAL SQ SCH ×2 (17:48→21:17)
[2021-10-12 21:10] LABS: Glucose,Whole Blood 128 mg/dL (70-110)
[2021-10-12] MEDS: MELATONIN 3 MG TABLET PO PRN (23:23)
[2021-10-13] MEDS: HYDROcodone/APAP 10-325MG 1 EACH TAB PO PRN ×2 (02:34→21:03)
[2021-10-13] MEDS: INSULIN ASPART (NovoLOG) 100 UNIT/ML VIAL SQ SCH ×4 (06:08→21:04)
[2021-10-13] MEDS: methylPREDNISolone SOD SUCCI 125 MG/2 ML VIAL IV SCH ×4 (06:11→23:59)
[2021-10-13 06:14] LABS: Glucose,Whole Blood 122 mg/dL (70-110)
[2021-10-13] MEDS: IPRATROPIUM-ALBUTEROL 3 ML NEB INHALATION SCH ×4 (07:18→19:43)
[2021-10-13] MEDS: SYMBICORT 80-4.5 MCG INHALER INHALATION SCH (07:21)
[2021-10-13 07:46] LABS: Basophils # (A) 0.1 k/uL (0-0.2); Basophils % (A) 1 %; Eosinophils % (A) 0 %; HCT 40.8 % (39.0-53.0); HGB 13.7 gm/dL (13.0-17.5); Lymphocytes # (A) 0.8 k/uL (1.0-4.8); Lymphocytes % (A) 5 %; MCH 34.5 pg (25.0-35.0); MCHC 33.5 g/dL (31.0-37.0); MCV 103.1 fL (80.0-100.0); Macrocytosis Slight; Monocytes # (A) 1.2 k/uL (0-1.0); Monocytes % (A) 7 %; Neutrophils # (A) 14.2 k/uL (1.3-7.7); Neutrophils % (A) 87 %; Platelet Count 286 k/uL (150-450); RBC 3.96 m/uL (4.30-5.90); RDW 13.5 % (11.5-15.5); WBC 16.4 k/uL (3.8-10.6)
[2021-10-13 07:56] LABS: ALT 36 U/L (4-49); AST 41 U/L (17-59); African American GFR (CKD) >90 (>60 ml/min/1.73 sqM); Albumin 4.3 g/dL (3.5-5.0); Alkaline Phosphatase 78 U/L (38-126); Anion Gap 7 mmol/L; Blood Urea Nitrogen 32 mg/dL (9-20); Calcium 8.9 mg/dL (8.4-10.2); Carbon Dioxide 32 mmol/L (22-30); Chloride 95 mmol/L (98-107); Glucose 126 mg/dL (74-99); Non-African American GFR(CKD) >90 (>60 ml/min/1.73 sqM); Potassium 4.6 mmol/L (3.5-5.1); Sodium 134 mmol/L (137-145); Total Bilirubin 0.9 mg/dL (0.2-1.3)
[2021-10-13] MEDS: LEVOFLOXACIN 500 MG TAB PO SCH (08:30)
[2021-10-13] MEDS: ATORVASTATIN 20 MG TAB PO SCH (08:30)
[2021-10-13] MEDS: PANTOPRAZOLE 40 MG TABLET PO SCH (08:30)
[2021-10-13] MEDS: HEPARIN SODIUM,PORCINE/PF 5,000 UNIT/0.5 ML SYRINGE SQ SCH ×3 (08:30→23:59)
[2021-10-13 10:14] LABS: ABG Base Excess 7.2 mmol/L; ABG HCO3 32 mmol/L (21-25); ABG PCO2 54 mmHg (35-45); ABG PH 7.38 (7.35-7.45); ABG PO2 71 mmHg (83-108); ABG TCO2 34 mmol/L (19-24); Allen Test Performed? Yes
--- NOTE | 2021-10-13 11:38 | P.PN ---
Subjective Patient was examined at bedside today continues to complain of some shortness of breath. Currently on BiPAP with a setting of 12/6 FiO2 40%. He did use BIPAP overnight. Denies any phlegm production. Case discussed with RN present at bedside. Objective - Vital Signs Vital signs: Vital Signs Temp 98.3 F 10/13/21 08:28 Pulse 110 H 10/13/21 11:19 Resp 24 10/13/21 08:28 BP 135/100 10/13/21 08:28 Pulse Ox 99 10/13/21 08:28 FiO2 40 10/13/21 11:08 Intake & Output 10/12/21 10/13/21 10/13/21 18:59 06:59 18:59 Intake Total 10 Output Total 540 950 200 Balance -540 -940 -200 Intake: IV 10 0.9 10 Output: Urine 540 950 200 Other: Voiding Method Urinal Urinal Urinal # Voids 1 1 - Exam Physical exam General: non toxic, no acute distress, alert oriented to time place and person currently on BiPAP Head: atraumatic, normocephalic, symmetric Eyes: no lid lesion], anicteric sclera Mouth: no lip lesion, mucus membranes moist Cardiovascular: S1S2 reg rate and rhythm, no murmur, no gallop Lungs: Bilateral wheezing. Abdominal: soft, nontender to palpation, no guarding, no appreciable organomegaly Ext: no gross muscle atrophy, no edema extremities warm to suppose a positive Neuro: Alert oriented to time place and person, exam grossly nonfocal - Labs CBC & Chem 7: 10/13/21 07:15 10/13/21 07:15 Labs: Abnormal Lab Results - Last 24 Hours (Table) 10/12/21 10/12/21 10/13/21 Range/Units 16:21 20:57 06:06 WBC (3.8-10.6) k/uL RBC (4.30-5.90) m/uL MCV (80.0-100.0) fL Neutrophils # (1.3-7.7) k/uL Lymphocytes # (1.0-4.8) k/uL Monocytes # (0-1.0) k/uL ABG pCO2 (35-45) mmHg ABG pO2 (83-108) mmHg ABG HCO3 (21-25) mmol/L ABG Total CO2 (19-24) mmol/L Sodium (137-145) mmol/L Chloride (98-107) mmol/L Carbon Dioxide (22-30) mmol/L BUN (9-20) mg/dL Glucose (74-99) mg/dL POC Glucose (mg/dL) 138 H 128 H 122 H (70-110) mg/dL Hemoglobin A1c (0.0-6.0) % 10/13/21 10/13/21 10/13/21 Range/Units 07:15 07:15 07:15 WBC 16.4 H (3.8-10.6) k/uL RBC 3.96 L (4.30-5.90) m/uL MCV 103.1 H (80.0-100.0) fL Neutrophils # 14.2 H (1.3-7.7) k/uL Lymphocytes # 0.8 L (1.0-4.8) k/uL Monocytes # 1.2 H (0-1.0) k/uL ABG pCO2 (35-45) mmHg ABG pO2 (83-108) mmHg ABG HCO3 (21-25) mmol/L ABG Total CO2 (19-24) mmol/L Sodium 134 L (137-145) mmol/L Chloride 95 L (98-107) mmol/L Carbon Dioxide 32 H (22-30) mmol/L BUN 32 H (9-20) mg/dL Glucose 126 H (74-99) mg/dL POC Glucose (mg/dL) (70-110) mg/dL Hemoglobin A1c 6.1 H (0.0-6.0) % 10/13/21 Range/Units 09:48 WBC (3.8-10.6) k/uL RBC (4.30-5.90) m/uL MCV (80.0-100.0) fL Neutrophils # (1.3-7.7) k/uL Lymphocytes # (1.0-4.8) k/uL Monocytes # (0-1.0) k/uL ABG pCO2 54 H (35-45) mmHg ABG pO2 71 L (83-108) mmHg ABG HCO3 32 H (21-25) mmol/L ABG Total CO2 34 H (19-24) mmol/L Sodium (137-145) mmol/L Chloride (98-107) mmol/L Carbon Dioxide (22-30) mmol/L BUN (9-20) mg/dL Glucose (74-99) mg/dL POC Glucose (mg/dL) (70-110) mg/dL Hemoglobin A1c (0.0-6.0) % Assessment and Plan Assessment: Acute on chronic hypoxic respiratory failure related to acute exacerbation of COPD, Acute purulent tracheobronchitis, history of Chronic laryngitis Continue IV steroids and nebulized bronchodilators Patient was started on levofloxacin by pulm, will cont that Continue BiPAP support as needed per pulm recs current settings 12/6 FiO2 40% Weaning FiO2 to maintain O2 saturations 88-90% Pulmonary medicine following History of metastatic non-small cell lung cancer On Chemo Consider hematology oncology evaluation Chronic medical conditions History of laryngeal cancer status post radiation Former smoker, quit smoking in 2018 History of hyperlipidemia DVT prophylaxis: Subcutaneous heparin CODE STATUS: Full code Discharge plan/next site of care: Pending workup hospital course, likely back to home still wheezing today.
[2021-10-13 11:47] LABS: Glucose,Whole Blood 121 mg/dL (70-110)
--- NOTE | 2021-10-13 12:33 | P.PN ---
Subjective Progress Note Date: 10/13/21 Principal diagnosis: Shortness of breath. This is a 65-year-old white male with history of severe COPD, non-small cell lung cancer, history of laryngeal cancer, history of chronic laryngitis, patient normally sees Dr. Gonzalez in the office. The last time he saw Dr. Gonzalez was on 09/24/2021. 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 The patient received a total of 4 cycles of systemic chemotherapy and the patient's last Keytruda treatment was on 05/28/2021 and this was interrupted because of multiple hospitalizations. Currently his condition is stable. The most recent CAT scan of the chest showed stable osseous metastases, the patient's left infrahilar masses probably slightly more prominent and that is another vasopressin left lower lobe posterior segment. I'm not sure this is a true progression of his disease. Patient is normally maintained on albuterol, DuoNeb updrafts, omeprazole, Trelegy Ellipta. And vitamin D. Baseline PFT showed FEV1 in the range of 47%, FEV1/FVC is 49%, low DLCO in the range of 27%. Patient was admitted yesterday with symptoms of shortness of breath for the last few days intermittent cough and wheezing. Upon arrival to the ER, patient had to be placed on BiPAP and he was given morphine, felt much better after BiPAP, and he was transitioned to a nasal cannula. Admitted and this consult was initiated. Chest x-ray showed basically small area of scarring in the right upper lobe otherwise unremarkable findings noted. CBC showed leukocytosis with WBC count of 18.2 hemoglobin is 14.7 electrolytes and renal profile are normal. On 10/12/2021 patient seen in follow-up on selective care unit. He is currently on BiPAP with pressures of 12.6 and FiO2 of 40%, he sitting 99%, seems more comfortable breathing easier on a BiPAP support. Still feels a bit congested in his chest, but is noted to be less bronchospastic and less dyspneic on BiPAP support. His awake and alert, mentation is appropriate, responding appropriat tasia, today's labs have been reviewed, white blood cell count is improving and is down to 14.8, hemoglobin is 13.6, sodium is 135, potassium is 4.6, chloride is 97, B1 is 22 and creatinine 0.81. LFTs are within normal limits. No hemoptysis, no chest pain. Remains on DuoNeb, IV steroids with Solu-Medrol 60 mg every 6 hours, continues on Symbicort, and Levaquin. His chest x-ray on admission showed small area of scarring in the right upper lobe, and there was no acute findings noted Progress note dated 10/13/2021. The patient is again seen in room 376. He was on BiPAP we saw the patient. The settings included an IPAP of 12, EPAP of 6, and an FiO2 of 40%. His saturations were in the high 90s. We went ahead and did a blood gas on his normal oxygen requirements that he uses at home, and the patient does qualify for a BiPAP device. We will attempt to get one for him, when he is discharged. White count 16.4, implement 13.7, hematocrit 40.8, and platelet count 286,000. His blood gases show pO2 of 71, pCO2 of 54, with a normal pH. That was on 4 L of oxygen (35%). Sodium 134, potassium 4.6, chlorides 95, CO2 32, BUN 32, and creatinine 0.89. Objective - Vital Signs Vital signs: Vital Signs Temp 98.1 F 10/13/21 11:57 Pulse 108 H 10/13/21 11:57 Resp 25 H 10/13/21 11:57 BP 136/96 10/13/21 11:57 Pulse Ox 97 10/13/21 11:57 FiO2 40 10/13/21 11:08 Intake & Output 10/12/21 10/13/21 10/13/21 18:59 06:59 18:59 Intake Total 10 Output Total 540 950 200 Balance -540 -940 -200 Intake: IV 10 0.9 10 Output: Urine 540 950 200 Other: Voiding Method Urinal Urinal Urinal # Voids 1 1 - Exam No acute distress, oriented 3. Currently on BiPAP. Mild conversational dyspnea. HEENT examination is grossly unremarkable. Neck supple. Full range of motion. No adenopathy thyromegaly or neck vein distention. Cardiovascular examination reveals regular rhythm rate. S1-S2 normal. No S3 or S4. No discernible murmur noted. Heart sounds are distant. Heart rate 108 bpm. Lungs reveal severely diminished breath sounds bilaterally. Scattered rhonchi and wheezes are appreciated. No crackles. Saturations are 97% on 4 L. Abdomen soft bowel sounds are heard. No masses or tenderness. Extremities are intact. No cyanosis clubbing or edema. Skin is without rash or lesion. Neurologic examination is brief but nonfocal. - Labs CBC & Chem 7: 10/13/21 07:15 10/13/21 07:15 Labs: Abnormal Lab Results - Last 24 Hours (Table) 10/12/21 10/12/21 10/13/21 Range/Units 16:21 20:57 06:06 WBC (3.8-10.6) k/uL RBC (4.30-5.90) m/uL MCV (80.0-100.0) fL Neutrophils # (1.3-7.7) k/uL Lymphocytes # (1.0-4.8) k/uL Monocytes # (0-1.0) k/uL ABG pCO2 (35-45) mmHg ABG pO2 (83-108) mmHg ABG HCO3 (21-25) mmol/L ABG Total CO2 (19-24) mmol/L Sodium (137-145) mmol/L Chloride (98-107) mmol/L Carbon Dioxide (22-30) mmol/L BUN (9-20) mg/dL Glucose (74-99) mg/dL POC Glucose (mg/dL) 138 H 128 H 122 H (70-110) mg/dL Hemoglobin A1c (0.0-6.0) % 10/13/21 10/13/21 10/13/21 Range/Units 07:15 07:15 07:15 WBC 16.4 H (3.8-10.6) k/uL RBC 3.96 L (4.30-5.90) m/uL MCV 103.1 H (80.0-100.0) fL Neutrophils # 14.2 H (1.3-7.7) k/uL Lymphocytes # 0.8 L (1.0-4.8) k/uL Monocytes # 1.2 H (0-1.0) k/uL ABG pCO2 (35-45) mmHg ABG pO2 (83-108) mmHg ABG HCO3 (21-25) mmol/L ABG Total CO2 (19-24) mmol/L Sodium 134 L (137-145) mmol/L Chloride 95 L (98-107) mmol/L Carbon Dioxide 32 H (22-30) mmol/L BUN 32 H (9-20) mg/dL Glucose 126 H (74-99) mg/dL POC Glucose (mg/dL) (70-110) mg/dL Hemoglobin A1c 6.1 H (0.0-6.0) % 10/13/21 10/13/21 Range/Units 09:48 11:45 WBC (3.8-10.6) k/uL RBC (4.30-5.90) m/uL MCV (80.0-100.0) fL Neutrophils # (1.3-7.7) k/uL Lymphocytes # (1.0-4.8) k/uL Monocytes # (0-1.0) k/uL ABG pCO2 54 H (35-45) mmHg ABG pO2 71 L (83-108) mmHg ABG HCO3 32 H (21-25) mmol/L ABG Total CO2 34 H (19-24) mmol/L Sodium (137-145) mmol/L Chloride (98-107) mmol/L Carbon Dioxide (22-30) mmol/L BUN (9-20) mg/dL Glucose (74-99) mg/dL POC Glucose (mg/dL) 121 H (70-110) mg/dL Hemoglobin A1c (0.0-6.0) % Assessment and Plan Assessment: Acute on chronic hypoxemic and hypercapnic respiratory failure, secondary to se ana lilia COPD/COPD exacerbation. Acute purulent tracheobronchitis. Chronic laryngitis. History of metastatic non-small cell lung cancer. History of laryngeal carcinoma, status post radiation therapy. Previous history of tobacco use, quit, 2018. History of hyperlipidemia. Plan: Plan dated 10/13/2021. The patient's blood gases would suggest that he does qualify for BiPAP therapy at home. He is on and off the BiPAP throughout the day. When he is not on BiPAP, he's on 4 L nasal cannula. The patient will continue on all appropriate medications. This will include Symbicort, DuoNeb nebs, Levaquin, and Solu- Medrol. Additional recommendations and suggestions are forthcoming. Prognosis is guarded. We will continue to follow the patient and make recommendations where appropriate. Time with Patient: Less than 30
[2021-10-13 16:50] LABS: Glucose,Whole Blood 131 mg/dL (70-110)
[2021-10-13] MEDS: SYMBICORT 160-4.5 MCG INHALER INHALATION SCH (19:42)
[2021-10-13 20:03] LABS: Glucose,Whole Blood 146 mg/dL (70-110)
[2021-10-14] MEDS: MELATONIN 3 MG TABLET PO PRN ×2 (00:03→23:55)
[2021-10-14 06:05] LABS: Glucose,Whole Blood 127 mg/dL (70-110)
[2021-10-14] MEDS: guaiFENesin 600 MG TABLET.ER PO SCH ×2 (06:23→20:53)
[2021-10-14] MEDS: INSULIN ASPART (NovoLOG) 100 UNIT/ML VIAL SQ SCH ×4 (06:23→20:53)
[2021-10-14] MEDS: methylPREDNISolone SOD SUCCI 125 MG/2 ML VIAL IV SCH ×4 (06:23→23:50)
[2021-10-14] MEDS: IPRATROPIUM-ALBUTEROL 3 ML NEB INHALATION SCH ×4 (08:36→19:05)
[2021-10-14] MEDS: SYMBICORT 160-4.5 MCG INHALER INHALATION SCH ×2 (08:39→19:06)
[2021-10-14] MEDS: PANTOPRAZOLE 40 MG TABLET PO SCH (09:25)
[2021-10-14] MEDS: LEVOFLOXACIN 500 MG TAB PO SCH (09:25)
[2021-10-14] MEDS: ATORVASTATIN 20 MG TAB PO SCH (09:25)
[2021-10-14] MEDS: HEPARIN SODIUM,PORCINE/PF 5,000 UNIT/0.5 ML SYRINGE SQ SCH ×3 (09:26→23:50)
[2021-10-14 11:27] LABS: Glucose,Whole Blood 129 mg/dL (70-110)
[2021-10-14 11:54] LABS: Basophils # (A) 0.1 k/uL (0-0.2); Basophils % (A) 1 %; Eosinophils # (A) 0.1 k/uL (0-0.7); Eosinophils % (A) 1 %; HCT 43.3 % (39.0-53.0); HGB 13.9 gm/dL (13.0-17.5); Lymphocytes # (A) 0.4 k/uL (1.0-4.8); Lymphocytes % (A) 3 %; MCH 33.2 pg (25.0-35.0); MCHC 32.2 g/dL (31.0-37.0); Macrocytosis Slight; Mean Platelet Volume 7.9; Monocytes # (A) 0.7 k/uL (0-1.0); Monocytes % (A) 6 %; Neutrophils # (A) 10.3 k/uL (1.3-7.7); Neutrophils % (A) 89 %; Platelet Count 280 k/uL (150-450); RDW 13.8 % (11.5-15.5); WBC 11.6 k/uL (3.8-10.6)
--- NOTE | 2021-10-14 12:05 | P.PN ---
Subjective Progress Note Date: 10/14/21 Principal diagnosis: Shortness of breath. This is a 65-year-old white male with history of severe COPD, non-small cell lung cancer, history of laryngeal cancer, history of chronic laryngitis, patient normally sees Dr. Gonzalez in the office. The last time he saw Dr. Gonzalez was on 09/24/2021. 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 The patient received a total of 4 cycles of systemic chemotherapy and the patient's last Keytruda treatment was on 05/28/2021 and this was interrupted because of multiple hospitalizations. Currently his condition is stable. The most recent CAT scan of the chest showed stable osseous metastases, the patient's left infrahilar masses probably slightly more prominent and that is another vasopressin left lower lobe posterior segment. I'm not sure this is a true progression of his disease. Patient is normally maintained on albuterol, DuoNeb updrafts, omeprazole, Trelegy Ellipta. And vitamin D. Baseline PFT showed FEV1 in the range of 47%, FEV1/FVC is 49%, low DLCO in the range of 27%. Patient was admitted yesterday with symptoms of shortness of breath for the last few days intermittent cough and wheezing. Upon arrival to the ER, patient had to be placed on BiPAP and he was given morphine, felt much better after BiPAP, and he was transitioned to a nasal cannula. Admitted and this consult was initiated. Chest x-ray showed basically small area of scarring in the right upper lobe otherwise unremarkable findings noted. CBC showed leukocytosis with WBC count of 18.2 hemoglobin is 14.7 electrolytes and renal profile are normal. On 10/12/2021 patient seen in follow-up on selective care unit. He is currently on BiPAP with pressures of 12.6 and FiO2 of 40%, he sitting 99%, seems more comfortable breathing easier on a BiPAP support. Still feels a bit congested in his chest, but is noted to be less bronchospastic and less dyspneic on BiPAP support. His awake and alert, mentation is appropriate, responding appropriat tasia, today's labs have been reviewed, white blood cell count is improving and is down to 14.8, hemoglobin is 13.6, sodium is 135, potassium is 4.6, chloride is 97, B1 is 22 and creatinine 0.81. LFTs are within normal limits. No hemoptysis, no chest pain. Remains on DuoNeb, IV steroids with Solu-Medrol 60 mg every 6 hours, continues on Symbicort, and Levaquin. His chest x-ray on admission showed small area of scarring in the right upper lobe, and there was no acute findings noted Progress note dated 10/13/2021. The patient is again seen in room 376. He was on BiPAP we saw the patient. The settings included an IPAP of 12, EPAP of 6, and an FiO2 of 40%. His saturations were in the high 90s. We went ahead and did a blood gas on his normal oxygen requirements that he uses at home, and the patient does qualify for a BiPAP device. We will attempt to get one for him, when he is discharged. White count 16.4, implement 13.7, hematocrit 40.8, and platelet count 286,000. His blood gases show pO2 of 71, pCO2 of 54, with a normal pH. That was on 4 L of oxygen (35%). Sodium 134, potassium 4.6, chlorides 95, CO2 32, BUN 32, and creatinine 0.89. Progress note dated 10/14/2021. The patient is again seen in room 376. He is currently wearing his BiPAP device. His BiPAP settings are IPAP 12, EPAP 6, with an FiO2 40%. When he is not on BiPAP, she is on 4 L nasal cannula. He is getting saline at [facility]. We were able to contact his old [employer] and learn, but the patient was previously on average 5 short pressure support (AVAPS). In addition, we have his lab settings including a targeted tidal volume 450, IPAP of between 10-20 cm water. EPAP between 5 and 10 cm water, and a maximal inspiratory pressure of 30. Currently labs include a white count 11.6, hemoglobin 13.9, hematocrit 43.3, and a platelet count of 280,000. Most recent glucose 129. Objective - Vital Signs Vital signs: Vital Signs Temp 98.0 F 10/14/21 11:41 Pulse 114 H 10/14/21 11:41 Resp 22 10/14/21 11:41 BP 150/86 10/14/21 11:41 Pulse Ox 95 10/14/21 11:41 FiO2 40 10/13/21 20:01 Intake & Output 10/13/21 10/14/21 10/14/21 18:59 06:59 18:59 Intake Total 120 120 Output Total 700 500 200 Balance -580 -500 -80 Intake: Oral 120 120 Output: Urine 700 500 200 Other: Voiding Method Urinal Urinal Urinal # Voids 1 - Exam No acute distress, oriented 3. Currently on BiPAP. Mild conversational dyspnea. HEENT examination is grossly unremarkable. Neck supple. Full range of motion. No adenopathy thyromegaly or neck vein distention. Cardiovascular examination reveals regular rhythm rate. S1-S2 normal. No S3 or S4. No discernible murmur noted. Heart sounds are distant. Heart rate 114 bpm. Lungs reveal severely diminished breath sounds bilaterally. Scattered rhonchi and wheezes are appreciated. No crackles. Saturations are 95% on 4 L. Abdomen soft bowel sounds are heard. No masses or tenderness. Extremities are intact. No cyanosis clubbing or edema. Skin is without rash or lesion. Neurologic examination is brief but nonfocal. - Labs CBC & Chem 7: 10/14/21 11:44 10/13/21 07:15 Labs: Abnormal Lab Results - Last 24 Hours (Table) 10/13/21 10/13/21 10/14/21 Range/Units 16:43 20:01 06:03 WBC (3.8-10.6) k/uL RBC (4.30-5.90) m/uL MCV (80.0-100.0) fL Neutrophils # (1.3-7.7) k/uL Lymphocytes # (1.0-4.8) k/uL POC Glucose (mg/dL) 131 H 146 H 127 H (70-110) mg/dL 10/14/21 10/14/21 Range/Units 11:25 11:44 WBC 11.6 H (3.8-10.6) k/uL RBC 4.20 L (4.30-5.90) m/uL MCV 103.0 H (80.0-100.0) fL Neutrophils # 10.3 H (1.3-7.7) k/uL Lymphocytes # 0.4 L (1.0-4.8) k/uL POC Glucose (mg/dL) 129 H (70-110) mg/dL Assessment and Plan Assessment: Acute on chronic hypoxemic and hypercapnic respiratory failure, secondary to severe COPD/COPD exacerbation. Acute purulent tracheobronchitis. Chronic laryngitis. History of metastatic non-small cell lung cancer. History of laryngeal carcinoma, status post radiation therapy. Previous history of tobacco use, quit, 2018. History of hyperlipidemia. Plan: Plan dated 10/13/2021. The patient's blood gases would suggest that he does qualify for BiPAP therapy at home. He is on and off the BiPAP throughout the day. When he is not on BiPAP, he's on 4 L nasal cannula. The patient will continue on all appropriate medications. This will include Symbicort, DuoNeb nebs, Levaquin, and Solu- Medrol. Additional recommendations and suggestions are forthcoming. Prognosis is guarded. We will continue to follow the patient and make recommendations where appropriate. Plan dated 10/14/2021. The patient did qualify for a Trilogy ventilator. We were also able to track down his settings. Blood gases yesterday showed a pO2 of 71, pCO2 of 54, pH is 7.38. 4 L of Nasal Oxygen. Currently, the Patient Is on BiPAP. Labs, X-Rays, and Medications Are Reviewed. The Patient's Overall Prognosis Remains Very Guarded. The Patient Is on Symbicort, DuoNeb Nebs, Levaquin, and Solu-Medrol. We Will Continue to Follow and Make Recommendations As Needed. Time with Patient: Less than 30
[2021-10-14 12:12] LABS: African American GFR (CKD) >90 (>60 ml/min/1.73 sqM); Anion Gap 4 mmol/L; Blood Urea Nitrogen 31 mg/dL (9-20); Calcium 8.8 mg/dL (8.4-10.2); Carbon Dioxide 33 mmol/L (22-30); Chloride 96 mmol/L (98-107); Glucose 133 mg/dL (74-99); Non-African American GFR(CKD) >90 (>60 ml/min/1.73 sqM); Potassium 4.4 mmol/L (3.5-5.1); Sodium 133 mmol/L (137-145)
[2021-10-14] MEDS ORDERED: bisacodyL 5 MG TABLET.DR PO PRN (13:52)
[2021-10-14] MEDS ORDERED: MAGNESIUM HYDROXIDE 2,400 MG/10 ML CUP PO PRN (13:53)
[2021-10-14 16:27] LABS: Glucose,Whole Blood 150 mg/dL (70-110)
--- NOTE | 2021-10-14 16:35 | P.PN ---
Subjective Progress Note Date: 10/14/21 Hospital course This is a 65-year-old white male with history of severe COPD, non-small cell lung cancer on chemo , history of laryngeal cancer, history of chronic laryngitis, Patient was admitted with symptoms of shortness of breath for the last few days intermittent cough and wheezing. Upon arrival to the ER, patient had to be placed on BiPAP and he was given morphine, felt much better after BiPAP, and he was transitioned to a nasal cannula. Admitted and this consult was initiated. Chest x-ray showed basically small area of scarring in the right upper lobe otherwise unremarkable findings noted. CBC showed leukocytosis with WBC count of 18.2 hemoglobin is 14.7 electrolytes and renal profile are normal. Subjective Patient seen and evaluated at bedside, patient still complaining of exertional dyspnea and able to go to the bathroom to the toilet. Asking for wheelchair for ambulation. Patient currently 5 L nasal cannula.. Patient remains in no acute distress. Patient questions and concerns addressed at bedside, proper counseling done. Plan discussed with nursing staff. Physical exam General: non toxic, no acute distress, alert oriented to time place and person Head: atraumatic, normocephalic, symmetric Eyes: no lid lesion], anicteric sclera Mouth: no lip lesion, mucus membranes moist Cardiovascular: S1S2 reg rate and rhythm, no murmur, no gallop Lungs: Bilateral wheezing. Abdominal: soft, nontender to palpation, no guarding, no appreciable organomegaly Ext: no gross muscle atrophy, no edema extremities warm to suppose a positive Neuro: Alert oriented to time place and person, exam grossly nonfocal Assessment and plan Acute on chronic hypoxic respiratory failure related to acute exacerbation of COPD, Acute purulent tracheobronchitis, history of Chronic laryngitis Continue IV steroids and nebulized bronchodilators Patient was started on levofloxacin by pulm, will cont that Continue BiPAP support as needed per pulm recs Weaning FiO2 to maintain O2 saturations 88-90% Pulmonary recommend an EVAP Patient declined skin residential placement Palliative care consulted History of metastatic non-small cell lung cancer On Chemo Consider hematology oncology evaluation Primary care consulted Chronic medical conditions History of laryngeal cancer status post radiation Former smoker, quit smoking in 2018 History of hyperlipidemia DVT prophylaxis: Subcutaneous heparin CODE STATUS: Full code Discharge plan/next site of care: Will be discharged home with home with home healthcare pending EVAP Objective - Vital Signs Vital signs: Vital Signs Temp 98.0 F 10/14/21 11:41 Pulse 126 H 10/14/21 15:06 Resp 22 10/14/21 14:00 BP 150/86 10/14/21 11:41 Pulse Ox 97 10/14/21 14:52 FiO2 40 10/13/21 20:01 Intake & Output 10/13/21 10/14/21 10/14/21 18:59 06:59 18:59 Intake Total 120 240 Output Total 700 500 200 Balance -580 -500 40 Intake: Oral 120 240 Output: Urine 700 500 200 Other: Voiding Method Urinal Urinal Urinal # Voids 1 - Labs CBC & Chem 7: 10/14/21 11:44 10/14/21 11:44 Labs: Abnormal Lab Results - Last 24 Hours (Table) 10/13/21 10/13/21 10/14/21 Range/Units 16:43 20:01 06:03 WBC (3.8-10.6) k/uL RBC (4.30-5.90) m/uL MCV (80.0-100.0) fL Neutrophils # (1.3-7.7) k/uL Lymphocytes # (1.0-4.8) k/uL Sodium (137-145) mmol/L Chloride (98-107) mmol/L Carbon Dioxide (22-30) mmol/L BUN (9-20) mg/dL Glucose (74-99) mg/dL POC Glucose (mg/dL) 131 H 146 H 127 H (70-110) mg/dL 10/14/21 10/14/21 10/14/21 Range/Units 11:25 11:44 11:44 WBC 11.6 H (3.8-10.6) k/uL RBC 4.20 L (4.30-5.90) m/uL MCV 103.0 H (80.0-100.0) fL Neutrophils # 10.3 H (1.3-7.7) k/uL Lymphocytes # 0.4 L (1.0-4.8) k/uL Sodium 133 L (137-145) mmol/L Chloride 96 L (98-107) mmol/L Carbon Dioxide 33 H (22-30) mmol/L BUN 31 H (9-20) mg/dL Glucose 133 H (74-99) mg/dL POC Glucose (mg/dL) 129 H (70-110) mg/dL 10/14/21 Range/Units 16:26 WBC (3.8-10.6) k/uL RBC (4.30-5.90) m/uL MCV (80.0-100.0) fL Neutrophils # (1.3-7.7) k/uL Lymphocytes # (1.0-4.8) k/uL Sodium (137-145) mmol/L Chloride (98-107) mmol/L Carbon Dioxide (22-30) mmol/L BUN (9-20) mg/dL Glucose (74-99) mg/dL POC Glucose (mg/dL) 150 H (70-110) mg/dL
[2021-10-14 20:50] LABS: Glucose,Whole Blood 176 mg/dL (70-110)
[2021-10-14] MEDS: DOCUSATE 100 MG CAP PO SCH (20:52)
[2021-10-15] MEDS: methylPREDNISolone SOD SUCCI 125 MG/2 ML VIAL IV SCH ×2 (06:08→12:28)
[2021-10-15] MEDS: INSULIN ASPART (NovoLOG) 100 UNIT/ML VIAL SQ SCH ×4 (06:08→20:40)
[2021-10-15 06:24] LABS: Glucose,Whole Blood 154 mg/dL (70-110)
[2021-10-15 08:52] LABS: Basophils % (A) 0 %; Eosinophils % (A) 0 %; HCT 43.1 % (39.0-53.0); HGB 13.7 gm/dL (13.0-17.5); Lymphocytes # (A) 0.6 k/uL (1.0-4.8); Lymphocytes % (A) 6 %; MCH 33.2 pg (25.0-35.0); MCHC 31.8 g/dL (31.0-37.0); MCV 104.5 fL (80.0-100.0); Macrocytosis Slight; Monocytes # (A) 0.8 k/uL (0-1.0); Monocytes % (A) 8 %; Neutrophils # (A) 9.3 k/uL (1.3-7.7); Neutrophils % (A) 85 %; Platelet Count 269 k/uL (150-450); RBC 4.12 m/uL (4.30-5.90); RDW 13.8 % (11.5-15.5); WBC 10.9 k/uL (3.8-10.6)
[2021-10-15] MEDS: SYMBICORT 160-4.5 MCG INHALER INHALATION SCH ×3 (08:52→20:38)
[2021-10-15] MEDS: IPRATROPIUM-ALBUTEROL 3 ML NEB INHALATION SCH ×4 (08:52→20:38)
[2021-10-15 09:07] LABS: ALT 45 U/L (4-49); AST 42 U/L (17-59); African American GFR (CKD) >90 (>60 ml/min/1.73 sqM); Albumin 4.2 g/dL (3.5-5.0); Alkaline Phosphatase 62 U/L (38-126); Anion Gap 3 mmol/L; Blood Urea Nitrogen 30 mg/dL (9-20); Calcium 8.8 mg/dL (8.4-10.2); Carbon Dioxide 38 mmol/L (22-30); Chloride 96 mmol/L (98-107); Glucose 94 mg/dL (74-99); Non-African American GFR(CKD) >90 (>60 ml/min/1.73 sqM); Potassium 4.5 mmol/L (3.5-5.1); Sodium 137 mmol/L (137-145); Total Bilirubin 0.9 mg/dL (0.2-1.3); Total Protein 6.9 g/dL (6.3-8.2)
[2021-10-15] MEDS: PANTOPRAZOLE 40 MG TABLET PO SCH (09:19)
[2021-10-15] MEDS: DOCUSATE 100 MG CAP PO SCH ×3 (09:19→20:40)
[2021-10-15] MEDS: guaiFENesin 600 MG TABLET.ER PO SCH ×2 (09:19→19:45)
[2021-10-15] MEDS: LEVOFLOXACIN 500 MG TAB PO SCH (09:19)
[2021-10-15] MEDS: HEPARIN SODIUM,PORCINE/PF 5,000 UNIT/0.5 ML SYRINGE SQ SCH ×3 (09:19→23:41)
[2021-10-15] MEDS: ATORVASTATIN 20 MG TAB PO SCH (09:19)
[2021-10-15 11:45] LABS: Glucose,Whole Blood 107 mg/dL (70-110)
--- NOTE | 2021-10-15 12:10 | P.PN ---
Subjective Progress Note Date: 10/15/21 Principal diagnosis: Shortness of breath. This is a 65-year-old white male with history of severe COPD, non-small cell lung cancer, history of laryngeal cancer, history of chronic laryngitis, patient normally sees Dr. Gonzalez in the office. The last time he saw Dr. Gonzalez was on 09/24/2021. 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 The patient received a total of 4 cycles of systemic chemotherapy and the patient's last Keytruda treatment was on 05/28/2021 and this was interrupted because of multiple hospitalizations. Currently his condition is stable. The most recent CAT scan of the chest showed stable osseous metastases, the patient's left infrahilar masses probably slightly more prominent and that is another vasopressin left lower lobe posterior segment. I'm not sure this is a true progression of his disease. Patient is normally maintained on albuterol, DuoNeb updrafts, omeprazole, Trelegy Ellipta. And vitamin D. Baseline PFT showed FEV1 in the range of 47%, FEV1/FVC is 49%, low DLCO in the range of 27%. Patient was admitted yesterday with symptoms of shortness of breath for the last few days intermittent cough and wheezing. Upon arrival to the ER, patient had to be placed on BiPAP and he was given morphine, felt much better after BiPAP, and he was transitioned to a nasal cannula. Admitted and this consult was initiated. Chest x-ray showed basically small area of scarring in the right upper lobe otherwise unremarkable findings noted. CBC showed leukocytosis with WBC count of 18.2 hemoglobin is 14.7 electrolytes and renal profile are normal. On 10/12/2021 patient seen in follow-up on selective care unit. He is currently on BiPAP with pressures of 12.6 and FiO2 of 40%, he sitting 99%, seems more comfortable breathing easier on a BiPAP support. Still feels a bit congested in his chest, but is noted to be less bronchospastic and less dyspneic on BiPAP support. His awake and alert, mentation is appropriate, responding appropriat tasia, today's labs have been reviewed, white blood cell count is improving and is down to 14.8, hemoglobin is 13.6, sodium is 135, potassium is 4.6, chloride is 97, B1 is 22 and creatinine 0.81. LFTs are within normal limits. No hemoptysis, no chest pain. Remains on DuoNeb, IV steroids with Solu-Medrol 60 mg every 6 hours, continues on Symbicort, and Levaquin. His chest x-ray on admission showed small area of scarring in the right upper lobe, and there was no acute findings noted Progress note dated 10/13/2021. The patient is again seen in room 376. He was on BiPAP we saw the patient. The settings included an IPAP of 12, EPAP of 6, and an FiO2 of 40%. His saturations were in the high 90s. We went ahead and did a blood gas on his normal oxygen requirements that he uses at home, and the patient does qualify for a BiPAP device. We will attempt to get one for him, when he is discharged. White count 16.4, implement 13.7, hematocrit 40.8, and platelet count 286,000. His blood gases show pO2 of 71, pCO2 of 54, with a normal pH. That was on 4 L of oxygen (35%). Sodium 134, potassium 4.6, chlorides 95, CO2 32, BUN 32, and creatinine 0.89. Progress note dated 10/14/2021. The patient is again seen in room 376. He is currently wearing his BiPAP device. His BiPAP settings are IPAP 12, EPAP 6, with an FiO2 40%. When he is not on BiPAP, she is on 4 L nasal cannula. He is getting saline at [facility]. We were able to contact his old [employer] company and learn, but the patient was previously on average 5 short pressure support (AVAPS). In addition, we have his lab settings including a targeted tidal volume 450, IPAP of between 10-20 cm water. EPAP between 5 and 10 cm water, and a maximal inspiratory pressure of 30. Currently labs include a white count 11.6, hemoglobin 13.9, hematocrit 43.3, and a platelet count of 280,000. Most recent glucose 129. Progress note dated 10/15/2021. 65-year-old male, again seen in room 376. Currently, he is on nasal O2, at 4 L. The patient does use BiPAP from time to time, with settings of 12/6 and 40%. He is not receiving any IV fluids. The patient has qualified for a Trilogy ventilator, to be able to use average volume assured pressure support (AVAPS). The patient had a number of complaints today. He was yelling in his room, and saying everything was stupid. He does seem quite agitated today. White count 10.9, hemoglobin 13.7, hematocrit 43.1, and platelet count was normal. Sodium 137, potassium 4.5, chlorides 96, CO2 38, BUN 30, with a creatinine 0.89. Objective - Vital Signs Vital signs: Vital Signs Temp 97.3 F L 10/15/21 08:00 Pulse 100 10/15/21 09:07 Resp 10/15/21 08:00 BP 158/91 10/15/21 08:00 Pulse Ox 96 10/15/21 08:00 FiO2 40 10/13/21 20:01 Intake & Output 10/14/21 10/15/21 10/15/21 18:59 06:59 18:59 Intake Total 240 200 240 Output Total 200 250 Balance 40 -50 240 Intake: Oral 240 200 240 Output: Urine 200 250 Other: Voiding Method Urinal Urinal Toilet Urinal # Voids 500 2 - Exam No acute distress, oriented 3. Currently on nasal O2 at 4 L. Mild conversational dyspnea. HEENT examination is grossly unremarkable. Neck supple. Full range of motion. No adenopathy thyromegaly or neck vein distention. Cardiovascular examination reveals regular rhythm rate. S1-S2 normal. No S3 or S4. No discernible murmur noted. Heart sounds are distant. Heart rate 100 bpm. Lungs reveal severely diminished breath sounds bilaterally. Scattered rhonchi and wheezes are appreciated. No crackles. Saturations are 96% on 4 L. Abdomen soft bowel sounds are heard. No masses or tenderness. Extremities are intact. No cyanosis clubbing or edema. Skin is without rash or lesion. Neurologic examination is brief but nonfocal. - Labs CBC & Chem 7: 10/15/21 07:53 10/15/21 07:53 Labs: Abnormal Lab Results - Last 24 Hours (Table) 10/14/21 10/14/21 10/14/21 Range/Units 11:44 16:26 20:19 WBC (3.8-10.6) k/uL RBC (4.30-5.90) m/uL MCV (80.0-100.0) fL Neutrophils # (1.3-7.7) k/uL Lymphocytes # (1.0-4.8) k/uL Sodium 133 L (137-145) mmol/L Chloride 96 L (98-107) mmol/L Carbon Dioxide 33 H (22-30) mmol/L BUN 31 H (9-20) mg/dL Glucose 133 H (74-99) mg/dL POC Glucose (mg/dL) 150 H 176 H (70-110) mg/dL 10/15/21 10/15/21 10/15/21 Range/Units 05:46 07:53 07:53 WBC 10.9 H (3.8-10.6) k/uL RBC 4.12 L (4.30-5.90) m/uL MCV 104.5 H (80.0-100.0) fL Neutrophils # 9.3 H (1.3-7.7) k/uL Lymphocytes # 0.6 L (1.0-4.8) k/uL Sodium (137-145) mmol/L Chloride 96 L (98-107) mmol/L Carbon Dioxide 38 H (22-30) mmol/L BUN 30 H (9-20) mg/dL Glucose (74-99) mg/dL POC Glucose (mg/dL) 154 H (70-110) mg/dL Assessment and Plan Assessment: Acute on chronic hypoxemic and hypercapnic respiratory failure, secondary to severe COPD/COPD exacerbation. Acute purulent tracheobronchitis. Chronic laryngitis. History of metastatic non-small cell lung cancer. History of laryngeal carcinoma, status post radiation therapy. Previous history of tobacco use, quit, 2018. History of hyperlipidemia. Plan: Plan dated 10/13/2021. The patient's blood gases would suggest that he does qualify for BiPAP therapy at home. He is on and off the BiPAP throughout the day. When he is not on BiPAP, he's on 4 L nasal cannula. The patient will continue on all appropriate medications. This will include Symbicort, DuoNeb nebs, Levaquin, and Solu- Medrol. Additional recommendations and suggestions are forthcoming. Prognosis is guarded. We will continue to follow the patient and make recommendations where appropriate. Plan dated 10/14/2021. The patient did qualify for a Trilogy ventilator. We were also able to track down his settings. Blood gases yesterday showed a pO2 of 71, pCO2 of 54, pH is 7.38. 4 L of Nasal Oxygen. Currently, the Patient Is on BiPAP. Labs, X-Rays, and Medications Are Reviewed. The Patient's Overall Prognosis Remains Very Guarded. The Patient Is on Symbicort, DuoNeb Nebs, Levaquin, and Solu-Medrol. We Will Continue to Follow and Make Recommendations As Needed. Plan dated 10/15/2021. The patient is seen, and examined, in room 376. Labs, x-rays, medications reviewed. The patient did qualify for the Trilogy ventilator. We do have his prior settings. He's currently on 4 L nasal cannula. He does use BiPAP on and off. His labs and medications are reviewed. Clinically he is doing much better. The patient could be considered for discharge in the near future. No additional recommendations are made. Prognosis is very guarded. Time with Patient: Less than 30
--- NOTE | 2021-10-15 12:20 | P.CONS ---
History of Present Illness - Reason for Consult Consult date: 10/15/21 Informational meeting Requesting physician: Tejinder Zepeda - Chief Complaint Shortness of breath - History of Present Illness The patient is a 65-year-old male with COPD, larynx camcer, and llung cancer (on home oxygen 3L NC). The patient came to the on 10/11/21 with worsening shortness of breath this has been progressive over the past few days with productive cough which is at his baseline. However today he noticed that breathing was extremely difficult despite supplemental oxygen with some chest discomfort. He arrived via EMS on BiPAP. he was given morphine, felt much better after BiPAP, and he was transitioned to a nasal cannula. Chest x-ray showed small area of scarring in the right upper lobe, otherwise unremarkable. Review of Systems Review Of Systems: Constitutional: No fever, no chills, no night sweats. Reports weakness and fatigue. HEENT: No headache. No blurred vision or double vision, no loss of vision. No nasal drainage or congestion. No epistaxis. No sore throat. Lungs: Reports shortness of breath, cough with sputum production. No wheezing. Cardiovascular: No chest pain, no lower extremity edema. No palpitations. Abdominal: No abdominal pain. No nausea, vomiting. No diarrhea. No constipat ion. No bloody or tarry stools.. No loss of appetite. Genitourinary: No dysuria, increased frequency, urgency. No urinary retention. Musculoskeletal: No myalgias. No muscle weakness, no gait dysfunction, no frequent falls. No back pain. No neck pain. Integumentary: No wounds, no lesions. No rash or pruritus. No unusual bruising. No change in hair or nails. Neurologic: No aphasia. No facial droop. No change in mentation. No head injury. No headache. No paralysis. No paresthesia. Psychiatric: No depression. No anxiety. No mood swings. 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, Past Anesthesia/Blood Transfusion Reactions: No Reported Reaction, Unable to Obtain Additional Past Anesthesia/Blood Transfusion Reaction / Comm: does not know family hx Smoking Status: Former smoker - Past Family History Mother Family Medical History: Cancer Father Family Medical History: Myocardial Infarction ([place]) Medications and Allergies Home Medications Medication Instructions Recorded Confirmed Type Atorvastatin Calcium [Lipitor] 20 mg PO DAILY 05/31/20 10/11/21 History Albuterol Inhaler [Ventolin Hfa 2 puff INHALATION RT-QID PRN 01/17/21 10/11/21 History Inhaler] Etodolac 400 mg PO DAILY 01/17/21 10/11/21 History Multivit,Calc,Min/FA/K1/Lycop 1 tab PO DAILY 01/17/21 10/11/21 History [One-A-Day Men's Complete Tab] Ascorbic Acid [Vitamin C] 1,000 mg PO DAILY 06/16/21 10/11/21 History Cholecalciferol [Vitamin D3 (25 25 mcg PO DAILY 06/16/21 10/11/21 History Mcg = 1000 Iu)] Fluticasone Nasal [place] [Flonase 2 spray EA NOSTRIL DAILY PRN 06/16/21 10/11/21 History Nasal [place]] Fluticasone/Umeclidin/Vilanter 1 puff INHALATION RT-DAILY 06/16/21 10/11/21 History [Trelegy Ellipta 200-62.5-25] HYDROcodone/APAP 10-325MG [Risingsun 1 tab PO TID PRN 06/16/21 10/11/21 History 10-325] Ipratropium-Albuterol Nebulize 3 ml INHALATION RT-QID 06/16/21 10/11/21 History [Duoneb 0.5 mg-3 mg/3 ml Soln] predniSONE [Deltasone] 20 mg PO DAILY 07/30/21 10/11/21 History Vitamin B Complex 1 cap PO DAILY 10/11/21 10/11/21 History Allergies Allergy/AdvReac Type Severity Reaction Status Date / Time Penicillins Allergy Unknown Verified 10/11/21 11:49 Childhood Sulfa (Sulfonamide Allergy Unknown Verified 10/11/21 11:49 Antibiotics) Childhood Physical Exam Vitals: Vital Signs Temp Pulse Pulse Pulse Resp BP Pulse Ox 10/15/21 09:07 100 10/15/21 08:52 100 10/15/21 08:00 97.3 F L 110 H 22 158/91 96 10/15/21 06:19 97.7 F 100 20 144/84 97 10/14/21 23:44 97.7 F 96 18 127/90 98 10/14/21 19:32 98.0 F 99 16 132/92 95 10/14/21 19:20 125 H 10/14/21 19:07 123 H 10/14/21 16:00 97.8 F 100 20 144/79 94 L 10/14/21 15:06 126 H 10/14/21 14:52 125 H 97 10/14/21 14:00 22 10/14/21 12:27 128 H 10/14/21 12:19 120 H Intake and Output 10/14/21 10/15/21 10/15/21 22:59 06:59 14:59 Intake Total 200 240 Output Total 250 Balance -250 200 240 Intake: Oral 200 240 Output: Urine 250 Other: Voiding Method Urinal Urinal Toilet Urinal # Voids 500 2 General: Patient awake alert and oriented x 3. No acute distress. HEENT: Head is atraumatic, normocephalic. Sclerae are clear. Pupils equal, round and reactive to light bilaterally. + [place] CV: Heart regular in rate and rhythm positive S1 and S2. No clicks, rubs or murmurs. Peripheral pulses equal. 2/4 Lungs: Siminished throughout. Respirations even and slightly labored. + conversational dyspnea Abdomen/GI: Soft. Bowel sounds present in all 4 quadrants. Bowel sounds nor moactive. No abdominal tenderness. Musculoskeletal/ Extremities: No gross atrophy. Vascular: Radial pulses equal. 2/4. Skin: Warm and dry. No rash. Neurologic: Awake, alert and oriented times 3. CN II-XII grossly intact. Results CBC & Chem 7: 10/15/21 07:53 10/15/21 07:53 Labs: Abnormal Lab Results - Last 24 Hours (Table) 10/14/21 10/14/21 10/14/21 Range/Units 11:44 11:44 16:26 WBC 11.6 H (3.8-10.6) k/uL RBC 4.20 L (4.30-5.90) m/uL MCV 103.0 H (80.0-100.0) fL Neutrophils # 10.3 H (1.3-7.7) k/uL Lymphocytes # 0.4 L (1.0-4.8) k/uL Sodium 133 L (137-145) mmol/L Chloride 96 L (98-107) mmol/L Carbon Dioxide 33 H (22-30) mmol/L BUN 31 H (9-20) mg/dL Glucose 133 H (74-99) mg/dL POC Glucose (mg/dL) 150 H (70-110) mg/dL 10/14/21 10/15/21 10/15/21 Range/Units 20:19 05:46 07:53 WBC 10.9 H (3.8-10.6) k/uL RBC 4.12 L (4.30-5.90) m/uL MCV 104.5 H (80.0-100.0) fL Neutrophils # 9.3 H (1.3-7.7) k/uL Lymphocytes # 0.6 L (1.0-4.8) k/uL Sodium (137-145) mmol/L Chloride (98-107) mmol/L Carbon Dioxide (22-30) mmol/L BUN (9-20) mg/dL Glucose (74-99) mg/dL POC Glucose (mg/dL) 176 H 154 H (70-110) mg/dL 10/15/21 Range/Units 07:53 WBC (3.8-10.6) k/uL RBC (4.30-5.90) m/uL MCV (80.0-100.0) fL Neutrophils # (1.3-7.7) k/uL Lymphocytes # (1.0-4.8) k/uL Sodium (137-145) mmol/L Chloride 96 L (98-107) mmol/L Carbon Dioxide 38 H (22-30) mmol/L BUN 30 H (9-20) mg/dL Glucose (74-99) mg/dL POC Glucose (mg/dL) (70-110) mg/dL Chest x-ray: report reviewed Assessment and Plan Assessment: Social * Occupation - unemployed on disability. 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 No Functional Assessment * Able to walk independently - Yes * Assistive devices - wheelchair for long distances * Able to use the bathroom independently - Yes * Continent - Yes * Require assistance bathing- No * Able to feed self - Yes * Who prepares meals - Patient/Meals on wheels * How many meals a day eaten - 3 meals/day * What percentage of meals eaten daily - 100% * Able to clean house/do laundry - "a little" * Transportation - patient states he has 5 cars and still drives * Able to shop - yes, uses wheelchair or scooter if available * Who manages medications - patient * Who manages finances - patient PPS score - 60% Psychological/Emotional * Dementia present - No * Insight and judgment - Intact * Depression - No * Suicidal thoughts - No * Good support system - Yes * Patients goals - prolonged survival * Frequent hospitalizations - Yes * Desire to keep coming back to the hospital for treatment - Yes Symptoms * Pain - 0/10, Continue morphine and Risingsun prn * Fatigue - yes * SOB - yes (chronic), continue symbicort, mucinex, solumedrol, and duoneb. * Insomnia - yes, continue Melatonin * N/V - no,continue zofran prn * Anxiety - No, continue Ativan prn * Depression - No * Confusion - No * Agitation - Yes * Hallucinations - No * Appetite/weight loss - No appetite loss, no recent weight loss * Dysphagia - No * Constipation - No, continue colace and MOM/dulcolax prn * Incontinence - No * Itch - No Plan: Summary/Goals - The patient was not in a good mood and stated "Now what do you want?" when greeted. After introducing myself, palliative care philosophies and services were explained to the patient. He was not listening and interrupted frequently. He stated he was not interested in hospice, he knows all about it because he just went through hospice with his girlfriend. Attempted to educate the patient on the differences between palliative care and hospice. Again the patient was not listening and kept interrupting. Education regarding end stage COPD attempted. He stated he knows everything about his condition because he has three specialists that he sees. Patient not interested in outpatient palliative care. He states he already has all the support services set up for when he is discharged and he is going home today "no matter what". He stated that they tried to send him to rehab and [facility] Recommendations - Discharge home with [facility] Advanced Directives - None on file, information provided Code Status - Full code Thank you for this consult Leslie Chaudhry [facility] [id number] Email: [email or web address] Time with Patient: Greater than 30
--- NOTE | 2021-10-15 13:02 | P.PN ---
Subjective Hospital course This is a 65-year-old white male with history of severe COPD, non-small cell lung cancer on chemo , history of laryngeal cancer, history of chronic laryngitis, Patient was admitted with symptoms of shortness of breath for the last few days intermittent cough and wheezing. Upon arrival to the ER, patient had to be placed on BiPAP and he was given morphine, felt much better after BiPAP, and he was transitioned to a nasal cannula. Admitted and this consult was initiated. Chest x-ray showed basically small area of scarring in the right upper lobe otherwise unremarkable findings noted. CBC showed leukocytosis with WBC count of 18.2 hemoglobin is 14.7 electrolytes and renal profile are normal. Subjective Patient seen and evaluated at bedside, patient still complaining of exertional dyspnea and able to go to the bathroom to the toilet. Patient currently 4 L nasal cannula.. Patient remains in no acute distress. Patient questions and concerns addressed at bedside, proper counseling done. Plan discussed with nursing staff. Physical exam General: non toxic, no acute distress, alert oriented to time place and person Head: atraumatic, normocephalic, symmetric Eyes: no lid lesion], anicteric sclera Mouth: no lip lesion, mucus membranes moist Cardiovascular: S1S2 reg rate and rhythm, no murmur, no gallop Lungs: Bilateral wheezing. Abdominal: soft, nontender to palpation, no guarding, no appreciable organomegaly Ext: no gross muscle atrophy, no edema extremities warm to suppose a positive Neuro: Alert oriented to time place and person, exam grossly nonfocal Assessment and plan Acute on chronic hypoxic respiratory failure related to acute exacerbation of COPD, Acute purulent tracheobronchitis, history of Chronic laryngitis Continue IV steroids and nebulized bronchodilators Patient was started on levofloxacin by pulm, will cont that Continue BiPAP support as needed per pulm recs Weaning FiO2 to maintain O2 saturations 88-90% Pulmonary recommend an EVAP if he is going home Patient declined skin shelter placement Palliative care consulted but patient declined History of metastatic non-small cell lung cancer On Chemo Consider hematology oncology evaluation Primary care consulted Chronic medical conditions History of laryngeal cancer status post radiation Former smoker, quit smoking in 2018 History of hyperlipidemia DVT prophylaxis: Subcutaneous heparin CODE STATUS: Full code Discharge plan/next site of care: Will be discharged home with home with home healthcare pending EVAP Objective - Vital Signs Vital signs: Vital Signs Temp 97.3 F L 07/13/22 08:00 Pulse 100 10/15/21 09:07 Resp 22 10/15/21 08:00 BP 158/91 10/15/21 08:00 Pulse Ox 96 10/15/21 08:00 FiO2 40 10/13/21 20:01 Intake & Output 10/14/21 10/15/21 10/15/21 18:59 06:59 18:59 Intake Total 240 200 240 Output Total 200 250 Balance 40 -50 240 Intake: Oral 240 200 240 Output: Urine 200 250 Other: Voiding Method Urinal Urinal Toilet Urinal # Voids 500 2 - Labs CBC & Chem 7: 10/15/21 07:53 10/15/21 07:53 Labs: Abnormal Lab Results - Last 24 Hours (Table) 10/14/21 10/14/21 10/15/21 Range/Units 16:26 20:19 05:46 WBC (3.8-10.6) k/uL RBC (4.30-5.90) m/uL MCV (80.0-100.0) fL Neutrophils # (1.3-7.7) k/uL Lymphocytes # (1.0-4.8) k/uL Chloride (98-107) mmol/L Carbon Dioxide (22-30) mmol/L BUN (9-20) mg/dL POC Glucose (mg/dL) 150 H 176 H 154 H (70-110) mg/dL 10/15/21 10/15/21 Range/Units 07:53 07:53 WBC 10.9 H (3.8-10.6) k/uL RBC 4.12 L (4.30-5.90) m/uL MCV 104.5 H (80.0-100.0) fL Neutrophils # 9.3 H (1.3-7.7) k/uL Lymphocytes # 0.6 L (1.0-4.8) k/uL Chloride 96 L (98-107) mmol/L Carbon Dioxide 38 H (22-30) mmol/L BUN 30 H (9-20) mg/dL POC Glucose (mg/dL) (70-110) mg/dL
[2021-10-15 16:26] LABS: Glucose,Whole Blood 105 mg/dL (70-110)
[2021-10-15] MEDS: HYDROcodone/APAP 10-325MG 1 EACH TAB PO PRN (19:45)
[2021-10-15 20:28] LABS: Glucose,Whole Blood 121 mg/dL (70-110)
[2021-10-15] MEDS: MELATONIN 3 MG TABLET PO PRN (23:41)
[2021-10-16 05:58] LABS: Glucose,Whole Blood 91 mg/dL (70-110)
[2021-10-16] MEDS: INSULIN ASPART (NovoLOG) 100 UNIT/ML VIAL SQ SCH ×4 (06:00→21:59)
[2021-10-16] MEDS: SYMBICORT 160-4.5 MCG INHALER INHALATION SCH ×3 (07:15→19:13)
[2021-10-16] MEDS: IPRATROPIUM-ALBUTEROL 3 ML NEB INHALATION SCH ×4 (07:15→19:12)
[2021-10-16] MEDS: guaiFENesin 600 MG TABLET.ER PO SCH ×2 (08:35→22:00)
[2021-10-16] MEDS: DOCUSATE 100 MG CAP PO SCH ×2 (08:35→21:59)
[2021-10-16] MEDS: LEVOFLOXACIN 500 MG TAB PO SCH (08:35)
[2021-10-16] MEDS: ATORVASTATIN 20 MG TAB PO SCH (08:36)
[2021-10-16] MEDS: PANTOPRAZOLE 40 MG TABLET PO SCH (08:36)
[2021-10-16] MEDS: HEPARIN SODIUM,PORCINE/PF 5,000 UNIT/0.5 ML SYRINGE SQ SCH ×2 (08:36→18:20)
[2021-10-16] MEDS: predniSONE 20 MG TAB PO SCH (08:36)
[2021-10-16 09:19] LABS: HCT 44.3 % (39.0-53.0); HGB 14.4 gm/dL (13.0-17.5); MCH 33.8 pg (25.0-35.0); MCHC 32.6 g/dL (31.0-37.0); MCV 103.9 fL (80.0-100.0); Macrocytosis Slight; Mean Platelet Volume 7.9; Platelet Count 263 k/uL (150-450); RBC 4.26 m/uL (4.30-5.90); RDW 13.8 % (11.5-15.5); WBC 12.6 k/uL (3.8-10.6)
[2021-10-16 09:35] LABS: Chloride 97 mmol/L (98-107)
[2021-10-16 09:37] LABS: ALT 48 U/L (4-49); AST 45 U/L (17-59); African American GFR (CKD) >90 (>60 ml/min/1.73 sqM); Albumin 4.2 g/dL (3.5-5.0); Alkaline Phosphatase 70 U/L (38-126); Anion Gap 2 mmol/L; Blood Urea Nitrogen 36 mg/dL (9-20); Calcium 8.7 mg/dL (8.4-10.2); Carbon Dioxide 35 mmol/L (22-30); Glucose 96 mg/dL (74-99); Non-African American GFR(CKD) 79 (>60 ml/min/1.73 sqM); Potassium 4.4 mmol/L (3.5-5.1); Sodium 134 mmol/L (137-145); Total Bilirubin 0.9 mg/dL (0.2-1.3); Total Protein 6.7 g/dL (6.3-8.2)
--- NOTE | 2021-10-16 10:40 | P.PN ---
Progress Note - Text Progress Note Date: 10/16/21 Patient stated he is not interested in palliative care services at this time. Will sign off. Please re-consult if needed. Thank you for this consultation. Leslie Chaudhry [facility] Palliative Care [facility] [id number] Email: [email or web address]
--- NOTE | 2021-10-16 11:27 | P.PN ---
Subjective Progress Note Date: 10/16/21 Principal diagnosis: Shortness of breath. This is a 65-year-old white male with history of severe COPD, non-small cell lung cancer, history of laryngeal cancer, history of chronic laryngitis, patient normally sees Dr. Gonzalez in the office. The last time he saw Dr. Gonzalez was on 09/24/2021. 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 The patient received a total of 4 cycles of systemic chemotherapy and the patient's last Keytruda treatment was on 05/28/2021 and this was interrupted because of multiple hospitalizations. Currently his condition is stable. The most recent CAT scan of the chest showed stable osseous metastases, the patient's left infrahilar masses probably slightly more prominent and that is another vasopressin left lower lobe posterior segment. I'm not sure this is a true progression of his disease. Patient is normally maintained on albuterol, DuoNeb updrafts, omeprazole, Trelegy Ellipta. And vitamin D. Baseline PFT showed FEV1 in the range of 47%, FEV1/FVC is 49%, low DLCO in the range of 27%. Patient was admitted yesterday with symptoms of shortness of breath for the last few days intermittent cough and wheezing. Upon arrival to the ER, patient had to be placed on BiPAP and he was given morphine, felt much better after BiPAP, and he was transitioned to a nasal cannula. Admitted and this consult was initiated. Chest x-ray showed basically small area of scarring in the right upper lobe otherwise unremarkable findings noted. CBC showed leukocytosis with WBC count of 18.2 hemoglobin is 14.7 electrolytes and renal profile are normal. On 10/12/2021 patient seen in follow-up on selective care unit. He is currently on BiPAP with pressures of 12.6 and FiO2 of 40%, he sitting 99%, seems more comfortable breathing easier on a BiPAP support. Still feels a bit congested in his chest, but is noted to be less bronchospastic and less dyspneic on BiPAP support. His awake and alert, mentation is appropriate, responding appropriat tasia, today's labs have been reviewed, white blood cell count is improving and is down to 14.8, hemoglobin is 13.6, sodium is 135, potassium is 4.6, chloride is 97, B1 is 22 and creatinine 0.81. LFTs are within normal limits. No hemoptysis, no chest pain. Remains on DuoNeb, IV steroids with Solu-Medrol 60 mg every 6 hours, continues on Symbicort, and Levaquin. His chest x-ray on admission showed small area of scarring in the right upper lobe, and there was no acute findings noted Progress note dated 10/13/2021. The patient is again seen in room 376. He was on BiPAP we saw the patient. The settings included an IPAP of 12, EPAP of 6, and an FiO2 of 40%. His saturations were in the high 90s. We went ahead and did a blood gas on his normal oxygen requirements that he uses at home, and the patient does qualify for a BiPAP device. We will attempt to get one for him, when he is discharged. White count 16.4, implement 13.7, hematocrit 40.8, and platelet count 286,000. His blood gases show pO2 of 71, pCO2 of 54, with a normal pH. That was on 4 L of oxygen (35%). Sodium 134, potassium 4.6, chlorides 95, CO2 32, BUN 32, and creatinine 0.89. Progress note dated 10/14/2021. The patient is again seen in room 376. He is currently wearing his BiPAP device. His BiPAP settings are IPAP 12, EPAP 6, with an FiO2 40%. When he is not on BiPAP, she is on 4 L nasal cannula. He is getting saline at [facility]. We were able to contact his old [facility] company and learn, but the patient was previously on average 5 short pressure support (AVAPS). In addition, we have his lab settings including a targeted tidal volume 450, IPAP of between 10-20 cm water. EPAP between 5 and 10 cm water, and a maximal inspiratory pressure of 30. Currently labs include a white count 11.6, hemoglobin 13.9, hematocrit 43.3, and a platelet count of 280,000. Most recent glucose 129. Progress note dated 10/15/2021. 65-year-old male, again seen in room 376. Currently, he is on nasal O2, at 4 L. The patient does use BiPAP from time to time, with settings of 12/6 and 40%. He is not receiving any IV fluids. The patient has qualified for a Trilogy ventilator, to be able to use average volume assured pressure support (AVAPS). The patient had a number of complaints today. He was yelling in his room, and saying everything was stupid. He does seem quite agitated today. White count 10.9, hemoglobin 13.7, hematocrit 43.1, and platelet count was normal. Sodium 137, potassium 4.5, chlorides 96, CO2 38, BUN 30, with a creatinine 0.89. Progress note dated 10/16/2021. 65-year-old male, again seen in room 376. The patient is currently on nasal cannula. We were able to secure a noninvasive ventilator for the patient. This is better than what we had a basic planned on. The BiPAP, with likely not to be adequate or sufficient for this patient. We do have his old ventilator settings, and in the past, he was using average volume assured pressure support. White count 12.6, hemoglobin 14.4, hematocrit 44.3, and platelet count was normal. Sodium 134, potassium 4.4, chlorides 97, CO2 35, BUN 36, and creatinine 1. Objective - Vital Signs Vital signs: Vital Signs Temp 97.1 F L 10/16/21 11:17 Pulse 97 10/16/21 11:17 Resp 32 H 10/16/21 11:17 BP 139/96 10/16/21 11:17 Pulse Ox 97 10/16/21 11:17 FiO2 40 10/13/21 20:01 Intake & Output 10/15/21 10/16/21 10/16/21 18:59 06:59 18:59 Intake Total 1258 90 Output Total 0 Balance 1258 0 90 Intake: Oral 1258 90 Output: Stool 0 Other: Voiding Method Toilet Urinal # Voids 2 - Exam No acute distress, oriented 3. Currently on nasal O2 at 4 L. Mild conversational dyspnea. HEENT examination is grossly unremarkable. Neck supple. Full range of motion. No adenopathy thyromegaly or neck vein distention. Cardiovascular examination reveals regular rhythm rate. S1-S2 normal. No S3 or S4. No discernible murmur noted. Heart sounds are distant. Heart rate 97 bpm. Lungs reveal severely diminished breath sounds bilaterally. Scattered rhonchi and wheezes are appreciated. No crackles. Saturations are 97 % on 4 L. Abdomen soft bowel sounds are heard. No masses or tenderness. Extremities are intact. No cyanosis clubbing or edema. Skin is without rash or lesion. Neurologic examination is brief but nonfocal. - Labs CBC & Chem 7: 10/16/21 08:49 10/16/21 08:49 Labs: Abnormal Lab Results - Last 24 Hours (Table) 10/15/21 10/16/21 10/16/21 Range/Units 20:13 08:49 08:49 WBC 12.6 H (3.8-10.6) k/uL RBC 4.26 L (4.30-5.90) m/uL MCV 103.9 H (80.0-100.0) fL Sodium 134 L (137-145) mmol/L Chloride 97 L (98-107) mmol/L Carbon Dioxide 35 H (22-30) mmol/L BUN 36 H (9-20) mg/dL POC Glucose (mg/dL) 121 H (70-110) mg/dL Assessment and Plan Assessment: Acute on chronic hypoxemic and hypercapnic respiratory failure, secondary to severe COPD/COPD exacerbation. Acute purulent tracheobronchitis. Chronic laryngitis. History of metastatic non-small cell lung cancer. History of laryngeal carcinoma, status post radiation therapy. Previous history of tobacco use, quit, 2018. History of hyperlipidemia. Plan: Plan dated 10/13/2021. The patient's blood gases would suggest that he does qualify for BiPAP therapy at home. He is on and off the BiPAP throughout the day. When he is not on BiPAP, he's on 4 L nasal cannula. The patient will continue on all appropriate medications. This will include Symbicort, DuoNeb nebs, Levaquin, and Solu- Medrol. Additional recommendations and suggestions are forthcoming. Prognosis is guarded. We will continue to follow the patient and make recommendations where appropriate. Plan dated 10/14/2021. The patient did qualify for a Trilogy ventilator. We were also able to track down his settings. Blood gases yesterday showed a pO2 of 71, pCO2 of 54, pH is 7.38. 4 L of Nasal Oxygen. Currently, the Patient Is on BiPAP. Labs, X-Rays, and Medications Are Reviewed. The Patient's Overall Prognosis Remains Very Guarded. The Patient Is on Symbicort, DuoNeb Nebs, Levaquin, and Solu-Medrol. We Will Continue to Follow and Make Recommendations As Needed. Plan dated 10/15/2021. The patient is seen, and examined, in room 376. Labs, x-rays, medications reviewed. The patient did qualify for the Trilogy ventilator. We do have his prior settings. He's currently on 4 L nasal cannula. He does use BiPAP on and off. His labs and medications are reviewed. Clinically he is doing much better. The patient could be considered for discharge in the near future. No additional recommendations are made. Prognosis is very guarded. Plan dated 10/16/2021. The patient is ready for discharge in my opinion. We are able to secure a noninvasive ventilator for this patient, and we have his home settings, which should really help him once he is discharged. The noninvasive ventilator is a superior device for this patient as the BiPAP device would be insufficient or inadequate. I've asked the patient to use the noninvasive ventilator primarily at nighttime. The patient is currently on Symbicort, DuoNeb, Levaquin, and prednisone. The patient will follow-up with my partner in the office, after discharge. The patient's overall prognosis is very poor. Time with Patient: Less than 30
[2021-10-16 11:56] LABS: Lymphocytes # (M) 1.89 k/uL (1.0-4.8); Metamyelocytes # (M) 0.38 k/uL (0); Metamyelocytes % 3 %; Monocytes # (M) 1.76 k/uL (0-1.0); Myelocytes # (M) 0.38 k/uL (0); Myelocytes % 3 %; Neutrophils # (M) 8.44 k/uL (1.3-7.7); Neutrophils % (M) 67 %; Nucleated Red Blood Cells 0 /100 WBC (0-0); Total Cells Counted 200
[2021-10-16 12:11] LABS: Glucose,Whole Blood 96 mg/dL (70-110)
--- NOTE | 2021-10-16 15:22 | P.PN ---
Subjective Progress Note Date: 10/16/21 65-year-old male with a history of end-stage COPD, non-small cell lung cancer, laryngeal cancer, admitted a few days ago with acute on chronic hypoxic respiratory failure secondary to COPD exacerbation. He has been receiving systemic steroids, bronchodilators, levofloxacin for suspected tracheobronchitis. He is currently on 4 L of oxygen with saturation in the low 90s. He is using AVAPS ventilation at night, social workers working on securing a machine for him to take home. Patient is still complaining of shortness of breath, but this appears to be close to his baseline. He was seen by palliative care today but refused to sign on to hospice. He became very emotional and upset regarding his poor clinical outlook in life expectancy, and was very apprehensive about going home today Objective - Vital Signs Vital signs: Vital Signs Temp 97.1 F L 10/16/21 11:17 Pulse 104 H 10/16/21 11:45 Resp 32 H 10/16/21 14:00 BP 139/96 10/16/21 11:17 Pulse Ox 97 10/16/21 11:17 FiO2 40 10/13/21 20:01 Intake & Output 10/15/21 10/16/21 10/16/21 18:59 06:59 18:59 Intake Total 1258 270 Output Total 0 Balance 1258 0 270 Intake: Oral 1258 270 Output: Stool 0 Other: Voiding Method Toilet Urinal # Voids 2 2 - Exam General: non toxic, no acute distress, alert oriented to time place and person Head: atraumatic, normocephalic, symmetric Eyes: Pupils equal and reactive to light, extraocular muscles intact anicteric sclera Mouth: no lip lesion, mucus membranes moist Cardiovascular: S1S2 reg rate and rhythm, no murmur, no gallop Lungs: Bilateral wheezing. severely diminished breath sounds bilaterally. No crackles. Abdominal: soft, nontender to palpation, no guarding, no appreciable organomegaly Ext: no gross muscle atrophy, no edema extremities Neuro: Alert oriented to time place and person, exam grossly nonfocal - Labs CBC & Chem 7: 10/16/21 08:49 10/16/21 08:49 Labs: Abnormal Lab Results - Last 24 Hours (Table) 10/15/21 10/16/21 10/16/21 Range/Units 20:13 08:49 08:49 WBC 12.6 H (3.8-10.6) k/uL RBC 4.26 L (4.30-5.90) m/uL MCV 103.9 H (80.0-100.0) fL Neutrophils # (Manual) 8.44 H (1.3-7.7) k/uL Monocytes # (Manual) 1.76 H (0-1.0) k/uL Metamyelocytes # (Man) 0.38 H (0) k/uL Myelocytes # (Manual) 0.38 H (0) k/uL Sodium 134 L (137-145) mmol/L Chloride 97 L (98-107) mmol/L Carbon Dioxide 35 H (22-30) mmol/L BUN 36 H (9-20) mg/dL POC Glucose (mg/dL) 121 H (70-110) mg/dL Assessment and Plan Assessment: Acute on chronic hypoxic respiratory failure Improving related to acute exacerbation of COPD, Acute purulent tracheobronchitis, history of Chronic laryngitis Continue IV steroids and nebulized bronchodilators Patient was started on levofloxacin by pulm which will be continued Continue AVAPS at night, social work to arrange for AVAPS device for home Currently down to baseline oxygen requirement of 4 L, saturation in low 90s Prognosis is very poor with end-stage COPD and lung cancer. Patient refused palliative care History of metastatic non-small cell lung cancer On Chemo f/u with hematology oncology as outpt Chronic medical conditions History of laryngeal cancer status post radiation Former smoker, quit smoking in 2018 History of hyperlipidemia DVT prophylaxis: Subcutaneous heparin CODE STATUS: Full code Discharge plan/next site of care: home tomorrow with AVAPS ventilator Time with Patient: Less than 30
[2021-10-16 16:58] LABS: Glucose,Whole Blood 160 mg/dL (70-110)
[2021-10-16] MEDS ORDERED: IPRATROPIUM-ALBUTEROL 3 ML NEB INHALATION PRN (19:15)
[2021-10-16 20:30] LABS: Glucose,Whole Blood 126 mg/dL (70-110)
[2021-10-16 21:49] VITALS: TEMP 98.3
[2021-10-16] MEDS: MELATONIN 3 MG TABLET PO PRN (22:00)
[2021-10-17] MEDS: HEPARIN SODIUM,PORCINE/PF 5,000 UNIT/0.5 ML SYRINGE SQ SCH ×2 (01:17→09:27)
[2021-10-17 06:06] LABS: Glucose,Whole Blood 114 mg/dL (70-110)
[2021-10-17] MEDS: INSULIN ASPART (NovoLOG) 100 UNIT/ML VIAL SQ SCH ×2 (06:06→12:23)
[2021-10-17] MEDS: HYDROcodone/APAP 10-325MG 1 EACH TAB PO PRN ×2 (06:10→12:37)
[2021-10-17] MEDS: IPRATROPIUM-ALBUTEROL 3 ML NEB INHALATION SCH ×2 (07:13→11:21)
[2021-10-17 08:03] LABS: Albumin 3.9 g/dL (3.5-5.0); Calcium 8.5 mg/dL (8.4-10.2); Potassium 4.2 mmol/L (3.5-5.1); Total Bilirubin 0.8 mg/dL (0.2-1.3); Total Protein 6.2 g/dL (6.3-8.2)
[2021-10-17 09:34] LABS: HCT 43.1 % (39.0-53.0); HGB 13.8 gm/dL (13.0-17.5); MCH 33.2 pg (25.0-35.0); MCHC 31.9 g/dL (31.0-37.0); MCV 104.1 fL (80.0-100.0); Macrocytosis Slight; Mean Platelet Volume 8.8; Platelet Count 233 k/uL (150-450); RBC 4.14 m/uL (4.30-5.90); RDW 13.4 % (11.5-15.5); WBC 12.2 k/uL (3.8-10.6)
[2021-10-17] MEDS: predniSONE 20 MG TAB PO SCH (09:34)
[2021-10-17] MEDS: PANTOPRAZOLE 40 MG TABLET PO SCH (09:35)
[2021-10-17] MEDS: DOCUSATE 100 MG CAP PO SCH (09:35)
[2021-10-17] MEDS: LEVOFLOXACIN 500 MG TAB PO SCH (09:35)
[2021-10-17] MEDS: ATORVASTATIN 20 MG TAB PO SCH (09:35)
[2021-10-17] MEDS: guaiFENesin 600 MG TABLET.ER PO SCH (09:35)
--- NOTE | 2021-10-17 10:59 | P.PN ---
Subjective Progress Note Date: 10/17/21 Principal diagnosis: Shortness of breath. This is a 65-year-old white male with history of severe COPD, non-small cell lung cancer, history of laryngeal cancer, history of chronic laryngitis, patient normally sees Dr. Gonzalez in the office. The last time he saw Dr. Gonzalez was on 09/24/2021. 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 The patient received a total of 4 cycles of systemic chemotherapy and the patient's last Keytruda treatment was on 05/28/2021 and this was interrupted because of multiple hospitalizations. Currently his condition is stable. The most recent CAT scan of the chest showed stable osseous metastases, the patient's left infrahilar masses probably slightly more prominent and that is another vasopressin left lower lobe posterior segment. I'm not sure this is a true progression of his disease. Patient is normally maintained on albuterol, DuoNeb updrafts, omeprazole, Trelegy Ellipta. And vitamin D. Baseline PFT showed FEV1 in the range of 47%, FEV1/FVC is 49%, low DLCO in the range of 27%. Patient was admitted yesterday with symptoms of shortness of breath for the last few days intermittent cough and wheezing. Upon arrival to the ER, patient had to be placed on BiPAP and he was given morphine, felt much better after BiPAP, and he was transitioned to a nasal cannula. Admitted and this consult was initiated. Chest x-ray showed basically small area of scarring in the right upper lobe otherwise unremarkable findings noted. CBC showed leukocytosis with WBC count of 18.2 hemoglobin is 14.7 electrolytes and renal profile are normal. On 10/12/2021 patient seen in follow-up on selective care unit. He is currently on BiPAP with pressures of 12.6 and FiO2 of 40%, he sitting 99%, seems more comfortable breathing easier on a BiPAP support. Still feels a bit congested in his chest, but is noted to be less bronchospastic and less dyspneic on BiPAP support. His awake and alert, mentation is appropriate, responding appropriat tasia, today's labs have been reviewed, white blood cell count is improving and is down to 14.8, hemoglobin is 13.6, sodium is 135, potassium is 4.6, chloride is 97, B1 is 22 and creatinine 0.81. LFTs are within normal limits. No hemoptysis, no chest pain. Remains on DuoNeb, IV steroids with Solu-Medrol 60 mg every 6 hours, continues on Symbicort, and Levaquin. His chest x-ray on admission showed small area of scarring in the right upper lobe, and there was no acute findings noted Progress note dated 10/13/2021. The patient is again seen in room 376. He was on BiPAP we saw the patient. The settings included an IPAP of 12, EPAP of 6, and an FiO2 of 40%. His saturations were in the high 90s. We went ahead and did a blood gas on his normal oxygen requirements that he uses at home, and the patient does qualify for a BiPAP device. We will attempt to get one for him, when he is discharged. White count 16.4, implement 13.7, hematocrit 40.8, and platelet count 286,000. His blood gases show pO2 of 71, pCO2 of 54, with a normal pH. That was on 4 L of oxygen (35%). Sodium 134, potassium 4.6, chlorides 95, CO2 32, BUN 32, and creatinine 0.89. Progress note dated 10/14/2021. The patient is again seen in room 376. He is currently wearing his BiPAP device. His BiPAP settings are IPAP 12, EPAP 6, with an FiO2 40%. When he is not on BiPAP, she is on 4 L nasal cannula. He is getting saline at [facility]. We were able to contact his old [employer] company and learn, but the patient was previously on average 5 short pressure support (AVAPS). In addition, we have his lab settings including a targeted tidal volume 450, IPAP of between 10-20 cm water. EPAP between 5 and 10 cm water, and a maximal inspiratory pressure of 30. Currently labs include a white count 11.6, hemoglobin 13.9, hematocrit 43.3, and a platelet count of 280,000. Most recent glucose 129. Progress note dated 10/15/2021. 65-year-old male, again seen in room 376. Currently, he is on nasal O2, at 4 L. The patient does use BiPAP from time to time, with settings of 12/6 and 40%. He is not receiving any IV fluids. The patient has qualified for a Trilogy ventilator, to be able to use average volume assured pressure support (AVAPS). The patient had a number of complaints today. He was yelling in his room, and saying everything was stupid. He does seem quite agitated today. White count 10.9, hemoglobin 13.7, hematocrit 43.1, and platelet count was normal. Sodium 137, potassium 4.5, chlorides 96, CO2 38, BUN 30, with a creatinine 0.89. Progress note dated 10/16/2021. 65-year-old male, again seen in room 376. The patient is currently on nasal cannula. We were able to secure a noninvasive ventilator for the patient. This is better than what we had a basic planned on. The BiPAP, with likely not to be adequate or sufficient for this patient. We do have his old ventilator settings, and in the past, he was using average volume assured pressure support. White count 12.6, hemoglobin 14.4, hematocrit 44.3, and platelet count was normal. Sodium 134, potassium 4.4, chlorides 97, CO2 35, BUN 36, and creatinine 1. Progress note dated 10/17/2021. 65-year-old male, seen again in room 376. He is currently receiving oxygen by nasal cannula, at 4 L. The patient in my opinion, could be considered for possible discharge. We have arranged for a Trilogy ventilator for home use. Clinically, he is very stable. Follow with my partner after discharge. White count 12.2, hemoglobin 13.8, hematocrit 43.1, and platelet count 233,000. Sodium 134, potassium 4.2, chlorides 96, CO2 38, BUN 28, and creatinine 1.02. Objective - Vital Signs Vital signs: Vital Signs Temp 98.3 F 10/17/21 04:00 Pulse 96 10/17/21 07:24 Resp 20 10/17/21 04:00 BP 111/70 10/17/21 04:00 Pulse Ox 99 10/17/21 04:00 FiO2 40 10/13/21 20:01 Intake & Output 10/16/21 10/17/21 10/17/21 18:59 06:59 18:59 Intake Total 510 240 270 Output Total 350 Balance 510 -110 270 Intake: Oral 510 240 270 Output: Urine 350 Other: # Voids 2 2 - Exam No acute distress, oriented 3. Currently on nasal O2 at 4 L. Mild conversational dyspnea. Saturations are 99%. HEENT examination is grossly unremarkable. Neck supple. Full range of motion. No adenopathy thyromegaly or neck vein distention. Cardiovascular examination reveals regular rhythm rate. S1-S2 normal. No S3 or S4. No discernible murmur noted. Heart sounds are distant. Heart rate 96 bpm. Lungs reveal severely diminished breath sounds bilaterally. Scattered rhonchi and wheezes are appreciated. No crackles. Abdomen soft bowel sounds are heard. No masses or tenderness. Extremities are intact. No cyanosis clubbing or edema. Skin is without rash or lesion. Neurologic examination is brief but nonfocal. - Labs CBC & Chem 7: 10/17/21 07:20 10/17/21 07:20 Labs: Abnormal Lab Results - Last 24 Hours (Table) 10/16/21 10/16/21 10/16/21 Range/Units 08:49 16:56 20:27 WBC (3.8-10.6) k/uL RBC (4.30-5.90) m/uL MCV (80.0-100.0) fL Neutrophils # (Manual) 8.44 H (1.3-7.7) k/uL Monocytes # (Manual) 1.76 H (0-1.0) k/uL Metamyelocytes # (Man) 0.38 H (0) k/uL Myelocytes # (Manual) 0.38 H (0) k/uL Sodium (137-145) mmol/L Chloride (98-107) mmol/L Carbon Dioxide (22-30) mmol/L BUN (9-20) mg/dL POC Glucose (mg/dL) 160 H 126 H (70-110) mg/dL Total Protein (6.3-8.2) g/dL 10/17/21 10/17/21 10/17/21 Range/Units 06:04 07:20 07:20 WBC 12.2 H (3.8-10.6) k/uL RBC 4.14 L (4.30-5.90) m/uL MCV 104.1 H (80.0-100.0) fL Neutrophils # (Manual) (1.3-7.7) k/uL Monocytes # (Manual) (0-1.0) k/uL Metamyelocytes # (Man) (0) k/uL Myelocytes # (Manual) (0) k/uL Sodium 134 L (137-145) mmol/L Chloride 96 L (98-107) mmol/L Carbon Dioxide 38 H (22-30) mmol/L BUN 28 H (9-20) mg/dL POC Glucose (mg/dL) 114 H (70-110) mg/dL Total Protein 6.2 L (6.3-8.2) g/dL Assessment and Plan Assessment: Acute on chronic hypoxemic and hypercapnic respiratory failure, secondary to severe COPD/COPD exacerbation. Acute purulent tracheobronchitis. Chronic laryngitis. History of metastatic non-small cell lung cancer. History of laryngeal carcinoma, status post radiation therapy. Previous history of tobacco use, quit, 2018. History of hyperlipidemia. Plan: Plan dated 10/13/2021. The patient's blood gases would suggest that he does qualify for BiPAP therapy at home. He is on and off the BiPAP throughout the day. When he is not on BiPA P, he's on 4 L nasal cannula. The patient will continue on all appropriate medications. This will include Symbicort, DuoNeb nebs, Levaquin, and Solu- Medrol. Additional recommendations and suggestions are forthcoming. Prognosis is guarded. We will continue to follow the patient and make recommendations where appropriate. Plan dated 10/14/2021. The patient did qualify for a Trilogy ventilator. We were also able to track down his settings. Blood gases yesterday showed a pO2 of 71, pCO2 of 54, pH is 7.38. 4 L of Nasal Oxygen. Currently, the Patient Is on BiPAP. Labs, X-Rays, and Medications Are Reviewed. The Patient's Overall Prognosis Remains Very Guarded. The Patient Is on Symbicort, DuoNeb Nebs, Levaquin, and Solu-Medrol. We Will Continue to Follow and Make Recommendations As Needed. Plan dated 10/15/2021. The patient is seen, and examined, in room 376. Labs, x-rays, medications reviewed. The patient did qualify for the Trilogy ventilator. We do have his prior settings. He's currently on 4 L nasal cannula. He does use BiPAP on and off. His labs and medications are reviewed. Clinically he is doing much better. The patient could be considered for discharge in the near future. No additional recommendations are made. Prognosis is very guarded. Plan dated 10/16/2021. The patient is ready for discharge in my opinion. We are able to secure a noninvasive ventilator for this patient, and we have his home settings, which should really help him once he is discharged. The noninvasive ventilator is a superior device for this patient as the BiPAP device would be insufficient or inadequate. I've asked the patient to use the noninvasive ventilator primarily at nighttime. The patient is currently on Symbicort, DuoNeb, Levaquin, and prednisone. The patient will follow-up with my partner in the office, after discharge. The patient's overall prognosis is very poor. Plan dated 10/17/2021. The patient stable on 4 L nasal cannula. He will have a noninvasive ventilator sent to his home after discharge. We have previous settings. Labs, x-rays, and medications are reviewed. Prognosis is certainly guarded. The patient will follow-up with my partner post discharge. No additional recommendations are made at this time. Time with Patient: Less than 30
[2021-10-17 12:11] LABS: Glucose,Whole Blood 99 mg/dL (70-110)
[2021-10-17 13:05] VITALS: BP 125/77; RESP 18
[2021-10-17 13:31] VITALS: PULSE 104
[2021-10-17 13:35] LABS: Band Neutrophils % 1 %; Eosinophils # (M) 0.12 k/uL (0-0.7); Lymphocytes # (M) 2.07 k/uL (1.0-4.8); Metamyelocytes # (M) 0.12 k/uL (0); Metamyelocytes % 1 %; Monocytes # (M) 1.59 k/uL (0-1.0); Myelocytes # (M) 0.61 k/uL (0); Myelocytes % 5 %; Neutrophils % (M) 63 %; Nucleated Red Blood Cells 0 /100 WBC (0-0); Total Cells Counted 200
--- NOTE | 2021-10-18 16:54 | P.DS ---
Providers Date of admission: 10/11/21 06:05 Expected date of discharge: 10/17/21 Attending physician: Tejinder Zepeda MD Consults: 10/11/21 06:04 Consult Physician Routine Consulting Provider: Naa Gonzalez Consult Reason/Comments: copd Do you want consulting provider notified?: Yes 10/14/21 13:51 Consult to Palliative Care Routine Consulting Provider: Leslie Chaudhry Consult Reason/Comments: informational meeting, end stage COPD Do you want consulting provider notified?: Yes Primary care physician: Alen Tracy MD Hospital Course: HPI from H&P admission: 65-year-old male with COPD, lung cancer on home oxygen 3 L nasal cannula Patient comes in today due to worsening shortness of breath this has been progressive over the past few days with productive cough which is at his baseline. However today he noticed that breathing was extremely difficult despite supplemental oxygen with some chest discomfort for which she decided to come into the hospital for evaluation he arrived on BiPAP upon interviewing the patient was difficult to understand patient while on BiPAP patient is also hard of hearing. He denies any hemoptysis denies any history of blood clots denies any active chest pain denies any abdominal pain nausea vomiting fevers or chills. Denies any recent travel or hospitalization. Patient denies any active smoking. He does report that he got the shingles vaccine 1 or 2 days ago. Workup in the ED showed elevated white count slightly elevated troponin chest x- ray showed no acute pathology. Patient was admitted for treatment of acute on chronic hypoxic respirations failure in the setting of end-stage COPD, non-small cell lung cancer. He was started on BiPAP therapy which he required continuously for the first 24-48 hours. He was started on high-dose steroids, duo nebs, levofloxacin for concern of tracheobronchitis. His respiratory status slowly improved over the following few days, as he continued to require BiPAP therapy on and off each day. The patient has qualified for a Trilogy ventilator, to be able to use average volume assured pressure support (AVAPS). When he is not on noninvasive ventilation, his oxygen saturation is well maintained with 4 L via nasal cannula at rest. He was counseled extensively almost a daily basis regarding his poor prognosis and outlook especially in the setting of end-stage COPD and lung cancer. He was seen by palliative care but refused to sign on to hospice. He was eventually discharged home in relatively stable condition given his multiple comorbidities. He will be on home oxygen around the clock, and AVAPS ventilation when needed especially during sleep. Assessment: General: non toxic, no acute distress, alert oriented to time place and person Head: atraumatic, normocephalic, symmetric Eyes: Pupils equal and reactive to light, extraocular muscles intact anicteric sclera Mouth: no lip lesion, mucus membranes moist Cardiovascular: S1S2 reg rate and rhythm, no murmur, no gallop Lungs: Bilateral wheezing. severely diminished breath sounds bilaterally. No crackles. Abdominal: soft, nontender to palpation, no guarding, no appreciable organomegaly Ext: no gross muscle atrophy, no edema extremities Neuro: Alert oriented to time place and person, exam grossly nonfocal Patient Condition at Discharge: Poor Plan - Discharge Summary Discharge Rx Participant: Yes New Discharge Prescriptions: New LORazepam [Ativan] 0.5 mg PO BID PRN 30 Days #30 tab PRN Reason: Agitation Or Acute Anxiety guaiFENesin [Mucinex] 600 mg PO Q12HR tab Continue Atorvastatin Calcium [Lipitor] 20 mg PO DAILY Albuterol Inhaler [Ventolin Hfa Inhaler] 2 puff INHALATION RT-QID PRN PRN Reason: Shortness Of Breath Ascorbic Acid [Vitamin C] 1,000 mg PO DAILY Cholecalciferol [Vitamin D3 (25 Mcg = 1000 Iu)] 25 mcg PO DAILY Fluticasone Nasal [place] [Flonase Nasal [place]] 2 spray EA NOSTRIL DAILY PRN PRN Reason: Congestion Fluticasone/Umeclidin/Vilanter [Trelegy Ellipta 200-62.5-25] 1 puff INHALATION RT-DAILY HYDROcodone/APAP 10-325MG [[place] 10-325] 1 tab PO TID PRN PRN Reason: Pain Ipratropium-Albuterol Nebulize [Duoneb 0.5 mg-3 mg/3 ml Soln] 3 ml INHALATION RT-QID Multivit,Calc,Min/FA/K1/Lycop [One-A-Day Men's Complete Tab] 1 tab PO DAILY Etodolac 400 mg PO DAILY predniSONE [Deltasone] 20 mg PO DAILY Vitamin B Complex 1 cap PO DAILY Discharge Medication List Atorvastatin Calcium [Lipitor] 20 mg PO DAILY 05/31/20 [History] Albuterol Inhaler [Ventolin Hfa Inhaler] 2 puff INHALATION RT-QID PRN 01/17/21 [History] Etodolac 400 mg PO DAILY 01/17/21 [History] Multivit,Calc,Min/FA/K1/Lycop [One-A-Day Men's Complete Tab] 1 tab PO DAILY 01/17/21 [History] Ascorbic Acid [Vitamin C] 1,000 mg PO DAILY 06/16/21 [History] Cholecalciferol [Vitamin D3 (25 Mcg = 1000 Iu)] 25 mcg PO DAILY 06/16/21 [History] Fluticasone Nasal [place] [Flonase Nasal [place]] 2 spray EA NOSTRIL DAILY PRN 06/16/21 [History] Fluticasone/Umeclidin/Vilanter [Trelegy Ellipta 200-62.5-25] 1 puff INHALATION RT-DAILY 06/16/21 [History] HYDROcodone/APAP 10-325MG [[place] 10-325] 1 tab PO TID PRN 06/16/21 [History] Ipratropium-Albuterol Nebulize [Duoneb 0.5 mg-3 mg/3 ml Soln] 3 ml INHALATION RT-QID 06/16/21 [History] predniSONE [Deltasone] 20 mg PO DAILY 07/30/21 [History] Vitamin B Complex 1 cap PO DAILY 10/11/21 [History] LORazepam [Ativan] 0.5 mg PO BID PRN 30 Days #30 tab 10/17/21 [Rx] guaiFENesin [Mucinex] 600 mg PO Q12HR tab 10/17/21 [Rx] Follow up Appointment(s)/Referral(s): Alen Tracy MD [Primary Care Provider] - 1-2 days (Office unavailable; please call to set up a follow-up appointment.) Naa Gonzalez MD [STAFF PHYSICIAN] - 10/31/21 10:30 am [facility] Visiting Nurse, [NON-STAFF] - Patient Instructions/Handouts: Heart Failure (DC) Discharge/Stand Alone Forms: Who Do I Call?, Personal Planner Discharge Disposition: HOME WITH HOME HEALTH SERVICES
== END 2021-10-17 14:30 | disposition home health service (06) | DRG 190 ==
LOC: EC 02:19 → 3SCARD 06:05
PROVIDERS: ADMIT Internal Medicine; ATTEND Internal Medicine
PROC: 5A09357 Assistance with Respiratory Ventilation, Less than 24 Consecutive Hours, Continuous Positive Airway Pressure (ICD-10-PCS; principal; 2021-10-11)
DX: J44.1 Chronic obstructive pulmonary disease with (acute) exacerbation (principal); J96.21 Acute and chronic respiratory failure with hypoxia; J96.22 Acute and chronic respiratory failure with hypercapnia; C34.90 Malignant neoplasm of unspecified part of unspecified bronchus or lung; C79.51 Secondary malignant neoplasm of bone; J44.0 Chronic obstructive pulmonary disease with (acute) lower respiratory infection; Z99.81 Dependence on supplemental oxygen; D72.829 Elevated white blood cell count, unspecified; E78.5 Hyperlipidemia, unspecified; H91.90 Unspecified hearing loss, unspecified ear; J20.9 Acute bronchitis, unspecified; G89.29 Other chronic pain; J37.0 Chronic laryngitis; R45.1 Restlessness and agitation; M19.90 Unspecified osteoarthritis, unspecified site; Z85.21 Personal history of malignant neoplasm of larynx; Z92.3 Personal history of irradiation; Z87.891 Personal history of nicotine dependence; Z92.21 Personal history of antineoplastic chemotherapy; Z79.51 Long term (current) use of inhaled steroids; Z79.52 Long term (current) use of systemic steroids; Z88.0 Allergy status to penicillin; Z88.2 Allergy status to sulfonamides; Z87.81 Personal history of (healed) traumatic fracture; Z79.899 Other long term (current) drug therapy; Z98.890 Other specified postprocedural states; Z82.49 Family history of ischemic heart disease and other diseases of the circulatory system; Z80.9 Family history of malignant neoplasm, unspecified
CPT/HCPCS: 36415; 36600; 71045; 80048; 80053; 82805; 83036; 83605; 83735; 83880; 84484; 85025; 85610; 85730; 93005; 94640; 94660; 94760; 96374; 96375; 96376; 99285

== ENCOUNTER → 2021-11-05 | Outpatient (CLI) | payer MEDICARE, OTHER ==
[2021-11-05 12:42] LABS: African American GFR (CKD) >90 (>60 ml/min/1.73 sqM); Blood Urea Nitrogen 21 mg/dL (9-20); Non-African American GFR(CKD) >90 (>60 ml/min/1.73 sqM)
--- NOTE | 2021-11-05 15:02 | CT ---
EXAMINATION TYPE: CT chest w con DATE OF EXAM: 11/05/2021 COMPARISON: 08/27/2021 HISTORY: COPD, Lung CA CT DLP: 467 mGycm, Automated exposure control for dose reduction was used. CONTRAST: Performed injected with 100 mL of Isovue 300. TECHNIQUE: Axial images were obtained at 5 mm thick sections. Reconstructed images are reviewed on [employer] computer in the coronal plane. FINDINGS: Portion of the thyroid visualized is normal. There is a spiculated 3.6 x 2.6 cm mass in the infrahilar medial left lung. Some involvement of the p ericardium or mediastinum is not excluded. This is directly adjacent to the esophagus. This has enlar ged from previous measurements of 2.7 x 2.2 cm. Some emphysematous changes are present. No enlarged mediastinal or hilar adenopathy is evident. The ascending aorta diameter at the level o f the main pulmonary artery is 0.0 cm. The main pulmonary artery diameter at the bifurcation is 2.6 cm. Some coronary artery calcifications present. Limited CT sections are obtained through the upper abdomen. There is stable 1.1 cm thickening of the left adrenal gland. IMPRESSIONS: 1. Enlarging left infrahilar mass compatible with neoplasm. 2. Emphysematous changes.
== END | disposition home or self-care (01) ==
LOC: RADCTMAIN 11:14
PROVIDERS: ATTEND Internal Medicine Hematology & Oncology
DX: C34.32 Malignant neoplasm of lower lobe, left bronchus or lung (principal)
CPT/HCPCS: 82565; 84520; 71260; 36415; Q9967

== ENCOUNTER 2021-12-10 07:25 | Inpatient (IN) | payer MEDICARE, OTHER ==
[2021-12-10] MEDS ORDERED: IPRATROPIUM 0.5 MG/2.5 ML NEBU INHALATION STA (07:28)
[2021-12-10] MEDS ORDERED: ALBUTEROL NEBULIZED 2.5 MG/3 ML INHALATION STA (07:28)
--- NOTE | 2021-12-10 07:44 | ED ---
General Adult HPI - General Stated complaint: [place] Time Seen by Provider: 12/10/21 07:28 Source: patient, EMS, RN notes reviewed, old records reviewed Mode of arrival: EMS Limitations: physical limitation - History of Present Illness Initial comments: 66-year-old male history of COPD and lung cancer presenting for evaluation of dyspnea. Patient was transported by paramedics after being found to have oxygen saturation in the 60s. He was placed on CPAP for respiratory support. He states that his symptoms have progressed over many days. He reports a mild chest discomfort associated with his dyspnea. No central radiating chest pain. No abdominal pain. No vomiting. No measured fever. History limited secondary respiratory distress. - Related Data Home Medications Medication Instructions Recorded Confirmed Atorvastatin Calcium [Lipitor] 20 mg PO DAILY 05/31/20 10/11/21 Albuterol Inhaler [Ventolin Hfa 2 puff INHALATION RT-QID PRN 01/17/21 10/11/21 Inhaler] Etodolac 400 mg PO DAILY 01/17/21 10/11/21 Multivit,Calc,Min/FA/K1/Lycop 1 tab PO DAILY 01/17/21 10/11/21 [One-A-Day Men's Complete Tab] Ascorbic Acid [Vitamin C] 1,000 mg PO DAILY 06/16/21 10/11/21 Cholecalciferol [Vitamin D3 (25 25 mcg PO DAILY 06/16/21 10/11/21 Mcg = 1000 Iu)] Fluticasone Nasal [place] [Flonase 2 spray EA NOSTRIL DAILY PRN 06/16/21 10/11/21 Nasal [place]] Fluticasone/Umeclidin/Vilanter 1 puff INHALATION RT-DAILY 06/16/21 10/11/21 [Trelegy Ellipta 200-62.5-25] HYDROcodone/APAP 10-325MG [[place] 1 tab PO TID PRN 06/16/21 10/11/21 10-325] Ipratropium-Albuterol Nebulize 3 ml INHALATION RT-QID 06/16/21 10/11/21 [Duoneb 0.5 mg-3 mg/3 ml Soln] predniSONE [Deltasone] 20 mg PO DAILY 07/30/21 10/11/21 Vitamin B Complex 1 cap PO DAILY 10/11/21 10/11/21 Previous Rx's Medication Instructions Recorded LORazepam [Ativan] 0.5 mg PO BID PRN 30 Days #30 tab 10/17/21 guaiFENesin [Mucinex] 600 mg PO Q12HR tab 10/17/21 Allergies Allergy/AdvReac Type Severity Reaction Status Date / Time Penicillins Allergy Unknown Verified 10/11/21 11:49 Childhood Sulfa (Sulfonamide Allergy Unknown Verified 10/11/21 11:49 Antibiotics) Childhood Review of Systems ROS Statement: Those systems with pertinent positive or pertinent negative responses have been documented in the HPI. ROS Other: All systems not noted in ROS Statement are negative. 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 Absent: tenderness, meningismus Respiratory exam: Present: respiratory distress, wheezes, rales, rhonchi Cardiovascular Exam: Present: normal rhythm, tachycardia GI/Abdominal exam: Present: soft, distended. Absent: tenderness Extremities exam: Present: normal capillary refill. Absent: pedal edema Neurological exam: Present: alert, oriented X3, CN II-XII intact. Absent: motor sensory deficit Psychiatric exam: Present: anxious Skin exam: Present: warm, dry, intact. Absent: cyanosis, diaphoretic Course Vital Signs 12/10/21 12/10/21 12/10/21 07:30 07:39 07:46 Temperature 98.1 F Pulse Rate 98 144 H Respiratory 40 H Rate Blood Pressure 148/81 O2 Sat by Pulse 98 Oximetry Fraction of 40 Inspired Oxygen (FIO2) 12/10/21 12/10/21 08:22 08:28 Temperature Pulse Rate 146 H Respiratory 24 Rate Blood Pressure 98/82 O2 Sat by Pulse 95 Oximetry Fraction of Inspired Oxygen (FIO2) EKG Findings - EKG Comments: EKG Findings:: Sinus tachycardia versus atrial flutter with 2:1 AV conduction rate of 150, normal [place] interval, QRS duration 91, QTC 348. Medical Decision Making - Medical Decision Making 66-year-old male with severe progressive dyspnea, history of COPD. History is initially limited. Patient was found to be hypoxic at 60%, placed on CPAP, transitioned to BiPAP in the emergency department. Patient has elevated white blood cell count at 22.7. Normal electrolytes. His troponin is elevated 0.077 with a BNP of 84 which is normal. The troponin level will be trended. I suspect this is from demand. Lactic acid is normal 1.5. He'll be treated for COPD, pneumonia, and will be admitted to [facility]. - Lab Data Result diagrams: 12/10/21 07:36 12/10/21 07:36 Lab Results 12/10/21 12/10/21 12/10/21 Range/Units 07:36 07:36 07:36 WBC 22.7 H (3.8-10.6) k/uL RBC 4.50 (4.30-5.90) m/uL Hgb 14.6 (13.0-17.5) gm/dL Hct 46.3 (39.0-53.0) % MCV 102.8 H (80.0-100.0) fL MCH 32.4 (25.0-35.0) pg MCHC 31.5 (31.0-37.0) g/dL RDW 13.5 (11.5-15.5) % Plt Count 326 (150-450) k/uL MPV 7.7 Neutrophils % 80 % Lymphocytes % 8 % Monocytes % 9 % Eosinophils % 1 % Basophils % 1 % Neutrophils # 18.1 H (1.3-7.7) k/uL Lymphocytes # 1.9 (1.0-4.8) k/uL Monocytes # 1.9 H (0-1.0) k/uL Eosinophils # 0.2 (0-0.7) k/uL Basophils # 0.2 (0-0.2) k/uL Hypochromasia Slight Macrocytosis Slight PT 10.4 (9.0-12.0) sec INR 0.9 (<1.2) APTT 22.1 (22.0-30.0) sec Sodium 140 (137-145) mmol/L Potassium 4.4 (3.5-5.1) mmol/L Chloride 100 (98-107) mmol/L Carbon Dioxide 27 (22-30) mmol/L Anion Gap 13 mmol/L BUN 20 (9-20) mg/dL Creatinine 0.79 (0.66-1.25) mg/dL Est GFR (CKD-EPI)AfAm >90 (>60 ml/min/1.73 sqM) Est GFR (CKD-EPI)NonAf >90 (>60 ml/min/1.73 sqM) Glucose 125 H (74-99) mg/dL Plasma Lactic Acid [place] (0.7-2.0) mmol/L Calcium 9.2 (8.4-10.2) mg/dL Total Bilirubin 0.7 (0.2-1.3) mg/dL AST 27 (17-59) U/L ALT 31 (4-49) U/L Alkaline Phosphatase 106 (38-126) U/L Troponin I (0.000-0.034) ng/mL NT-Pro-B Natriuret Pep pg/mL Total Protein 7.6 (6.3-8.2) g/dL Albumin 4.6 (3.5-5.0) g/dL 12/10/21 12/10/21 12/10/21 Range/Units 07:36 07:36 07:36 WBC (3.8-10.6) k/uL RBC (4.30-5.90) m/uL Hgb (13.0-17.5) gm/dL Hct (39.0-53.0) % MCV (80.0-100.0) fL MCH (25.0-35.0) pg MCHC (31.0-37.0) g/dL RDW (11.5-15.5) % Plt Count (150-450) k/uL MPV Neutrophils % % Lymphocytes % % Monocytes % % Eosinophils % % Basophils % % Neutrophils # (1.3-7.7) k/uL Lymphocytes # (1.0-4.8) k/uL Monocytes # (0-1.0) k/uL Eosinophils # (0-0.7) k/uL Basophils # (0-0.2) k/uL Hypochromasia Macrocytosis PT (9.0-12.0) sec INR (<1.2) APTT (22.0-30.0) sec Sodium (137-145) mmol/L Potassium (3.5-5.1) mmol/L Chloride (98-107) mmol/L Carbon Dioxide (22-30) mmol/L Anion Gap mmol/L BUN (9-20) mg/dL Creatinine (0.66-1.25) mg/dL Est GFR (CKD-EPI)AfAm (>60 ml/min/1.73 sqM) Est GFR (CKD-EPI)NonAf (>60 ml/min/1.73 sqM) Glucose (74-99) mg/dL Plasma Lactic Acid [place] 1.5 (0.7-2.0) mmol/L Calcium (8.4-10.2) mg/dL Total Bilirubin (0.2-1.3) mg/dL AST (17-59) U/L ALT (4-49) U/L Alkaline Phosphatase (38-126) U/L Troponin I 0.077 H* (0.000-0.034) ng/mL NT-Pro-B Natriuret Pep 84 pg/mL Total Protein (6.3-8.2) g/dL Albumin (3.5-5.0) g/dL Critical Care Time Critical Care Time: Yes Total Critical Care Time: 35 Disposition Clinical Impression: COPD exacerbation, Community acquired pneumonia, Leukocytosis Disposition: ADMITTED IP TO THIS HOSP Condition: Stable Is patient prescribed a controlled substance at d/c from ED?: No Referrals: Deuce Chapman MD [Primary Care Provider] - 1-2 days Time of Disposition: 09:50
[2021-12-10 07:56] LABS: Basophils # (A) 0.2 k/uL (0-0.2); Basophils % (A) 1 %; Eosinophils # (A) 0.2 k/uL (0-0.7); Eosinophils % (A) 1 %; HCT 46.3 % (39.0-53.0); HGB 14.6 gm/dL (13.0-17.5); Hypochromasia Slight; Lymphocytes # (A) 1.9 k/uL (1.0-4.8); Lymphocytes % (A) 8 %; MCH 32.4 pg (25.0-35.0); MCHC 31.5 g/dL (31.0-37.0); MCV 102.8 fL (80.0-100.0); Macrocytosis Slight; Mean Platelet Volume 7.7; Monocytes # (A) 1.9 k/uL (0-1.0); Monocytes % (A) 9 %; Neutrophils # (A) 18.1 k/uL (1.3-7.7); Neutrophils % (A) 80 %; Platelet Count 326 k/uL (150-450); RDW 13.5 % (11.5-15.5); WBC 22.7 k/uL (3.8-10.6)
[2021-12-10 08:08] LABS: INR 0.9 (<1.2); Partial Thromboplastin Time 22.1 sec (22.0-30.0); Prothrombin Time 10.4 sec (9.0-12.0)
[2021-12-10 08:19] LABS: ALT 31 U/L (4-49); AST 27 U/L (17-59); African American GFR (CKD) >90 (>60 ml/min/1.73 sqM); Albumin 4.6 g/dL (3.5-5.0); Alkaline Phosphatase 106 U/L (38-126); Anion Gap 13 mmol/L; Blood Urea Nitrogen 20 mg/dL (9-20); Calcium 9.2 mg/dL (8.4-10.2); Carbon Dioxide 27 mmol/L (22-30); Chloride 100 mmol/L (98-107); Glucose 125 mg/dL (74-99); Non-African American GFR(CKD) >90 (>60 ml/min/1.73 sqM); Potassium 4.4 mmol/L (3.5-5.1); Sodium 140 mmol/L (137-145); Total Bilirubin 0.7 mg/dL (0.2-1.3); Total Protein 7.6 g/dL (6.3-8.2)
[2021-12-10] MEDS ORDERED: cefTRIAXone IN SWFI 1,000 MG/10 ML SYRINGE IVP STA (08:21)
[2021-12-10] MEDS ORDERED: HEPARIN SODIUM 1,000 UN/ML (10ML VL) IV ONE (09:17)
[2021-12-10] MEDS ORDERED: ASPIRIN 325 MG TAB PO STA (09:17)
[2021-12-10] MEDS ORDERED: HEPARIN SODIUM 1,000 UN/ML (10ML VL) IV PRN (09:17)
[2021-12-10] MEDS ORDERED: AZITHROMYCIN 500 MG in SODIUM CHLORIDE 0.9% 250 ML IVPB STA (09:19)
[2021-12-10] MEDS ORDERED: SODIUM CHLORIDE 0.9% 500 ML 500 ML IV ONE (09:20)
[2021-12-10] MEDS ORDERED: ACETAMINOPHEN TAB 325 MG TAB PO PRN (09:45)
[2021-12-10] MEDS ORDERED: NALOXONE 0.4 MG/ML 1 ML VIAL IVP PRN (09:45)
[2021-12-10] MEDS ORDERED: IPRATROPIUM-ALBUTEROL 3 ML NEB INHALATION PRN (09:45)
--- NOTE | 2021-12-10 10:03 | XR ---
EXAM: XR Chest, 1 View CLINICAL HISTORY: ITS.REASON XR Reason: camila TECHNIQUE: Frontal view of the chest. COMPARISON: 10/11/21 FINDINGS: Lungs: Overall increased interstitial lung markings. Faint opacity in the periphery of the right midlung. Pleural space: Minimal blunting of the right costophrenic angle which may represent tiny effusion. No pneumothorax. Heart: Unremarkable. No cardiomegaly. Mediastinum: Unremarkable. Bones/joints: Mild degenerative changes in the spine. IMPRESSION: 1. Mild interstitial edema or pneumonia. 2. Suspect faint opacity in the periphery of the right midlung. 3. Tiny right effusion
[2021-12-10] MEDS: HEPARIN SOD,PORK IN 0.45% NACL 25,000 UNIT in 0.45% NACL 1 250ML.BAG IV SCH (10:29)
[2021-12-10] MEDS: SODIUM CHLORIDE 0.9% 1,000 ML IV SCH (10:30)
[2021-12-10] MEDS: IPRATROPIUM-ALBUTEROL 3 ML NEB INHALATION SCH ×3 (11:18→19:47)
--- NOTE | 2021-12-10 11:30 | P.CNPUL ---
History of Present Illness Consult date: 12/10/21 Reason for consult: dyspnea, hypoxemia Chief complaint: Shortness of breath, cough, congestion History of present illness: This is a very pleasant 66-year-old male with history of severe COPD, non-small cell lung cancer, history of laryngeal cancer, history of chronic laryngitis, patient normally sees Dr. Gonzalez in the office. The last time he saw Dr. Gonzalez was on 09/24/2021. Patient has been given a combination of carboplatin and Alimta, and keytruda. 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 The patient received a total of 4 cycles of systemic chemotherapy and the patient's last Keytruda treatment was on 05/28/2021 and this was interrupted because of multiple hospitalizations. His CAT scan dated 11/05/2021 revealed enlarging left infrahilar spiculated mass compatible with neoplasm. Currently measuring 3.6 x 2.6 cm. Emphysematous changes. He had last been discharged home on 10/18/2021. He presented to the emergency room again early this morning progressive shortness of breath. EMS found him quite hypoxic with O2 saturations in the 60s. He is initially placed on BiPAP currently 14/5 and 40% FiO2. His x-ray showed mild interstitial edema. He has faint opacity in the periphery of the right midlung. Tiny right effusion. White count 22.7. Hemoglobin 14.6. Platelets 326. Neutrophils 18.1. Sodium 140. Potassium 4.4. Bicarb 27. BUN 20. Creatinine 0.79. Troponin 0.077. ProBNP 84. He's been initiated and DuoNeb inhalations, IV Solu-Medrol and heparin drip for troponin leak. He is seen today in consultation in the emergency department. Currently sitting up in a stretcher. He remains on BiPAP 14/5 on 40% FiO2. He is dyspneic with conversation. Dyspneic with minimal exertion. Tachycardic. Blood pressure stable. Afebrile. Review of Systems REVIEW OF SYSTEMS: CONSTITUTIONAL: Denies any recent significant weight loss or weight gain. EYES: Denies change in vision. EARS, NOSE, MOUTH, THROAT: Denies headaches, denies sore throat. CARDIOVASCULAR: Denies chest pain, palpitations or syncopal episodes. RESPIRATORY: Positive for shortness of breath, cough, congestion no hemoptysis. GASTROINTESTINAL: Denies change in appetite, denies abdominal pain GENITOURINARY: Denies hematuria, denies infections. MUSKULOSKELETAL: Denies pain, denies swelling. INTEGUMENTARY: Denies rash, denies eczema. NEUROLOGICAL: Denies recent memory loss, no recent seizure activity. PSYCHIATRIC: Denies anxiety, denies depression. HEMATOLOGIC/LYMPHATIC: Denies anemia, denies enlarged lymph nodes. 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, Past Anesthesia/Blood Transfusion Reactions: No Reported Reaction, Unable to Obtain Additional Past Anesthesia/Blood Transfusion Reaction / Comment(s): does not know family hx Smoking Status: Former smoker - Past Family History Mother Family Medical History: Cancer Father Family Medical History: Myocardial Infarction ([place]) Medications and Allergies Home Medications Medication Instructions Recorded Confirmed Type Atorvastatin Calcium [Lipitor] 20 mg PO DAILY 05/31/20 10/11/21 History Albuterol Inhaler [Ventolin Hfa 2 puff INHALATION RT-QID PRN 01/17/21 10/11/21 History Inhaler] Etodolac 400 mg PO DAILY 01/17/21 10/11/21 History Multivit,Calc,Min/FA/K1/Lycop 1 tab PO DAILY 01/17/21 10/11/21 History [One-A-Day Men's Complete Tab] Ascorbic Acid [Vitamin C] 1,000 mg PO DAILY 06/16/21 10/11/21 History Cholecalciferol [Vitamin D3 (25 25 mcg PO DAILY 06/16/21 10/11/21 History Mcg = 1000 Iu)] Fluticasone Nasal [place] [Flonase 2 spray EA NOSTRIL DAILY PRN 06/16/21 10/11/21 History Nasal [place]] Fluticasone/Umeclidin/Vilan[place] 1 puff INHALATION RT-DAILY 06/16/21 10/11/21 History [Trelegy Ellipta 200-62.5-25] HYDROcodone/APAP 10-325MG [[place] 1 tab PO TID PRN 06/16/21 10/11/21 History 10-325] Ipratropium-Albuterol Nebulize 3 ml INHALATION RT-QID 06/16/21 10/11/21 History [Duoneb 0.5 mg-3 mg/3 ml Soln] predniSONE [Deltasone] 20 mg PO DAILY 07/30/21 10/11/21 History Vitamin B Complex 1 cap PO DAILY 10/11/21 10/11/21 History LORazepam [Ativan] 0.5 mg PO BID PRN 30 Days #30 tab 10/17/21 Rx guaiFENesin [Mucinex] 600 mg PO Q12HR tab 10/17/21 Rx Allergies Allergy/AdvReac Type Severity Reaction Status Date / Time Penicillins Allergy Unknown Verified 10/11/21 11:49 Childhood Sulfa (Sulfonamide Allergy Unknown Verified 10/11/21 11:49 Antibiotics) Childhood Physical Exam Vitals: Vital Signs Temp Pulse Resp BP Pulse Ox FiO2 12/10/21 10:30 126 H 35 H 120/103 96 12/10/21 08:28 24 98/82 95 12/10/21 08:22 146 H 12/10/21 07:46 144 H 12/10/21 07:39 40 12/10/21 07:30 98.1 F 98 40 H 148/81 98 Intake and Output 12/09/21 12/10/21 12/10/21 22:59 06:59 14:59 Other: Weight 70.307 kg GENERAL EXAM: Alert, pleasant, moderately dyspneic, 65-year-old white male, on BiPAP support with pressures of 14 and 5 and FiO2 of 40%, comfortable in no apparent distress. HEAD: Normocephalic/atraumatic. EYES: Normal reaction of pupils, equal size. Conjunctiva pink, sclera white. NOSE: Clear with pink turbinates. THROAT: No erythema or exudates. NECK: No masses, no JVD, no thyroid enlargement, no adenopathy. CHEST: No chest wall deformity. Symmetrical expansion. LUNGS: Diminished breath sounds bilaterally, no crackles or rhonchi, does have some expiratory wheezing in the upper airways CVS: Regular rate and rhythm, normal S1 and S2, no gallops, no murmurs, no rubs ABDOMEN: Soft, nontender. No hepatosplenomegaly, normal bowel sounds, no gu arding or rigidity. EXTREMITIES: No clubbing, no edema, no cyanosis, 2+ pulses and upper and lower e xtremities. MUSCULOSKELETAL: Muscle strength and tone normal. SPINE: No scoliosis or deformity SKIN: No rashes CENTRAL NERVOUS SYSTEM: Alert and oriented -3. No focal deficits, tone is normal in all 4 extremities. PSYCHIATRIC: Alert and oriented -3. Appropriate affect. Intact judgment and insight. Results - Laboratory Findings CBC and BMP: 12/10/21 07:36 12/10/21 07:36 PT/INR, D-dimer PT 10.4 sec (9.0-12.0) 12/10/21 07:36 INR 0.9 (<1.2) 12/10/21 07:36 Abnormal lab findings: Abnormal Labs 12/10/21 12/10/21 12/10/21 07:36 07:36 07:36 WBC 22.7 H MCV 102.8 H Neutrophils # 18.1 H Monocytes # 1.9 H Glucose 125 H Troponin I 0.077 H* - Diagnostic Findings Chest x-ray: image reviewed Assessment and Plan Assessment: Acute on chronic hypoxic respiratory failure related to acute exacerbation of COPD History of metastatic non-small cell lung cancer, treated with chemotherapy and immunotherapy. CT scan of the chest revealed enlarging left hilar mass now measuring 3.6 x 2.6 cm. Severe chronic obstructive pulmonary disease, maintained onTrelegy, prednisone 10 mg daily as well as home oxygen Chronic laryngitis History of laryngeal cancer status post radiation Former smoker, quit smoking in 2018 Hyperlipidemia Plan: The patient was seen and evaluated Remains on BiPAP 14/5 on 40% FiO2 Continue Symbicort, Solu-Medrol Add Pulmicort and Perforomist Check a d-dimer Check a pro-calcitonin Titrate the FiO2 as tolerated His overall prognosis is poor He has declined hospice in the past We will continue to follow and make further recommendations based on his clinical status I have personally seen and examined the patient, performed the documentation and the assessment and plan as written. Number of minutes spent on the visit: 20.
--- NOTE | 2021-12-10 12:14 | P.CRDCN ---
History of Present Illness Consult date: 12/10/21 History of present illness: HISTORY OF PRESENT ILLNESS: This is a 66 year old male with a past medical history significant for COPD, hyperlipidemia, former nicotine dependence, and lung cancer with chemo and radiation. Patient follows in the office with Dr. Alba. We have been asked to see the patient in consultation for abnormal troponins. Patient examined at the bedside in the ER. Patient presented to the ER with a chief complaint of SOB. He reports he began getting SOB yesterday. He reports using his CPAP at home but did not see much improvement so he came to the ER. He denies chest pain or pressure. Telemetry reveals sinus tachycardia with a heart rate in the 120s * EKG reveals sinus tachycardia * Chest xray mild interstitial edema or pneumonia. Suspect faint opacity in the periphery of the right midlung. Tiny right pleural effusion. * Laboratory data: WBC 22.7. Hemoglobin 14.6. Platelet count 326. Sodium 140. Potassium 4.4. BUN 20. Creatinine 0.79. Troponin 0.077. * Current home cardiac medications include metoprolol succinate 25 mg daily and Lipitor 20 mg daily * Most recent echocardiogram obtained in February 2021 revealed ejection fraction 55%, mild mitral regurgitation, mild tricuspid regurgitation REVIEW OF SYSTEMS: At the time of my exam: CONSTITUTIONAL: Denies fever or chills. HEENT: Denies blurred vision, vision changes, or eye pain. Denies hemoptysis CARDIOVASCULAR: Denies chest pain. Denies orthopnea. Denies PND. Denies palpitations RESPIRATORY: Denies shortness of breath. GASTROINTESTINAL: Denies abdominal pain. Denies nausea or vomiting. HEMATOLOGIC: Denies bleeding disorders. GENITOURINARY: Denies any blood in urine. SKIN: Denies pruitis. Denies rash. PHYSICAL EXAM: VITAL SIGNS: Reviewed. GENERAL: Well-developed in no acute distress. HEENT: Head is normocephalic. Pupils are equal, round. Sclerae anicteric. Mucous membranes of the mouth are moist. Neck supple. No JVD or thyromegaly LUNGS: Respirations even and unlabored. Lungs diminished with occasional rhonchi and expiratory wheezing. HEART: Tachycardic. Regular rate and rhythm. S1 and S2 heard. ABDOMEN: Soft. Nondistended. Nontender. EXTREMITIES: Normal range of motion. No clubbing or cyanosis. Peripheral pulses intact. Trace lower extremity edema NEUROLOGIC: Awake and alert. Oriented x 3. ASSESSMENT: Shortness of breath Acute exacerbation of COPD Sinus tachycardia Acute hypoxic respiratory failure Abnormal troponin, suspect type II CO secondary to oxygen supply and demand mismatch Lung cancer with previous chemotherapy and radiation Hyperlipidemia Former nicotine dependence PLAN: Obtain 2-D echo to assess cardiac structure and function Continue IV heparin Trend troponins Check d-dimer Resume home cardiac medications Continue telemetry monitoring Further recommendations pending patient's course Nurse practitioner note has been reviewed by physician. Signing provider agrees with the documented findings, assessment, and plan of care. 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, Past Anesthesia/Blood Transfusion Reactions: No Reported Reaction, Unable to Obtain Additional Past Anesthesia/Blood Transfusion Reaction / Comment(s): does not know family hx Smoking Status: Former smoker - Past Family History Mother Family Medical History: Cancer Father Family Medical History: Myocardial Infarction ([place]) Medications and Allergies Home Medications Medication Instructions Recorded Confirmed Type Atorvastatin Calcium [Lipitor] 20 mg PO DAILY 05/31/20 12/10/21 History Albuterol Inhaler [Ventolin Hfa 2 puff INHALATION RT-QID PRN 01/17/21 12/10/21 History Inhaler] Etodolac 400 mg PO DAILY 01/17/21 12/10/21 History Multivit,Calc,Min/FA/K1/Lycop 1 tab PO DAILY 01/17/21 12/10/21 History [One-A-Day Men's Complete Tab] Ascorbic Acid [Vitamin C] 1,000 mg PO DAILY 06/16/21 12/10/21 History Cholecalciferol [Vitamin D3 (25 25 mcg PO DAILY 06/16/21 12/10/21 History Mcg = 1000 Iu)] Fluticasone Nasal [place] [Flonase 2 spray EA NOSTRIL DAILY PRN 06/16/21 12/10/21 History Nasal [place]] Fluticasone/Umeclidin/Vilanter 1 puff INHALATION RT-DAILY 06/16/21 12/10/21 History [Trelegy Ellipta 200-62.5-25] HYDROcodone/APAP 10-325MG [[place] 1 tab PO TID PRN 06/16/21 12/10/21 History 10-325] Ipratropium-Albuterol Nebulize 3 ml INHALATION RT-QID 06/16/21 12/10/21 History [Duoneb 0.5 mg-3 mg/3 ml Soln] predniSONE [Deltasone] 20 mg PO DAILY 07/30/21 12/10/21 History Vitamin B Complex 1 cap PO DAILY 10/11/21 12/10/21 History LORazepam [Ativan] 0.5 mg PO BID PRN 30 Days #30 tab 10/17/21 12/10/21 Rx Metoprolol Succinate (ER) [Toprol 25 mg PO DAILY 12/10/21 12/10/21 History Xl] Sotorasib [Lumakras] 960 mg PO DAILY 12/10/21 12/10/21 History Allergies Allergy/AdvReac Type Severity Reaction Status Date / Time Penicillins Allergy Unknown Verified 12/10/21 11:20 Childhood Sulfa (Sulfonamide Allergy Unknown Verified 12/10/21 11:20 Antibiotics) Childhood Physical Exam Vitals: Vital Signs Temp Pulse Resp BP Pulse Ox FiO2 12/10/21 11:36 124 H 12/10/21 11:18 122 H 12/10/21 11:15 40 12/10/21 10:30 126 H 35 H 120/103 96 12/10/21 08:28 24 98/82 95 12/10/21 08:22 146 H 12/10/21 07:46 144 H 12/10/21 07:39 40 12/10/21 07:30 98.1 F 98 40 H 148/81 98 Intake and Output 12/09/21 12/10/21 12/10/21 22:59 06:59 14:59 Other: Weight 70.307 kg Results 12/10/21 07:36 12/10/21 07:36 Cardiac Enzymes 12/10/21 12/10/21 Range/Units 07:36 07:36 AST 27 (17-59) U/L Troponin I 0.077 H* (0.000-0.034) ng/mL Coagulation 12/10/21 Range/Units 07:36 PT 10.4 (9.0-12.0) sec APTT 22.1 (22.0-30.0) sec CBC 12/10/21 Range/Units 07:36 WBC 22.7 H (3.8-10.6) k/uL RBC 4.50 (4.30-5.90) m/uL Hgb 14.6 (13.0-17.5) gm/dL Hct 46.3 (39.0-53.0) % Plt Count 326 (150-450) k/uL Comprehensive Metabolic Panel 12/10/21 Range/Units 07:36 Sodium 140 (137-145) mmol/L Potassium 4.4 (3.5-5.1) mmol/L Chloride 100 (98-107) mmol/L Carbon Dioxide 27 (22-30) mmol/L BUN 20 (9-20) mg/dL Creatinine 0.79 (0.66-1.25) mg/dL Glucose 125 H (74-99) mg/dL Calcium 9.2 (8.4-10.2) mg/dL AST 27 (17-59) U/L ALT 31 (4-49) U/L Alkaline Phosphatase 106 (38-126) U/L Total Protein 7.6 (6.3-8.2) g/dL Albumin 4.6 (3.5-5.0) g/dL Current Medications Generic Name Dose Route Start Last Admin Trade Name Freq PRN Reason Stop Dose Admin Acetaminophen 650 mg 12/10/21 09:45 Acetaminophen Tab 325 Mg Tab PO Q4HR PRN Mild Pain or Fever > 100.5 Albuterol/Ipratropium 3 ml 12/10/21 09:45 Ipratropium-Albuterol 3 Ml Neb INHALATION RT-Q2H PRN Shortness Of Breath Or Wheezing Albuterol/Ipratropium 3 ml 12/10/21 12:00 12/10/21 11:18 Ipratropium-Albuterol 3 Ml Neb INHALATION 3 ml RT-QID JEROD Administration Budesonide 1 mg 12/10/21 20:00 Budesonide 1 Mg/2 Ml Nebu INHALATION RT-BID JEROD Formoterol Fumarate 20 mcg 12/10/21 20:00 Formoterol Fumarate 20 Mcg/2 Ml Nebu INHALATION RT-BID JEROD Heparin Sodium (Porcine) 0 unit 12/10/21 09:17 Heparin Sodium 1,000 Un/Ml (10ml Vl) IV PER PROTOCOL PRN Low PTT Protocol Heparin Sodium/Sodium Chloride 250 mls @ 8.437 mls/hr 12/10/21 09:30 12/10/21 10:29 25,000 unit/ Sodium Chloride IV 12 units/kg/hr .Q24H JEROD 8.437 mls/hr Administration Protocol 12 UNITS/KG/HR Sodium Chloride 1,000 mls @ 130 mls/hr 12/10/21 09:30 12/10/21 10:30 Saline 0.9% IV 130 mls/hr .Q7H42M JEROD Administration Methylprednisolone Sodium Succinate 60 mg 12/10/21 12:00 Methylprednisolone Sod Succi 125 Mg/2 Ml Vial IV Q6HR [facility] Metoprolol Succinate 25 mg 12/10/21 12:00 Metoprolol Succinate (Er) 25 Mg Tab.Er.24h PO DAILY [facility] Naloxone HCl 0.2 mg 12/10/21 09:45 Naloxone 0.4 Mg/Ml 1 Ml Vial IVP Q2M PRN Opioid Reversal Intake and Output 12/09/21 12/10/21 12/10/21 22:59 06:59 14:59 Other: Weight 70.307 kg Patient Weight 12/11/21 06:59 Weight 70.307 kg 12/10/21 07:36 12/10/21 07:36
[2021-12-10] MEDS: methylPREDNISolone SOD SUCCI 125 MG/2 ML VIAL IV SCH ×2 (12:39→22:36)
[2021-12-10] MEDS: METOPROLOL SUCCINATE (ER) 25 MG TAB.ER.24H PO SCH (12:39)
[2021-12-10] MEDS ORDERED: FLUTICASONE 50MCG/SPRAY NASAL 16GM EA NOSTRIL PRN (15:49)
[2021-12-10] MEDS ORDERED: HYDROcodone/APAP 10-325MG 1 EACH TAB PO PRN (15:49)
[2021-12-10] MEDS ORDERED: LORazepam 0.5 MG TAB PO PRN (15:49)
[2021-12-10] MEDS ORDERED: IPRATROPIUM-ALBUTEROL 3 ML NEB INHALATION SCH (16:00)
[2021-12-10] MEDS ORDERED: NALOXONE 0.4 MG/ML 1 ML VIAL IV PRN (16:09)
--- NOTE | 2021-12-10 16:24 | P.HPIM ---
History of Present Illness H&P Date: 12/10/21 Chief Complaint: sob 66-year-old male history of severe COPD, non-small cell lung cancer, history of laryngeal cancer, history of chronic laryngitis currently on treatment pre senting for evaluation of severe dyspnea. He started getting sick since last night. Has cough productive of yellow phlegm and pleuritic chest pain. No abdominal pain. No vomiting. No fever. No diarrhea. No sick contacts. When he was picked up by paramedics, his oxygen saturations were in the 60s. In the ER he had to be placed on CPAP for respiratory support. Labs in the emergency department showed leukocytosis with white count of 22.7, troponin 0.077. Rest of labs ok. Review of Systems Complete review of system performed, pertinent positives per HPI, otherwise negative Past Medical History Past Medical History: Cancer, COPD, GERD/Reflux, Hyperlipidemia, Osteoarthritis (OA) Additional Past Medical History / Comment(s): CA larynx- had 28 treatments of radiation with scarring ., tinnitus, SOB. 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, Past Anesthesia/Blood Transfusion Reactions: No Reported Reaction, Unable to Obtain Additional Past Anesthesia/Blood Transfusion Reaction / Comment(s): does not know family hx Smoking Status: Former smoker - Past Family History Mother Family Medical History: Cancer Father Family Medical History: Myocardial Infarction ([place]) Medications and Allergies Home Medications Medication Instructions Recorded Confirmed Type Atorvastatin Calcium [Lipitor] 20 mg PO DAILY 05/31/20 12/10/21 History Albuterol Inhaler [Ventolin Hfa 2 puff INHALATION RT-QID PRN 01/17/21 12/10/21 History Inhaler] Etodolac 400 mg PO DAILY 01/17/21 12/10/21 History Multivit,Calc,Min/FA/K1/Lycop 1 tab PO DAILY 01/17/21 12/10/21 History [One-A-Day Men's Complete Tab] Ascorbic Acid [Vitamin C] 1,000 mg PO DAILY 06/16/21 12/10/21 History Cholecalciferol [Vitamin D3 (25 25 mcg PO DAILY 06/16/21 12/10/21 History Mcg = 1000 Iu)] Fluticasone Nasal [place] [Flonase 2 spray EA NOSTRIL DAILY PRN 06/16/21 12/10/21 History Nasal [place]] Fluticasone/Umeclidin/Vilanter 1 puff INHALATION RT-DAILY 06/16/21 12/10/21 History [Trelegy Ellipta 200-62.5-25] HYDROcodone/APAP 10-325MG [[place] 1 tab PO TID PRN 06/16/21 12/10/21 History 10-325] Ipratropium-Albuterol Nebulize 3 ml INHALATION RT-QID 06/16/21 12/10/21 History [Duoneb 0.5 mg-3 mg/3 ml Soln] predniSONE [Deltasone] 20 mg PO DAILY 07/30/21 12/10/21 History Vitamin B Complex 1 cap PO DAILY 10/11/21 12/10/21 History LORazepam [Ativan] 0.5 mg PO BID PRN 30 Days #30 tab 10/17/21 12/10/21 Rx Metoprolol Succinate (ER) [Toprol 25 mg PO DAILY 12/10/21 12/10/21 History Xl] Sotorasib [Lumakras] 960 mg PO DAILY 12/10/21 12/10/21 History Allergies Allergy/AdvReac Type Severity Reaction Status Date / Time Penicillins Allergy Unknown Verified 12/10/21 11:20 Childhood Sulfa (Sulfonamide Allergy Unknown Verified 12/10/21 11:20 Antibiotics) Childhood Physical Exam Vitals: Vital Signs Temp Pulse Resp BP Pulse Ox FiO2 12/10/21 15:51 104 H 21 121/99 99 12/10/21 14:41 106 H 12/10/21 14:29 107 H 12/10/21 14:27 40 12/10/21 13:55 105 H 38 H 129/92 100 12/10/21 11:36 124 H 12/10/21 11:18 122 H 12/10/21 11:15 40 12/10/21 10:30 126 H 35 H 120/103 96 12/10/21 08:28 24 98/82 95 12/10/21 08:22 146 H 12/10/21 07:46 144 H 12/10/21 07:39 40 12/10/21 07:30 98.1 F 98 40 H 148/81 98 Intake and Output 12/10/21 12/10/21 12/10/21 06:59 14:59 22:59 Other: Weight 70.307 kg Constitutional: Moderate to severe respiratory distress, currently on BiPAP Eyes:Anicteric sclerae, moist conjunctiva, no lid-lag, PERRLA, ENMT: Oropharynx clear, no erythema, exudates Neck: Supple, FROM, no masses, or JVD, No carotid bruits, No thyromegaly Lungs: Diminished breath sounds bilaterally. Clear to percussion, increased re spiratory effort,+ accessory muscle use Cardiovascular: Heart regular in rate and rhythm, No murmurs, gallops, or rubs, No peripheral edema Abdominal: Soft, Nontender, no guarding, rebound or rigidity, Normoactive bowel sounds, No hepatomegaly, No splenomegaly, No palpable mass Skin: Normal temperature, tone, texture, turgor, no induration, No subcutaneous nodules, No rash, lesions, No ulcers Extremities: No digital cyanosis, No clubbing, Pedal pulses intact and symmetrical, Radial pulses intact and symmetrical, No calf tenderness Neuro: Muscles Strength 5/5 in all 4 extremities, Sensation to light touch grossly present throughout, Cranial nerves II-XII grossly intact, no focal sensory deficits Results CBC & Chem 7: 12/10/21 07:36 12/10/21 07:36 Labs: Abnormal Lab Results - Last 24 Hours (Table) 12/10/21 12/10/21 12/10/21 Range/Units 07:36 07:36 07:36 WBC 22.7 H (3.8-10.6) k/uL MCV 102.8 H (80.0-100.0) fL Neutrophils # 18.1 H (1.3-7.7) k/uL Monocytes # 1.9 H (0-1.0) k/uL APTT (22.0-30.0) sec Glucose 125 H (74-99) mg/dL Troponin I 0.077 H* (0.000-0.034) ng/mL 12/10/21 12/10/21 12/10/21 Range/Units 12:07 14:18 14:18 WBC (3.8-10.6) k/uL MCV (80.0-100.0) fL Neutrophils # (1.3-7.7) k/uL Monocytes # (0-1.0) k/uL APTT 39.4 H (22.0-30.0) sec Glucose (74-99) mg/dL Troponin I 0.107 H* 0.081 H* (0.000-0.034) ng/mL Assessment and Plan Plan: Acute on chronic hypoxic respiratory failure Acute exacerbation of COPD with history of severe COPD maintained onTrelegy, prednisone 10 mg daily as well as home oxygen Patient was seen by pulmonary Continue on BiPAP Add antibiotics due to the leukocytosis Check pro calcitonin Bronchodilators and steroids IV History of metastatic non-small cell lung cancer, treated with chemotherapy and immunotherapy. CT scan of the chest revealed enlarging left hilar mass now measuring 3.6 x 2.6 cm. Follow up with oncology outpatient Elevated troponin Seen by cardiology Heparin drip Cycle Echo Chronic laryngitis Hyperlipidemia Stable Resume meds Admit to inpatient, expected length of stay more than 2 midnights
[2021-12-10] MEDS: FORMOTEROL FUMARATE 20 MCG/2 ML NEBU INHALATION SCH (19:47)
[2021-12-10] MEDS: BUDESONIDE 1 MG/2 ML NEBU INHALATION SCH (19:47)
[2021-12-10 20:36] LABS: Glucose,Whole Blood 120 mg/dL (70-110)
[2021-12-11] MEDS: methylPREDNISolone SOD SUCCI 125 MG/2 ML VIAL IV SCH ×4 (01:55→17:48)
[2021-12-11] MEDS: SODIUM CHLORIDE 0.9% 1,000 ML IV SCH ×4 (05:19→18:29)
[2021-12-11 05:52] LABS: Basophils # (A) 0.1 k/uL (0-0.2); Basophils % (A) 1 %; Eosinophils % (A) 0 %; HCT 42.9 % (39.0-53.0); HGB 13.2 gm/dL (13.0-17.5); Hypochromasia Slight; Lymphocytes # (A) 1.1 k/uL (1.0-4.8); Lymphocytes % (A) 7 %; MCHC 30.7 g/dL (31.0-37.0); MCV 104.1 fL (80.0-100.0); Macrocytosis Slight; Mean Platelet Volume 7.8; Monocytes # (A) 0.6 k/uL (0-1.0); Monocytes % (A) 4 %; Neutrophils # (A) 14.2 k/uL (1.3-7.7); Neutrophils % (A) 88 %; Platelet Count 269 k/uL (150-450); RBC 4.12 m/uL (4.30-5.90); RDW 13.3 % (11.5-15.5)
[2021-12-11 06:02] LABS: Prothrombin Time 10.9 sec (9.0-12.0)
[2021-12-11 06:18] LABS: Glucose,Whole Blood 146 mg/dL (70-110)
[2021-12-11 06:19] LABS: ALT 29 U/L (4-49); AST 29 U/L (17-59); African American GFR (CKD) >90 (>60 ml/min/1.73 sqM); Albumin 4.1 g/dL (3.5-5.0); Alkaline Phosphatase 79 U/L (38-126); Anion Gap 12 mmol/L; Blood Urea Nitrogen 27 mg/dL (9-20); Calcium 8.8 mg/dL (8.4-10.2); Carbon Dioxide 28 mmol/L (22-30); Chloride 98 mmol/L (98-107); Glucose 147 mg/dL (74-99); Non-African American GFR(CKD) >90 (>60 ml/min/1.73 sqM); Potassium 4.4 mmol/L (3.5-5.1); Sodium 138 mmol/L (137-145); Total Bilirubin 0.6 mg/dL (0.2-1.3); Total Protein 6.6 g/dL (6.3-8.2)
--- NOTE | 2021-12-11 07:43 | CA ---
Transthoracic Echo Report Name: Zaid Frausto Age: 66 Gender: M : 1955 Exam Date: 12/10/2021 13:29 Exam Location: [facility] Ht (in): 63 Wt (lb): 155 Ordering Physician: Alejandra Borges Attending/Referring Phys: [id number], Jony Cardiopulmonary Physical Therapist Lauren Kenney RDCS Procedure CPT: Indications: LV function, abnormal troponins Cardiac Hx: Technical Quality: Fair Contrast 1: Total Dose (mL): Contrast 2: Total Dose (mL): MEASUREMENTS (Male / Female) Normal Values 2D ECHO LV Diastolic Diameter PLAX 3.9 cm 4.2 - 5.9 / 3.9 - 5.3 cm LV Systolic Diameter PLAX 2.6 cm IVS Diastolic Thickness 1.4 cm 0.6 - 1.0 / 0.6 - 0.9 cm LVPW Diastolic Thickness 1.3 cm 0.6 - 1.0 / 0.6 - 0.9 cm LV Relative Wall Thickness 0.7 RV Internal Dim ED PLAX 3.0 cm LA Systolic Diameter LX 2.9 cm 3.0 - 4.0 / 2.7 - 3.8 cm LA Volume 24.0 cm??? 18 - 58 / 22 - 52 cm??? M-MODE Aortic Root Diameter MM 3.7 cm MV E Point Septal Separation 0.7 cm AV Cusp Separation MM 2.0 cm DOPPLER AV Peak Velocity 90.4 cm/s AV Peak Gradient 3.3 mmHg AI Peak Velocity 186.5 cm/s AI Peak Gradient 13.9 mmHg AI Pressure Half Time 1140.9 ms MV Area PHT 3.6 cm??? Mitral E Point Velocity 71.6 cm/s Mitral A Point Velocity 101.2 cm/s Mitral E to A Ratio 0.7 MV Deceleration Time 210.9 ms MV E' Velocity 7.3 cm/s Mitral E to MV E' Ratio 9.8 TR Peak Velocity 249.2 cm/s TR Peak Gradient 24.8 mmHg Right Ventricular Systolic Press 39.8 mmHg FINDINGS Left Ventricle Left ventricular ejection fraction is estimated at 55-60 %. Left ventricular cavity size normal. Moderate concentric left ventricular hypertrophy. Right Ventricle Normal right ventricular size and function. Mild pulmonary hypertension. Right Atrium Normal right atrial size. Left Atrium Normal left atrial size. No evidence for an atrial septal defect. Mitral Valve Mitral annular calcification. Trace to mild mitral regurgitation. Aortic Valve Trileaflet aortic valve. No aortic valve stenosis or regurgitation. Focal thickening of the aortic valve cusps. Tricuspid Valve Trace to mild tricuspid regurgitation. Pulmonic Valve Pulmonic valve not well visualized. Pericardium Normal pericardium. No pericardial effusion. Aorta Normal size aortic root and proximal ascending aorta. CONCLUSIONS Normal LV size and systolic function with [id number] concentric LVH. Minimal mitral and tricuspid insufficiency. No significant pulmonary hypertension. No pericardial effusion Previewed by: Dr. Meme Ryan MD (Electronically Signed) Final Date: 11 December 2021 07:42
[2021-12-11] MEDS: IPRATROPIUM-ALBUTEROL 3 ML NEB INHALATION SCH ×4 (07:56→20:04)
[2021-12-11] MEDS: BUDESONIDE 1 MG/2 ML NEBU INHALATION SCH ×2 (07:56→20:04)
[2021-12-11] MEDS: FORMOTEROL FUMARATE 20 MCG/2 ML NEBU INHALATION SCH ×2 (07:56→20:04)
[2021-12-11] MEDS ORDERED: NON FORMULARY DRUG (Fluticasone/Umeclidin/Vilanter [Trelegy Ellipta 200-62.5-25] 1 EACH Bl INHALATION SCH (08:00)
[2021-12-11] MEDS: METOPROLOL SUCCINATE (ER) 25 MG TAB.ER.24H PO SCH (08:44)
[2021-12-11] MEDS ORDERED: METOPROLOL SUCCINATE (ER) 25 MG TAB.ER.24H PO SCH (09:00)
--- NOTE | 2021-12-11 10:54 | P.PN ---
Subjective Progress Note Date: 12/11/21 HISTORY OF PRESENT ILLNESS: This is a 66 year old male with a past medical history significant for COPD, hyperlipidemia, former nicotine dependence, and lung cancer with chemo and ra diation. Patient follows in the office with Dr. Alba. We have been asked to see the patient in consultation for abnormal troponins. Patient examined at the bedside in the ER. Patient presented to the ER with a chief complaint of SOB. He reports he began getting SOB yesterday. He reports using his CPAP at home but did not see much improvement so he came to the ER. He denies chest pain or pressure. Telemetry reveals sinus tachycardia with a heart rate in the 120s * EKG reveals sinus tachycardia * Chest xray mild interstitial edema or pneumonia. Suspect faint opacity in the periphery of the right midlung. Tiny right pleural effusion. * Laboratory data: WBC 22.7. Hemoglobin 14.6. Platelet count 326. Sodium 140. Potassium 4.4. BUN 20. Creatinine 0.79. Troponin 0.077. * Current home cardiac medications include metoprolol succinate 25 mg daily and Lipitor 20 mg daily * Most recent echocardiogram obtained in February 2021 revealed ejection fraction 55%, mild mitral regurgitation, mild tricuspid regurgitation 12/11/2021 Patient examined this morning at the bedside. Patient denies chest pain or pressure. He reports SOB. He is currently on a nasal cannula. Telemetry reveals sinus tachycardia with a heart rate around 110. Blood pressure stable. Echocardiogram completed revealing ejection fraction 55-60%, moderate LVH, mild pulmonary hypertension, trace to mild mitral regurgitation, and trace to mild tricuspid regurgitation. D-dimer 0.45. Troponin 0.077. 0.107. 0.081. PHYSICAL EXAM: VITAL SIGNS: Reviewed. GENERAL: Well-developed in no acute distress. HEENT: Head is normocephalic. Pupils are equal, round. Sclerae anicteric. Mucous membranes of the mouth are moist. Neck supple. No JVD or thyromegaly LUNGS: Respirations even and unlabored. Lungs diminished with occasional rhonchi and expiratory wheezing. HEART: Tachycardic. Regular rate and rhythm. S1 and S2 heard. ABDOMEN: Soft. Nondistended. Nontender. EXTREMITIES: Normal range of motion. No clubbing or cyanosis. Peripheral pulses intact. Trace lower extremity edema NEUROLOGIC: Awake and alert. Oriented x 3. ASSESSMENT: Shortness of breath Acute exacerbation of COPD Sinus tachycardia Acute hypoxic respiratory failure Abnormal troponin, suspect type II PR secondary to oxygen supply and demand mismatch Lung cancer with previous chemotherapy and radiation Hyperlipidemia Former nicotine dependence PLAN: Continue current cardiac medications Discontinue IV heparin Continue telemetry monitoring Further recommendations pending patient's course Nurse practitioner note has been reviewed by physician. Signing provider agrees with the documented findings, assessment, and plan of care. Objective - Vital Signs Vital signs: Vital Signs Temp 98.1 F 12/11/21 04:26 Pulse 111 H 12/11/21 08:45 Resp 22 12/11/21 04:26 BP 128/78 12/11/21 08:28 Pulse Ox 95 12/11/21 08:28 FiO2 40 12/11/21 07:57 Intake & Output 12/10/21 12/11/21 12/11/21 18:59 06:59 18:59 Intake Total 101.806 Output Total 250 Balance -148.194 Weight 74.5 kg Intake: Intake, IV Titration 101.806 Amount Heparin Sod,Pork in 0.45% 101.806 NaCl 25,000 unit In 0.45 % NaCl 1 250ml.bag @ 12 UNITS/KG/HR 8.437 mls/hr IV .Q24H [facility] Rx#: [id number] Output: Urine 250 Other: Voiding Method Urinal Urinal - Labs CBC & Chem 7: 12/11/21 05:19 12/11/21 05:19 Labs: Abnormal Lab Results - Last 24 Hours (Table) 12/10/21 12/10/21 12/10/21 Range/Units 12:07 14:18 14:18 WBC (3.8-10.6) k/uL RBC (4.30-5.90) m/uL MCV (80.0-100.0) fL MCHC (31.0-37.0) g/dL Neutrophils # (1.3-7.7) k/uL APTT 39.4 H (22.0-30.0) sec BUN (9-20) mg/dL Glucose (74-99) mg/dL POC Glucose (mg/dL) (70-110) mg/dL Troponin I 0.107 H* 0.081 H* (0.000-0.034) ng/mL Procalcitonin (0.02-0.09) ng/mL 12/10/21 12/10/21 12/10/21 Range/Units 17:39 19:45 20:35 WBC (3.8-10.6) k/uL RBC (4.30-5.90) m/uL MCV (80.0-100.0) fL MCHC (31.0-37.0) g/dL Neutrophils # (1.3-7.7) k/uL APTT 35.9 H (22.0-30.0) sec BUN (9-20) mg/dL Glucose (74-99) mg/dL POC Glucose (mg/dL) 120 H (70-110) mg/dL Troponin I (0.000-0.034) ng/mL Procalcitonin 1.24 H (0.02-0.09) ng/mL 12/11/21 12/11/21 12/11/21 Range/Units 05:19 05:19 05:19 WBC 16.0 H (3.8-10.6) k/uL RBC 4.12 L (4.30-5.90) m/uL MCV 104.1 H (80.0-100.0) fL MCHC 30.7 L (31.0-37.0) g/dL Neutrophils # 14.2 H (1.3-7.7) k/uL APTT 54.5 H (22.0-30.0) sec BUN 27 H (9-20) mg/dL Glucose 147 H (74-99) mg/dL POC Glucose (mg/dL) (70-110) mg/dL Troponin I (0.000-0.034) ng/mL Procalcitonin (0.02-0.09) ng/mL 12/11/21 Range/Units 06:16 WBC (3.8-10.6) k/uL RBC (4.30-5.90) m/uL MCV (80.0-100.0) fL MCHC (31.0-37.0) g/dL Neutrophils # (1.3-7.7) k/uL APTT (22.0-30.0) sec BUN (9-20) mg/dL Glucose (74-99) mg/dL POC Glucose (mg/dL) 146 H (70-110) mg/dL Troponin I (0.000-0.034) ng/mL Procalcitonin (0.02-0.09) ng/mL
[2021-12-11 11:50] LABS: Glucose,Whole Blood 153 mg/dL (70-110)
[2021-12-11] MEDS: ATORVASTATIN 20 MG TAB PO SCH (11:56)
[2021-12-11] MEDS: CHOLECALCIFEROL 25 MCG (1000 IU) TABLET PO SCH (11:56)
[2021-12-11] MEDS: AZITHROMYCIN 500 MG in SODIUM CHLORIDE 0.9% 250 ML IVPB SCH (12:23)
--- NOTE | 2021-12-11 12:27 | P.PN ---
Subjective Progress Note Date: 12/11/21 Principal diagnosis: sob Patient is feeling better today compared to yesterday. Breathing is easier. Denied having chest pain. Cough is improved. He is currently on BiPAP. Objective - Vital Signs Vital signs: Vital Signs Temp 98.1 F 12/11/21 11:59 Pulse 132 H 12/11/21 11:59 Resp 24 12/11/21 11:59 BP 156/98 12/11/21 11:59 Pulse Ox 94 L 12/11/21 11:59 FiO2 40 12/11/21 07:57 Intake & Output 12/10/21 12/11/21 12/11/21 18:59 06:59 18:59 Intake Total 101.806 132.552 Output Total 250 Balance -148.194 132.552 Weight 74.5 kg Intake: Intake, IV Titration 101.806 132.552 Amount Heparin Sod,Pork in 0.45% 101.806 132.552 NaCl 25,000 unit In 0.45 % NaCl 1 250ml.bag @ 12 UNITS/KG/HR 8.437 mls/hr IV .Q24H [facility] Rx#: [id number] Output: Urine 250 Other: Voiding Method Urinal Urinal - Exam Constitutional: Moderate to severe respiratory distress, currently on BiPAP Eyes:Anicteric sclerae, moist conjunctiva, no lid-lag, PERRLA, ENMT: Oropharynx clear, no erythema, exudates Neck: Supple, FROM, no masses, or JVD, No carotid bruits, No thyromegaly Lungs: Diminished breath sounds bilaterally. Clear to percussion, increased respiratory effort,+ accessory muscle use Cardiovascular: Heart regular in rate and rhythm, No murmurs, gallops, or rubs, No peripheral edema Abdominal: Soft, Nontender, no guarding, rebound or rigidity, Normoactive bowel sounds, No hepatomegaly, No splenomegaly, No palpable mass Skin: Normal temperature, tone, texture, turgor, no induration, No subcutaneous nodules, No rash, lesions, No ulcers Extremities: No digital cyanosis, No clubbing, Pedal pulses intact and symmetrical, Radial pulses intact and symmetrical, No calf tenderness Neuro: Muscles Strength 5/5 in all 4 extremities, Sensation to light touch grossly present throughout, Cranial nerves II-XII grossly intact, no focal sensory deficits - Labs CBC & Chem 7: 12/11/21 05:19 12/11/21 05:19 Labs: Abnormal Lab Results - Last 24 Hours (Table) 12/10/21 12/10/21 12/10/21 Range/Units 12:07 14:18 14:18 WBC (3.8-10.6) k/uL RBC (4.30-5.90) m/uL MCV (80.0-100.0) fL MCHC (31.0-37.0) g/dL Neutrophils # (1.3-7.7) k/uL APTT 39.4 H (22.0-30.0) sec BUN (9-20) mg/dL Glucose (74-99) mg/dL POC Glucose (mg/dL) (70-110) mg/dL Troponin I 0.107 H* 0.081 H* (0.000-0.034) ng/mL Procalcitonin (0.02-0.09) ng/mL 12/10/21 12/10/21 12/10/21 Range/Units 17:39 19:45 20:35 WBC (3.8-10.6) k/uL RBC (4.30-5.90) m/uL MCV (80.0-100.0) fL MCHC (31.0-37.0) g/dL Neutrophils # (1.3-7.7) k/uL APTT 35.9 H (22.0-30.0) sec BUN (9-20) mg/dL Glucose (74-99) mg/dL POC Glucose (mg/dL) 120 H (70-110) mg/dL Troponin I (0.000-0.034) ng/mL Procalcitonin 1.24 H (0.02-0.09) ng/mL 12/11/21 12/11/21 12/11/21 Range/Units 05:19 05:19 05:19 WBC 16.0 H (3.8-10.6) k/uL RBC 4.12 L (4.30-5.90) m/uL MCV 104.1 H (80.0-100.0) fL MCHC 30.7 L (31.0-37.0) g/dL Neutrophils # 14.2 H (1.3-7.7) k/uL APTT 54.5 H (22.0-30.0) sec BUN 27 H (9-20) mg/dL Glucose 147 H (74-99) mg/dL POC Glucose (mg/dL) (70-110) mg/dL Troponin I (0.000-0.034) ng/mL Procalcitonin (0.02-0.09) ng/mL 12/11/21 12/11/21 Range/Units 06:16 11:47 WBC (3.8-10.6) k/uL RBC (4.30-5.90) m/uL MCV (80.0-100.0) fL MCHC (31.0-37.0) g/dL Neutrophils # (1.3-7.7) k/uL APTT (22.0-30.0) sec BUN (9-20) mg/dL Glucose (74-99) mg/dL POC Glucose (mg/dL) 146 H 153 H (70-110) mg/dL Troponin I (0.000-0.034) ng/mL Procalcitonin (0.02-0.09) ng/mL Assessment and Plan Plan: Acute on chronic hypoxic respiratory failure Acute exacerbation of COPD with history of severe COPD maintained on Trelegy, prednisone 10 mg daily as well as home oxygen at baseline Patient followed by pulmonary Currently off BiPAP Pro calcitonin elevated, continue antibiotics Bronchodilators and steroids IV History of metastatic non-small cell lung cancer, treated with chemotherapy and immunotherapy. CT scan of the chest revealed enlarging left hilar mass now measuring 3.6 x 2.6 cm. Follow up with oncology outpatient Elevated troponin Seen by cardiology Heparin drip Cycle Echo Chronic laryngitis Hyperlipidemia Stable Resume meds General weakness PT and OT Anticipated discharge home in 1-2 days
--- NOTE | 2021-12-11 12:50 | P.PN ---
Subjective Progress Note Date: 12/11/21 This is a very pleasant 66-year-old male with history of severe COPD, non-small cell lung cancer, history of laryngeal cancer, history of chronic laryngitis, patient normally sees Dr. Gonzalez in the office. The last time he saw Dr. Gonzalez was on 09/24/2021. Patient has been given a combination of carboplatin and Alimta, and keytruda. 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 The patient received a total of 4 cycles of systemic chemotherapy and the patient's last Keytruda treatment was on 05/28/2021 and this was interrupted because of multiple hospitalizations. His CAT scan dated 11/05/2021 revealed enlarging left infrahilar spiculated mass compatible with neoplasm. Currently measuring 3.6 x 2.6 cm. Emphysematous changes. He had last been discharged home on 10/18/2021. He presented to the emergency room again early this morning progressive shortness of breath. EMS found him quite hypoxic with O2 saturations in the 60s. He is initially placed on BiPAP currently 14/5 and 40% FiO2. His x-ray showed mild interstitial edema. He has faint opacity in the periphery of the right midlung. Tiny right effusion. White count 22.7. Hemoglobin 14.6. Platelets 326. Neutrophils 18.1. Sodium 140. Potassium 4.4. Bicarb 27. BUN 20. Creatinine 0.79. Troponin 0.077. ProBNP 84. He's been initiated and DuoNeb inhalations, IV Solu-Medrol and heparin drip for troponin leak. He is seen today in consultation in the emergency department. Currently sitting up in a stretcher. He remains on BiPAP 14/5 on 40% FiO2. He is dyspneic with conversation. Dyspneic with minimal exertion. Tachycardic. Blood pressure stable. Afebrile. The patient is seen today 12/11/2021 in follow-up on the selective care unit. He is awake and alert. He still quite dyspneic with minimal conversation, minimal exertion. Presently he is off the BiPAP at night 4 L/m per nasal cannula. He also makes with BiPAP 14/5 on 40% FiO2. Today states he is doing about the same as compared to yesterday. No significant improvement but no worse. White count 16.0. Hemoglobin 13.2. Sodium 1:30. Potassium 4.4. Chloride 98. Bicarb 28. BUN 27. Creatinine 0.74. Glucose 147. AST 29. ALT 29. He is continued on DuoNeb inhalations, Pulmicort and Perforomist inhalations, IV Solu-Medrol, ceftriaxone and azithromycin. ProCalcitonin 1.24. He remains on heparin drip for troponin leak. Objective - Vital Signs Vital signs: Vital Signs Temp 98.1 F 12/11/21 11:59 Pulse 132 H 12/11/21 11:59 Resp 24 12/11/21 11:59 BP 156/98 12/11/21 11:59 Pulse Ox 94 L 12/11/21 11:59 FiO2 40 12/11/21 07:57 Intake & Output 12/10/21 12/11/21 12/11/21 18:59 06:59 18:59 Intake Total 101.806 132.552 Output Total 250 Balance -148.194 132.552 Weight 74.5 kg Intake: Intake, IV Titration 101.806 132.552 Amount Heparin Sod,Pork in 0.45% 101.806 132.552 NaCl 25,000 unit In 0.45 % NaCl 1 250ml.bag @ 12 UNITS/KG/HR 8.437 mls/hr IV .Q24H [facility] Rx#: [id number] Output: Urine 250 Other: Voiding Method Urinal Urinal - Exam GENERAL EXAM: Alert, dyspneic, hoarse, 66-year-old male, on 4 L nasal cannula currently, alternating with BiPAP support with pressures of 14 and 5 and FiO2 of 40%. HEAD: Normocephalic/atraumatic. EYES: Normal reaction of pupils, equal size. Conjunctiva pink, sclera white. NOSE: Clear with pink turbinates. THROAT: No erythema or exudates. NECK: No masses, no JVD, no thyroid enlargement, no adenopathy. CHEST: No chest wall deformity. Symmetrical expansion. LUNGS: Diminished breath sounds bilaterally, does have expiratory wheezing in the upper airways CVS: Regular rate and rhythm, normal S1 and S2, no gallops, no murmurs, no rubs ABDOMEN: Soft, nontender. No hepatosplenomegaly, normal bowel sounds, no guarding or rigidity. EXTREMITIES: No clubbing, no edema, no cyanosis, 2+ pulses and upper and lower extremities. MUSCULOSKELETAL: Muscle strength and tone normal. SPINE: No scoliosis or deformity SKIN: No rashes CENTRAL NERVOUS SYSTEM: No focal deficits, tone is normal in all 4 extremities. PSYCHIATRIC: Alert and oriented -3. Appropriate affect. Intact judgment and insight. - Labs CBC & Chem 7: 12/11/21 05:19 12/11/21 05:19 Labs: Abnormal Lab Results - Last 24 Hours (Table) 12/10/21 12/10/21 12/10/21 Range/Units 12:07 14:18 14:18 WBC (3.8-10.6) k/uL RBC (4.30-5.90) m/uL MCV (80.0-100.0) fL MCHC (31.0-37.0) g/dL Neutrophils # (1.3-7.7) k/uL APTT 39.4 H (22.0-30.0) sec BUN (9-20) mg/dL Glucose (74-99) mg/dL POC Glucose (mg/dL) (70-110) mg/dL Troponin I 0.107 H* 0.081 H* (0.000-0.034) ng/mL Procalcitonin (0.02-0.09) ng/mL 12/10/21 12/10/21 12/10/21 Range/Units 17:39 19:45 20:35 WBC (3.8-10.6) k/uL RBC (4.30-5.90) m/uL MCV (80.0-100.0) fL MCHC (31.0-37.0) g/dL Neutrophils # (1.3-7.7) k/uL APTT 35.9 H (22.0-30.0) sec BUN (9-20) mg/dL Glucose (74-99) mg/dL POC Glucose (mg/dL) 120 H (70-110) mg/dL Troponin I (0.000-0.034) ng/mL Procalcitonin 1.24 H (0.02-0.09) ng/mL 12/11/21 12/11/21 12/11/21 Range/Units 05:19 05:19 05:19 WBC 16.0 H (3.8-10.6) k/uL RBC 4.12 L (4.30-5.90) m/uL MCV 104.1 H (80.0-100.0) fL MCHC 30.7 L (31.0-37.0) g/dL Neutrophils # 14.2 H (1.3-7.7) k/uL APTT 54.5 H (22.0-30.0) sec BUN 27 H (9-20) mg/dL Glucose 147 H (74-99) mg/dL POC Glucose (mg/dL) (70-110) mg/dL Troponin I (0.000-0.034) ng/mL Procalcitonin (0.02-0.09) ng/mL 12/11/21 12/11/21 Range/Units 06:16 11:47 WBC (3.8-10.6) k/uL RBC (4.30-5.90) m/uL MCV (80.0-100.0) fL MCHC (31.0-37.0) g/dL Neutrophils # (1.3-7.7) k/uL APTT (22.0-30.0) sec BUN (9-20) mg/dL Glucose (74-99) mg/dL POC Glucose (mg/dL) 146 H 153 H (70-110) mg/dL Troponin I (0.000-0.034) ng/mL Procalcitonin (0.02-0.09) ng/mL Assessment and Plan Assessment: Acute on chronic hypoxic respiratory failure related to acute exacerbation of COPD and possible postobstructive pneumonia. Pro-calcitonin 1.24. Currently on ceftriaxone and azithromycin. History of metastatic non-small cell lung cancer, treated with chemotherapy and immunotherapy. CT scan of the chest revealed enlarging left hilar mass now measuring 3.6 x 2.6 cm. Severe chronic obstructive pulmonary disease, maintained onTrelegy, prednisone 10 mg daily as well as home oxygen Chronic laryngitis History of laryngeal cancer status post radiation Former smoker, quit smoking in 2018 Hyperlipidemia Plan: The patient was seen and evaluated Medications and labs reviewed On 4 L nasal cannula alternating with BiPAP 14/5 on 40% FiO2 Continue the current treatment plan Titrate the FiO2 as tolerated Discontinue the heparin drip His overall prognosis is poor We will continue I have personally seen and examined the patient, performed the documentation and the assessment and plan as written. Number of minutes spent on the visit: 10.
[2021-12-11 17:00] LABS: Glucose,Whole Blood 159 mg/dL (70-110)
[2021-12-11] MEDS: HEPARIN SOD,PORK IN 0.45% NACL 25,000 UNIT in 0.45% NACL 1 250ML.BAG IV SCH (20:13)
[2021-12-11] MEDS: SOTORASIB 120 MG PO SCH (20:24)
[2021-12-12] MEDS: methylPREDNISolone SOD SUCCI 125 MG/2 ML VIAL IV SCH ×5 (00:05→23:09)
[2021-12-12] MEDS: SODIUM CHLORIDE 0.9% 1,000 ML IV SCH ×4 (00:06→23:10)
[2021-12-12] MEDS: FORMOTEROL FUMARATE 20 MCG/2 ML NEBU INHALATION SCH ×3 (07:26→19:51)
[2021-12-12] MEDS: IPRATROPIUM-ALBUTEROL 3 ML NEB INHALATION SCH ×4 (07:26→19:51)
[2021-12-12] MEDS: BUDESONIDE 1 MG/2 ML NEBU INHALATION SCH ×3 (07:26→19:51)
[2021-12-12] MEDS: SOTORASIB 120 MG PO SCH (08:58)
[2021-12-12] MEDS: ASPIRIN 81 MG PO SCH (08:59)
[2021-12-12] MEDS: CHOLECALCIFEROL 25 MCG (1000 IU) TABLET PO SCH (08:59)
[2021-12-12] MEDS: METOPROLOL SUCCINATE (ER) 25 MG TAB.ER.24H PO SCH (08:59)
[2021-12-12] MEDS: ISOSORBIDE MONONITRATE ER 30 MG TAB.ER.24H PO SCH (08:59)
[2021-12-12] MEDS: ATORVASTATIN 20 MG TAB PO SCH (08:59)
--- NOTE | 2021-12-12 10:24 | P.PN ---
Subjective Progress Note Date: 12/12/21 Principal diagnosis: sob When patient got up to sit and that showed that he became short of breath and severely hypoxic down into the early 80s. He was placed on BiPAP again. He complained from some acid reflux symptoms. No chest pain, no fevers. Objective - Vital Signs Vital signs: Vital Signs Temp 98.8 F 12/12/21 04:40 Pulse 111 H 12/12/21 09:43 Resp 32 H 12/12/21 09:43 BP 145/80 12/12/21 07:34 Pulse Ox 97 12/12/21 07:34 FiO2 50 12/12/21 04:40 Intake & Output 12/11/21 12/12/21 12/12/21 18:59 06:59 18:59 Intake Total 1032.552 510 30 Output Total 750 100 Balance 1032.552 -240 -70 Intake: Intake, IV Titration 132.552 390 Amount Azithromycin 500 mg In 390 Sodium Chloride 0.9% 250 ml @ 250 mls/hr IVPB DAILY [facility] Rx#:[id number] Heparin Sod,Pork in 0.45% 132.552 NaCl 25,000 unit In 0.45 % NaCl 1 250ml.bag @ 12 UNITS/KG/HR 8.437 mls/hr IV .Q24H [facility] Rx#: [id number] Oral 900 120 30 Output: Urine 750 100 Other: Voiding Method Urinal Urinal Urinal - Exam Constitutional: Moderate to severe respiratory distress, currently on BiPAP Eyes:Anicteric sclerae, moist conjunctiva, no lid-lag, PERRLA, ENMT: Oropharynx clear, no erythema, exudates Neck: Supple, FROM, no masses, or JVD, No carotid bruits, No thyromegaly Lungs: Diminished breath sounds bilaterally. Clear to percussion, increased respiratory effort,+ accessory muscle use Cardiovascular: Heart regular in rate and rhythm, No murmurs, gallops, or rubs, No peripheral edema Abdominal: Soft, Nontender, no guarding, rebound or rigidity, Normoactive bowel sounds, No hepatomegaly, No splenomegaly, No palpable mass Skin: Normal temperature, tone, texture, turgor, no induration, No subcutaneous nodules, No rash, lesions, No ulcers Extremities: No digital cyanosis, No clubbing, Pedal pulses intact and symmetrical, Radial pulses intact and symmetrical, No calf tenderness Neuro: Muscles Strength 5/5 in all 4 extremities, Sensation to light touch gr ossly present throughout, Cranial nerves II-XII grossly intact, no focal sensory deficits - Labs CBC & Chem 7: 12/11/21 05:19 12/11/21 05:19 Labs: Abnormal Lab Results - Last 24 Hours (Table) 12/11/21 12/11/21 Range/Units 11:47 16:58 POC Glucose (mg/dL) 153 H 159 H (70-110) mg/dL Assessment and Plan Plan: Acute on chronic hypoxic respiratory failure Acute exacerbation of COPD with history of severe COPD maintained on Trelegy, prednisone 10 mg daily as well as home oxygen at baseline Patient followed by pulmonary Back on BiPAP Pro calcitonin elevated, continue antibiotics Bronchodilators and steroids IV History of metastatic non-small cell lung cancer, treated with chemotherapy and immunotherapy. CT scan of the chest revealed enlarging left hilar mass now me asuring 3.6 x 2.6 cm. Follow up with oncology outpatient Elevated troponin Followed by cardiology Trops flat, off heparin Echo showing mild to moderate concentric LVH. Normal EF. Chronic laryngitis Hyperlipidemia Stable Resume meds General weakness PT and OT Anticipated discharge home in 1-2 days
[2021-12-12] MEDS: AZITHROMYCIN 500 MG in SODIUM CHLORIDE 0.9% 250 ML IVPB SCH (11:54)
--- NOTE | 2021-12-12 12:00 | P.PN ---
Subjective Progress Note Date: 12/12/21 HISTORY OF PRESENT ILLNESS: This is a 66 year old male with a past medical history significant for COPD, hyperlipidemia, former nicotine dependence, and lung cancer with chemo and ra diation. Patient follows in the office with Dr. Alba. We have been asked to see the patient in consultation for abnormal troponins. Patient examined at the bedside in the ER. Patient presented to the ER with a chief complaint of SOB. He reports he began getting SOB yesterday. He reports using his CPAP at home but did not see much improvement so he came to the ER. He denies chest pain or pressure. Telemetry reveals sinus tachycardia with a heart rate in the 120s * EKG reveals sinus tachycardia * Chest xray mild interstitial edema or pneumonia. Suspect faint opacity in the periphery of the right midlung. Tiny right pleural effusion. * Laboratory data: WBC 22.7. Hemoglobin 14.6. Platelet count 326. Sodium 140. Potassium 4.4. BUN 20. Creatinine 0.79. Troponin 0.077. * Current home cardiac medications include metoprolol succinate 25 mg daily and Lipitor 20 mg daily * Most recent echocardiogram obtained in February 2021 revealed ejection fraction 55%, mild mitral regurgitation, mild tricuspid regurgitation 12/11/2021 Patient examined this morning at the bedside. Patient denies chest pain or pressure. He reports SOB. He is currently on a nasal cannula. Telemetry reveals sinus tachycardia with a heart rate around 110. Blood pressure stable. Echocardiogram completed revealing ejection fraction 55-60%, moderate LVH, mild pulmonary hypertension, trace to mild mitral regurgitation, and trace to mild tricuspid regurgitation. D-dimer 0.45. Troponin 0.077. 0.107. 0.081. 12/12/2021 Patient examined this morning. Patient is sitting up in the chair. Patient de nies chest pain or pressure. He reports shortness of breath. He is currently on a nasal cannula. Telemetry reveals sinus tachycardia with a heart rate around 110. PHYSICAL EXAM: VITAL SIGNS: Reviewed. GENERAL: Well-developed in no acute distress. HEENT: Head is normocephalic. Pupils are equal, round. Sclerae anicteric. Mucous membranes of the mouth are moist. Neck supple. No JVD or thyromegaly LUNGS: Respirations even and unlabored. Lungs diminished with occasional rhonchi and expiratory wheezing. HEART: Tachycardic. Regular rate and rhythm. S1 and S2 heard. ABDOMEN: Soft. Nondistended. Nontender. EXTREMITIES: Normal range of motion. No clubbing or cyanosis. Peripheral pulses intact. Trace lower extremity edema NEUROLOGIC: Awake and alert. Oriented x 3. ASSESSMENT: Shortness of breath Acute exacerbation of COPD Sinus tachycardia Acute hypoxic respiratory failure Abnormal troponin, suspect type II VT secondary to oxygen supply and demand mismatch Lung cancer with previous chemotherapy and radiation Hyperlipidemia Former nicotine dependence PLAN: Continue current cardiac medications Continue telemetry monitoring Tachycardia likely persisting secondary to patients respiratory status and labored breathing. However, will increase metoprolol to 50 mg daily for optimal heart rate control Further recommendations pending patient's course Nurse practitioner note has been reviewed by physician. Signing provider agrees with the documented findings, assessment, and plan of care. Objective - Vital Signs Vital signs: Vital Signs Temp 98.8 F 12/12/21 04:40 Pulse 110 H 12/12/21 11:49 Resp 32 H 12/12/21 09:43 BP 145/80 12/12/21 07:34 Pulse Ox 97 12/12/21 07:34 FiO2 50 12/12/21 04:40 Intake & Output 12/11/21 12/12/21 12/12/21 18:59 06:59 18:59 Intake Total 1032.552 510 30 Output Total 750 100 Balance 1032.552 -240 -70 Intake: Intake, IV Titration 132.552 390 Amount Azithromycin 500 mg In 390 Sodium Chloride 0.9% 250 ml @ 250 mls/hr IVPB DAILY [facility] Rx#:[id number] Heparin Sod,Pork in 0.45% 132.552 NaCl 25,000 unit In 0.45 % NaCl 1 250ml.bag @ 12 UNITS/KG/HR 8.437 mls/hr IV .Q24H [facility] Rx#: [id number] Oral 900 120 30 Output: Urine 750 100 Other: Voiding Method Urinal Urinal Urinal - Labs CBC & Chem 7: 12/11/21 05:19 12/11/21 05:19 Labs: Abnormal Lab Results - Last 24 Hours (Table) 12/11/21 Range/Units 16:58 POC Glucose (mg/dL) 159 H (70-110) mg/dL
--- NOTE | 2021-12-12 13:41 | P.PN ---
Subjective Progress Note Date: 12/12/21 This is a very pleasant 66-year-old male with history of severe COPD, non-small cell lung cancer, history of laryngeal cancer, history of chronic laryngitis, patient normally sees Dr. Gonzalez in the office. The last time he saw Dr. Gonzalez was on 09/24/2021. Patient has been given a combination of carboplatin and Alimta, and keytruda. 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 The patient received a total of 4 cycles of systemic chemotherapy and the patient's last Keytruda treatment was on 05/28/2021 and this was interrupted because of multiple hospitalizations. His CAT scan dated 11/05/2021 revealed enlarging left infrahilar spiculated mass compatible with neoplasm. Currently measuring 3.6 x 2.6 cm. Emphysematous changes. He had last been discharged home on 10/18/2021. He presented to the emergency room again early this morning progressive shortness of breath. EMS found him quite hypoxic with O2 saturations in the 60s. He is initially placed on BiPAP currently 14/5 and 40% FiO2. His x-ray showed mild interstitial edema. He has faint opacity in the periphery of the right midlung. Tiny right effusion. White count 22.7. Hemoglobin 14.6. Platelets 326. Neutrophils 18.1. Sodium 140. Potassium 4.4. Bicarb 27. BUN 20. Creatinine 0.79. Troponin 0.077. ProBNP 84. He's been initiated and DuoNeb inhalations, IV Solu-Medrol and heparin drip for troponin leak. He is seen today in consultation in the emergency department. Currently sitting up in a stretcher. He remains on BiPAP 14/5 on 40% FiO2. He is dyspneic with conversation. Dyspneic with minimal exertion. Tachycardic. Blood pressure stable. Afebrile. The patient is seen today 12/11/2021 in follow-up on the selective care unit. He is awake and alert. He still quite dyspneic with minimal conversation, minimal exertion. Presently he is off the BiPAP at night 4 L/m per nasal cannula. He also makes with BiPAP 14/5 on 40% FiO2. Today states he is doing about the same as compared to yesterday. No significant improvement but no worse. White count 16.0. Hemoglobin 13.2. Sodium 1:30. Potassium 4.4. Chloride 98. Bicarb 28. BUN 27. Creatinine 0.74. Glucose 147. AST 29. ALT 29. He is continued on DuoNeb inhalations, Pulmicort and Perforomist inhalations, IV Solu-Medrol, ceftriaxone and azithromycin. ProCalcitonin 1.24. He remains on heparin drip for troponin leak. The patient is seen today 12/12/2021 in follow-up on the selective care unit. He is less short of breath with activity. Left short of breath conversation. He has a loose nonproductive cough. He is maintaining O2 saturations in the 90s on 5 L/m per nasal cannula. No new labs today. If he is continued on DuoNeb inhalations, Pulmicort and Perforomist inhalations, IV Solu-Medrol. Remains on antibiotics in the form of ceftriaxone and azithromycin. Objective - Vital Signs Vital signs: Vital Signs Temp 98.8 F 12/12/21 04:40 Pulse 99 12/12/21 11:58 Resp 30 H 12/12/21 11:58 BP 105/71 12/12/21 11:58 Pulse Ox 99 12/12/21 11:58 FiO2 50 12/12/21 04:40 Intake & Output 12/11/21 12/12/21 12/12/21 18:59 06:59 18:59 Intake Total 1032.552 510 30 Output Total 750 100 Balance 1032.552 -240 -70 Intake: Intake, IV Titration 132.552 390 Amount Azithromycin 500 mg In 390 Sodium Chloride 0.9% 250 ml @ 250 mls/hr IVPB DAILY JEROD Rx#:[id number] Heparin Sod,Pork in 0.45% 132.552 NaCl 25,000 unit In 0.45 % NaCl 1 250ml.bag @ 12 UNITS/KG/HR 8.437 mls/hr IV .Q24H JEROD Rx#: [id number] Oral 900 120 30 Output: Urine 750 100 Other: Voiding Method Urinal Urinal Urinal - Exam GENERAL EXAM: Alert, dyspneic, hoarse, 66-year-old male, on 5 L nasal cannula currently, alternating with BiPAP support with pressures of 14 and 5 and FiO2 of 40%. HEAD: Normocephalic/atraumatic. EYES: Normal reaction of pupils, equal size. Conjunctiva pink, sclera white. NOSE: Clear with pink turbinates. THROAT: No erythema or exudates. NECK: No masses, no JVD, no thyroid enlargement, no adenopathy. CHEST: No chest wall deformity. Symmetrical expansion. LUNGS: Diminished breath sounds bilaterally, does have expiratory wheezing in the upper airways CVS: Regular rate and rhythm, normal S1 and S2, no gallops, no murmurs, no rubs ABDOMEN: Soft, nontender. No hepatosplenomegaly, normal bowel sounds, no guarding or rigidity. EXTREMITIES: No clubbing, no edema, no cyanosis, 2+ pulses and upper and lower extremities. MUSCULOSKELETAL: Muscle strength and tone normal. SPINE: No scoliosis or deformity SKIN: No rashes CENTRAL NERVOUS SYSTEM: No focal deficits, tone is normal in all 4 extremities. PSYCHIATRIC: Alert and oriented -3. Appropriate affect. Intact judgment and insight. - Labs CBC & Chem 7: 12/11/21 05:19 12/11/21 05:19 Labs: Abnormal Lab Results - Last 24 Hours (Table) 12/11/21 Range/Units 16:58 POC Glucose (mg/dL) 159 H (70-110) mg/dL Assessment and Plan Assessment: Acute on chronic hypoxic respiratory failure related to acute exacerbation of COPD and possible postobstructive pneumonia. Pro-calcitonin 1.24. Currently on ceftriaxone and azithromycin. History of metastatic non-small cell lung cancer, treated with chemotherapy and immunotherapy. CT scan of the chest revealed enlarging left hilar mass now measuring 3.6 x 2.6 cm. Severe chronic obstructive pulmonary disease, maintained on Trelegy, prednisone 10 mg daily as well as home oxygen Chronic laryngitis History of laryngeal cancer status post radiation Former smoker, quit smoking in 2018 Hyperlipidemia Plan: The patient was seen and evaluated Improved today compared to yesterday On 5 L nasal cannula alternating with BiPAP 14/5 on 40% FiO2 Continue the current treatment plan Titrate the FiO2 as tolerated His overall prognosis is poor We will continue to follow I have personally seen and examined the patient, performed the documentation and the assessment and plan as written. Number of minutes spent on the visit: 10.
[2021-12-12] MEDS: MAG HYDROX/AL HYDROX/SIMETH 30 ML CUP PO PRN (22:02)
[2021-12-13] MEDS: methylPREDNISolone SOD SUCCI 125 MG/2 ML VIAL IV SCH ×4 (05:39→23:06)
[2021-12-13] MEDS: IPRATROPIUM-ALBUTEROL 3 ML NEB INHALATION SCH ×6 (07:51→19:59)
[2021-12-13] MEDS: BUDESONIDE 1 MG/2 ML NEBU INHALATION SCH ×3 (07:51→19:42)
[2021-12-13] MEDS: FORMOTEROL FUMARATE 20 MCG/2 ML NEBU INHALATION SCH ×3 (07:51→19:43)
[2021-12-13] MEDS: ISOSORBIDE MONONITRATE ER 30 MG TAB.ER.24H PO SCH (08:44)
[2021-12-13] MEDS: METOPROLOL SUCCINATE (ER) 50 MG TAB.ER.24H PO SCH (08:44)
[2021-12-13] MEDS: CHOLECALCIFEROL 25 MCG (1000 IU) TABLET PO SCH (08:44)
[2021-12-13] MEDS: ASPIRIN 81 MG PO SCH (08:44)
[2021-12-13] MEDS: ATORVASTATIN 20 MG TAB PO SCH (08:45)
[2021-12-13] MEDS: SOTORASIB 120 MG PO SCH (09:29)
[2021-12-13] MEDS: MAG HYDROX/AL HYDROX/SIMETH 30 ML CUP PO PRN ×2 (09:29→17:18)
[2021-12-13] MEDS: AZITHROMYCIN 500 MG in SODIUM CHLORIDE 0.9% 250 ML IVPB SCH (10:09)
--- NOTE | 2021-12-13 13:58 | P.PN ---
Subjective Progress Note Date: 12/13/21 This is a very pleasant 66-year-old male with history of severe COPD, non-small cell lung cancer, history of laryngeal cancer, history of chronic laryngitis, patient normally sees Dr. Gonzalez in the office. The last time he saw Dr. Gonzalez was on 09/24/2021. Patient has been given a combination of carboplatin and Alimta, and keytruda. 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 The patient received a total of 4 cycles of systemic chemotherapy and the patient's last Keytruda treatment was on 05/28/2021 and this was interrupted because of multiple hospitalizations. His CAT scan dated 11/05/2021 revealed enlarging left infrahilar spiculated mass compatible with neoplasm. Currently measuring 3.6 x 2.6 cm. Emphysematous changes. He had last been discharged home on 10/18/2021. He presented to the emergency room again early this morning progressive shortness of breath. EMS found him quite hypoxic with O2 saturations in the 60s. He is initially placed on BiPAP currently 14/5 and 40% FiO2. His x-ray showed mild interstitial edema. He has faint opacity in the periphery of the right midlung. Tiny right effusion. White count 22.7. Hemoglobin 14.6. Platelets 326. Neutrophils 18.1. Sodium 140. Potassium 4.4. Bicarb 27. BUN 20. Creatinine 0.79. Troponin 0.077. ProBNP 84. He's been initiated and DuoNeb inhalations, IV Solu-Medrol and heparin drip for troponin leak. He is seen today in consultation in the emergency department. Currently sitting up in a stretcher. He remains on BiPAP 14/5 on 40% FiO2. He is dyspneic with conversation. Dyspneic with minimal exertion. Tachycardic. Blood pressure stable. Afebrile. The patient is seen today 12/11/2021 in follow-up on the selective care unit. He is awake and alert. He still quite dyspneic with minimal conversation, minimal exertion. Presently he is off the BiPAP at night 4 L/m per nasal cannula. He also makes with BiPAP 14/5 on 40% FiO2. Today states he is doing about the same as compared to yesterday. No significant improvement but no worse. White count 16.0. Hemoglobin 13.2. Sodium 1:30. Potassium 4.4. Chloride 98. Bicarb 28. BUN 27. Creatinine 0.74. Glucose 147. AST 29. ALT 29. He is continued on DuoNeb inhalations, Pulmicort and Perforomist inhalations, IV Solu-Medrol, ceftriaxone and azithromycin. ProCalcitonin 1.24. He remains on heparin drip for troponin leak. The patient is seen today 12/12/2021 in follow-up on the selective care unit. He is less short of breath with activity. Left short of breath conversation. He has a loose nonproductive cough. He is maintaining O2 saturations in the 90s on 5 L/m per nasal cannula. No new labs today. If he is continued on DuoNeb inhalations, Pulmicort and Perforomist inhalations, IV Solu-Medrol. Remains on antibiotics in the form of ceftriaxone and azithromycin. The patient is states thousand and 22 in follow-up on the elective care unit. He is currently sitting up in a chair at the bedside. Awake and alert in no acute distress. Doing a bit better today compared to yesterday. He is currently on 5 L high flow nasal cannula and maintaining O2 saturations in the 90s. He has been alternating with BiPAP 14/5 and 40% FiO2. He remains on DuoNeb inhalations, Pulmicort and Perforomist inhalations, IV Solu-Medrol. Antibiotics in the form of azithromycin and ceftriaxone. Objective - Vital Signs Vital signs: Vital Signs Temp 97.7 F 12/13/21 08:00 Pulse 101 H 12/13/21 12:48 Resp 20 12/13/21 12:00 BP 124/74 12/13/21 12:00 Pulse Ox 100 12/13/21 12:00 FiO2 50 12/13/21 08:00 Intake & Output 12/12/21 12/13/21 12/13/21 18:59 06:59 18:59 Intake Total 570 Output Total 100 Balance 470 Intake: Oral 570 Output: Urine 100 Other: Voiding Method Urinal Urinal # Voids 2 2 1 # Bowel Movements 1 - Exam GENERAL EXAM: Alert, hoarse, 66-year-old male, up in a chair at the bedside, on 5 L nasal cannula currently, alternating with BiPAP support 14/5 and FiO2 of 40%. HEAD: Normocephalic/atraumatic. EYES: Normal reaction of pupils, equal size. Conjunctiva pink, sclera white. NOSE: Clear with pink turbinates. THROAT: No erythema or exudates. NECK: No masses, no JVD, no thyroid enlargement, no adenopathy. CHEST: No chest wall deformity. Symmetrical expansion. LUNGS: Diminished breath sounds bilaterally, does have expiratory wheezing in the upper airways CVS: Regular rate and rhythm, normal S1 and S2, no gallops, no murmurs, no rubs ABDOMEN: Soft, nontender. No hepatosplenomegaly, normal bowel sounds, no g uarding or rigidity. EXTREMITIES: No clubbing, no edema, no cyanosis, 2+ pulses and upper and lower extremities. MUSCULOSKELETAL: Muscle strength and tone normal. SPINE: No scoliosis or deformity SKIN: No rashes CENTRAL NERVOUS SYSTEM: No focal deficits, tone is normal in all 4 extremities. PSYCHIATRIC: Alert and oriented -3. Appropriate affect. Intact judgment and insight. - Labs CBC & Chem 7: 12/11/21 05:19 12/11/21 05:19 Assessment and Plan Assessment: Acute on chronic hypoxic respiratory failure related to acute exacerbation of COPD and possible postobstructive pneumonia. Pro-calcitonin 1.24. Currently on ceftriaxone and azithromycin. History of metastatic non-small cell lung cancer, treated with chemotherapy and immunotherapy. CT scan of the chest revealed enlarging left hilar mass now measuring 3.6 x 2.6 cm. Severe chronic obstructive pulmonary disease, maintained on Trelegy, prednisone 10 mg daily as well as home oxygen Chronic laryngitis History of laryngeal cancer status post radiation Former smoker, quit smoking in 2018 Hyperlipidemia Plan: The patient was seen and evaluated Improved today compared to yesterday Up in a chair at the bedside On 5 L nasal cannula alternating with BiPAP 14/5 on 40% FiO2 Continue the current treatment plan Titrate the FiO2 as tolerated His overall prognosis is poor We will continue to follow I have personally seen and examined the patient, performed the documentation and the assessment and plan as written. Number of minutes spent on the visit: 10.
--- NOTE | 2021-12-13 14:26 | P.PN ---
Subjective Progress Note Date: 12/13/21 Principal diagnosis: sob Patient currently alternating between BiPAP use and 5 L of nasal cannula. He is complaining that he is weak and cannot use the bathroom by himself. No chest pain, nausea or vomiting, fevers. Objective - Vital Signs Vital signs: Vital Signs Temp 97.7 F 12/13/21 08:00 Pulse 101 H 12/13/21 12:48 Resp 20 12/13/21 12:00 BP 124/74 12/13/21 12:00 Pulse Ox 100 12/13/21 12:00 FiO2 50 12/13/21 08:00 Intake & Output 12/12/21 12/13/21 12/13/21 18:59 06:59 18:59 Intake Total 570 Output Total 100 Balance 470 Intake: Oral 570 Output: Urine 100 Other: Voiding Method Urinal Urinal # Voids 2 2 1 # Bowel Movements 1 - Exam Constitutional: Moderate to severe respiratory distress, currently on BiPAP Eyes:Anicteric sclerae, moist conjunctiva, no lid-lag, PERRLA, ENMT: Oropharynx clear, no erythema, exudates Neck: Supple, FROM, no masses, or JVD, No carotid bruits, No thyromegaly Lungs: Diminished breath sounds bilaterally. Clear to percussion, increased respiratory effort,+ accessory muscle use Cardiovascular: Heart regular in rate and rhythm, No murmurs, gallops, or rubs, No peripheral edema Abdominal: Soft, Nontender, no guarding, rebound or rigidity, Normoactive bowel sounds, No hepatomegaly, No splenomegaly, No palpable mass Skin: Normal temperature, tone, texture, turgor, no induration, No subcutaneous nodules, No rash, lesions, No ulcers Extremities: No digital cyanosis, No clubbing, Pedal pulses intact and symmetrical, Radial pulses intact and symmetrical, No calf tenderness Neuro: Muscles Strength 5/5 in all 4 extremities, Sensation to light touch grossly present throughout, Cranial nerves II-XII grossly intact, no focal sensory deficits - Labs CBC & Chem 7: 12/11/21 05:19 12/11/21 05:19 Assessment and Plan Plan: Acute on chronic hypoxic respiratory failure Acute exacerbation of COPD with history of severe COPD maintained on Trelegy, prednisone 10 mg daily as well as home oxygen at baseline Patient followed by pulmonary Currently alternating between BiPAP and 5 L nasal cannula, baseline home oxygen at 4 L. Pro calcitonin elevated, continue antibiotics Bronchodilators and steroids IV History of metastatic non-small cell lung cancer, treated with chemotherapy and immunotherapy. CT scan of the chest revealed enlarging left hilar mass now bonnie uring 3.6 x 2.6 cm. Follow up with oncology outpatient Elevated troponin Followed by cardiology Trops flat, off heparin Echo showing mild to moderate concentric LVH. Normal EF. Chronic laryngitis Hyperlipidemia Stable Resume meds General weakness PT and OT Anticipated discharge home in 1-2 days
[2021-12-13] MEDS: SODIUM CHLORIDE 0.9% 1,000 ML IV SCH ×3 (16:10→23:10)
--- NOTE | 2021-12-13 16:11 | P.PN ---
Subjective HISTORY OF PRESENT ILLNESS: This is a 66 year old male with a past medical history significant for COPD, hyperlipidemia, former nicotine dependence, and lung cancer with chemo and radiation. Patient follows in the office with Dr. Alba. We have been asked to see the patient in consultation for abnormal troponins. Patient examined at the bedside in the ER. Patient presented to the ER with a chief complaint of SOB. He reports he began getting SOB yesterday. He reports using his CPAP at home but did not see much improvement so he came to the ER. He denies chest pain or pressure. Telemetry reveals sinus tachycardia with a heart rate in the 120s * EKG reveals sinus tachycardia * Chest xray mild interstitial edema or pneumonia. Suspect faint opacity in the periphery of the right midlung. Tiny right pleural effusion. * Laboratory data: WBC 22.7. Hemoglobin 14.6. Platelet count 326. Sodium 140. Potassium 4.4. BUN 20. Creatinine 0.79. Troponin 0.077. * Current home cardiac medications include metoprolol succinate 25 mg daily and Lipitor 20 mg daily * Most recent echocardiogram obtained in February 2021 revealed ejection fraction 55%, mild mitral regurgitation, mild tricuspid regurgitation 12/11/2021 Patient examined this morning at the bedside. Patient denies chest pain or pressure. He reports SOB. He is currently on a nasal cannula. Telemetry reveals sinus tachycardia with a heart rate around 110. Blood pressure stable. Echo cardiogram completed revealing ejection fraction 55-60%, moderate LVH, mild pulmonary hypertension, trace to mild mitral regurgitation, and trace to mild tricuspid regurgitation. D-dimer 0.45. Troponin 0.077. 0.107. 0.081. 12/12/2021 Patient examined this morning. Patient is sitting up in the chair. Patient denies chest pain or pressure. He reports shortness of breath. He is currently on a nasal cannula. Telemetry reveals sinus tachycardia with a heart rate around 110. 12/13 Patient seen and examined. Patient still with significant wheezing. Heart rates better and she was increased on his metoprolol. Denies any chest pain or pressure. PHYSICAL EXAM: VITAL SIGNS: Reviewed. GENERAL: Well-developed in no acute distress. HEENT: Head is normocephalic. Pupils are equal, round. Sclerae anicteric. Mucous membranes of the mouth are moist. Neck supple. No JVD or thyromegaly LUNGS: Respirations even and unlabored. Lungs diminished with occasional rhonchi and expiratory wheezing. HEART: Tachycardic. Regular rate and rhythm. S1 and S2 heard. ABDOMEN: Soft. Nondistended. Nontender. EXTREMITIES: Normal range of motion. No clubbing or cyanosis. Peripheral pulses intact. Trace lower extremity edema NEUROLOGIC: Awake and alert. Oriented x 3. ASSESSMENT: Shortness of breath Acute exacerbation of COPD Sinus tachycardia Acute hypoxic respiratory failure Abnormal troponin, suspect type II SD secondary to oxygen supply and demand mismatch Lung cancer with previous chemotherapy and radiation Hyperlipidemia Former nicotine dependence PLAN: Continue current cardiac medications Continue telemetry monitoring Continue metoprolol to 50 mg daily for optimal heart rate control May consider changing to diltiazem if beta jesse felt to be influencing his respiratory status however appears to be tolerating well. No further recommendations from cardiology standpoint. Please call with any questions. Objective - Vital Signs Vital signs: Vital Signs Temp 97.7 F 12/13/21 08:00 Pulse 95 12/13/21 15:32 Resp 20 12/13/21 12:00 BP 124/74 12/13/21 12:00 Pulse Ox 100 12/13/21 12:00 FiO2 40 12/13/21 15:21 Intake & Output 12/12/21 12/13/21 12/13/21 18:59 06:59 18:59 Intake Total 570 Output Total 100 Balance 470 Intake: Oral 570 Output: Urine 100 Other: Voiding Method Urinal Urinal Urinal # Voids 2 2 1 # Bowel Movements 1 - Labs CBC & Chem 7: 12/11/21 05:19 12/11/21 05:19
[2021-12-14] MEDS: methylPREDNISolone SOD SUCCI 125 MG/2 ML VIAL IV SCH (06:26)
[2021-12-14] MEDS: IPRATROPIUM-ALBUTEROL 3 ML NEB INHALATION SCH ×4 (08:29→19:23)
[2021-12-14] MEDS: FORMOTEROL FUMARATE 20 MCG/2 ML NEBU INHALATION SCH ×2 (08:31→19:23)
[2021-12-14] MEDS: BUDESONIDE 1 MG/2 ML NEBU INHALATION SCH ×2 (08:32→19:23)
[2021-12-14] MEDS: ISOSORBIDE MONONITRATE ER 30 MG TAB.ER.24H PO SCH (08:45)
[2021-12-14] MEDS: ATORVASTATIN 20 MG TAB PO SCH (08:45)
[2021-12-14] MEDS: METOPROLOL SUCCINATE (ER) 50 MG TAB.ER.24H PO SCH (08:45)
[2021-12-14] MEDS: ASPIRIN 81 MG PO SCH (08:45)
[2021-12-14] MEDS: CHOLECALCIFEROL 25 MCG (1000 IU) TABLET PO SCH (08:45)
[2021-12-14] MEDS: SOTORASIB 120 MG PO SCH (08:47)
[2021-12-14] MEDS: AZITHROMYCIN 500 MG in SODIUM CHLORIDE 0.9% 250 ML IVPB SCH (08:47)
--- NOTE | 2021-12-14 11:52 | P.PN ---
Subjective Progress Note Date: 12/14/21 Principal diagnosis: sob Patient is feeling better, he is still weak however. Has been difficult for him to ambulate and function by himself. Breathing is nearly back to baseline. No chest pain. No nausea or vomiting. No fevers or chills. Objective - Vital Signs Vital signs: Vital Signs Temp 97.6 F 12/14/21 08:00 Pulse 95 12/14/21 08:41 Resp 16 12/14/21 08:00 BP 149/65 12/14/21 08:00 Pulse Ox 95 12/14/21 08:32 FiO2 50 12/13/21 23:39 Intake & Output 12/13/21 12/14/21 12/14/21 18:59 06:59 18:59 Intake Total 970 Output Total 700 Balance 270 Intake: Oral 970 Output: Urine 700 Other: Voiding Method Urinal Toilet Toilet Urinal Urinal # Voids 2 1 1 - Exam Constitutional: Moderate to severe respiratory distress, currently on BiPAP Eyes:Anicteric sclerae, moist conjunctiva, no lid-lag, PERRLA, ENMT: Oropharynx clear, no erythema, exudates Neck: Supple, FROM, no masses, or JVD, No carotid bruits, No thyromegaly Lungs: Diminished breath sounds bilaterally. Clear to percussion, increased respiratory effort,+ accessory muscle use Cardiovascular: Heart regular in rate and rhythm, No murmurs, gallops, or rubs, No peripheral edema Abdominal: Soft, Nontender, no guarding, rebound or rigidity, Normoactive bowel sounds, No hepatomegaly, No splenomegaly, No palpable mass Skin: Normal temperature, tone, texture, turgor, no induration, No subcutaneous nodules, No rash, lesions, No ulcers Extremities: No digital cyanosis, No clubbing, Pedal pulses intact and symmetrical, Radial pulses intact and symmetrical, No calf tenderness Neuro: Muscles Strength 5/5 in all 4 extremities, Sensation to light touch grossly present throughout, Cranial nerves II-XII grossly intact, no focal sensory deficits - Labs CBC & Chem 7: 12/11/21 05:19 12/11/21 05:19 Assessment and Plan Plan: Acute on chronic hypoxic respiratory failure Acute exacerbation of COPD with history of severe COPD maintained on Trelegy, prednisone 10 mg daily as well as home oxygen at baseline Patient followed by pulmonary Currently alternating between BiPAP and 5 L nasal cannula, baseline home oxygen at 4 L. Pro calcitonin elevated, continue antibiotics Bronchodilators Switch steroids to oral prednisone. History of metastatic non-small cell lung cancer, treated with chemotherapy and immunotherapy. CT scan of the chest revealed enlarging left hilar mass now measuring 3.6 x 2.6 cm. Follow up with oncology outpatient Elevated troponin Followed by cardiology Trops flat, off heparin Echo showing mild to moderate concentric LVH. Normal EF. Chronic laryngitis Hyperlipidemia Stable Resume meds General weakness PT and OT Anticipated discharge home on Wednesday, discussed with pulmonary.
--- NOTE | 2021-12-14 12:59 | P.PN ---
Subjective Progress Note Date: 12/14/21 This is a very pleasant 66-year-old male with history of severe COPD, non-small cell lung cancer, history of laryngeal cancer, history of chronic laryngitis, patient normally sees Dr. Gonzalez in the office. The last time he saw Dr. Gonzalez was on 09/24/2021. Patient has been given a combination of carboplatin and Alimta, and keytruda. 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 The patient received a total of 4 cycles of systemic chemotherapy and the patient's last Keytruda treatment was on 05/28/2021 and this was interrupted because of multiple hospitalizations. His CAT scan dated 11/05/2021 revealed enlarging left infrahilar spiculated mass compatible with neoplasm. Currently measuring 3.6 x 2.6 cm. Emphysematous changes. He had last been discharged home on 10/18/2021. He presented to the emergency room again early this morning progressive shortness of breath. EMS found him quite hypoxic with O2 saturations in the 60s. He is initially placed on BiPAP currently 14/5 and 40% FiO2. His x-ray showed mild interstitial edema. He has faint opacity in the periphery of the right midlung. Tiny right effusion. White count 22.7. Hemoglobin 14.6. Platelets 326. Neutrophils 18.1. Sodium 140. Potassium 4.4. Bicarb 27. BUN 20. Creatinine 0.79. Troponin 0.077. ProBNP 84. He's been initiated and DuoNeb inhalations, IV Solu-Medrol and heparin drip for troponin leak. He is seen today in consultation in the emergency department. Currently sitting up in a stretcher. He remains on BiPAP 14/5 on 40% FiO2. He is dyspneic with conversation. Dyspneic with minimal exertion. Tachycardic. Blood pressure stable. Afebrile. The patient is seen today 12/11/2021 in follow-up on the selective care unit. He is awake and alert. He still quite dyspneic with minimal conversation, minimal exertion. Presently he is off the BiPAP at night 4 L/m per nasal cannula. He also makes with BiPAP 14/5 on 40% FiO2. Today states he is doing about the same as compared to yesterday. No significant improvement but no worse. White count 16.0. Hemoglobin 13.2. Sodium 1:30. Potassium 4.4. Chloride 98. Bicarb 28. BUN 27. Creatinine 0.74. Glucose 147. AST 29. ALT 29. He is continued on DuoNeb inhalations, Pulmicort and Perforomist inhalations, IV Solu-Medrol, ceftriaxone and azithromycin. ProCalcitonin 1.24. He remains on heparin drip for troponin leak. The patient is seen today 12/12/2021 in follow-up on the selective care unit. He is less short of breath with activity. Left short of breath conversation. He has a loose nonproductive cough. He is maintaining O2 saturations in the 90s on 5 L/m per nasal cannula. No new labs today. If he is continued on DuoNeb inhalations, Pulmicort and Perforomist inhalations, IV Solu-Medrol. Remains on antibiotics in the form of ceftriaxone and azithromycin. The patient is states thousand and 22 in follow-up on the elective care unit. He is currently sitting up in a chair at the bedside. Awake and alert in no acute distress. Doing a bit better today compared to yesterday. He is currently on 5 L high flow nasal cannula and maintaining O2 saturations in the 90s. He has been alternating with BiPAP 14/5 and 40% FiO2. He remains on DuoNeb inhalations, Pulmicort and Perforomist inhalations, IV Solu-Medrol. Antibiotics in the form of azithromycin and ceftriaxone. The patient is seen today 12/14/2021 in follow-up on the selective care unit. He is awake and alert in no acute distress. Currently sitting up in a chair at the bedside.He is currently maintaining O2 saturations in the mid 90s on 4 L/m nasal cannula. Less shortness of breath, less coughing. He remains on DuoNeb inhalations, Pulmicort and Perforomist inhalations, prednisone. Antibiotics in the form of ceftriaxone. Objective - Vital Signs Vital signs: Vital Signs Temp 97.6 F 12/14/21 08:00 Pulse 86 12/14/21 12:18 Resp 16 12/14/21 08:00 BP 149/65 12/14/21 08:00 Pulse Ox 95 12/14/21 08:32 FiO2 50 12/13/21 23:39 Intake & Output 12/13/21 12/14/21 12/14/21 18:59 06:59 18:59 Intake Total 970 Output Total 700 Balance 270 Intake: Oral 970 Output: Urine 700 Other: Voiding Method Urinal Toilet Toilet Urinal Urinal # Voids 2 1 1 - Exam GENERAL EXAM: Alert, hoarse, 66-year-old male, up in a chair at the bedside, on 4 L nasal cannula currently, alternating with BiPAP support 14/5 and FiO2 of 40%. HEAD: Normocephalic/atraumatic. EYES: Normal reaction of pupils, equal size. Conjunctiva pink, sclera white. NOSE: Clear with pink turbinates. THROAT: No erythema or exudates. NECK: No masses, no JVD, no thyroid enlargement, no adenopathy. CHEST: No chest wall deformity. Symmetrical expansion. LUNGS: Diminished breath sounds bilaterally, does have expiratory wheezing in the upper airways CVS: Regular rate and rhythm, normal S1 and S2, no gallops, no murmurs, no rubs ABDOMEN: Soft, nontender. No hepatosplenomegaly, normal bowel sounds, no guarding or rigidity. EXTREMITIES: No clubbing, no edema, no cyanosis, 2+ pulses and upper and lower extremities. MUSCULOSKELETAL: Muscle strength and tone normal. SPINE: No scoliosis or deformity SKIN: No rashes CENTRAL NERVOUS SYSTEM: No focal deficits, tone is normal in all 4 extremities. PSYCHIATRIC: Alert and oriented -3. Appropriate affect. Intact judgment and insight. - Labs CBC & Chem 7: 12/11/21 05:19 12/11/21 05:19 Assessment and Plan Assessment: Acute on chronic hypoxic respiratory failure related to acute exacerbation of COPD and possible postobstructive pneumonia. Pro-calcitonin 1.24. Currently on ceftriaxone. History of metastatic non-small cell lung cancer, treated with chemotherapy and immunotherapy. CT scan of the chest revealed enlarging left hilar mass now measuring 3.6 x 2.6 cm. Severe chronic obstructive pulmonary disease, maintained on Trelegy, prednisone 10 mg daily as well as home oxygen Chronic laryngitis History of laryngeal cancer status post radiation Former smoker, quit smoking in 2018 Hyperlipidemia Plan: The patient was seen and evaluated On 4 L nasal cannula alternating with BiPAP 14/5 on 40% FiO2 Continue the current treatment plan Titrate the FiO2 as tolerated His overall prognosis is poor Probable discharge in the a.m. We will continue to follow I have personally seen and examined the patient, performed the documentation and the assessment and plan as written. Number of minutes spent on the visit: 10.
[2021-12-14] MEDS: SODIUM CHLORIDE 0.9% 1,000 ML IV SCH ×2 (13:18→19:59)
[2021-12-14] MEDS: predniSONE 50 MG TAB PO SCH (13:19)
[2021-12-14] MEDS: MAG HYDROX/AL HYDROX/SIMETH 30 ML CUP PO PRN (13:19)
[2021-12-15] MEDS: SODIUM CHLORIDE 0.9% 1,000 ML IV SCH ×2 (03:57→11:56)
[2021-12-15] MEDS: IPRATROPIUM-ALBUTEROL 3 ML NEB INHALATION SCH ×2 (07:46→11:13)
[2021-12-15] MEDS: BUDESONIDE 1 MG/2 ML NEBU INHALATION SCH (07:46)
[2021-12-15] MEDS: FORMOTEROL FUMARATE 20 MCG/2 ML NEBU INHALATION SCH (07:47)
[2021-12-15 09:04] VITALS: BP 111/82; RESP 20; TEMP 96.9
[2021-12-15] MEDS: predniSONE 50 MG TAB PO SCH (09:06)
[2021-12-15] MEDS: ISOSORBIDE MONONITRATE ER 30 MG TAB.ER.24H PO SCH (09:06)
[2021-12-15] MEDS: CHOLECALCIFEROL 25 MCG (1000 IU) TABLET PO SCH (09:07)
[2021-12-15] MEDS: ATORVASTATIN 20 MG TAB PO SCH (09:07)
[2021-12-15] MEDS: METOPROLOL SUCCINATE (ER) 50 MG TAB.ER.24H PO SCH (09:07)
[2021-12-15] MEDS: ASPIRIN 81 MG PO SCH (09:07)
[2021-12-15] MEDS: SOTORASIB 120 MG PO SCH (09:08)
[2021-12-15 11:16] VITALS: PULSE 88
--- NOTE | 2021-12-15 14:13 | P.DS ---
Providers Date of admission: 12/10/21 09:46 Expected date of discharge: 12/15/21 Attending physician: Bel García MD Consults: 12/10/21 09:45 Consult Physician Routine Consulting Provider: Blaine Ellis Consult Reason/Comments: COPD, PNA Do you want consulting provider notified?: Yes Primary care physician: Deuce Chapman Hospital Course: Discharge Diagnosis: Acute on chronic hypoxic respiratory failure Acute COPD exacerbation History of metastatic non-small cell lung cancer Immunosuppressed Elevated troponin Chronic laryngitis Hyperlipidemia Hospital Course: 66-year-old male with history of severe COPD, non-small cell lung cancer, history of laryngeal cancer, chronic laryngitis presented with shortness of breath. Patient admitted for acute on chronic hypoxic respiratory failure secondary to COPD exacerbation. He required BiPAP support for respiratory failure. He also required IV antibiotics for presumed pneumonia, bronchodilators and IV steroids. He was seen by pulmonology. At discharge patient was his baseline home oxygen of 4 L. Patient also had mild troponin elevation, evaluated by cardiology. Echocardiogram showed mild to moderate concentric LVH with normal EF. Troponin elevation likely secondary to demand ischemia. CT chest revealed large and left hilar mass now measuring 3.62.6 cm. At discharge, patient encouraged to be evaluated by hospice through [facility]. However patient does not want to consider hospice care at the moment. Patient is at high risk for readmission. Patient seen and examined at bedside. Vital signs reviewed and stable. General: nontoxic, no distress, appears at stated age Derm: warm, dry Head: atraumatic, normocephalic, symmetric Eyes: EOMI, no lid lag, anicteric sclera Mouth: no lip lesion, mucus membranes moist Cardiovascular: S1S2 reg, no murmur Lungs: bilateral scattered wheezes , no accessory muscle use, 4L NC Abdominal: soft, nontender to palpation, no guarding, no appreciable organome gia Ext: no gross muscle atrophy, trace peripheral edema, no contractures Neuro: CN II-XI grossly intact, no focal neuro deficits Psych: Alert, oriented, appropriate affect A total of 37 minutes of time were spent preparing this complex discharge summary. Patient was discharged on 12/15/21 at 10: 11 AM . Patient Condition at Discharge: Stable Plan - Discharge Summary Discharge Rx Participant: Yes New Discharge Prescriptions: New Metoprolol Succinate (ER) [Toprol XL] 50 mg PO DAILY #30 tab Aspirin 81 mg PO DAILY #30 tab Isosorbide Mononitrate ER [Imdur] 30 mg PO DAILY #30 tab Continue Atorvastatin Calcium [Lipitor] 20 mg PO DAILY Albuterol Inhaler [Ventolin Hfa Inhaler] 2 puff INHALATION RT-QID PRN PRN Reason: Shortness Of Breath Ascorbic Acid [Vitamin C] 1,000 mg PO DAILY Cholecalciferol [Vitamin D3 (25 Mcg = 1000 Iu)] 25 mcg PO DAILY Fluticasone Nasal [place] [Flonase Nasal [place]] 2 spray EA NOSTRIL DAILY PRN PRN Reason: Congestion Fluticasone/Umeclidin/Vilanter [Trelegy Ellipta 200-62.5-25] 1 puff INHALATION RT-DAILY HYDROcodone/APAP 10-325MG [[place] 10-325] 1 tab PO TID PRN PRN Reason: Pain Ipratropium-Albuterol Nebulize [Duoneb 0.5 mg-3 mg/3 ml Soln] 3 ml INHALATION RT-QID LORazepam [Ativan] 0.5 mg PO BID PRN 30 Days #30 tab PRN Reason: Agitation Or Acute Anxiety Sotorasib [Lumakras] 960 mg PO DAILY Multivit,Calc,Min/FA/K1/Lycop [One-A-Day Men's Complete Tab] 1 tab PO DAILY Etodolac 400 mg PO DAILY predniSONE [Deltasone] 20 mg PO DAILY Vitamin B Complex 1 cap PO DAILY Discontinued Metoprolol Succinate (ER) [Toprol Xl] 25 mg PO DAILY Discharge Medication List Atorvastatin Calcium [Lipitor] 20 mg PO DAILY 05/31/20 [History] Albuterol Inhaler [Ventolin Hfa Inhaler] 2 puff INHALATION RT-QID PRN 01/17/21 [History] Etodolac 400 mg PO DAILY 01/17/21 [History] Multivit,Calc,Min/FA/K1/Lycop [One-A-Day Men's Complete Tab] 1 tab PO DAILY 01/17/21 [History] Ascorbic Acid [Vitamin C] 1,000 mg PO DAILY 06/16/21 [History] Cholecalciferol [Vitamin D3 (25 Mcg = 1000 Iu)] 25 mcg PO DAILY 06/16/21 [History] Fluticasone Nasal [place] [Flonase Nasal [place]] 2 spray EA NOSTRIL DAILY PRN 06/16/21 [History] Fluticasone/Umeclidin/Vilanter [Trelegy Ellipta 200-62.5-25] 1 puff INHALATION RT-DAILY 06/16/21 [History] HYDROcodone/APAP 10-325MG [[place] 10-325] 1 tab PO TID PRN 06/16/21 [History] Ipratropium-Albuterol Nebulize [Duoneb 0.5 mg-3 mg/3 ml Soln] 3 ml INHALATION RT-QID 06/16/21 [History] predniSONE [Deltasone] 20 mg PO DAILY 07/30/21 [History] Vitamin B Complex 1 cap PO DAILY 10/11/21 [History] LORazepam [Ativan] 0.5 mg PO BID PRN 30 Days #30 tab 10/17/21 [Rx] Sotorasib [Lumakras] 960 mg PO DAILY 12/10/21 [History] Aspirin 81 mg PO DAILY #30 tab 12/15/21 [Rx] Isosorbide Mononitrate ER [Imdur] 30 mg PO DAILY #30 tab 12/15/21 [Rx] Metoprolol Succinate (ER) [Toprol XL] 50 mg PO DAILY #30 tab 12/15/21 [Rx] Follow up Appointment(s)/Referral(s): Deuce Chapman MD [Primary Care Provider] - 1-2 days (Please call to schedule an appointment in nex 1-2 days, office unable to answer call at time of discharge.) Naa Gonzalez MD [STAFF PHYSICIAN] - 01/02/22 1:00 pm [facility] Visiting Nurse, [NON-STAFF] - ([facility] will contact you to set up schedule.) Patient Instructions/Handouts: COPD (Chronic Obstructive Pulmonary Disease) (DC), Chronic Lung Disease and Infection Prevention (DC) Activity/Diet/Wound Care/Special Instructions: Please see Pulmonology and oncology in 1-2 weeks. Discharge Disposition: HOME SELF-CARE
== END 2021-12-15 13:17 | disposition home or self-care (01) | DRG 190 ==
LOC: EC 07:25 → 3SCARD 09:46
PROVIDERS: ADMIT Internal Medicine; ATTEND Internal Medicine
PROC: 5A09557 Assistance with Respiratory Ventilation, Greater than 96 Consecutive Hours, Continuous Positive Airway Pressure (ICD-10-PCS; principal; 2021-12-10)
DX: J44.1 Chronic obstructive pulmonary disease with (acute) exacerbation (principal); I21.A1 Myocardial infarction type 2; J18.9 Pneumonia, unspecified organism; J96.21 Acute and chronic respiratory failure with hypoxia; D84.9 Immunodeficiency, unspecified; J44.0 Chronic obstructive pulmonary disease with (acute) lower respiratory infection; E78.5 Hyperlipidemia, unspecified; I27.20 Pulmonary hypertension, unspecified; J37.0 Chronic laryngitis; I08.1 Rheumatic disorders of both mitral and tricuspid valves; R00.0 Tachycardia, unspecified; R79.89 Other specified abnormal findings of blood chemistry; K21.9 Gastro-esophageal reflux disease without esophagitis; Z79.52 Long term (current) use of systemic steroids; Z79.899 Other long term (current) drug therapy; Z82.49 Family history of ischemic heart disease and other diseases of the circulatory system; Z85.118 Personal history of other malignant neoplasm of bronchus and lung; Z85.21 Personal history of malignant neoplasm of larynx; Z87.891 Personal history of nicotine dependence; Z92.21 Personal history of antineoplastic chemotherapy; Z92.3 Personal history of irradiation; Z88.0 Allergy status to penicillin; Z88.2 Allergy status to sulfonamides
CPT/HCPCS: 36415; 71045; 80053; 83605; 83880; 84145; 84484; 85025; 85379; 85610; 85730; 93005; 93306; 94640; 94660; 94760; 96365; 96366; 96368; 96375; 99291

== ENCOUNTER → 2022-01-26 | Outpatient (CLI) | payer MEDICARE, OTHER ==
[2022-01-26 11:30] LABS: African American GFR (CKD) >90 (>60 ml/min/1.73 sqM); Blood Urea Nitrogen 18 mg/dL (9-20); Non-African American GFR(CKD) >90 (>60 ml/min/1.73 sqM)
--- NOTE | 2022-01-26 12:31 | CT ---
EXAMINATION TYPE: CT chest w con DATE OF EXAM: 01/26/2022 COMPARISON: November 05, 2021 HISTORY: f/u lung ca CT DLP: 364.3 mGycm Automated exposure control for dose reduction was used. CONTRAST: CT scan of the chest is performed with IV Contrast, patient injected with 70cc mL of Isovue 300. FINDINGS: LUNGS: Spiculated left infrahilar mass persists although is much smaller in size with current measure ment of 1.5 x 1.3 cm versus 3.6 x 2.6 cm previously. There are multiple new small pulmonary nodules w ithin the right upper lobe anteriorly and posteriorly medially all less than 4.5 mm in size. Addition al new nodule right lower lobe image 41 measures 9.7 mm. Total number of new nodules throughout the r ight lung is approximately 16. No new nodules are seen within the left lung. There is underlying emph ysematous change and hyperinflation. MEDIASTINUM: There are no greater than 1 cm hilar or mediastinal lymph nodes. No pericardial effusi on is seen. Thoracic aorta is of normal caliber. The heart is not enlarged. UPPER ABDOMEN: No significant abnormality appreciated. OTHER: Last week osseous metastases are noted within the thoracic spine essentially unchanged from p rior study. Loss of height involving the approximate T7 segment is also stable superior endplate. IMPRESSION: 1. Left infrahilar mass persists although is much smaller in size. 2. Multiple new small pulmonary nodules throughout the right lung greatest within the right upper lob e as discussed above most of which measure less than 4.5 mm although there is a right lower lobe pulm onary nodule measuring 9.7 mm. Metastatic disease is not excluded. 3. Blastic lesions within the thoracic spine persist essentially unchanged.
== END | disposition home or self-care (01) ==
LOC: RADCTMAIN 10:42
PROVIDERS: ATTEND Internal Medicine Hematology & Oncology
DX: C34.32 Malignant neoplasm of lower lobe, left bronchus or lung (principal); R91.8 Other nonspecific abnormal finding of lung field
CPT/HCPCS: 82565; 84520; 71260; 36415; Q9967